=== PATIENT | male | born 1960 ===

== ENCOUNTER 2024-05-29 10:51 | Outpatient (OUT) | payer MEDICARE, MEDICAID, SELFPAY ==
--- NOTE | 2024-05-29 | XR_ITS ---
The [address] [address] Patient Name: VARINDER RIVERA MRN: [id number] date: 1960 Sex: M Assigned Patient Location: Current Patient Location: Accession/Order Number: [id number] Exam Date: 05/29/2024 10:53 Report Date: 06/02/2024 14:30 At the request of: MARQUEZ FUENTES Procedure: XR lumbar spine min 4V EXAMINATION: XR lumbar spine min 4V HISTORY: LUMBAR SPINE PAIN COMPARISON: CT lumbar spine 06/18/2017 FINDINGS: BONES: Moderate degenerative facet arthropathy L4-5, L5-S1 likely encroaching on the neural foramen. Mild height reduction of L5 vertebral body; degenerative endplate changes versus compression fracture. DISC SPACES: Moderate narrowing L5-S1. PARASPINOUS: Prior endovascular stenting of the right and left iliac arteries. OTHER: Negative. XR/XR lumbar spine min 4V IMPRESSION: 1. Degenerative changes of lower lumbar spine and possible mild compression fracture of L5. This could also represent sclerotic degenerative endplate changes. Consider MRI for further evaluation. Electronically authenticated by: MARIO ALBERTO BEASLEY Date: 06/02/2024 14:30
== END 2024-05-29 10:52 | disposition home or self-care (01) ==
LOC: EC 10:51
PROVIDERS: Visit Provider Orthopaedic Surgery Orthopaedic Surgery of the Spine
DX: M54.50 Low back pain, unspecified (principal); M51.369 Other intervertebral disc degeneration, lumbar region without mention of lumbar back pain or lower extremity pain
CPT/HCPCS: 72110

== ENCOUNTER 2024-07-03 10:39 | Outpatient (OUT) | payer MEDICARE, MEDICAID, SELFPAY ==
--- NOTE | 2024-07-03 | XR_ITS ---
[address] [address] Patient Name: VARINDER RIVERA MRN: [id number] date: 1960 Sex: M Assigned Patient Location: Current Patient Location: Accession/Order Number: [id number] Exam Date: 07/03/2024 10:40 Report Date: 07/04/2024 07:48 At the request of: MARQUEZ FUENTES Procedure: XR cervical spine w flex/ext EXAMINATION: XR cervical spine w flex/ext HISTORY: CERVICAL SPINE PAIN COMPARISON: No relevant comparison available. FINDINGS: BONES: Mild right convex curvature of cervical spine. No fracture, spondylolisthesis, or change in alignment during flexion and extension. Multilevel mild degenerative facet arthropathy. DISC SPACES: Moderate narrowing C5-C6, C6-C7. PARASPINOUS: Atherosclerotic disease of left carotid bulb. OTHER: Negative. XR/XR cervical spine w flex/ext IMPRESSION: 1. No acute bone abnormality. 2. Degenerative disc disease of lower cervical spine. 3. Moderate or possibly greater atherosclerotic disease of left carotid bulb. Consider further evaluation with ultrasound of carotid arteries bilaterally. Electronically authenticated by: MARIO ALBERTO BEASLEY Date: 07/04/2024 07:48
--- OUTSIDE RECORDS SUMMARY | 2024-07-03 10:48 | XMS_ITS | CCD ---
Author Organization [facility] ion Partnership [facility] Care Team Providers Care Cloth Mender Name Role Phone LYNNE GEE Unavailable Unavailabl e NESSA STRONG Unavailable Unavailabl e YENIFER VILLATORO (PA) Unavailable Unavailab CHAYO Plummer Unavailable Unavailable YENFIER VILLATORO (PA) Unavailable Unavailab SUKHJINDER Ramirez Unavailable Unavailable CANOS IV, DANIAL YESSICA Admitting Unavaila ble CANOS IV, DANIAL YESSICA Attending Unavaila ble CANOS IV, DANIAL YESSICA Admitting Unavaila ble CANOS IV, DANIAL YESSICA Attending Unavaila ble Zach Terry Unavailable Mary Alanis Unavailable [facility] Primary Care Provider Mast, DO Tad Attending Provider [phone] DO Félix Lyle Referring Provider [phone] DO Prem Encarnacion Attending Provider Luís DO Sikh Referring Provider KEVIN Russo Attending Provider [facility] Primary Care Provider KEVIN Russo Attending Provider Mast, DO Tad Attending Provider [phone] Solitariorie, DO Sikh Referring Provider [facility] Primary Care Provider MARY Moreno Attending Provider MD Katarina Lugo Attending Provider Sharda Reza Unavailable Mianor Paez Unavailable Angel Meléndez Unavailable [facility] Primary Care Provider MARY Moreno Attending Provider Ashia Sotomayor Unavailable MD Angel Meléndez Attending Provider ART Sotomayor-C Ashia Granger Attending Provider [facility] Primary Care Provider [phone] MD Angel Meléndez Attending Provider Champ Jhaveri Unavailable Negar Francois MD Primary Care Provider Geronimo Staley MD Primary Care Provider [phone] MD Marii Delatorre Attending Provider MD Negar Francois Primary Care Provider [phone] MARY Moreno Attending Provider HARIS STEWARD Referring Unavailable ALESSANDRO, MUHAMID Primary Care Unavailable MARCELINA STERLING Referring Unavailable ALESSANDRO, MUHAMID Primary Care Unavailable MARCELINA STERLING Referring Unavailable ALESSANDRO, MUHAMID Primary Care Unavailable MD Negar Francois Primary Care Provider MD Angel Meléndez Attending Provider [phone] MD Negar Francois Primary Care Provider [phone] MARY Moreno Attending Provider DAVID HAILE Attending Unavailable CARIE PETERSON Attending Unavailable CARIE PETERSON Attending Unavailable VU, FREDERIC-ADRI Referring Unavailable ALESSANDRO, MUHAMID M Primary Care Unavailable VU, [facility]EDER[facility]-ADRI Referring Unavailable ALESSANDRO, MUHAMID M Primary Care Unavailable LINDA REGALADO Referring Unavailable ALESSANDRO, MUHAMID M Primary Care Unavailable HAILE, DAVID M Referring Unavailable ALESSANDRO, MUHAMID M Primary Care Unavailable HAILEDAVID M Referring Unavailable ALESSANDRO, MUHAMID M Primary Care Unavailable ANGEL XAVIER Attending Unavailable CHAMP REED Referring Unavailable ALESSANDRO, MUHAMID M Primary Care Unavailable REINCHAMP TOURE Referring Unavailable ALESSANDRO, MUHAMID M Primary Care Unavailable JONATHONBRISA Attending Unavailable JONATHONBRISA Referring Unavailable ALESSANDRO, MUHAMID M Primary Care Unavailable MATT VILLANUEVA Admitting Unavailable MATT VILLANUEVA Attending Unavailable CHAMP REED Referring Unavailable ALESSANDRO, MUHAMID M Primary Care Unavailable BRISA YAN Attending Unavailable JONATHON, BRISA M Referring Unavailable ALESSANDRO, MUHAMID M Primary Care Unavailable ALESSANDRO, MUHAMID M Referring Unavailable ALESSANDRO, MUHAMID M Primary Care Unavailable Alessandro Negar CHACON [facility] Attending Unavailable ALESSANDRO, MUHAMID M Referring Unavailable ALESSANDRO, MUHAMID M Primary Care Unavailable ALESSANDRO, MUHAMID M Referring Unavailable ALESSANDRO, MUHAMID M Primary Care Unavailable SHARDA VALENTINO Attending Unavailable JAZMINE, [facility] Attending Unavailable ALESSANDRO, MUHAMID M Referring Unavailable ALESSANDRO, MUHAMID M Primary Care Unavailable LINDA REGALADO Attending Unavailable ALESSANDRO, MUHAMID M Referring Unavailable ALESSANDRO, MUHAMID M Primary Care Unavailable JAZMINE [facility] Attending Unavailable ALESSANDRO, MUHAMID M Referring Unavailable ALESSANDRO, MUHAMID M Primary Care Unavailable LINDA REGALADO Attending Unavailable ALESSANDRO, MUHAMID M Referring Unavailable ALESSANDRO, MUHAMID M Primary Care Unavailable ALESSANDRO, MUHAMID M Attending Unavailable ALESSANDRO, MUHAMID M Referring Unavailable ALESSANDRO, MUHAMID M Primary Care Unavailable SHAMAR XIAO Attending UnavailTAD Davis Referring Unavailable ALESSANDRO, MUHAMID M Primary Care Unavailable ALESSANDRO, MUHAMID M Referring Unavailable ALESSANDRO, MUHAMID M Primary Care Unavailable ALESSANDRO, MUHAMID M Attending Unavailable ALESSANDRO, MUHAMID M Referring Unavailable ALESSANDRO, MUHAMID M Primary Care Unavailable LINDA REGALADO Attending Unavailable ALESSANDRO, MUHAMID M Referring Unavailable ALESSANDRO, MUHAMID M Primary Care Unavailable TAMMY OLVERA Attending Unavailable ALESSANDRO, MUHAMID M Referring Unavailable ALESSANDRO, MUHAMID M Primary Care Unavailable ALESSANDRO, MUHAMID M Referring Unavailable ALESSANDRO, MUHAMID M Primary Care Unavailable ALESSANDRO, MUHAMID M Referring Unavailable ALESSANDRO, MUHAMID M Primary Care Unavailable ALESSANDRO, MUHAMID M Attending Unavailable ALESSANDRO, MUHAMID M Referring Unavailable ALESSANDRO, MUHAMID M Primary Care Unavailable ALESSANDRO, MUHAMID M Attending Unavailable ALESSANDRO, MUHAMID M Referring Unavailable ALESSANDRO, MUHAMID M Primary Care Unavailable ALESSANDRO, MUHAMID M Attending Unavailable ALESSANDRO, MUHAMID M Referring Unavailable ALESSANDRO, MUHAMID M Primary Care Unavailable REGALADO, LINDA Attending Unavailable ALESSANDRO, MUHAMID M Referring Unavailable ALESSANDRO, MUHAMID M Primary Care Unavailable CHAMP REED Attending Unavailable TAMMY OLVERA Referring Unavailable ALESSANDRO, MUHAMID M Primary Care Unavailable REGALADO, LINDA Attending Unavailable ALESSANDRO, MUHAMID M Referring Unavailable ALESSANDRO, MUHAMID M Primary Care Unavailable ZACH ALCANTAR Attending Unavailable ALESSANDRO, MUHAMID M Referring Unavailable ALESSANDRO, MUHAMID M Primary Care Unavailable BIRSA YAN Attending Unavailable ALESSANDRO, MUHAMID M Referring Unavailable ALESSANDRO, MUHAMID M Primary Care Unavailable REGALADO, LINDA Attending Unavailable ALESSANDRO, MUHAMID M Referring Unavailable REGALADO, LINDA Primary Care Unavailable Regalado [facility] Linda Primary Care Provider ZACH REGALADONDRA Referring Unavailable ALESSANDRO, MUHAMID M Primary Care Unavailable REGALADO, LINDA Referring Unavailable REGALADO, LINDA Primary Care Unavailable ALESSANDRO, MUHAMID M Referring Unavailable ALESSANDRO, MUHAMID M Primary Care Unavailable REGALADO, LINDA Referring Unavailable REGALADO, LINDA Primary Care Unavailable JR. SLATER GEORGE C Attending Unavaila blaine SLATER JR., GEORGE C Referring Unavaila MARII Cano Attending Unavailable FERNANDO MORENO Referring Unavailable JUAREZ THRASHER Attending Unavailable JR. SLATER GEORGE C Referring Unavaila MARII Cano Attending Unavailable JUAREZ THRASHER Attending Unavailable JR. SLATER GEORGE C Referring Unavaila ble BROWNFERNANDO Attending Unavailable STEPANIC, JR., CARA Adams Attending Unavaila ble MARII DELATORRE Attending Unavailable STEPANIC, JR., CARA Adams Referring Unavaila ble STEPANIC, JR., CARA Adams Attending Unavaila ble MARII DELATORRE Attending Unavailable STEPANIC, JR., CARA Adams Attending Unavaila ble BROWNFERNANDO Attending Unavailable FERNANDO MORENO Referring Unavailable SNOW CHUNG Attending Unavailab le BROWNFERNANDO Attending Unavailable GISELA BRUCE Attending Unavailable HARIS STEWARD Referring Unavailable FERNANDO MORENO Attending Unavailable STEPANIC, JR., CARA Adams Attending Unavaila ble STEPANIC, JR., CARA Adams Referring Unavaila ble SNOW CHUNG Attending Unavailab le BROWNFERNANDO Attending Unavailable STEPANIC, JR., CARA Adams Referring Unavaila ble BROWNFERNANDO Attending Unavailable STEPANIC, JR., CARA Adams Attending Unavaila ble SNOW CHUNG Attending Unavailab le FERNANDO MORENO Attending Unavailable BROWNFERNANDO Attending Unavailable BROWNSOSAS Darling Attending Unavailable SNOW CHUNG Attending Unavailab le BROWNFERNANDO Attending Unavailable STEPANIC, JR., CARA Adams Attending Unavaila ble BROWNFERNANDO Attending Unavailable BROWN FERNANDO Darling Attending Unavailable BROWN FERNANDO Darling Attending Unavailable BROWN FERNANDO Darling Attending Unavailable BROWNPANFERNANDO Darling Attending Unavailable HILLS, HARRY D Referring Unavailable HILLS, HARRY D Attending Unavailable HILLS, HARRY D Referring Unavailable BROWNFERNANDO Attending Unavailable Linda Regalado Primary Care Unavailable Angel Meléndez Admitting Unavailabl e Angel Meléndez Attending Unavailabl e Fernando Moreno Admitting Unavailable BrownSosas Darling Attending Unavailable Alessandro, Muhamid Primary Care Unavailable Pan Morenoolas Darling Admitting Unavailable BrownSosas Darling Attending Unavailable Alessandro, Muhamid Primary Care Unavailable Angel Meléndez Admitting Unavailabl e Angel Meléndez Attending Unavailabl e Alessandro, Muhamid Primary Care Unavailable Alessandro, Muhamid Primary Care Unavailable Marii Delatorre Admitting Unavailable Marii Delatorre Attending Unavailable Angel Meléndez Admitting UnavailAngel Zimmerman Attending Unavailabl e Alessandro, [facility] Unavailable Alessandro MD, [facility] Unavailable Erica Navarro Attending Unavailable Ramon Erica Admitting Unavailable Dolce, Johnny R Attending Unavailable Dolce, Johnny R Admitting Unavailable Alessandro , [facility] Unavailable Alessandro MD, [facility] Unavailable Zach Alcantar Attending Unavailable Zach Alcantar Admitting Unavailable Alessandro MD, [facility] Unavailable Marii Delatorre Admitting Unavailable Marii Delatorre Attending Unavailable Dolce, Johnny R Attending Unavailable Dolce, Johnny R Admitting Unavailable Alessandro MD, [facility] Unavailable Roxana Cabrales Attending Unavailable Roxana Cabrales Admitting Unavailable Alessandro MD, [facility] Unavailable Alessandro MD, [facility] Admitting Unavailable Alessandro MD, [facility] Unavailable Favoi, DIANA Chew Attending Unava ilable Favio, DIANA Adamson M Admitting Unava ilable Alessandro CHACON, [facility] Unavailable Tom Matias Attending Unavailable Tom Matias Admitting Unavailable Alessandro CHACON, [facility] Unavailable Erica Navarro Attending Unavailable Erica Navarro Admitting Unavailable Alessandro MD, [facility] Unavailable ROBERTO CARLOS RATLIFF MD Attending Unavailable ROBERTO CARLOS RATLIFF MD Admitting Unavailable Roxana Cabrales Attending Unavailable Roxana Cabrales Admitting Unavailable Alessandro MD, [facility] Unavailable Dolce, Johnny R Attending Unavailable Dolce, Johnny R Admitting Unavailable Alessandro MD, [facility] Unavailable Roxana Cabrales Attending Unavailable Roxana Cabrales Admitting Unavailable Alessandro CHACON, [facility] Unavailable Erica Navarro Admitting Unavailable Erica aNvarro Attending Unavailable Alessandro CHACON, [facility] Unavailable Alessandro MD, [facility] Unavailable Shamar Xiao Attending Unavailabl Shmaar Ramos Admitting Unavailabl e Alessandro CHACON, [facility] Unavailable Marii Delatorre Attending Unavailable Marii Delatorre Admitting Unavailable Alessandro CHACON, [facility] Primary Care Unavailable Tom Matias Admitting Unavailable Tom Matias Attending Unavailable Alessandro CHACON, [facility] Unavailable Fernando Moreno Attending Unavailable Fernando Moreno Admitting Unavailable Roxana Cabrales Admitting Unavailable Alesasndro CHACON, [facility] Care Unavailable Roxana Cabrales Attending Unavailable Alessandro CHACON, [facility] Care Unavailable CARA SLATER Attending Unavailable CARA SLATER Admitting Unavailable Carol Marin Attending Unavailable Alessandro CHACON, [facility] Primary Care Unavailable Carol Marin Admitting Unavailable [facility], [facility], [facility] Attending Unavailable [facility], [facility] Admitting Unavailable Alessandro MD, [facility] Unavailable Dolce, Johnny R Admitting Unavailable Dolce, Johnny R Attending Unavailable Alessandro MD, [facility] Care Unavailable [facility] MD, [facility] Attending Unavailable Alessandro MD, [facility] Admitting Unavailable Allergies Allergy Classification Reported Allergen(s) Allergy Type Date of Onset Reaction(s) Facility (1 source) No Known Medication Allergies; Translations: [No Known Medication Allergies] Propensity to adverse reactions to drug (disorder) [facility] Medications Current Medications Medication Drug Class(es) Dates Sig (Normalized) Sig (Original) acetaminophen 325 mg / HYDROcodone bitartrate 5 mg oral tablet (1 source) Opioid Agonist Start: 06-10-2024 End: 06-15-2024 HYDROcodone-aceta minophen (NORCO) 5-325 mg per tablet Indications: Fall, subsequent encounter , Closed displaced fracture of shaft of left clavicle, sequela Take 1 tablet by mouth every 8 (eight) hours as needed for pain for up to 5 days. Max Daily Amount: 3 tablets 15 tablet 06/10/2024 06/15/2024 Active acetaminophen 325 mg / oxyCODONE hydrochloride 10 mg oral tablet (11 sources) Opioid Agonist Start: 05-08-2024 End: 05-18-2024 take 1 tablet by mouth every six hours for pain oxyCODONE-acetami nophen (Percocet) 10-325 MG tablet Indications: Peroneal tendon tear, left, initial encounter Take 1 tablet by mouth every 6 (six) hours if needed for severe pain for up to 5 days 15 tablet 05/13/2024 05/18/2024 Active Start: 04-15-2024 End: 04-22-2024 take 1 tablet by mouth every six hours for pain oxyCODONE-acetaminophen (Percocet) 10-32 5 MG tablet Indications: Peroneal tendon tear, left, initial encounter Take 1 tablet by mouth every 6 (six) hours if needed for severe pain for up to 5 days 15 tablet 04/15/2024 04/22/2024 Discontinued Start: 03-18-2024 End: 03-23-2024 take 1 tablet by mouth every eight hours for pain oxyCODONE-acetaminophen (Percocet) 5-325 MG tablet Indications: Pain Take 1 tablet by mouth every 8 (eight) hours if needed for severe pain for up to 5 days 15 tablet 03/18/2024 03/23/2024 Active [id number] 200 actuat albuterol 0.09 mg/actuat metered dose inhaler (20 sources) beta2-Adrenergic Agonist Start: 12-16-2023 take 2 puff(s) by mouth every four hours as needed for wheezing albuterol (PROVENTIL HFA;VENTOLIN HFA) 90 mcg/actuation inhaler Indications: Chronic obstructive pulmonary disease, unspecified COPD type (CMS-HCC) INHALE 2 PUFFS BY MOUTH EVERY 4 HOURS NEEDED FOR WHEEZING OR SHORTNESS OF BREATH. 18 g 9 12/16/2023 Active Start: 07-04-2023 albuterol (PRO VENTIL,VENTOLIN) nebulizer solution 2.5 mg Start: 08-27-2022 take 1 puff(s) by in halation in the morning, then take 1 puff(s) by inhalation in the evening, then take 1 puff(s) by inhalation at bedtime albuterol HFA 90 mcg/act inhaler Inhale 1 puff in the morning and 1 puff in the evening and 1 puff before bedtime. 08/27/2022 Active Start: 08-27-2022 take 2 puff(s) by mo uth every four hours as needed for wheezing albuterol (PROVENTIL HFA;VENTOLIN HFA) 90 mcg/actuation inhaler Indications: Chronic obstructive pulmonary disease, unspecified COPD type (CMS-HCC) INHALE 2 PUFFS BY MOUTH EVERY 4 HOURS NEEDED FOR WHEEZING OR SHORTNESS OF BREATH. 18 g 10 08/27/2022 Active Start: 12-31-2017 take 2.5 mg by inhal ation three times daily Albuterol Sulfate Active 2.5 MG INHALATION Three times daily December 31, 2017 12:00am Start: 12-31-2017 End: 08-15-2020 take 1 puff(s) by inhalation every six hours Albuterol Sulfate Discontinued 2 PUFF INHALATION Q6H December 31, 2017 12:00am August 15, 2020 10:31am Albuterol Sulfat e (2.5 MG/3ML) 0.083% 3 ml Inhalation Three times a day Active albuterol 0.833 mg/ml / ipratropium bromide 0.167 mg/ml inhalation solution (20 sources) Anticholinergic, beta2-Adrenergic Agonist ipratropium-albutero l (Duo-Neb) 0.5-2.5 mg/3 mL nebulizer solution Take 3 mL by nebulization in the morning and 3 mL in the evening and 3 mL before bedtime. Active Albuterol Sulfate 108 (90 Base) MCG/ACT (20 sources) take 2 puff(s) by inhalation every six hours as needed Albuterol Sulfate 108 (90 Base) MCG/ACT 2 puffs as needed Inhalation every 6 hrs Active amantadine hydrochloride 100 mg oral capsule (20 sources) Influenza A M2 Protein Inhibitor Start : 10-22 take 1 capsule by mouth in the morning amantadine (Symmetrel) 100 MG capsule Take 100 mg by mouth in the morning and at noon 10/23/2023 Active Start: 10-17-2023 take 1 tablet by tania th once daily in the morning amantadine (Symmetrel) 100 MG tablet Indications: Fatigue, unspecified type Take 1 tablet (100 mg) by mouth Daily for 7 days, THEN 1 tablet (100 mg) in the morning and at noon. 187 tablet 10/17/2023 Active amitriptyline hydrochloride 25 mg oral tablet (14 sources) Tricyclic Antidepressant Start: 04-30-2024 take 1 tablet by mouth once daily amitriptyline (ELAVIL) 25 mg tablet Take 1 tablet (25 mg total) by mouth nightly. 30 tablet 2 04/30/2024 Active ampicillin 500 mg oral capsule (5 sources) Penicillin-class Antibacterial Start: 06-15-2024 ampicillin (Principen) 500 MG capsule 06/15/2024 Active ANORO ELLIPTA 62.5 mcg/25 mcg (3 sources) take 1 puff(s) by inhalation once daily ANORO ELLIPTA 62.5 mcg/25 mcg 1 PUFF INHALATION DAILY Active Aspir-81 81 MG (20 sources) take 1 tablet by mouth once daily Aspir-81 81 MG 1 tablet Orally Once a day for 90 days Active aspirin 81 mg delayed release oral tablet (20 sources) Platelet Aggregation Inhibitor, Nonsteroidal Anti-inflammatory Drug Start: 12-31-2017 End: 04-30-2024 take 1 tablet by mouth in the morning aspirin 81 mg Take 1 tablet (81 mg total) by mouth in the morning. 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 360 tablet 3 09/15/2021 07/19/2023 Discontinued Start: 12-31-2017 take 1 tablet by tania th in the morning, then take 1 tablet by mouth at bedtime carvediloL (COREG) 6.25 mg tablet Take 1 tablet (6.25 mg total) by mouth in the morning and 1 tablet (6.25 mg total) before bedtime. 180 tablet 3 07/19/2023 Active Carvedilol Activ e celecoxib 100 mg oral capsule (20 sources) Nonsteroidal Anti-inflammatory Drug Start: 07-02-2023 take 1 capsule by mouth in the morning celecoxib (CeleBREX) 100 MG capsule Take 100 mg by mouth in the morning and 100 mg in the evening. 07/02/2023 Active cephalexin 500 mg oral capsule (10 sources) Cephalosporin Antibacterial Start: 05-13-2024 End: 05-23-2024 take 1 capsule by mouth in the morning, then take 1 capsule by mouth in the evening, then take 1 capsule by mouth at bedtime, then take 1 capsule by mouth three times daily cephalexin (Keflex) 500 MG capsule Indications: Peroneal tendon tear, left, initial encounter Take 1 capsule (500 mg) by mouth in the morning and 1 capsule (500 mg) in the evening and 1 capsule (500 mg) before bedtime. Do all this for 10 days. Take one tablet by mouth three times daily. 30 capsule 05/13/2024 05/23/2024 Active Start: 04-15-2024 End: 04-25-2024 take 1 capsule by mouth in the morning, then take 1 capsule by mouth in the evening, then take 1 capsule by mouth at bedtime, then take 1 capsule by mouth three times daily cephalexin (Keflex) 500 MG capsule Indications: Peroneal tendon tear, left, initial encounter Take 1 capsule (500 mg) by mouth in the morning and 1 capsule (500 mg) in the evening and 1 capsule (500 mg) before bedtime. Do all this for 10 days. Take one tablet by mouth three times daily. 30 capsule 04/15/2024 04/25/2024 Active collagenase 0.25 unt/mg topical ointment (11 sources) Collagen-specific Enzyme Start: 05-13-2024 End: 06-16-2024 collagenase (Santyl) 250 UNIT/GM ointment Indications: Peroneal tendon tear, left, initial encounter Apply topically Daily 30 g 1 05/13/2024 06/16/2024 Active cyclobenzaprine hydrochloride 10 mg oral tablet (15 sources) Muscle Relaxant Start: 06-16-2024 End: 06-30-2024 take 1 tablet by mouth three times daily as needed for muscle spasms cyclobenzaprine (Flexeril) 10 MG tablet Indications: Traumatic closed fracture of distal clavicle with minimal displacement, left, initial encounter Take 1 tablet (10 mg) by mouth 3 (three) times a day as needed for muscle spasms (No Driving while taking medication) for up to 14 days 42 tablet 06/16/2024 06/30/2024 Active Start: 03-01-2024 End: 06-16-2024 take 1 tablet by mouth once daily as needed for muscle spasms cyclobenzaprine (Flexeril) 10 MG tablet TAKE 1 TABLET BY MOUTH EVERY NIGHT NEEDED FOR MUSCLE SPASMS 03/04/2024 06/16/2024 Discontinued (Therapy completed) take 1 tablet by tania th once daily cyclobenzaprine (FLEXERIL) 10 mg tablet Take 1 tablet (10 mg total) by mouth nightly. 0 Active cyproheptadine hydrochloride 4 mg oral tablet (20 sources) Start: 04-29-2023 End: 12-10-2024 take 1 tablet by mouth at bedtime cyproheptadine (Periactin) 4 MG tablet Indications: History of stroke , Bilateral tinnitus , Allergy, sequela Take 1 tablet (4 mg) by mouth at bedtime 90 tablet 3 12/11/2023 12/10/2024 Active dexamethasone 2 mg oral tablet (15 sources) Corticosteroid Start: 06-03-2024 End: 06-13-2024 dexAMETHasone (Decadron) 2 MG tablet Indications: Polyradiculopathy , Degeneration of intervertebral disc of lumbar region with lower extremity pain 2mg 3 pills po X3 days,2 pills po daily X3 days , then 1 pill po daily X3 days then stop 9 days 18 pills 18 tablet 06/03/2024 Active take 1 tablet by tania th three times daily dexAMETHasone (DECADRON) 2 mg tablet Yifan e 1 tablet (2 mg total) by mouth 3 (three) times a day. 0 Active fexofenadine hydrochloride 180 mg oral tablet (15 sources) Histamine-1 Receptor Antagonist Start: 12-04-2023 take 1 tablet by mouth in the morning fexofenadine (Veronica) 180 MG tablet Take 180 mg by mouth in the morning. 12/04/2023 Active fluticasone propionate 0.05 mg/actuat metered dose nasal spray (15 sources) Corticosteroid Start: 11-01-2023 take 1 spray(s) nasal route in the morning fluticasone propionate (FLONASE) 50 mcg/actuation nasal spray Administer 1 spray into each nostril in the morning. 16 mL 11/01/2023 Active Start: 07-10-2023 End: 07-19-2023 take 2 spray(s) nasal route in the morning fluticasone propionate (FLONASE) 50 mcg/actuation nasal spray Indications: Post-nasal drainage Administer 2 sprays into each nostril in the morning. 16 g 11 07/10/2023 07/19/2023 Discontinued 30 actuat fluticasone furoate 0.1 mg/actuat / umeclidinium 0.0625 mg/actuat / vilanterol 0.025 mg/actuat dry powder inhaler (20 sources) Anticholinergic, Corticosteroid, beta2-Adrenergic Agonist Start: 04-15-2023 End: 06-01-2024 take 1 puff(s) by mouth once daily in the morning cmnajosqibo-tbqwqafgf-bieecsiv (TRELEGY ELLIPTA) 100-62.5-25 mcg blister with device Indications: COPD, mild ([facility]) , Dyspnea on exertion INHALE 1 PUFF BY MOUTH ONCE DAILY IN THE MORNING 60 each 11 06/01/2024 Active Start: 04-09-2023 Fluticasone-Um eclidin-Vilanter (Trelegy Ellipta) 100-62.5-25 mcg blister with device Active 1 INH INHALATION Daily April 09, 2023 12:00am Start: 01-28-2023 Trelegy Ellipt a 100-62.5-25 MCG/ACT aerosol powder 01/28/2023 Active furosemide 40 mg oral tablet (5 sources) Loop Diuretic Start: 09-05-2023 End: 09-19-2023 take 1 tablet by mouth once daily furosemide (LASIX) 40 mg tablet Take 1 tablet (40 mg total) by mouth daily for 14 days. 14 tablet 0 09/05/2023 09/19/2023 Active Start: 08-20-2023 End: 08-27-2023 take 1 tablet by mouth in the morning furosemide (Lasix) 20 MG tablet Take 20 mg by mouth in the morning. 0 08/20/2023 08/27/2023 Active gabapentin 600 mg oral tablet (10 sources) Anti-epileptic Agent Start: 02-21-2024 take 1 tablet by mouth three times daily gabapentin (NEURONTIN) 600 mg tablet Indications: Cervical radiculopathy Take 1 tablet (600 mg total) by mouth 3 (three) times a day. 90 tablet 2 02/21/2024 Active gentamicin 0.001 mg/mg topical ointment (5 sources) Start: 06-10-2024 gentamicin (Garamycin) 0.1 % ointment See Instructions, Instructions: 1 rukhsana Topical to the left ankle wound every other day, # 30 gm, 1 Refill(s), Pharmacy: [facility], 1 rukhsana Topical to the left ankle wound every other day, 177.8, cm, 06/07/24 12:21:00 EST, Height, 91.63, kg, 06/07/24 12:24:00 EST, Weight Dosing 06/10/2024 Active hydrOXYzine hydrochloride 10 mg oral tablet (6 sources) Antihistamine Start: 04-24-2023 End: 04-23-2024 take 1 tablet by mouth every eight hours as needed for anxiety and anxiety hydrOXYzine HCl (Atarax) 10 MG tablet Indications: Anxiety Take 1 tablet (10 mg) by mouth every 8 (eight) hours if needed for itching. 270 tablet 3 04/24/2023 04/23/2024 Active lisinopril 20 mg oral tablet (20 sources) Angiotensin Converting Enzyme Inhibitor Start: 07-10-2021 take 1 tablet by mouth in the morning lisinopriL (PRINIVIL,ZESTRIL) 20 mg tablet Take 1 tablet (20 mg total) by mouth in the morning. 0 07/10/2021 Active methocarbamol 750 mg oral tablet (11 sources) Muscle Relaxant Start: 04-30-2024 End: 06-16-2024 take 1 tablet by mouth three times daily as needed for muscle spasms methocarbamoL (ROBAXIN) 750 mg tablet Indications: Cervical spondylosis without myelopathy , Chronic left-sided low back pain with left-sided sciatica Take 1 tablet (750 mg total) by mouth 3 (three) times a day as needed for muscle spasms. 90 tablet 04/30/2024 Active montelukast 10 mg oral tablet (20 sources) Leukotriene Receptor Antagonist Start: 12-11-2023 End: 12-10-2024 take 1 tablet by mouth at bedtime montelukast (Singulair) 10 MG tablet Indications: Allergy, sequela Take 1 tablet (10 mg) by mouth at bedtime 90 tablet 3 12/11/2023 06/16/2024 Discontinued (Therapy completed) nitroglycerin 0.4 mg sublingual tablet (20 sources) Nitrate Vasodilator Start: 12-31-2017 nitroglycerin (Nitrostat) 0.[address] 0.4 mg under the tongue every 5 (five) minutes if needed. 12/20/2022 Active Nitroglycerin 0. 4 MG Sublingual Active omeprazole 40 mg delayed release oral capsule (15 sources) Proton Pump Inhibitor Start: 03-12-2024 take 1 capsule by mouth in the morning omeprazole (PriLOSEC) 40 mg capsule Indications: Chronic cough , Gastroesophageal reflux disease, unspecified whether esophagitis present Take 1 capsule (40 mg total) by mouth in the morning. 30 capsule 6 03/12/2024 Active OXcarbazepine 150 mg oral tablet (20 sources) Anti-epileptic Agent Start: 06-24-2024 End: 06-24-2025 take 1 tablet by mouth once OXcarbazepine (Trileptal) 150 MG tablet Indications: Lumbar radiculopathy Take 1 tablet (150 mg) by mouth every 12 (twelve) hours 180 tablet 3 06/24/2024 06/24/2025 Active Start: 03-02-2024 End: 06-24-2024 take 1 tablet by mouth every twelve hours OXcarbazepine (Trileptal) 150 MG tablet Indications: Lumbar radiculopathy TAKE 1 TABLET BY MOUTH EVERY 12 HOURS 60 tablet 3 03/02/2024 06/24/2024 Discontinued Start: 02-21-2023 take 1 tablet by mouth once OX carbazepine (Trileptal) 150 MG tablet Indications: Pulsatile tinnitus Take 1 tablet (150 mg) by mouth every 12 (twelve) hours. 60 tablet 3 02/21/2023 Active predniSONE 20 mg oral tablet (2 sources) Start: 08-07-2023 End: 08-17-2023 predniSONE (Deltasone) 20 MG tablet Indications: Foot drop, right 3 pills po daily X3 days, then 2 pills po daily X3 days , then 1 pill po daily X3 days then stop 9 days ,18 pills 18 tablet 0 08/07/2023 08/17/2023 Active rivaroxaban 20 mg oral tablet (20 sources) Factor Xa Inhibitor Start: 10-29-2022 take 1 tablet by mouth at mealtime Xarelto 20 MG tablet Take 20 mg by mouth in the evening. Take with meals. 10/29/2022 Active Start: 12-23-2020 take 1 tablet by tania th once daily Rivaroxaban (Xarelto Dvt-Pe Treat 30d Start) 15 mg (42)- 20 mg (9) Tablets,Dose Pack Active 1 TAB PO Daily December 23, 2020 12:00am See instructions. Start: 12-23-2020 Rivaroxaban (X arelto Dvt-Pe Treat 30d Start) 15 mg (42)- 20 mg (9) Tablets,Dose Pack Active 1 TAB PO December 22, 2020 11:00pm See instructions. Start: 12-23-2020 Rivaroxaban (X arelto Dvt-Pe Treat 30d Start) 15 mg (42)- 20 mg (9) Tablets,Dose Pack Active 1 TAB PO December 23, 2020 12:00am See instructions. Xarelto 20 Activ e take 1 tablet by tania th every twenty-four hours Xarelto 20 MG 1 tablet with food Orally Once a day Active rosuvastatin calcium 40 mg oral tablet (20 sources) HMG-CoA Reductase Inhibitor Start: 05-30-2023 take 1 tablet by mouth in the morning rosuvastatin (Crestor) 40 MG tablet Take 40 mg by mouth in the morning. 05/30/2023 Active Rosuvastatin Jag cium Active tiZANidine 4 mg oral tablet (6 sources) Central alpha-2 Adrenergic Agonist Start: 08-07-2023 End: 09-06-2023 take 1 tablet by mouth at bedtime tiZANidine (Zanaflex) 4 MG tablet Indications: Foot drop, right Take 1 tablet (4 mg) by mouth at bedtime 30 tablet 3 08/07/2023 09/06/2023 Active topiramate 25 mg oral tablet (20 sources) Start: 03-25-2024 End: 05-01-2024 take 1 tablet by mouth at bedtime, then take 1 tablet by mouth twice daily topiramate (Topamax) 25 MG tablet Indications: C6 radiculopathy , Tremor , Lumbar radiculopathy Take 1 tablet (25 mg) by mouth at bedtime for 7 days, THEN 1 tablet (25 mg) 2 (two) times a day. 67 tablet 2 03/25/2024 Active 7 actuat umeclidinium 0.0625 mg/actuat / vilanterol 0.025 mg/actuat dry powder inhaler (11 sources) Anticholinergic, beta2-Adrenergic Agonist take 1 puff(s) by inhalation once daily Anoro Ellipta 62.5-25 MCG/ACT 1 puff Inhalation Once a day Active verapamil hydrochloride 180 mg extended release oral tablet (20 sources) Calcium Channel Esther Start: 01-20-2024 End: 05-18-2024 take 1 tablet by mouth at bedtime verapamil SR (Calan SR) 180 MG ER tablet Take 180 mg by mouth at bedtime 01/20/2024 Active Start: 09-09-2023 take 1 tablet by tania once daily verapamil SR (CALAN-SR) 180 mg CR tablet TAKE 1 TABLET BY MOUTH ONCE DAILY FOR 30 DAYS 30 tablet 0 09/09/2023 Active Start: 11-29-2022 verapamil SR ( CALAN-SR) 180 mg CR tablet 1 tablet (180 mg total) in the morning. 0 11/29/2022 Active take 1 capsule by mo [facility] every twenty-four hours at bedtime verapamil ER (Verelan) 180 MG 24 hr capsule Take 180 mg by mouth at bedtime Do not crush or chew. Active Verapamil HCl Ac tive vitamin b12 1 mg/ml injectable solution (20 sources) Vitamin B12 Start: 12-24-2023 inject 1 mL by intramuscular injection every month cyanocobalamin (VITAMIN B-12) 1,000 mcg/mL injection INJECT 1 MILLILITER INTRAMUSCULARLY ONCE A MONTH 1 mL 10 12/24/2023 Active Start: 12-18-2022 cyanocobalamin (Vitamin B-12) 1000 MCG/ML injection Inject 1,000 mcg into the shoulder, thigh, or buttocks every 30 (thirty) days. 12/18/2022 Active Cyanocobalamin 1 000 MCG capsule as directed Orally Active Vitamin B 12 Act lina Completed/Discontinued Medications Medication Drug Class(es) Dates Sig (Normalized) Sig (Original) atorvastatin 40 mg oral tablet (20 sources) HMG-CoA Reductase Inhibitor Start: 12-31-2017 End: 12-23-2020 take 40 mg by mouth once daily in the evening Atorvastatin Discontinued 40 MG PO Every evening 90 180 August 15, 2020 1:00am December 23, 2020 7:50am B-12 - up to 1000 mcg (20 sources) Start: 03-21-2017 B-12 - up to 1000 mcg Mar, Budesonide-Formoter ol (15 sources) Corticosteroid, beta2-Adrenergic Agonist Start: 12-31-2017 End: 04-09-2023 take 1 puff(s) by inhalation twice daily Budesonide-Formoter ol (Symbicort) 80-4.5 mcg/actuation Hfa Aerosol Inhaler Discontinued 2 PUFF INHALATION Twice daily December 31, 2017 12:00am April 09, 2023 1:59pm Start: 12-31-2017 take 1 puff(s) by in halation twice daily Budesonide-Formoterol (Symbicort) 80-4.5 mcg/actuation Hfa Aerosol Inhaler Active 2 PUFF INHALATION Twice daily December 30, 2017 11:00pm Start: 12-31-2017 take 1 puff(s) by in halation twice daily Budesonide-Formoterol (Symbicort) 80-4.5 mcg/actuation Hfa Aerosol Inhaler Active 2 PUFF INHALATION Twice daily December 31, 2017 12:00am clopidogrel 75 mg oral tablet (15 sources) P2Y12 Platelet Inhibitor Start: 12-31-2017 End: 12-23-2020 take 1 tablet by mouth once daily Clopidogrel (Plavix) 75 mg Tablet Discontinued 75 MG PO Daily December 31, 2017 12:00am December 23, 2020 7:51am DULoxetine 60 mg delayed release oral capsule (15 sources) Serotonin and Norepinephrine Reuptake Inhibitor Start: 12-31-2017 End: 08-15-2020 take 1 capsule by mouth twice daily Duloxetine (Cymbalta) 60 mg Capsule,Delayed Release(Dr/Ec) Discontinued 60 MG PO Twice daily December 31, 2017 12:00am August 15, 2020 10:32am finasteride 5 mg oral tablet (20 sources) 5-alpha Reductase Inhibitor Start: 12-31-2017 End: 08-15-2020 take 5 mg by mouth once daily Finasteride Discontinued 5 MG PO Daily December 31, 2017 12:00am August 15, 2020 10:32am folic acid 1 mg oral tablet (15 sources) Start: 12-31-2017 End: 08-15-2020 take 1 mg by mouth once daily Folic Acid Discontinued 1 MG PO Daily December 31, 2017 12:00am August 15, 2020 10:32am hydrocortisone 25 mg/ml topical cream (15 sources) Corticosteroid Start: 12-31-2017 End: 08-15-2020 Hydrocortisone Discontinued 1 APPLIC TOPICAL Twice daily December 31, 2017 12:00am August 15, 2020 10:32am ipratropium bromide 0.2 mg/ml inhalation solution (15 sources) Anticholinergic Start: 12-31-2017 End: 08-15-2020 take 0.5 mg by inhalation every four hours Ipratropium [place] Discontinued 0.5 MG INHALATION Q4H December 31, 2017 12:00am August 15, 2020 10:32am ketoconazole 20 mg/ml topical cream (20 sources) Azole Antifungal Start: 01-13-2018 End: 08-15-2020 Ketoconazole Discontinued 1 APPLIC TOPICAL Daily January 13, 2018 12:00am August 15, 2020 10:33am Start: 02-07-2017 Ketoconazole 2 % 1 application to affected area Externally Once a day for 30 days Jan, Not-Taking lidocaine 0.05 mg/mg topical ointment (20 sources) Antiarrhythmic, Amide Local Anesthetic Start: 12-31-2017 End: 08-15-2020 Lidocaine Discontinued 1 APPLIC TOPICAL Three times daily December 31, 2017 12:00am August 15, 2020 10:33am Lidocaine 5 % AP PLY TO AFFECTED AREA THREE TIMES DAILY Not-Taking naproxen sodium 220 mg oral tablet (15 sources) Nonsteroidal Anti-inflammatory Drug Start: 01-13-2018 End: 08-15-2020 Naproxen Sodium (Aleve) 220 mg Tablet Discontinued 220 MG PO EVERY 8-12 HOURS January 13, 2018 12:00am August 15, 2020 10:33am Plecanatide (Trulance) 3 mg Tablet (15 sources) Start: 12-31-2017 End: 08-15-2020 take 1 tablet by mouth once daily Plecanatide (Trulance) 3 mg Tablet Discontinued 3 MG PO Daily December 30, 2017 11:00pm August 15, 2020 9:33am Start: 12-31-2017 End: 08-15-2020 take 1 tablet by mouth once daily Plecanatide (Trulance) 3 mg Tablet Discontinued 3 MG PO Daily December 31, 2017 12:00am August 15, 2020 10:33am pregabalin 75 mg oral capsule (5 sources) End: 07-19-2023 take 1 capsule by mouth in the morning, then take 1 capsule by mouth at bedtime pregabalin (LYRICA) 75 mg capsule Take 1 capsule (75 mg total) by mouth in the morning and 1 capsule (75 mg total) before bedtime. 0 07/19/2023 Discontinued sertraline 100 mg oral tablet (15 sources) Serotonin Reuptake Inhibitor Start: 12-31-2017 End: 08-15-2020 take 1 tablet by mouth once daily Sertraline (Zoloft) 100 mg Tablet Discontinued 100 MG PO Daily December 31, 2017 12:00am August 15, 2020 10:33am tamsulosin hydrochloride 0.4 mg oral capsule (20 sources) alpha-Adrenergic Esther Start: 12-31-2017 End: 08-15-2020 take 0.8 mg by mouth once daily Tamsulosin Discontinued 0.8 MG PO Daily December 31, 2017 12:00am August 15, 2020 10:33am take 2 capsules by m outh every twenty-four hours Tamsulosin HCl 0.4 MG 2 capsule Orally Once a day for 90 days Not-Taking take 1 capsule by mo uth every twenty-four hours Flomax 0.4 MG 1 capsule Orally Once a da y Active traMADol hydrochloride 50 mg oral tablet (20 sources) Opioid Agonist Start: 12-31-2017 End: 08-15-2020 take 1 tablet by mouth every six hours Tramadol (Ultram) 50 mg Tablet Discontinued 50 MG PO Q6H January 13, 2018 12:00am January 13, 2018 3:29pm traZODone (17 sources) Serotonin Reuptake Inhibitor traZODone HCl Not-Taking Problems Active Problems Problem Classification Problem Date Documented Da te Episodic/Chronic Acute cerebrovascular disease (20 sources) Cerebral infarction, unspecified; Translations: [Cerebral infarction] Onset: 6 Resolved: 3 03-07-2017 Chronic Administrative/social admission (7 sources) Patient encounter status; Translations: [Other specified counseling] Onset: 4 07-16-2023 Episodic Anxiety disorders (20 sources) Anxiety; Translations: [Anxiety disorder, unspecified] Onset: 3 05-02-2023 Chronic Chronic obstructive pulmonary disease and bronchiectasis (20 sources) Chronic obstructive pulmonary disease, unspecified; Translations: [Pulmonary emphysema] Onset: 6 Resolved: 4 07-16-2023 Chronic Chronic ulcer of skin (6 sources) Non-pressure chronic ulcer of other part of left foot with fat layer exposed; Translations: [Ulcer of other part of foot] 05-13-2024 Chronic Congestive heart failure; nonhypertensive (20 sources) Acute on chronic systolic heart failure; Translations: [Acute on chronic systolic (congestive) heart failure] Onset: 4 09-05-2023 Chronic Coronary atherosclerosis and other heart disease (20 sources) Coronary arteriosclerosis in [place] artery; Translations: [Atherosclerotic heart disease of [place] coronary artery without angina pectoris] Onset: 6 Resolved: 2 09-14-2021 Chronic Diabetes mellitus without complication (14 sources) Type 2 diabetes mellitus without complication; Translations: [Type 2 diabetes mellitus without complications] 04-10-2024 Chronic Disorders of lipid metabolism (20 sources) Mixed hyperlipidemia; Translations: [Mixed hyperlipidemia] Onset: 7 09-14-2021 Chronic E Codes: Fall (1 source) Fall; Translations: [Unspecified fall, subsequent encounter] 06-10-2024 Episodic Esophageal disorders (2 sources) Gastro-esophageal reflux disease without esophagitis; Translations: [Gastro-esophageal reflux disease without esophagitis] Onset: 4 Chronic Fracture of upper limb (4 sources) Closed fracture of clavicle; Translations: [Fracture of unspecified part of left clavicle, initial encounter for closed fracture] 06-10-2024 Episodic Gastrointestinal hemorrhage (20 sources) Hematochezia; Translations: [Melena] Episodic Headache; including migraine (20 sources) Intractable chronic tension headache; Translations: [Chronic tension-type headache, intractable] Onset: 3 Resolved: 3 04-24-2023 Chronic Immunizations and screening for infectious disease (5 sources) Encounter for screening for other viral diseases; Translations: [Encounter for immunization] Onset: 4 04-30-2024 Episodic Late effects of cerebrovascular disease (20 sources) Spastic hemiplegia of left nondominant side; Translations: [Hemiplegia and hemiparesis following cerebral infarction affecting left non-dominant side] Onset: 3 01-03-2023 Chronic Malaise and fatigue (3 sources) Chronic fatigue, unspecified; Translations: [Fatigue] Onset: 4 04-30-2024 Chronic Mood disorders (20 sources) Bipolar disorder, most recent episode depression; Translations: [Bipolar disorder, unspecified] Onset: 3 Resolved: 3 02-20-2023 Chronic Nutritional deficiencies (3 sources) Vitamin D deficiency, unspecified; Translations: [Vitamin D deficiency] Onset: 4 04-30-2024 Chronic Occlusion or stenosis of precerebral arteries (20 sources) Occlusion and stenosis of multiple and bilateral cerebral arteries; Translations: [Occlusion and stenosis of bilateral carotid arteries] Chronic Other acquired deformities (4 sources) Contracture of joint of left ankle; Translations: [Contracture, left ankle] 04-26-2024 Chronic Other bone disease and musculoskeletal deformities (1 source) Osteochondritis dissecans, 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; Translations: [Osteochondritis dissecans, 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] Onset: 4 Chronic Other bone disease and musculoskeletal deformities (2 sources) Clavicle pain; Translations: [Other specified disorders of bone, shoulder] 06-16-2024 Episodic Other connective tissue disease (1 source) Polymyalgia rheumatica; Translations: [Polymyalgia rheumatica] 08-09-2023 Chronic Other connective tissue disease (2 sources) Polymyalgia rheumatica; Translations: [Polymyalgia rheumatica] Onset: 4 Chronic Other connective tissue disease (1 source) Bilateral hand weakness; Translations: [Other symptoms and signs involving the musculoskeletal system] 08-09-2023 Episodic Other connective tissue disease (10 sources) Pain of toe of right foot; Translations: [Pain in right toe(s)] 04-10-2024 Episodic Other ear and sense organ disorders (1 source) Sensorineural hearing loss, bilateral; Translations: [Sensorineural hearing loss, bilateral] 10-02-2023 Chronic Other ear and sense organ disorders (1 source) Bilateral hearing loss; Translations: [Sensorineural hearing loss, unilateral, right ear, with restricted hearing on the contralateral side] 10-02-2023 Chronic Other ear and sense organ disorders (1 source) Asymmetrical hearing loss; Translations: [Other specified hearing loss, bilateral] 10-02-2023 Chronic Other ear and sense organ disorders (2 sources) Other specified hearing loss, bilateral; Translations: [Other specified hearing loss, bilateral] Onset: 4 Chronic Other ear and sense organ disorders (2 sources) Sensorineural hearing loss, unilateral, right ear, with restricted hearing on the contralateral side; Translations: [Sensorineural hearing loss, unilateral, right ear, with restricted hearing on the contralateral side] Onset: 4 Chronic Other ear and sense organ disorders (2 sources) Tinnitus of right ear; Translations: [Tinnitus, right ear] 10-02-2023 Episodic Other ear and sense organ disorders (1 source) Ear sensations - finding; Translations: [Other specified disorders of right ear] 10-02-2023 Episodic Other endocrine disorders (20 sources) Secondary hyperaldosteronism; 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] Onset: 4 02-06-2024 Chronic Other eye disorders (1 source) Ptosis of eyelid; Translations: [Unspecified ptosis of bilateral eyelids] 07-16-2023 Episodic Other gastrointestinal disorders (20 sources) Constipation; Translations: [Constipation, unspecified] Episodic Other gastrointestinal disorders (20 sources) Constipation alternates with diarrhea; Translations: [Other specified symptoms and signs involving the digestive system and abdomen] Episodic Other gastrointestinal disorders (20 sources) Flatulence; Translations: [Gas] Episodic Other hereditary and degenerative nervous system conditions (20 sources) Mild cognitive impairment, so stated; Translations: [Mild cognitive impairment, so stated] Onset: 3 01-03-2023 Chronic Other nervous system disorders (20 sources) Neuropathy; Translations: [Polyneuropathy, unspecified] Chronic Other nervous system disorders (20 sources) Chronic pain; Translations: [Other chronic pain] Onset: 3 05-22-2023 Chronic Other nervous system disorders (20 sources) Bilateral carpal tunnel syndrome; Translations: [Carpal tunnel syndrome, bilateral upper limbs] Onset: 3 03-06-2023 Chronic Other nervous system disorders (20 sources) Polyneuropathy; Translations: [Polyneuropathy, unspecified] Onset: 7 03-06-2023 Chronic Other nervous system disorders (20 sources) Disturbance of attention; Translations: [Attention and concentration deficit] Onset: 3 04-24-2023 Chronic Other nervous system disorders (20 sources) Brachial plexus disorder; Translations: [Brachial plexus disorders] Onset: 4 08-08-2023 Chronic Other nervous system disorders (3 sources) Other chronic pain; Translations: [Other chronic pain] Onset: 4 Chronic Other nervous system disorders (2 sources) Polyneuropathy, unspecified; Translations: [Polyneuropathy, unspecified] Onset: 4 Chronic Other non-traumatic joint disorders (1 source) Acute ankle pain; Translations: [Pain in 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] 08-09-2023 Episodic Other non-traumatic joint disorders (2 sources) Pain in left hip; Translations: [Pain in left hip] Onset: 4 Episodic Other nutritional; endocrine; and metabolic disorders (19 sources) Body mass index 30+ - obesity; Translations: [Body mass index (BMI) 30.0-30.9, adult] Chronic Other nutritional; endocrine; and metabolic disorders (3 sources) Body mass index (BMI) 30.0-30.9, adult; Translations: [Body mass index (BMI) 30.0-30.9, adult] Onset: 4 Chronic Other nutritional; endocrine; and metabolic disorders (20 sources) Body mass index 25-29 - overweight; Translations: [Body mass index (BMI) 25.0-25.9, adult] Episodic Other skin disorders (10 sources) Ingrowing nail; Translations: [Ingrowing nail] 04-10-2024 Episodic Other upper respiratory disease (20 sources) Seasonal allergic rhinitis; Translations: [Other allergic rhinitis] Chronic Paralysis (20 sources) Left hemiparesis; Translations: [Spastic hemiplegia affecting left nondominant side] Onset: 3 05-22-2023 Chronic Peripheral and visceral atherosclerosis (20 sources) Peripheral vascular disease, unspecified; Translations: [Peripheral vascular disease] Onset: 6 Resolved: 3 Chronic Residual codes; unclassified (1 source) Hypersomnia, unspecified; Translations: [Hypersomnia, unspecified] Onset: 4 Chronic Residual codes; unclassified (1 source) Sleep apnea, unspecified; Translations: [Sleep apnea, unspecified] Onset: 4 Chronic Residual codes; unclassified (2 sources) Edema of foot; Translations: [Localized edema] 08-20-2023 Episodic Spondylosis; intervertebral disc disorders; other back problems (20 sources) Degeneration of cervical intervertebral disc; Translations: [Other cervical disc degeneration, unspecified cervical region] Onset: 2 Resolved: 3 Chronic Spondylosis; intervertebral disc disorders; other back problems (20 sources) Neck pain; Translations: [Cervicalgia] Onset: 2 Episodic Sprains and strains (10 sources) Tendon injury - lower limb; Translations: [Strain of muscle(s) and tendon(s) of peroneal muscle group at lower leg level, left leg, initial encounter] 04-10-2024 Episodic Substance-related disorders (20 sources) Continuous opioid dependence; Translations: [Opioid use, unspecified, uncomplicated] Episodic Unclassified (1 source) Low back pain, unspecified; Translations: [Low back pain, unspecified] Onset: 4 Unclassified (2 sources) New Patient; Translations: [New Patient] Onset: 4 Unclassified (1 source) Annual Exam Onset: 4 Unclassified (1 source) Consult Onset: 4 Unclassified (1 source) Medication Problem Onset: 4 Unclassified (1 source) Other specified cough; Translations: [Other specified cough] Onset: 4 Unclassified (1 source) Results Onset: 4 Unclassified (1 source) Pre-op Exam Onset: 4 Unclassified (1 source) 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 Onset: 3 Unclassified (1 source) Foot drop, right foot; Translations: [Foot drop, right foot] Onset: 4 Past or Other Problems Problem Classification Problem Date Documented Date Episodic/Chronic Acquired foot deformities (20 sources) Acquired hallux valgus; Translations: [Hallux valgus (acquired), unspecified foot] Onset: 3 Resolved: 3 02-20-2023 Chronic Acquired foot deformities (20 sources) Right foot drop; Translations: [Foot drop, right foot] Onset: 3 07-03-2023 Episodic Alcohol-related disorders (20 sources) Alcoholic polyneuropathy; Translations: [Alcohol abuse] Onset: 8 Resolved: 3 02-20-2023 Chronic Allergic reactions (20 sources) Allergic condition; Translations: [Allergy, unspecified, initial encounter] Onset: 4 11-27-2023 Episodic Aortic and peripheral arterial embolism or thrombosis (20 sources) Femoral artery thrombosis; Translations: [Embolism and thrombosis of arteries of the lower extremities] Onset: 2 Resolved: 3 05-30-2023 Chronic Chronic obstructive pulmonary disease and bronchiectasis (20 sources) Bronchitis; Translations: [Bronchitis, not specified as acute or chronic] Onset: 6 Resolved: 8 07-18-2017 Episodic Complication of device; implant or graft (20 sources) Atherosclerosis of coronary artery bypass graft(s) without angina pectoris; Translations: [Arteriosclerosis of coronary artery bypass graft] Onset: 6 Resolved: 3 07-05-2017 Chronic Conditions associated with dizziness or vertigo (20 sources) Dizziness; Translations: [Dizziness and giddiness] Onset: 3 01-03-2023 Episodic Coronary atherosclerosis and other heart disease (20 sources) History of cardiovascular surgery; Translations: [Presence of coronary angioplasty implant and graft] Onset: 6 09-14-2021 Episodic Deficiency and other anemia (20 sources) Anemia; Translations: [Anemia, unspecified] Onset: 3 Resolved: 3 02-20-2023 Episodic Essential hypertension (20 sources) Essential hypertension; Translations: [Essential (primary) hypertension] Onset: 6 Resolved: 3 09-14-2021 Chronic Genitourinary symptoms and ill-defined conditions (3 sources) Diuresis; Translations: [Diuresis] Onset: 4 09-05-2023 Episodic Hyperplasia of prostate (20 sources) Benign prostatic hyperplasia; Translations: [Benign prostatic hyperplasia with lower urinary tract symptoms] Onset: 3 Resolved: 3 02-20-2023 Chronic Malaise and fatigue (20 sources) Asthenia; Translations: [Weakness] Onset: 3 01-22-2023 Episodic Mood disorders (20 sources) Mood disorders Onset: 3 Resolved: 4 05-30-2023 Mycoses (20 sources) 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; 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, unspecified] Onset: 3 Resolved: 4 08-06-2023 Episodic Nonspecific chest pain (20 sources) Chest pain; Translations: [Chest pain, unspecified] Onset: 8 Resolved: 3 09-14-2021 Episodic Osteoarthritis (20 sources) Arthritis of hip; Translations: [Unilateral primary osteoarthritis, unspecified hip] Onset: 3 Resolved: 3 02-20-2023 Chronic Other circulatory disease (20 sources) History of cerebrovascular accident; Translations: [Personal history of transient ischemic attack (TIA), and cerebral infarction without residual deficits] Onset: 3 01-03-2023 Episodic Other connective tissue disease (20 sources) Spasm of cervical paraspinous muscle; Translations: [Other muscle spasm] Onset: 3 07-03-2023 Episodic Other connective tissue disease (20 sources) Neuropathic pain; Translations: [Neuralgia and neuritis, unspecified] Onset: 7 03-06-2023 Episodic Other connective tissue disease (20 sources) Trochanteric bursitis of right hip; Translations: [Trochanteric bursitis, right hip] Onset: 4 08-08-2023 Episodic Other connective tissue disease (1 source) Pain in lower limb Onset: 4 Episodic Other connective tissue disease (1 source) Leg swelling symptom Onset: 4 Episodic Other connective tissue disease (1 source) Other symptoms and signs involving the musculoskeletal system; Translations: [Other symptoms and signs involving the musculoskeletal system] Onset: 4 Episodic Other ear and sense organ disorders (20 sources) Hearing difficulty; Translations: [Unspecified hearing loss, bilateral] Onset: 3 Resolved: 3 02-20-2023 Chronic Other ear and sense organ disorders (20 sources) Bilateral tinnitus; Translations: [Tinnitus, bilateral] Onset: 3 08-06-2023 Episodic Other ear and sense organ disorders (20 sources) Tinnitus of vascular origin; Translations: [Pulsatile tinnitus, unspecified ear] Onset: 3 01-03-2023 Episodic Other ear and sense organ disorders (2 sources) Tinnitus, right ear; Translations: [Tinnitus, right ear] Onset: 4 Episodic Other ear and sense organ disorders (1 source) Other specified disorders of right ear; Translations: [Other specified disorders of right ear] Onset: 4 Episodic Other ear and sense organ disorders (1 source) Tinnitus Onset: 3 Episodic Other eye disorders (20 sources) Visual symptoms; Translations: [Unspecified disorder of eye and adnexa] Onset: 3 04-24-2023 Episodic Other hereditary and degenerative nervous system conditions (20 sources) Essential tremor; Translations: [Essential tremor] Onset: 3 Resolved: 3 02-20-2023 Chronic Other lower respiratory disease (20 sources) Dyspnea on exertion; Translations: [Other forms of dyspnea] Onset: 8 Resolved: 4 09-14-2021 Episodic Other lower respiratory disease (20 sources) Dyspnea at rest; Translations: [Shortness of breath] Onset: 6 Resolved: 7 07-05-2017 Episodic Other lower respiratory disease (15 sources) Chronic cough; Translations: [Chronic cough] Onset: 4 07-10-2023 Episodic Other lower respiratory disease (3 sources) Other nonspecific abnormal finding of lung field; Translations: [Other nonspecific abnormal finding of lung field] Onset: 4 Episodic Other lower respiratory disease (1 source) Shortness of breath; Translations: [Shortness of breath] Onset: 4 Episodic Other lower respiratory disease (1 source) Other forms of dyspnea; Translations: [Other forms of dyspnea] Onset: 2 Episodic Other lower respiratory disease (1 source) Cough Onset: 3 Episodic Other nervous system disorders (20 sources) Walking disability; Translations: [Difficulty in walking, not elsewhere classified] Onset: 3 Resolved: 3 02-20-2023 Chronic Other nervous system disorders (20 sources) Numbness of upper limb; Translations: [Anesthesia of skin] Onset: 7 03-07-2017 Episodic Other nervous system disorders (20 sources) Abnormal gait; Translations: [Unspecified abnormalities of gait and mobility] Onset: 3 Resolved: 3 02-20-2023 Episodic Other nervous system disorders (20 sources) Anesthesia of skin; Translations: [Anesthesia of skin] Onset: 7 02-06-2024 Episodic Other non-traumatic joint disorders (20 sources) Pain in left knee; Translations: [Pain in joint, lower leg] Onset: 4 08-15-2023 Episodic Other non-traumatic joint disorders (20 sources) Pain in right shoulder; Translations: [Pain in joint, shoulder region] Onset: 4 11-06-2023 Episodic Other non-traumatic joint disorders (20 sources) Pain of right wrist; Translations: [Pain in right wrist] Onset: 4 10-07-2023 Episodic Other non-traumatic joint disorders (1 source) Shoulder pain Onset: 4 Episodic Other non-traumatic joint disorders (1 source) Pain in 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; Translations: [Pain in 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] Onset: 4 Episodic Other screening for suspected conditions (not mental disorders or infectious disease) (20 sources) Electrocardiogram abnormal; Translations: [Abnormal electrocardiogram [ECG] [EKG]] Onset: 7 Resolved: 3 09-28-2017 Episodic Other skin disorders (20 sources) Epidermoid cyst of skin; Translations: [Epidermal cyst] Onset: 3 Resolved: 3 02-20-2023 Episodic Other upper respiratory disease (20 sources) Allergic rhinitis due to pollen; Translations: [Allergic rhinitis due to pollen] Onset: 3 Resolved: 3 02-20-2023 Chronic Other upper respiratory infections (2 sources) Nasal discharge; Translations: [Postnasal drip] Onset: 3 08-06-2023 Episodic Residual codes; unclassified (3 sources) Localized edema; Translations: [Localized edema] Onset: 4 Episodic Residual codes; unclassified (20 sources) Insomnia; Translations: [Insomnia, unspecified] Onset: 3 05-22-2023 Episodic Residual codes; unclassified (2 sources) Family history of diabetes mellitus; Translations: [Family history of diabetes mellitus] Onset: 4 Episodic Residual codes; unclassified (1 source) Pain, unspecified; Translations: [Pain, unspecified] Onset: 4 Episodic Residual codes; unclassified (1 source) Insomnia, unspecified; Translations: [Insomnia, unspecified] Onset: 4 Episodic Residual codes; unclassified (1 source) Memory loss Onset: 4 Episodic Screening and history of mental health and substance abuse codes (20 sources) Ex-smoker; Translations: [Personal history of nicotine dependence] Onset: 8 09-14-2021 Episodic Skin and subcutaneous tissue infections (20 sources) Cellulitis of finger of right hand; Translations: [Cellulitis of right finger] Onset: 4 10-04-2023 Episodic Substance-related disorders (20 sources) Cannabis abuse; Translations: [Cannabis abuse, uncomplicated] Onset: 3 Resolved: 3 02-20-2023 Chronic Results Test Name Value Interpretation Reference Range Facility Coding Summaryon 06-26-2024 Coding Summary HTMLBase 64 JelodieiYSs4qKc+PGhlYWQ+PE1FV HQdY96jlHAtgS7bJ3YKEPdPSybcSL GCVWzZOnNfriCtQH7tbTLbZQMa IC8+OM4zEBCnArumjFArd1Q8bWX4G 85nfr9hSFojlQD8AGPiZsUwpbtll7 nlaOg4NYigPcjvIrBm EPKmiS08PPG3gK27Od82hUVodUKbh 2xziFk5PuCjPLJlJIE9wFjlVHutj0 UwPNQjU04iiUKqx7K9 JRFcvThjoCXhCpUyoMV1pA4vBMomp myov8pkcnixTdy4xp03tNYxu1R6bN O8K9GmxiL0PYDkbQWx UdwdcVYEkX5nyocus4qyyaswQrQwY TBdYGb0NZo7IAGusHboMrOqCG54PM F9RVYcnaSnX5HuQVYf tLpjOfF2w6O1Nx1IW4OWDfhbU2ZRW UFSWTwvdGQ+ZJ32pb98B3CkTwyrEa v0FCUgTRX3oVH3jF3t SWKpSLbkf7W5bCI0S0MeuvFkck0gm 6dwSNWmXAmhW58ffUBsx3E0FKXseA F5QSSehTihVsQnsO41 Oyc+EWPpbKhgp8UgGrsyr6ret9dyw Gx8MydbLOQarbWlwYzpFWH4p5BtJi 1iJAEflQF1vYH8vN8r JwRaUfX3APssF073AqPzhXVbAyxyG 12yG7SjiLY+ZOGhRhw2OSGetYfkCW 9hI6QdSQMggrmbkOEl nPqgSJ0vZVCngcmpBRSniB1xHPTlR 9h2PeCuVoG9VZedH1VbUZUoitrcNx 90aV3eVwZkYfV1VVsm U5MforB8XTWguVDoUThiPZN0K58pm 2S6EMGeMJWkUID0cHO2eO5goTftre ogbGVmdDsgdmVydGlj TBsyXEgjU053NIUgsGaaJcRhYOfnZ yBEYXRlOiAgMTIvMTMvMjAyNDwvdG Q+SGLpAHA4dGxwZCOa oVVhZQluBv8fgCtkzLlySA7nWENus steKIJlhG4sJDGbrUOejIdrGQ6kDG Iwvriob617UkNpQJI9 IIXbiGYuY6QeaZ1xQfRmTXGoKMIiJ 8ByjKWeGExiU685HMhgFdW6SXLpqj EmL3OlBCQrsCqgIaU1 x0D3Bh1Sx6CwictuK5PwfPYgLxHrV pooIBz2M3WzJeqrhRS+GI47LILiRG 80ZEp9AXG7pKipNTrj MXRsP1SpcE5fBeNjWZWwONFvAzc+P HRhYmxlIHdpZHRoPScxMDAlJyBzdH viFZ9iMb4pJJKoLKJt pFaqcHGvLkLke2vcNLWfYLbgSQ5hx HzlP8CxcTN8EWFon2y9Du53H85uM0 JvdXA+WSQgzTQ2mOG8 fQ2jQnNaHcK2FYqmB499DeYntKXsY ekkj2ynd2oshQc9EmU4YKTvxnWlvA wkYZI7n7LwHp03R67g BQkjHKHdOXTyRXKiCSMxsUevpf3ar G9wIi8+BQAvlTB0nQR3pE2pVcHhVs W2UDjkR285SbMxhHJb Gvwds4qsm8bhmWk1LxVjUCTuahMiz UwbENW1c6OgAy27W2AjyDjkf0QbOm q7jt03jHXut2J2eJG6 E9QcPXOkcnmodIRhdUdlNF1fOZYpx diiWWEdmV1oBSObE7y1WlSoRbF9AV zeV1RekuE1DJLbcJSl XZYqeIBFdS5oslqnm5yjntniKsKxF KBbQMv9COm2PRCtvOwcJzPnCXU7Pe I4YES2uUVdnZ2tkLwr qukkzR2zQfx+NTA6aGWfhYNBDK6oQ jwvdGQ+NVBjVSY7sWnzDCdxBOCroI 8cYRYtQ3q7EwRzQeW3 DShyS6EvgaQ4EIQtbEPcUDUrtBDHo B7janlyy8blihqoEtIbIGZgJIl5WH y9TCChdUwhHbVdRLA4 XgF2SKC8qELjrB1qyVlfglalxO8sW yc+HknhkEesKMQ3HSj3I5ZaSgf8HH VyhJdjNV3gwJWuVPvq Rf9suDabeJzzAN6pIRSvheeve956M gBjx8ajIGYfaEAbDJviEGI5Y51xp5 Y1ZZUyCXSbGJH0aMJ6 xD2kfNmwiwljmKYuiVwxapRhaFaiW MhaOJmpE662MATcpWebFtPvNTw7H8 GwDbo7QEBulZjfVA9j tXYuPTuqZw3jdUulxIqqEM6qJMHmq cevf316TdYxw3itBBMapCHsBFmkQK M7P43lp2D8KNFgPZIh HIN4nIL5tJ5foVcwtapkhHPohTlsm uQgiHfmVLnaJWxqA289DIVvzEldJt XzjDy1H1UgNfw2FZSu gBuiCY9oaIGgDRwgMv9jaWgtrTmoI I7lNLOqowgrb727LbHfh0wwGRRzcP CcIPlvINF9A19cp1M4 LRWnLDLeJNV6eLT3sI7mgAvvpqjdu OWnkAkgjwDoxLazASmcTPnlM589ZP RvcDsnPlBhdGllbnQg NTnoNDl0A9EoLwnnuZG+BQ87SJGtP L44dXBxfILfq1gioBk3MfYtTGJvIL L7iCgsTHkla5LsPAIb O20rlUSoo7W8CUJbhNsrhQKiTgHdx SC6qI9cGMfhwsjbz4kvzmwvRroui8 oatf36uP15Q09cBNlk ZOMzCLHpZCHgCHHumErlea4yjW4jA i8+AYJicFF2xVJ4cR4xHKWlIzB0GI ewX617HyLohQSsPmvy w7zdn1oncLa8ByF6OLMwbwZooWklC UG8x4GgWu46E55dXYspWRKsLNMmIY HnHDFrqHtthw8nzA1e Ii8+TATuwSM4bLW6gH7sUeRsTsZ3Z AqhP608KvRtcGFzKymyY11xU3LusE A+ZMPzWpu3JAJeyHyr HZ2ieKPrBLhuDf5uYOH7MgGnUkOpU HfkZ9AiHTCjrbjarrtseIH0ZTBpYJ ZivZ00Xn7ajCoaOXXo pGIRjQ3spwfpe1ulinboDrPlVUDxG Gy2DYu7JFZduMclAyFvLSZ4ZqZ3IW M4vHTfuT6spTvleqts zM8sT7BiDRQqtbocVd31rF9jAeCoY bX2KFxmSwt+K8xAWYTzKOiMQR1IOL gRVOq7Z7EoYzh7FMJe zRbaSJ2ucZAcEOhcNy3yzGldwGwpH V8tHMFkzkowFBAeoV0tDGFzrDZyuW qqOK0bADXwdncxt540 QbDmTAZ8MDKzkQPsM7IfrM7pZpFlK YRnQMSeK2FyyNQlLBaoZ909SKjwSa T9AEWzbtOqL2TuSRDe kZfjIeZ2k7F9Fg6bLK6bNY2yVRXrS I84YF97pKAmh1K5bHP5E5BkRADfxx udrfykgTP7JVLxGLYr xX67eODnBUfqZe7wp9K7w928WHVqD HCjiD73Np9qaHqsLHBugNGGnA8vdb axd1cwgeqmJyAuPYDy TWn2ZRl7NDQiqEluLxJwKNQ2BnM6Y XG1wWKvxH9utGlqhbablL9oUzr+Nj ZmQHEfpzE1R9PoFzh3 WMVdaWjbLT3ktQWfNXaqMf1mvJvgc ZbsPY4hLLDmcjpnWWCrkO0lGCHamS WvgYyoZN5eYSBledvw a010JwJvQGK7CIWdjQMiC2XjcN9gK vDzNRFfUYIwV6YaxRMpCZpyV037WL yuNkD3EPObmzIzA0Qr BRRptOcxKyW4p2V8Fx6TILvFPA23M Y88uQLay5D0eYO7M1JeGADsynjyar bfjQE6JGKhYINjgL60 aZPcGOhhYi5sl1K6w640YZKjAJVgr B82Kp8ykKlxOATjnVMLgT8nbxsow7 xvcjogIzAwMDAwMDt0 WCy4PGTndFyrVzWeMGC4EhX3XDQ6c RRopS4yuRrgznpthY9lIvi+T1A8L3 RkPjwvdHI+UZ22EEVj JK71qAHirJFvh2tfgLk5UdUsHTExG AI8jVcwYYdid9YnEXNaZ14vbSOyd6 K4RBExvSleeYKhCbNy mXT0qC5uGOnhszvdg0zcypckQxhia 4yuph76dM03K03cDTcnSPKzAFNrDK FyPQVehDtmfh1djF2o Ii8+SCPkePP1aTK6fY4zThMpDpV7T VspB124DmRmiTEdKmsdx3kiy3foeJ m7ItWlQYFiwmOjzGse BOR0s8KbAg54M83iWCpeFLKkJBUjS TOuVGXraHjdjo9sbK4jQk1+PC9jb2 etyx97rC71jRC+PHRk PYX3eLheBYftKNXahM9bEKjgNoA3W KCaRwLahO37eUPoDBjwEz3vwBrsyN huXJ8hUPGmhgkcp815 LfRwu0oaOEGxqHJjQBqfMFP3B98rj 6G7FHOjSPUkXRF1fHO1mB8vqGdcpa ogbGVmdDsgdmVydGlj ATxzQXznX365ELLowHhzToSonMHjI 5agbaYSGR1fNyaqoST+KKJmHXW5sK lfKPyfMBHbsN1oMRRm V5h5MfMdOzK2XMcgV5ZnhnZ1ZMCbr ITpZBZwtKLDuX6clygmt9emyfkuKv BkGVWeCLt6VEs7QOEq xMokNrVaYWB6EiR6JAU9wIGyqJ4zj HvxxseeeW0yAjx+RklOOjwvdGQ+PH DjAXN6dJmqDYkuBOSe xW2eBQEbT8w6FoYfFjQ3OXsjH4Gjm yW9AZWjsXDjSYYniACRoN1ucraes8 xvcjogIzAwMDAwMDt0 EPu7QUQepUibPtJoXJV1NnT1JXT4i VIuqY2ivAbgscncsD8jTtv+TVJOOj wvdGQ+MBMzCUY7kRfu OOkmBGFtgA8zNBMaZ2f3GzYiTtL0A ZofM7JjfaU4ZWXjpGUiAVUaoNFMuC 5rmplws9owzzayQeJb SPXsQAo9JKf5WQOuaZvjNyIuGGQ7A oB4VVJ8vNUlqG3weArjxljdaO8uXc c+HWX7UAR5TM95JG03 B8MjPmfzjCUnaGR+PHRhYmxlIHdpZ FPuGRgpROHqXuAnqBssWL8gGy6zYM VyLWNvbGxhcHNlOiBj b2x (more content not included)... [facility] Coding Summaryon 06-18-2024 Coding Summary HTMLBase 64 MgmjpezeSJp6oTm+PGhlYWQ+PE1FV MHkZ95hvOGkoX9pP4DSYDlYEvelQR QOTAeNFpIpvwCsZH1tpAUtESPt IC8+LF4mBZKsWbrvdTKpt4E9cJZ6M 40lgx7hFAcxiTW0QAZfBhBfsqdwj5 tquIl8OUvkAtkuRsZt KKErkV99MZL8pI49Ch89kDZbpULcc 8czoMf9KxIxPOGrSEQ9wNiiTTilf1 KkATNaJ07mvNWnn4T5 YMSuaYqnjGIdWmLfaSS2cQ8tTCqnw gwmj5rdcsonVif3in04kRZas7X4nD E5N4DhdcX7TVEyoFPz BfwelFNKnO1ioqmjz8serdtuRpDxU AUyCVv7GIc4MYQriEbwLmEhMM54RA X7KZNwujTiY9FhITAn gJuvMtP2m5M4Qb5OL4XSRsefV4LTG UFSWTwvdGQ+JH29pc49Z4LsMyjaLb m1NGGcMLT9nQA4fM0x FOAkHVzae3U4uNQ6F8MqnwHeqy1yo 0kcUSRqPIkrN90xeDFbk0E4FEVwqV O3JBDgdTkrGbCcqF00 Oyc+TFBxwMdmp8XpDzruu5tpa3xsy Rs2GvcjCEQawyYmcWxaTNO6i2DvYg 3xTMRvmBW6rQF2yA5l BhKoRmA3BNgwI063XjTrvZMpApaoI 79mA9KerKF+OQZeXgk1IVBesEjjWQ 4tE1JcTVMtmdzsaQUc fFclEJ4nNOQmozxnPUZuiD1fVFKeK 8q3WdEfPoC6HLbbD6XpRFJwdgdtDc 17jB2jHaIrYjH9MKdp A5IiqfT5LNFnfWAiCUirQWT1T40re 5A5YIHqCWMeTLR7nAL3aV3kcIoohn ogbGVmdDsgdmVydGlj MNwsEPyoY686LJZvhAauQdRhCPdqE yBEYXRlOiAgMTIvMDUvMjAyNDwvdG Q+XJNpBXF8hAtlUXQc oNYvURjyRm7scIwbxVfxNQ5nYGPld xetKQLlgW0xPJRqvQUjtEpyKT7zEZ Njzufip524CxWqBSJ8 ECFqcJAlI5XqkU4lWwMxEQFwXIDyP 8MesBIkGEzfN611GUnxDsR5SNQbjb SxZ5EkKZPrvGosQnR3 c1B2Vo0Ww5AraehsG2VutBWxXgEjN pywDMv4Y5MeIvsphOA+ES29TRQfJB 74NGq7NTI6uNwkPZhh PQHdO9VvaV1uIaKpUEUaLMYsXtf+P HRhYmxlIHdpZHRoPScxMDAlJyBzdH dgAO5xUr4nIZZqFTVf fUbppNXkXtKnb9hiRQYeKSneYS9hw LqqO7ZyuLK6MZAjs9f6Yy41E61oM0 JvdXA+NEJylUV3eWX1 kM1pAbIwCpS3GMbgN546RrYxwAYjJ yxvw0bxc7jybRe6WgZ9IAMkomXmsS yrPCJ5i1GfAc68Y33t GNyjTSDhSBQiQFHvNQFxdPyqwk4se G9wIi8+EBVuaAV8tHV5wG5xYaVkEj H4RQiaA104PkZnhTHe Seacu0bej3qtrYu3ZfZjFKAtaeSub SdnTZU5d4CmVo63V8GhyNacf1KoQz c9ay01vXGqw4Y7yOM9 R4ZvNAUlgspypLGmtAamUO5zGQSot thiCJMuaL9rSSTqZ0n3HyRfErC5YY waW7JxkaD0GKHepGFr XCOnhWDDzT5qmnksk1hgmnkjMlPvT VRpKPc0DJw9YTLznZieAfIjHEY7Up X6TDR2rNZtmY4wpJyq qeywcT2yNln+KQH9uARkvBKBVB0fE jwvdGQ+CKEcUNU7lXicJCsuHPZijP 4yFXHbE4a0QeFdRkO6 HMaaY7WeomI4BHCjwVLwGOMycDQSj O8ikmntr8xnsesmWrJcIZRkWVp7XL u1TGYbbOeeMuRhYDG0 MiW1UHH6dQBdqY5ozCehzotrxR4tV yc+EhskkPedCKE4IFi7D8ToIid6YD PhzVjnNX1hfVJmPOod Xj8aeIoqtZtmBE9yHJBksyfbn636C qGtt8wzRPDubCLiEImwKPF1C69ga8 P5BVUdOURkQER4gFF3 pE5bzDtyrlrwjEUijTpktrFihOmuW ImyTGtjV987ZZAzpJmrGxKoGFa3Z3 SkTon1EZIcwXvsVM5d sZGyUCgdWs4baYzuxRksDL9rPCCqi olvv949MtRji7jjHOKzmIPvNCzzKP Y2J37xn9E3PENoLVJc QMK1xCS2eD7lbQznecvvuCVccIaiv jBycOyiNJpfRXquZ077WPEsgCwhBf PpwOn3Z5TuSul7IZSa oDidPI4moSZtBHkoZv5xzCrerBzrT H0jOAXqyxdiv142OhZdt3tuKMNquR JdVJraFBQ8I92rf6F5 MSWoUDXrHBF1kVM2uN6qpDfstiedk BInuIwzzlBjzFiwGWkgEDdnS875ZI RvcDsnPlBhdGllbnQg YLhtOIt4T6CuHsdegUH+YD19QSOiY G36oZGrjGLkv2isuUe9KlOjCFZlLF X6nQnkQAuae9AjHVCs C21ggDEfw5Y7TXUqwAnltMMtBgOfa YY6lL7jQYcfpqyuz0kyyhdpXonfk2 jxka23xO30H90cCBee TZUdOIUePWGkNPFjjGvcop0wiI0eQ i8+SZLptAE2gJI3wS9wJHPjGiA0VM vpI307XuGkmSQyPiod o3uww3zlwEe9EsO6QIXmczVugMuvL BR6a9RnRj15G20kOFfaIMQiCTKaPV XzJMEotIbdez1tnZ5c Ii8+YDTelJL9oHP9sL9wWhLeYiJ8A FniC573PlLkeZHkIhqmD78gL9WswT A+IWCxKqc2OYTssLmh SN5phYChQObdFm2rMKY8WgTvFaNxJ CtkI8KsWZAetjnflooebUF6MWNmBR DlkG53Qv5raWrhYSFs gHVGqE7ukslme7dvdhfpEwCdXIFbG Na5FAm2EVVgbEehPeBySJL8WrD7YV G5nIBwmK4tzQzmfrhp pF5oD9EvSVGmclhuUc47qT1dRqHeZ qR0WZfsKnx+I8hYYJLmTZwQJO7NLD yNKUo2A9BnAkm6NXJy bVnxNR8ckWEeHIypOa0xhHlzkRneD F3zWFSxjzsvQZSzqA4fVWVllIOzjO pkNB9bMIMcwegaz794 WhGrOIG5XLUtqSKpU4UneB6oIwJvA TLuMQMtD8LygXBeCZcpO243ZSydZv V5PFIrvyWhZ2CeYZKf hZwdFtH6v8N6Oa0mQC6mFT4hYGAhQ F51PY19fOGsx1W7wQM6B2NlORWxcc kdnsineEQ2TTOlYDSv sA31tEGeOTdxSp2is3L9r500OEYdW ROexN95Hg6zaWmgVHLvxLZZxQ8bcp rsi3sncuwfRpLaFEXg YLf1LPu7ZWFwvLzqKlGkWFM4GqT4Q MX2gAMyeU2llXbsquhtjE2fHhk+Nj GiPOAzocE2W2OvJzo0 HQNvkKolWI5ftHRmYNrvQi9tgYupk IckED4cQKGkigqxNHZpbU6mKTVpvM CirJrmZJ9eIIMbxwls x060ZkXfTLQ9GIKznRZoA0QdyT4sV pGqVRVeXHIxM4SplXWwRSkhS796LP cnUhU5KXAdilSwV7Cv BHQwqOxqEmB0i1A6Tz4SYGoALD79Y V48dRHuv4C0nRK9N5QyBGTbksfsku rwaCQ1JBOuFNOucH14 sADmRPwrYy0oz4F9l530DLXsMDHny Q04Sg6pkWglCAQkaDVApV8tkuclo5 xvcjogIzAwMDAwMDt0 PLj2WDZxyMntMoAeKRL8OeG0YHJ0l CFwbI0jrOzyjchjgG0hOdw+T1A8L3 RkPjwvdHI+FT60CFJt WT73pNYssZKbq4whxCj9AqMnTVCuB RH1gCnhSDxuf4SxEOGpN88dxTNyp5 M6ZHZnsAossWMmJhFo wOC2mR0pWKnxfsklb6qnnzljRyifd 1rkhd90eG60R44sZOpbLVBrISQkNI FkOYChtTghen7qxK1k Ii8+PBOscUN7fSB4zW8rNrSfYhM0Y QkjD448XzOviCLfLbskk7gif9bqwV m3KeSaSHMgrmWipSux MYC0c9OlMb78J95tYErbTWHfXIVlC BAhYFNnzFbfxv5xnW8hYz8+PC9jb2 vmgr46fW32jFZ+PHRk WYS9dKbgAJliDDStaY3aVDpgGtJ5U GMvTdWrzS96bSAvVCaeOu3sjUucxV uoIG7kXELgxnjkx443 BgCgr0mfBBWzfHKrGChfPIK9R09zb 1X0YOMxAZSrOZV4pEA8rW3nzBksnz ogbGVmdDsgdmVydGlj ANeuGHhvN961NFSptYzdSxAfnKFhR 3ewsqNDQQ3hNssacLT+LNWgCDO5eW eeAUspLAZdiQ5iJIYw I3u9DnUbTmQ7SWurG9KysnU4NKDzt FJdJEQgsGWTvT8zqjyac7nsumobGc FnOPUyYAg4UVi4LBRs uLoqAyNtYKD3WfP7WEM6zUNsiM2fo BkxmtzswH2rFjm+RklOOjwvdGQ+PH DnYJB7kDfgWQoyZNXp bL1jBHVwA5m5WvBbEnO9URsbV7Hwd yD8MQBelZXnOIVupKZFeA2dasegf8 xvcjogIzAwMDAwMDt0 LTf9FOSbsAobUxVuSNC7OfK3PNB4q GJkzA2gdCjkcewcaN6fRps+TVJOOj wvdGQ+SMJeAHT4yXmf POhvPRVavB0gZZDwN7s7WaXrVqH1Y OfpT5EiirT3TZNqcBEjFRJovVZSaA 8yrjcls1erbmztFzCj KISlQBx1KVm7SGZogWqnXgXjNES7C zZ8VXW4xWSroX5soCseuksrnO0wZw c+IYA2AXZ0YW46NR52 A8MjMfaeiAQliHB+PHRhYmxlIHdpZ VMzJFjcEAMwDaMdtReaQU3fZo4lIN VyLWNvbGxhcHNlOiBj b2x (more content not included)... Normal [facility] US ankle/arm indiceson 06-18 US ankle/arm indices [facility] [address] [place] [address] Ultrasound Report Signed Patient: Varinder Wilson MR#: [id number] 8 : 1960 Acct:[id number] Age/Sex: 64 / M ADM Date: 06/17/24 Loc: [facility] Room: Type: [facility] Attending Dr: Angel Meléndez MD Ordering Provider: Angel Meléndez MD Date of Service: 06/17/24 US/US ankle/arm indices: I73.9 - Peripheral vascular disease, unspecified Copies to: Angel Meléndez MD LOWER EXTREMITY SEGMENTAL ARTERIAL DOPSCAN (PVR) INDICATION: Surveillance for left lower extremity after prior stent placement. PROCEDURE: Right arm blood pressure is 161. Pressures of the right leg are 135 at the ankle using the posterior tibial artery and 113 at the ankle using the dorsalis pedis artery with ankle-brachial index of 0.70 0.84 . Pressures of the left leg are 105 at the ankle using the posterior tibial artery and 95 at the ankle using the dorsalis pedis artery with ankle-brachial index of 0.59 0.65 . Wave forms by plethysmography are triphasic in the right lower extremity and biphasic in the left lower extremity. US/US ankle/arm indices IMPRESSION: MODERATE PERIPHERAL ARTERIAL DISEASE OF THE LEFT LOWER EXTREMITY AT REST. THE PATIENT IS MOST LIKELY TO HAVE femoral-popliteal and tibial DISEASE OF THE LEFT LOWER EXTREMITY. Impression dictated by: Angel Meléndez MD06/18/2024 12:48 PM [facility]: Ana Damian Transcribed By: MARITA 06/18/24 1248 Dictated By: Angel Meléndez MD 06/18/24 1247 Signed By: 06/18/24 1248 Normal [facility] XR Clavicle - left Viewson 1 08-17-2023 [facility] Imaging Result: Two-view clavicle demonstrates reasonable position of the distal fracture of clavicle associated good with AC joint position no significant displacement noted. [facility] Radiology Study observation (narrative) [facility] Coding Summaryon 06-15-2024 Coding Summary HTMLBase 64 PwpmpdgcMWh6wIf+PGhlYWQ+PE1FV CKuQ51xrONqgN1fG1QYCPhOGqgzWC NMSByBFcLmggJzWP0bsMNnVUJs IC8+JL4aUMHvWzbddAYms1W4fJK8Z 58gwp5lOGqwpXG8JIPuUvFngfjjo5 nlkZb1CUwcJbfgDqNk VDNdkE15JBJ7eR59Bj58kOExvTUav 2kjfDl8EeAbSSZbZHB1pBcbUFdep7 VlSRKgV07peXWqn3T0 CXTshNmvjIOoPpMreTN7gR6tKReuu kkks2ayiwyyQzr1zq16kONtl9J6oC W4P3DcnlU8CVZlkYPr ZumgdRPUwS3jsqzhq0ucoqzjEfOsM HVpHHm3CIf7LJIroMrjAtVqXJ66ZX S2NIDokiBmC6MyOVNl wGykZaP4t2Z6Rn4IH2VQOscoH5XCJ UFSWTwvdGQ+OC68gl60H2TzBgibTe y9DLTuLDQ0ePB7cI9b PENhBExcv7H2yNM3Q3ZsoxTqwh4bi 4ltEARtWAsxH49kkRJuc6I2EHFdxD Z9ZTMrxHsxLkAysU98 Oyc+COWfgKqjm4VkMlqbz5qrc4dzl Wp8CijoQIMaabLfpSkiBSL7k1CkGk 6vCNXvvVW4rRB4jN6s UwIzCmA0GJhcO156BpRgoCHvZeatG 99pS9QrpHW+TNPmXpv2RCVugLwbAB 9bX1BdXNZbhuazmRHc eHmkZS4mCWZwlbtcBBMboS9kYCRpP 0h9XfLlKdW4XJauE8YqFCLuyxqwEc 68fH8nMbXfHjL2CHrv Q0DodbE1PWEmmIYaTFawJTX2S87pt 9U1BZOcLGAgNVE7rET8iT1brKysgu ogbGVmdDsgdmVydGlj OTclTCkrL792UNTuwYypUkPwCPybU yBEYXRlOiAgMTIvMDIvMjAyNDwvdG Q+UXHoRYK9nRmnJITz mKGhTTgvNm9deLxemRyqEX4xMOFyr yfgSKResO2uKDBwtKVfqIfoIZ9dSB Dnvnkpe668VyPhALJ4 BXAbkAOpI6OwaS8lFyGuBCIjJUSaO 2EjuMYpCCyxM089UKpmDmS3AJPxsa RgX2KqVUSjrIrnXpI8 s5I3Oj9Sh3ZizvzfS2LabCMeQvHuM ljtAGy6I5OhYafnhSA+FW68RYFwEA 58BLy3PYX8pGgaWUlm HEFvM6UeoL7fFgYiTYUxOGYtMgz+P HRhYmxlIHdpZHRoPScxMDAlJyBzdH bbEL0dCb2nIDDjUJGs xEmryYKbDpTki6gdELWdHZliYK4rz RhuT2EwgSD2XHOko9z2Ip17X98jD3 JvdXA+ZNAzhYB6lWS6 aK1mItSqFlK4PMwmD445OqKhaGLfU yimj5pcu8lzcRo6ZyF3JAOdbfZduG mwYNQ6z2FrVi97V56g OJebYWNcMNBwPZZsITItvLsdmf7qg G9wIi8+QVWfyVM3cCT1oC2xFlTuJv A5ROpxU484PkRxyIKc Vcfnr9dii0mzoHm7DcVeBYOhveCyv QjbCHS4a6NaFl69Q8PhhGstz9MuFa n5dj61pVOgf1X2aPG2 P9EqDYDylxtqaSBmeJfaQX5qMTOdq rkrEXVguC2pIITsF8r3FgJtHgZ8XP tmP4ElitC7CJGgnTIe NVIxcOSYtB4mpoyds4sfcupoLyPsV JBbQDn5UDt0MIEbmLpwQyBuETR7Ma T7OTM6lOMqrN6awVps oxkmtI1fNmy+LLN4eMVkcGXYBK6jC jwvdGQ+RTBwUKH0bJyrORkfPVOhwG 5gZYPwQ8w2QpHeWcX6 FIeyL1LyihY3SAWcwLWfZWTbqJVWh D5tzaoyl3ohaibsNeGjGUCiWKn4TT e3PLIcvNxhMqOmCKX0 VfY9FPO7bXLsxX9zvBbvwbvaqZ2kX yc+NwzdzCbyOHK2CKh2I8XhAzy3WZ TnlCcnZC9nbZHtAAum Wo6opRkwtPkiAS7tTBOeetutb786F jHuv2ovHMHwgQNaBXarCIW6R32sn6 D4IMIuQNUrUXN0hLF6 aO6smKkocczmbTOmnVcpbzJikAgwF XjxEOvoH354CJRzyLsjBbBdGGv3J5 AeRwd5KWQfvStrFM8h sCVaWAozPy3kwKwcwZmxRJ5cKZCeg ynpz474VwCyj4blQKHevETuHBlwGR C6C84mp9V8QYFsMWZi RGP4pEI3eH8lgCalqatgxTUgpQavj tZjwVmaSPrnWMsxO529LKMeoBsoEw IjkHp0T8InLtu8RDSi uMfrHC1lvQMkDOouWj9wgLkbpBzgA I5aDYHghkjka243GmFqw5ljGUOuuF ZuLOhgNCK1N26lp3W2 VWLmWQUnWFK8cKT9lT6aiWbsbxihb CUjiJyxslMmuFcwIFlpRGggW610XB RvcDsnPlBhdGllbnQg QSktDTx4L8DyNjajnCH+KS55ASDoX T71bHQlrGGob4tjkJo3QiLpGRUqPM Z7gAkfERggb5WwSZUv M29tfYSbr3Y2WVNyqWeshEUeQeEwb IQ5oI5eWMgkyeaam8colnbePjqss7 jrwb35kY26L11vWNki DMXkMRYaFFIqGXUntPrvlt2yhO4gU i8+GVGouLA2sOI4qG9cBBLpQzF2VJ lyY541JqOpuWJnCevf i7pii0dnbTm6JgL1ZQNhqhBicHzmL FB7k9PzKy17T24mFPnvGRDmXUPxED JcMPSynKofrk4evR6a Ii8+UDZblXF4cIN9kE3vAsCbXlP5Q TyfZ958KpQpwMGbAzmyF43dR1VcjF A+GNEkUji5BSWaiAvu OL9bkEMlSOetRw3kWBZ2VlXrCjEoM WfbN0BxLWHfybrvtkfddWJ6RSSnXB HwlY04Yq3mgKqgHRFx wDXKpC9xfplan4ywikzoBtMvYPKpC Un1WFm7YMRteElrDfMvWHQ3LaN7YH Z6fEArxZ7atOguvmat qE3dF9QwZNHuphuzUz10bM6qEfGhM mP7HScfNuo+U9gZVKQpJUuZTY2SNH aVXGx7I9AqQst1HNFd hNrgCK5qqASxEHvvVu1yxMcpkHkhI R2pCTQquhsuVMPdmJ9xQXCxvVCtiL yhBE0wJSIdmprzv821 HuYdDTQ2BAPrpSLxF6UdyB2hBzWnP OYxADRjC9YmfRVdPEbaV545FBduXx L6BUCgvbXqJ4JyXSKo gCirHoO7r3X5Jl6dEA4xMP1aNTYxQ Y29BX56qPLwt7N9hYT1X5LvLOFisu yzhjmwgKM3OLHgUGMy hB86dZDsHAvoBf2kf7P4c519TJYjA HYluZ07Ic1odQtdRGUuqMNHyU3raf ffj0adlmcnVrNhWLYs JQn2MSr6FMBrrVraYtRyERK0VvL7L NW3iIJtrC3oxQlrqvopzT0bJpw+Nj DvYAZghoG4V6SlObg7 EDGqxXyuMP8goPNoSEowCz6yhIwxa BmvAP0aMUMxwdawHJBceW6yMCBjlF LozUjoSP9aBJXxlcit z800CmYxBSF0IGYubVSkQ9EtiR0iS lOgDBPyODDbH1TgvOUvVPhfR391RN maXlX2JSUldgIlH8Ep UBDxlVwoHnB3p1N2Zz5EFNtKOI47N Z19yZEct9A4xUM1E4ZyCQNsywynvk kytJX6BKFtYJKkaF14 gVNuQOihDr8qs2M3j749QEFdLLRil D19Ah4kyWcpIOExpAWKzC0ipfvnx8 xvcjogIzAwMDAwMDt0 ZDg3ZQCxeWheIrVaJED0OtX4LMI2y CFtyY6vhBfxkahyjE6eZrc+RW1lcm qygmS2WP99KZ94W5Wg PjwvdGFibGU+PHRhYmxlIHdpZHRoP VoiPTOdLfZchEnvST6vQn6xCGOzBJ TdsVtflNNrUvMgx6hm NHXrHYasJL3kpTnsY7PesDD6HCBne 9w2Jy08C08gS8IhxGZ+ZCYfaPS2aN X4eN6yWbUbQhR3DUsp O083UvLgwKFcWoqwb9mta8amiXz8O tEjLKMbxyRxnNudRXK2b2EcJw24D9 9sIHdpZHRoPSIyMCUi TLBpsPlkwx2bhJ9bAt5+NSHnxVN7y XJ3pQ8aVtKoMaN5RKueR376MzFecF InXpsiY61jR8AxgLG+ PGCvIda1PVOurVcySC8xgWOpQNghS b0sXAO6FvRcFeMjRYsmO5ZcCTWhgv fhxrzebBM0QVSkYIQo xV45Mh2faNwrSo2qQRKkCSR6EFBxf MEgD6EoaY8fVwPkPHSwDPJmD6WbeD CgTFimF436SGhmMyP3 BJKbluWmA2WhRJBlyQctKdI8a0X2N e7YtNxzbUMcJA6cIrZzYLa9G6WwTs a1JOUylMnfIV9yfIGf QKdpMu5phAumeSdmPG4wTHHafpylg 053NwXtu9inPPLxqKOwPAlnTKM2C6 8kp1X7HFJiEVLwBAB8 hJZ0bP0wuKktrtaosRXreJjqpnMqk NpiUBwaFFhbL728AQPapZsuFfRBKs g3U5BqWef6JXTwgDvf LN3xlIXgMSgiHa8vlUinsHmtUU9dU MXwwevfb932RzDtg7ugGJLtcAPvVF kwQON9Z24cd0D2YCOt RUIxDGR0oJT2cJ9gdBmabhswbLCom BfcleGpqGkbKHggLIupW378JGYpfU vcFq5DHnu6L9YcTgt6 MPWesFopWM1vdTNrXTndLh5acVjea RmsFP7sTHQghudqj402CgEty5jjLT LkmQUfFZxoRCF0Z06y q5X9XPVqKGYlTFL5xDL6nV4cfGsce jogbGVmdDsgdmVydGljYWwtYWxpZ2 46IHRvcDsnPlBheWVy OjwvdGQ+QH82qt36A0ZoNliwYxq8N PGxKFG0vKT6eF9lFCKwGKaso4P9pR E9R1CopkBjhr5ig7zg YXB (more content not included)... Normal [facility] Wound Cultureon 06-13-2024 Wound Culture left lat ankle, TC, 06-10-24, 10:30 Light growth of Enterococcus faecalis and Light growth of Staphylococcus epidermidis No KIM performed on this organism No organisms seen. ORGANISM [employer] SUSCEPTIBILITY ORGANISM ID: 1 ANTIBIOTIC INTERPRETATION KIM STATUS ORGANISM [employer] Amox/Cla <=4/2 Verified Amp S <=2 Verified Amp/Sul <=8/4 Verified Ceftri >32 Verified Cipro S <=1 Verified Clinda >4 Verified Eryth I 4 Verified Gent 8 Verified Gent-Syn S <=500 Verified Levo S 2 Verified Linez I 4 Verified Nitro <=32 Verified Ox >2 Verified Pen S 2 Verified Rif R >2 Verified Tetra R >8 Verified Tri/Sulf <=0.5/9.5 Verified Vanc S 2 Verified [facility] Comment on above: Performed By: #### 6 [id number] ####[facility] (DEFAULT)[address] [place], [place] [id number] Coding Summaryon 06-09-2024 Coding Summary HTMLBase 64 IsdtdkeuRUn7oJn+PGhlYWQ+PE1FV QToQ61wvMAyfT7qF0QHLIiUDcepZS IZGAhJTtZichNbEK3iyONqZCXt IC8+KG3jDGGbCofpdSKlj3F0rBS4N 44dag1cSMgbdCP7YNSjKsYsxlmhk1 lcuCd0ERqhDoyuMgIo SXClkC21VMX9nX40Yy52eKPqqVTrq 1rfkIb7CuInXKWuHVM3uAveFAbft5 QrSLMkZ89cxCTgk4Q0 OQAehMqvsWKmUoRgyOM0zH5lAXlto fkiz3agvewyGex2va72kUEvi1J5qT H1F3HcpwC4OCCzcZRl NeysxXODbK1zyrqkv9iyfqyuKdCiC DOiQPi2UEq8EVNwoRyfLxSwTY41PD L3UTFvicViS5GzDKMe xJhgMiK9o3T3Tn8JQ1BWPqmqH4KHR UFSWTwvdGQ+VU61on53N4OdBmufUm x9SZOgLBS6nTT4dV4p TDSoLMqbd7L9uBR1U3HacuLkod3iw 1rkLKLbSKbiV72edWQbl1X7FEIurA G5SMGidJpvSdVnaU06 Oyc+OZPxrOidp1KaYxlwy6qjd8axf Rz4WomrJEMmuzKptXutVHA7k9XaHl 2tEXHykMJ5cWA5xN5p LrAlQgY6YNicY787ElVefTIfLezjF 22pL6LvaBL+DFKdRnt2DHRpyBbbWC 4qP8RbHJCpastfiDFs wLdoDA0dYYDedvknPVGeqP6vPTRcE 7b0CkCpTeK9AQbtH4EjZYPzqdgrFy 60bE9jAnSwMgY4AGls C3UeokI1PMEgjWAhAFzdSOO7L09dx 3N8XVZlRQZbAEQ2ePD0pW4bgIplks ogbGVmdDsgdmVydGlj JBlnMMkrE868TGDytZeqQtStXOjuN yBEYXRlOiAgMTEvMjYvMjAyNDwvdG Q+FZZiAVF7uDktJKFd zJRoSEraQe9rqPtjdFjaXV2xOIPiz ejrTYNywP2fBOJqwIDkfXelDZ0dSM Udqakct121UzIcSMU7 HPHkyVTqU4FibQ6dNpPsTCFwWERmX 9IctCRcYQezO077RDfjRuN4DGIfmb TmB7DnDNUvuDmhOmW0 z1G9Gq3Xm6DoobdtN3LeeDWqRwFlX dogEMh8S6IbInyksGU+CI83OHAcBL 83RFa3PFJ3gZzmLXpm HVHqR2QnuJ9eXdGkJVJiXVQjNjp+P HRhYmxlIHdpZHRoPScxMDAlJyBzdH crOR1vCb3bAWOaGWHy iZnbyYGbBiPkl7ymKWRdNZdjMP7qg XeuD2FfdZT2FMRrq7w0Ch87M12fH9 JvdXA+XSFesAE4dUX2 dT2pWkJpYjC8FBjeI965MhKzsXEgY oexu3pfm1ekrAw0ZjA8GQLvisJsvK cvDVR2f4DyMc67W27v NEjmLWFmCMObKRFiARHuhZktot8wb G9wIi8+XKIluYA8aCB3hW0yFoDpCs X1NOnwW215DqTsnEUr Guhtk6bnr2zmjHx2EpCtCMQhsdPwj XsgNGS9q8VqWa70E0MwgCyfb4KgKy p5gt43hOBgz8R1sYU5 K5LdUXQkdemttXLcjKkhEB0pYSNzi ukpJIRzhJ9qLXMcZ1s7ZcObDdQ9FT wqX8IhanH1RKVczEOv ZDDbtQPEzL3ehahou7dcoqrpZrTcV YUnQEr7HUn7DRWfwMvtRaPtUXZ2Is G4PSO2wJOsnE6dyWze elbsbX8eYia+JBJ1qNLciXKBQG0yZ jwvdGQ+PWAmAXN9lKreIBrkQGYdlY 6dSFYeD9x2GmZkUiT8 AInoX4QzviW7CYGilLCxFNTdvLHZj M3svbwme9ylidpqCvUzVPIzZVm2GP a6CYRntDddLrJhURS8 RzC0YTP7kJYnuW6wlMqzfutlaX6yG yc+GbnopIdsGLK1JRt1P3EvYah0LO BdmZxoMT1nmIGgUDsg Il4hmDfxsCaqMO1eYLPucgpbp926F wUkd1ycLFSuwXIcUUnyLDN0C55ih2 Y0WPXlOQSwXSZ6xMY8 oS3iuPaspxjjaHDkeEvazlCemKtxQ OqxIEdjZ051UNNcqIhmOzRpEPt9X4 LbVqy4SETdsLfmGA0m dHSgVFpcVh4ibTggbCglFA3zOBMcx iyke603XrYon5teEDInlRXcDZxbCF N9G35qv5G8FRNcZSFs RUN6vDS2uX7hsZgzuxczoBPhrCcpc pTmqSlgWKcsIIvbX615TSQwiNckMq XqqHm1Q8XvTod6XLGm mTxcON1kvQPoGZzgEd9nxWbqvPueB V5qPUUhopeyw021KzWda0fhQVLvcN JsSOsxCRR2Z18gb0C7 YBUqSLIsTDQ1eBY1lC1tsGmutpzwz FYqeWrvkgDalEyqTFlwGRxbS138YV RvcDsnPlBhdGllbnQg AOrhFYb7S5XzLtseiQI+NN28RNVpS F17nIJtcWDub7bozYd4XzFjDUOaNS V0mWpnGJziw2VuHKWf R63bqLZzx3F2RQKeyZtkeZOiNlBox DC7qJ7dFNpgvxdid0vsfefbAsgvo7 ijmz35jW80Q36iWJmf RYEoXGQyIBMiQIZenUepox4wfS8kB i8+DHKqoTI9uOG8pJ4iSOKhCtZ3BY giN054RjWxqKQyXyws x4tlr8jkuPo9UcE5BJWfohAzyRxvJ KT3c8IuKb43R81rRJidRORqDDGvAW HaBSPmcNpdhu5adO9f Ii8+QLQlaVU9cMV9wF9tCxTlBvC5W OdgS706PhEniHSjWfwuK25mT8VhrN A+MUSjQxl0OUFveDha VB2gvXKpNYzfUl6tQPH6OzRxLfAmO YuqQ6HeICWobgvvwhkypVV9OATvNL FamR17Fj7cmGooVJCy pGARxZ2envanc7npspjyBkGnHLElT Mw3CNf8MZYmnPvhXnYmFQI5OyJ2FG F3lCOogS2uhIzvjfbf gT1sO8NuYTXhotriHf16tI2pOxTsV nH5VYxxMaf+S3wFTOPxEIaHGX4QMY pLFHw7H8GdZwv2MXLd hNtcGB1ogYBjWPrxCx7lsVsruSmbK C9zLUAtbdxeFBVqxY9eCSIzvLQlmK mlWK7lGWKrurrnj684 FuYjKWQ7WMMtbNOfG1NuzX8dUjJjS RZlASTlH4TmrWZqORaaK043NYfqEs X4KGVieiGrO1HdBETz uElqNbN8p9G4Xf7nVK2wQA2cFSBfA L74LH08kPRya6I9sSL9T9UlQQZbqn ajgqgxnEE1DFFeLGOu qR00jUQuLHqeCp2ca6U4z741FSOjT JTncI49Nd7dnQgiBWEqwRXRbF3pph vgp0fgizcjAlQaSFYr DUd9MMb1LIHcoBoiTyDdVTQ8PpV1T AY3zLJzyO8qkOjdfnaosC7bFkl+Nj VbRDEaydS7H6WcRny3 LQUbpMwoST1uyFWvTDtzJz8dzBffh VdfSI2jPWCtqisbLEFvtU0xEJSwsU JuaYskBP5wXYOfpcoo a854IiWgSRT4CVOafSKhQ0UyvH1xD eCnGQSdPMBvM0XkxILkNZswH603BG diImX7TFPxprZkT9Px GUJdwKabBnP2k1Y5Ov4SJKdIEF04O O80mJQaz2Q6rEZ9G2DlBJHmiyabwd migRA5ZPXxUQVqpD62 mRObVBhxKd1tz4G4p293QSBtEOPmq T47Iy4jvUnqIHUamXSEuO9hiwrsy5 xvcjogIzAwMDAwMDt0 SUg3HJAdzOehBqHoLPS7CbN3NFZ7j XOizI6noPqyqoflvP2cRmd+T1A8L3 RkPjwvdHI+CN15OQMz RM80vGQjxGPjf3ceyCj0KxRgKGIgQ VL4wTjoKDpkt2TcRPHxU88iyEMho0 Y2RZNshEciiBScRlPm vXR9rU6zADtbgndzl3zhdhmeZxbyr 9fzuj13jQ47O56bOOklXPDkONCkGX EjKBJxbFkuyc4klI6f Ii8+RBHpcQN1eYH2vO8nQvAxGoC2J WpqV840BjVetGWhFkmuv7drv3sjaO l1JfOcKONbguBqtJgn GGU3l4JuVa09I35oAHecLTFmQLOaN ZUvXQDxiTpkvv9mhE2eRw7+PC9jb2 feva29xE73nVW+PHRk EJV8jVazUQteVWQcqE9mWElwRiW6V GNyEaMtdS32eYLwFMeuJk9ylPbdgW puTQ5mIEUwfhdjo493 XiHpb2vpAOKmrEYmNJbxSHJ1R91dj 3N0AGYoDXKfZKF6yLZ6mE2mvKmoaj ogbGVmdDsgdmVydGlj UOrcVXxkR900XLJzhQilZdWxqONnX 4eqzbOIQP5kShvvmLR+LKUbGVQ4vY rnLYhqMGNqfY1cOGUn E8v6RrFgReC2CEvuO1HimlG1GGFzd HJxDMUicHKPyY4favjcb2feflwhUv GaUJXeEUe2LCr2MVFn fDbyFhOcDIX5ZzC7TDZ1yNNvdK3gr DiurueheV8zLrb+RklOOjwvdGQ+PH OqXYR8zQdfIHkhNYLt bT5qZNVxA0f9IbVnItF9PCxgK8Mdu tJ7XDEbvIMfFSBglZJZmF8nytqau4 xvcjogIzAwMDAwMDt0 EAe7ZABclTsfBnRaIUW7PgA3CPB3w SJouL9hgDqloomkvW8uRcp+TVJOOj wvdGQ+KHDoVEA0uEpi AEdrJCYgoT5eZGPyQ2k2EtHrVaD6H SwcQ2SwekQ9ZGCpsPTaWEKsuLAJlM 3dtlivi0vfiomrAyWz FKRqGYd2DUx7KEJtuHhjUiKiBAA2F pO8YTG0fUDueV6wcYgerabtfZ4gIr c+TPG8PGE9ZU04NL75 P6CqNhiqaMDlfNU+PHRhYmxlIHdpZ QBdCPdaQXOvGyNzfEsaXF2cIm3pHJ VyLWNvbGxhcHNlOiBj b2x (more content not included)... [facility] Coding Summaryon 06-08-2024 Coding Summary HTMLBase 64 SkhlttayZAn3rGv+PGhlYWQ+PE1FV RIqJ53jqXNugB8qO0QFPFrOFedsGD ESCTmILlLtjdHmKB8jbRYnLXIw IC8+TR2gFYLtFanpbYXhr5T1nSW0A 09dzy4lASvcsPD0GFSyVhDfynszi5 nimSi4IJddBoohAtVt TSNsvY64NQV0uP03Aj91iNDbhXAzw 1slyVp7IdOsPNZfYUZ3gMxzOPtjj2 PfCCZoR83ovYJnc4H6 BXCpwLofjVPeXvEysZC6yZ9mZOpsz bkzr5iajsclCdz2fg43bSHwx8A5fQ V7I9MkiqY6MMXtaWFv JdnzyQDTkQ3wobbgk5solyyuIgWpF ZZeGNd4OYt1NZSdtBooYePnIB81AT O8LWAjixGeI8UqHFBh bGkwDsH7k5F7Tk9RY0IHSsjlH1LJS UFSWTwvdGQ+YB90rf11T2VuJbvcAz p1IIFqWHV9wFJ7lP7b OZIxQEeff1Z5kOG7G4AkbxMwby4li 1hsSUTzDDmbJ71vdYTfm4G4GFRwjN D3DLZojHroYbXslV45 Oyc+DXBptBswi5JyCbdcx2ipv6xvf Vl2VcoqSFHdqoIhnPegILR9r5QvDq 9jHZAhyBB3bFP2iU7w XgYoJrW9AYboH886RkWnfGLyKbdlE 80nI6FlgQB+TMXqEbi2NCAcmBidKC 9hA0BxLYPrpwvvsPWt tQhkGS7dFBGhvsmuKQDxkF1kJSQfG 0t3EcEhOdC1KBjhM4KqFCWecpglGd 63jL6sOcSlHjZ5OPgg S3RrpuR8NVNkgCFgRNozGSU2S17zh 1W3CEPsTVJoWOL8iEP7cL4eqOawix ogbGVmdDsgdmVydGlj TYunJRkhE701AZCamItjShFdTWpoJ yBEYXRlOiAgMTEvMjUvMjAyNDwvdG Q+JCDlECP0qTlsMLKu qMHqIBcyJw2yqQhccDaoCI4lDGNef fctRWVioS8qBNVatXDzcUzfHJ4rWY Nxqmcbc401AsQvGEY1 LLTqqWXqB3ItcC1zHqWfKUPyGNGuN 6OmhIGnMZjnU062FDuwUpH5UUAxzm QvO7YkFGNfpMbgPgB8 o3J7Ka9Tc7XkviyyU7CghXSrZtMwI dezBUu3M5ZxLjzonKX+MP64WDWlTC 72LEo4FNR9pKpzSBpt REBwN5OocU4kVpWnHJBlGKLdCmb+P HRhYmxlIHdpZHRoPScxMDAlJyBzdH meHB5bTy5tEFCgWLKl rFvjaXEtHxSdv2pqTQQnVHxwDC7id ScyV4PolRR3GWRcr1j8Zq00U67zJ1 JvdXA+PTNgzYE2fMH4 kU0vBsWpVbN6CEhrZ602NyDqeHWeJ njgn3zmo3atiPb7RcQ5CYUhwbRajA qoXBG8m2ZqHk35N00x LMkpIADuGJWcIKHkZUVnfRduli5wu G9wIi8+OZLhvRR4fDF0fP6zSmCiIp C1AGnnX789GlBodYFw Ynxxd5pww2aruJb4KbRrXWXiaxWqs UzbVDV5b8RsWr85V1NckZqzn0RaLr d6wy50aQLdc0D7mLH8 Z5BuSXIktnmncLZhdRdtWF0wWOStc mlrZIHreM0eBSVtS3j8TnOpOlH8DD ilN9XaiuZ1NGHbiGYg FABviYADqK7qwbjux4ilozepMkAyO PKjGKl8JYg5UZNkuCnfAqHmWTV8Yo M3KMB1zBWmoG9xjMyo oyxrtU9dVsp+DET8qGBdvHPTIC9lK jwvdGQ+WHRkFMF5lYgyNRzlACVlkF 5gFZXlY7u9CzRgUdQ6 EZulL9BzssU0AUTgfVUsYXJoqUQUo C3twezwb3pejleqVoAqVCSgLVp8OF s5YCAmdZqqNbJlCBR6 PfV0TRA8uGNhaC5bjOmrxbblzI1nA yc+QnistOfrGCV5YJt0I4SoLzo7JA AhvMutXR4eoBAgWTlb Ll4qmKskcQuvTR7nJJNwrcark716E xRdk0gqOCAyuGHpTFbbYOM2O74uo8 G9UZFbKCQdWCA1rGN5 kZ9riFssuoexlBPxfCqxttLwiRvkO VqaLApyF416PNXjdIamSiWrVSf9L9 AhGff0EKGvvItaXK6m gYBlPKbvZd6ksFbhqOevUI5nPJDpp zvny032VvEuk2nbSGPgdZNtELeiTQ S1Y63kq0G0UDEdTLUs XWV2dOC6xQ0fsLzeyaqsxRCcyJqrj zMprUggCZakLHnkJ265XVZbiMqjSm KhsWj3D5NkYzj5GQDq vXqxNH5xsGVzYXpdOd6kwErkwDtqB F1aHVHlrgjvx685DkHds3svYDQbzQ OrJBymEZB6V81rk2R0 KITfKWSoDMS8fOV1pV6kxFgzvpghd DLkjAicpsWwjMnlFBbxTMnhY966LN RvcDsnPlBhdGllbnQg VJrwTEt3X8CyHcpzcZP+EJ39TNSaL M91wQGjiUZcm0edrZz5HpEsPGDfBV H2yDljGQrvy1XwGQVo W70abIKwl1R3TJUrwPuvnEWpUgLtn ZQ1hD4uMZbnqfdom1skhwytRkvmg1 efyl82mE48H99gOXhm IVHtWBUvZIGuYVAhwBxszc9rzZ5xD i8+RQCgdWK0cOU7fL5aWAEoPcX5FH zbI994CbWwhGKsNerr u1hcm8wgeIj3FoM7EVIcszZcbMcrF WY5u0HoIl44G73eTTonJLXoMJKlZP PyVCJtmUdbzl4gzA1b Ii8+NIVibLL2eQC2hB3nJjUcOrR7J XwbV354BsRpaFYxGlkgJ56dV0ZumH A+DGWjMtj3INQprEcu OC0imCVlFWbfQm9sDYM2ZmCyUdSpI AjeQ3LiGUKiipvekhhzuPN4EACiCQ JfkF19Gy5gzXsdCEBc vHLQbS0sgqzrq7eznnazBwKuOVJuL Le8ZLo1DENlxGmdYiEwBXD2GhQ2VW J2bRHewS4bgPbtxhmt qD6mG1FqUFPnrhveSi31pK0rYzXgM xK0KDdcNba+Y4xNILVuSJlBWV1HUG mDDPb0D8ZcCcv3TCGm xOeqGZ4txCCmEEvgCn0emKzgyVwdD K0rLSSoxtlzPRKfeJ3rDDAcyGYmyS yjGN0hHFKtyiqxx207 ZqMyXOR6LWDoiCVcT8CphU7tVmRaQ HTxMJTzQ3EnjCPgYAgxA893FGgvKj E8SJErrzHbD4SpRQPi hGsrHpM1b1D8Jb3hNC2rJW2zRQJzB G88CD41vBPki7N8iNK6P8BzERUxjw cvcfmmyLA0UKHtFKWj xJ95tSPaKVxjBa5yi9V8c631ERUoN SGpeI59Qm6elAdyALOlpLOLrN4bal tmd9lqcbxwYjWoPMGh UId9TNy8FJAllQfyDoLpOBP8ZiP6C LA8lAGlrC7moKnjctakhJ3gBbg+Nj GxZIJfxdL3Z2JqYpk1 IBDvtSblLJ5mvXOkJLihRg0cqLtfg BghUI4bVNZbkmscMTBxyB0rUPZuqD WssPdnFW6lMYNbzkeu r501GrGbFAZ1WCIiuIYtY4TujG8uX mEoIBIvKMWqH1YlmVDaIFurO694TZ olQiN0EQHftqLsA4Dt HINnzLwqJjO6f0P0Ty4BTMzBSG00V W54qJJql9M2iQL0W0MqSMVwcqqldn ipvIN1WODfEGXkhH61 vUJvFJquOm0gk6M1t092YDOjAAJpq S83Mf6oaLbtCOEyaNOWnM0lolfvd1 xvcjogIzAwMDAwMDt0 CFn0SLHyaSmxUgWnCRK6XnS2VQK0x ZGrlP1otPrxpunaaJ0sAtq+T1A8L3 RkPjwvdHI+JV01AWMf FY96fBImiHNnj5sjdJl6QyKrCGOmW KK8qDtoQTzjc7TtHDXrO53lqRRvn5 O2TJEbmYtmmAAcZhGf gHU3aI9jLUrutcugl0ezwiikAldyc 2gglg37eW14K40mEDeaGUAmBGCzFK WtWROyiIhpip5flO7r Ii8+VCPrxEC6oEX9mI2qIpGeOuH0L XvkF058RsSksRFkNjfpc1rpo3howY o3YqWlYRMuvdWxtGog TWT8t2MpTt52Q92bNMjfROBzSVMrH RTnPLDxqFiyhh9zrF1uBo8+PC9jb2 npgc81gP37fOE+PHRk URD9lJtjINwaJNHbsO6bSRltDqB5F RCzNeZdrD47sWVoUVvxKv4qlIkfoV pvBU3sFPBtuhcjw146 VpIhx7zrZXUmnIAoEMclJAZ5O84dk 9O9WPOfMPWcQMT8nLX6uQ0kgWkdnp ogbGVmdDsgdmVydGlj SUbqQPruW437TYEjxFqfBgPtnJIeV 2uebqESOH8mBqdxzRJ+FYWvBRX3rF lbYGiiRLHeeJ4tICEa V1q4PwFuAfV2GDrpR8UvxpN8RABvq OIiILJovFROxK3qeofvf4bqhrjgCn XcZISpZOb4MXp6GNCh gXmpVhRkZFZ5XnH0KKL0qYAvlK4do YbibkvwqL8cQfv+RklOOjwvdGQ+PH IvKAD4jJzvBHdcRHEk nG3nGWSwH3a0IyFhZgQ8NIjvQ1Inz hQ8ANZppPEiYKPbkHXAqP7npotlp5 xvcjogIzAwMDAwMDt0 GFs1XKDquQlaApQsNXI3HhI5POY0c WDlhB1ngEijxjqbcX6pFtg+TVJOOj wvdGQ+JUOkRXT1rPrg XAyrDWWymZ0fVBAlP2k8EnAmWhC2U DlrP0PhdmJ9WVApwDLsGPNxgXVZtU 9ogksqy1iniudsJwSg VWXzZPd8PFi0XVLciVaaDuIfJER3Y pZ5SDN3hOZweP2vfGbvagxukQ4mCs c+XXY2PBC0WI55ZJ60 W1WpMrfnaNLccDW+PHRhYmxlIHdpZ FXbJSnvNFEsEeIupXcaLH7nHy6nMU VyLWNvbGxhcHNlOiBj b2x (more content not included)... [facility] ED Clinical Summaryon 2023 ED Clinical Summary [facility] - Emergency Department [address] [place], [place] [id number] ED Clinical Summary PERSON INFORMATION Name: VARINDER WILSON Age: 63 Years Sex: MALE : 1960 MRN: Acct#: Visit Reason: UC - Shoulder Pain or Swelling; FALL 06/06/24, LT SHOULDER PAIN Arrival: 06/07/2024 12:01:43 Discharge: 06/07/2024 13:28:00 LOS: 000 01:27 Check In: 06/07/2024 12:01:43 Checkout:06/07/2024 13:28:00 Address: [address] [place] [id number] PCP: Negar Francois MD PROVIDER INFORMATION Provider Role Assigned Unassigned Carol Marin MD ED Provider 06/07/2024 12:05:51 Cornelius Novoa CONTINUOUS PROCESS [employer]EE RO[employer]ER Nurse 06/07/2024 12:09:58 VITALS INFORMATION Vital Sign Triage Latest Temperature Tympanic Temperature Temporal Artery Pulse Rate 84 bpm 84 bpm O2 Sat 99 % 99 % Respiratory Rate 16 br/min 16 br/min Blood Pressure /79 mmHg /79 mmHg MEDICAL INFORMATION Medications Given: Allergy Information: No Known Medication Allergies PHYSICIAN DOCUMENTATION DISCHARGE INFORMATION: Discharge Disposition: Home Discharge Location: PATIENT EDUCATION INFORMATION Instructions: Clavicle Fracture Follow-Up: With: Address: When: FERNIE SHEPARD DO [address] [place] [id number] Within 3 to 5 days Comments: Call for follow up appointment DIAGNOSIS: 1:Clavicle fracture Patient Understands: Yes - Patient/family/caregiver verbalizes understanding of instructions given Comment: [facility] ED Patient Summaryon 024 ED Patient Summary [facility] - Emergency Department [address] [id number] PATIENT DISCHARGE INSTRUCTIONS Patient Information Name: VARINDER WILSON Age: 63 Years Date of : 1960 Reason For Visit: UC - Shoulder Pain or Swelling; FALL 06/06/24, LT SHOULDER PAIN Arrival Time: 06/07/2024 12:01:43 Primary Care Physician: Negar Francois MD Attending Physician: Carol Marin MD Comment: Visit Diagnosis: Diagnoses This Visit Clavicle fracture (S42.009A) UC - Shoulder Pain or Swelling ([id number]) The Pharmacy at [facility] is open Saturday through Saturday from 9A to 6P and Saturday and Saturday from 9A to 5P Prescription Information: If you have been given a prescription for narcotics, seek immediate medical attention if you have any difficulty breathing or any sudden status changes such as confusion and sleepiness. If you or anyone you know is experiencing suicidal thoughts, mental health, alcohol and/or drug addiction problems; contact the [facility] 04/02 Crisis Hotline -Text 9QNQK ij 000869. If you received any narcotics, sedation, or any other medication that causes drowsiness for the next 24 hours, unless otherwise directed: ? Do not drive a car. ? Do not operate machinery such as power tools, lawn mowers, drills, sewing machines, or stoves ? Avoid alcoholic beverages and drugs for allergies, nerves, or sleep ? Do not make important personal or business decisions or sign any legal documents With: Address: When: FERNIE SHEPARD DO [address] [address] Within 3 to 5 days Comments: Call for follow up appointment Medication Information: The exam and treatment you received today in the [facility] Emergency Department were for an urgent problem and are not intended as complete care. It is important for you to follow up with a doctor, nurse practitioner, or physician?s sales service assistant for ongoing care. If your symptoms become worse or you do not improve as expected and you are unable to reach your usual health care provider, you should return to the Emergency Department, we are available 24 hours a day. For those patients who have received Radiology results, the interpretation of your X-ray as given to you by our Emergency Department physician is only a preliminary report. The Radiologist will review your films and if there is a change in the diagnosis you will be notified by phone. Please make sure you have provided a working phone number so we can reach you if necessary. In the event that you had a lab culture while you were a patient in the Emergency Department, you will be notified by phone if there is a need to change your antibiotic. Please make sure you have provided a working phone number so we can reach you if necessary. [facility] Emergency Department has provided you with a complete list of medications post discharge. Please inform your primary care sales representative/provider of your visit and for further instruction on these medications. Any specific questions regarding your chronic medications and dosages should be discussed with your primary care physician(s) and/or pharmacist. Additional medications on your home medication list not specifically addressed. Please contact the ordering physician if you have questions about these medications. acetaminophen-hydrocodone (acetaminophen-hydrocodone 325 mg-5 mg oral tablet) 1 tab(s) Oral (given by mouth) every 4 hours. as needed as needed for pain. albuterol (albuterol 2.5 mg/3 mL (0.083%) inhalation solution) 3 Milliliter Inhale (breathe in) 3 times per day. aspirin (aspirin 81 mg oral delayed release tablet) 1 tab(s) Oral (given by mouth) every day. carvedilol (carvedilol 6.25 mg oral tablet) 1 tab(s) Oral (given by mouth) 2 times per day. cyanocobalamin (cyanocobalamin 1000 mcg/mL injectable solution) 1 Milliliter Intramuscular once a month. fluticasone-salmeterol (Advair Diskus 100 mcg-50 mcg inhalation powder) 1 puff(s) Inhale (breathe in) 2 times per day. fluticasone/umeclidinium/sonya nterol (Trelegy Ellipta 100 mcg-62.5 mcg-25 mcg/inh inhalation powder) 1 puff Inhale (breathe in) every day. lisinopril (lisinopril 20 mg oral tablet) 1 tab(s) Oral (given by mouth) every day. nitroglycerin (nitroglycerin 0.4 mg sublingual tablet) 1 tab(s) Sublingual (dissolve under the tongue) every 5 minutes as needed for chest pain. If chest pain not relieved in 5 minutes after first dose, seek immediate medical attention. Refills: 0. rivaroxaban (Xarelto 20 mg oral tablet) 1 tab(s) Oral (given by mouth) once a day (in the evening). rosuvastatin (rosuvastatin 40 mg oral tablet) 1 tab(s) Oral (given by mouth) every day. verapamil (verapamil 180 mg oral tablet, extended release) 1 tab(s) Oral (given by mouth) every day. Visit Information Allergies: Substance Reaction Symptoms Type Comment (more content not included)... [facility] Coding Summaryon 06-05-2024 Coding Summary HTMLBase 64 VaqynlntHXh0eDs+PGhlYWQ+PE1FV BOzK85neWKwrP3dW6UKERtRDybpGA CBKIgPDnOjdaXyCP7ufBDdVDAu IC8+BC0sYMUfPftefTYqa7I2aXN1E 61yen7nCPsmgJY9APYsUbCzpgkra9 tyfKn4IMltRfhjDcDp VYKjcV02IYC9xA82Qz57bXHpmARqm 7cncBx5RuYjKLLaEQW0jGtpLCcpl5 DhLXSsM49cdAOln6V5 KPEzpLgyuWZdQzClzSC9sE8nOUbjt nvvp7wluzgcAus9kx54eOOix8L8xT L4T4YveeV3AMSxwJPk WgmmiRXYfZ1gtkweu8cstyjkJoXeM XCgBXh7OPp6IBMxtLovYqXyAC29RK B7SGPqoqClF7OfABAt lQknQmU3t8D5Qt3TL2CPAgjoD5USB UFSWTwvdGQ+YI85pg23A1IlDgouYl b3GJLhIRI3dPL4qB0j WPKrWJcxn0E4tGU1V1EqrjSjlm6gc 3wcGVYeKNhkZ58fpTFcm1F2JWWyjF U6NWTxzNcvCxOnhC55 Oyc+PCPshMvql9DeScfcq3jph9cyn Ht7FalmPZDumwCngMsaUWU6r5BhLr 9tBTWucMV9iQE0eM7r VdUzUcO2GReyY905AgNqdZArQcmdN 04mH8ExxIX+GSInQkh0MMCbvEzqIK 9kA1LoLQTycbbbxRKq sEnqRM7lTQWmbcsjJGJrbG3hDEFtJ 6p1YyHoTuO3NNqaQ4WeCRKvsjpzIf 46uP3oSgLsMuX6XOof M3EmioN7NRMavWGnMRwrZTN3K06zd 5S8OVPtFUYpCVK5xQK3uS9jlDsisp ogbGVmdDsgdmVydGlj ZFvkSQkbX973CPYefZsqBpEiNWwuN yBEYXRlOiAgMTEvMjIvMjAyNDwvdG Q+OJRjYTW2vFwkJMQw uILdINyhVh8loGurfKxpBW9tSCDrq tfwUOTbmM0uUETyyHSkqLnzFV3vXX Lmwmtlt060LaClXLL8 HTXyxPPaG1MwoJ1kTjGkYHVeGWOxW 3AkxQZjNEqpW334CIqyCxV1TMFurg XaH4VzHALywXcvNhJ3 l1I6Oy2Fz2DfaxqqG1KotOOmJmDoF xtzDNs3P0GfLfrbwEG+LB54JQWqMJ 24DMe2ZIB3tPesRKxc NGPuH9WhwT9qVsOyHKZeQFAoObc+P HRhYmxlIHdpZHRoPScxMDAlJyBzdH yeMU4sTq6pYVSwPJJs pGzktIFaUcFew6clGMPjZMpgYN4dh JjnC3VdbIJ4UAPnh3q8Wy56V55yS9 JvdXA+YTBsmWI0rHA7 qT7iGqIlPuD4OQmjL214GjHluWVtA evqx9kki4lzsDf7BtP6YQXbrkGcmG hpWGN1j8ClYo65O33r BQewYTEuUAWkHMIsKYDkdRywym1mk G9wIi8+JIMkzAQ0vLM4sB4fThVrGa T6JLtnI871QcJxfSYi Exluj4lyx2vcuTc7TdLyDNHdjxCey XjpZPN9i3BqXm66M9WtoShoi6NhIq v0ji78rBEly4X7cRA5 C3FjTKOjeumjnTNpbUoaCQ7gVUQdk jweBLZdjJ5eLSErF5r0AoQpTfL7KR xiN2PmsqA2HGEqlJRp WIKfsWOMtT8ofzzfr1zljfxcNwHbD IFdYTe7WRa1UDZokZefNmXwBCF6Xo S3KNZ8pSBdeP4wuWen ajwxjN6sGae+UUB9jUFlxPRWLP9cU jwvdGQ+ZYZiCVX0dDsnQWyaAVEmdO 1sJLNcG2d9NmOlLvP3 CGmwH4YfpyT4WTOwsJFiWLKvrZBCm A0zzzltm8cflxfdPkGwHVJgDAi9NO j5XZSfrWzxWxOnVAG2 UlD9MNR6sJMyrT6vsMzkwdlfgS6bZ yc+ExiwkThtFVH8OZx6W3FhYio4FV QxeCcrAY9xpTCiKWtl Wf0yaDypeVbuOA0xTITamybkj668T iBlf6liQBVjkWWoERfeTFD9A06oy2 J9IIFrHSFgGQZ1xQR9 hP9uxFcpfezylUUmgAwicfVvpAngF LqbUYcfC824CTMkkFieCcYiGUg2S7 SwIfl7GWCjkMrhPR6k bYCjCTrvZz4khRkowVryOA7sPPRjg vyuu245XoJas5qrGQRfhEFbRXuaXG Z0R45yd0C8KQVcWHNt AKZ8cGH6aZ1rpZgszadnzSXqjTmng qUiaKizXXscEBeuX040ULVuiWrxDp JtbWb3I0GaPyg7VBGz cIclFT6xhSJxYFhrBg0dqPwurClaN M3hPAEkcoojl777HxMay5rnGOBxrJ FhNXocMZK2B38hs2Z4 FHTuYDUkXCG4aAJ9mB1anMdebvyxj ESlgSlvovMvqEnzTKotGKnlU037CJ RvcDsnPlBhdGllbnQg NBzvPXz2L6TyJpaolAT+IJ16VOHsO S47mXCesKMyb9txsIs0JpCxOWMtPP F2iJnrOVwab0SvDZNw O03cyQGxj4C5CXFjoKdieLXlZkVxh QL2vH0mOEzmiddck1lspijyArzjm4 game30pG41Z46uERbu RUIdUTMfVSDnIJXdsPmygv2xpM5wE i8+JWHqyCQ0sYT5qP7yZBYnBjB6ON syV589TdPqxAMiQxft i9urd9aeoHp8ZdH3YIIwdhTjyUczM NJ4w3NqQc86A81uLWfzZZPpBEPgSM LvSOFzfPiajd6ybO2t Ii8+FNHwnBH4pLQ4zR0qBnToCoY2G DysM658AlEvmZYfUbdtD63eJ3GghX A+IFIqWdo4TECltUnu ZP1brATtXTklFc6yKAY2XwGiXcEsU IegU0ZcPIOelatgacmjpLE1HTRtSK BccD12Mr6ooPmeEJCn cOHWjU5vmovwv0eiusyhJiSlETUxI Ny2RUv5OQBzmJalPjMrYBA5KyP1UU V4dDSivP2glGxmjcin mU8eX2DrEIUezlwdQr06wA5zCaZqW lQ3VNxcEkc+C3jYXFDlHEdMRM9ELD lXDDq7W7XlPhn3YKDt uUoaOF4qdQDxEVlyIm1ynYgiyFikZ H0cCHAywwamJMOcmK1iCHYfmPGipD xcFN9xMCKwpcimb398 MuQsOQB2GJMeiTHgE7BtgU5cRnDlC SLqYTWfB3ExxCOwHWrkU295JLojBu U4NDDmjyMxC6VxWOIm aMfyIrU4d0V4Kx1wDT5vVX6tJUScR G85KU42fWZjp4G4bAM0B9YnHADjub uxiqullLG0LRNcCBBo bE49iAHtHTzyCn5ra2R8u316ASSiB GUexU95Fy9hpPgqFVMzuIDPsH8bnm tzv6efnjgaMoAlYGYp WBr4TAe5LGEizVprEuFnNKZ4NhC9Z XR0aIGqvR9tmWcuofayxJ9yVks+Nj PvOAExhbF9Z5LwSxv3 YXCcoNtbXU0fgFFaAHsoJu3gtRorg QeeAN0qSARlboziLLMurE4oWUHfuX NyjUekKV4wUOIadbue i738XiOcMWR5QLPtcGZyB8OlvU5cO xKiNJJsRCUjV2EuwBHgQWakU084ID pyNhU3OPGhgwBvY1Oy WFCjpBilWuQ6a1Y0Mk7IUJgFKA58Y R16lIIqx9S7pLU3A5ZtFWYwetefsf frhDH3AXVgMRNqyX71 pBXkVFxgIl4al0C2w585WQMtBMGoa W81Gr6ysZxsUYHbqKGMaO1xkltwe8 xvcjogIzAwMDAwMDt0 TNe9ZKAmmCguGfZcJST7SfK5AWE4a HRprL2jjIjxusmnxG4fPde+T1A8L3 RkPjwvdHI+DU92TFQw IG13eQQmmTPqu3vrpKe2AmXjKKZpN HA2hRjvYOsgq5PpKRBaM25xcLMin6 O4EOJccVivyOTiUfTp rBB1wB0wBWudcuyqb5jveoxsZtlny 4mjnz11uB69L13hJOprPXCzGYCtDF GjAOFnkJadlj0bnV1c Ii8+RIYhrEI9hJY0wV4uNyMpFpZ3D AcdD886GqJrfFQsDyjhk5tbg8qzyF o4KuTmXPBsoqIajJii DMZ0r8RtGe77P15bSHmsDGAtPCLhD OFaQWWuvHsdju5igR8eTp9+PC9jb2 pmfj62zJ26dAB+PHRk USX7rWoeODwySVHnxV4sLGegHkX8U TXsMzMlxG40nMWbAFrhLr5yyMufrW yoUZ3sHBDyhhdnh024 YpPfu2ldFDLvpJOzREjeINW4T08ev 6R1MDOnCSQlPHU5aVM3eA4zlEbtnn ogbGVmdDsgdmVydGlj KJobKTkwW609PYAqmGfrVmBerXYkX 3ddnwPVCQ6xWssubDN+VVEvJUW5qJ zeNStkBDNfkN9kNWBv R5q5LrCjWhX3DAxcF1ViptW7SXXov TJpPRIajRVFwV6hdsweo0erifupVr EkNWDyRJc1DHu6JRLn pWptLlAnPUY4UlC8UXG5iQYcsG3vu JgrjlhieD8sEjb+RklOOjwvdGQ+PH IxYGZ8cUuqLTijPBRe tS0pMMOiL0d1EfOgZyE3XOkfU4Sru kT2MCMdqHDyKWHoeGPQfS2zlchol9 xvcjogIzAwMDAwMDt0 KHm5LEKjgXfoLyZwVNV4OrM4AOQ7h MDddD4hnRwtgmnfnH7lCdy+TVJOOj wvdGQ+RCAzEZN5rUog ZNznZRRhdG7sMDAlP5h1GrCnReG7E PvbW5DmwjP7TZNtrMWhBPKciUKSgH 3ktgkxq8wmigsdEbYk IUVqJFr7MUs3KQRppYkfWzYyETO0T kW5UFI2qWSvaP7edSkvybmobL3sXl c+ZOJ8FUA7BZ35LZ87 T2HlRrmdqWYikRZ+PHRhYmxlIHdpZ IUhOPukSULxJnRofSjlKY7fOs3kCI VyLWNvbGxhcHNlOiBj b2x (more content not included)... [facility] Coding Summaryon 06-01-2024 Coding Summary HTMLBase 64 EsyicxphBUk5nUg+PGhlYWQ+PE1FV LCtR50wiQWulJ8dX3DAQUtSTgqkRQ WBGIdSBlBfgnHyVK7vfBNiBRDe IC8+ZP8rDSGlSzjgsUJiy0B8dFF3C 93jrj2bXQxfkVD4CDSzQyKvxdjon0 yanDh4OOfsFdbfWlQb RZSfdY15LMY1iW84Mz73hSZrbIKoz 1aknXx3BvSaWOXmNWS9aYqxMUbhg4 VdAWZbP65cuZFqg0B8 LGMxwWyoqYAyGeZzrOT6mV5oIQfgl gdus7auidmbWqy6yh22sNCho4Q9zU D5T3ItpcD6RLArzTNs VuwisTISxM2tbjuaz2zcnkuvBsShH HBsZHo9EEr1LUCeiQrrNbMaTC96EI L2ZIJtwrBvY1SsJOEk rZbdSdB6d2D0Kf0PP6YSTqcfU6BKP UFSWTwvdGQ+ZA02ex25Z4SrEahnLs g9MIGnNIP6wYM1tL1n XDNiZUkbg7S8wYD2D4JvamPamh3rn 6ytJMLwXDmsG08zxOBhf3B2LQAafV I9SIOwqIitJjKbzH18 Oyc+KRMcvHnjw7OsXmuci6gtd8bnw Xa5MsllCVMshvGuuSjsCRA8m9XkOc 2dVVCcuGE2qET3aO7a SvKbGrS9DKehF482NxCsiENgEvzaA 59iC3HhgBG+UQCfHhz4APUafPnyJZ 4kV3YjFDOzkvieiRLy yFasRU9lGQToenewGBJgbZ4oMHDnD 2f0KkHtKuN9APbgK5ZeYPClpzvpZb 12mE1gVuAcRlB2XLtn V6QswbU1YMKwlEXjRLogNJS3Z79rk 8I6IMRsNFHmKIW7wWJ1qH5siUwcgn ogbGVmdDsgdmVydGlj XWueJEsvY122HSNbnXgwKaQyTDxjC yBEYXRlOiAgMTEvMTgvMjAyNDwvdG Q+HPMrFFJ0xYaoFQPs uMLvYKwtWb4byRokwZedGN2dGBTmx atxWOBjeX8fLYDzfQOowIfjYC5bYE Sjjuyoa859SdXrVAO8 FMIxeQUyV0IpyN2qVhNxNGDvPLWyV 1FwhBRtCGguX589KWcrDvV1LGWuwe GeZ4YbJIBbbLigKwO8 r0B1Kg9Qb6RkueraM0SmaKElYgLoT ndpWHh4V5CkQoltqGD+YU40EIUfDQ 51KTi2PYP8mOlfQZgz DOXiV5VitZ8jGyDaVRNgQHYiDep+P HRhYmxlIHdpZHRoPScxMDAlJyBzdH ftCD5lFl7fJUIzCIVq sLndeRFwSoChl8qiLZNkCDcnFN6ga UweV0QtfVQ3LXRzu0d4Hp80U32uO3 JvdXA+AWNwzNJ3pYQ3 jE8iKcThMqN0RAufJ249VgXocFZvJ imls2lbf0nftSg7SxY1KNCbxsBceV toZZQ3m4IsQd00Y60d EFjlQHRmYJSuZHRuCAXxwYdszh5ek G9wIi8+CXAkxCM9dKO7uU6eWwEcZs T1TZvjW758TqNzhSSo Yqbyd3auk2vplSs3JhLtJGGlvkIkd TevJTF7d8RrQq88P3FvxYtzs0XfIv r7gt35aHCzu6P3iRS8 X7PtADZpdyehqNVpsDhwJO0fWVIbo xylOUGloM2nJZQqN1j3MrCvXoH8XF hzK5IastP4PAVveZUu XCCfcWTUkS0tttwmo9njgfbgCaYsS MStBNh3JLg6BNMpbEjuYsPxFGD2Zs A6KSX6xMAsyV8mjPqn kyqbeF2bFts+VCO3rFIagDJUVF8gA jwvdGQ+AIDpVVJ8mFqpBTpbTFWkiP 2gIRMoS7a4PiGnFlS3 JIlgM0GxnuY3USNcvOCcABWwcWMZy V9nuqpgs5hfsotrRtCfMYNhMMs4KI s3YSBjwAlbLlOmKLK9 UqE1MQX6pUThtT3slFsfuatubR0rM yc+BfypkVxxUTG1HHi0U7UsZpw4AO GdhOzzHF7niSVsTDiy Fh4ihMhygUpvXY3xDEAzyzmef997E rNim1abOAHblIYrZVqlEVO0F45lh0 Q6SYKhAMHpSWE7sPD8 nH7ezZolevzuoMQtlDffdlDjxWuoS DyyCCwrU922PGVrxNiwDpFuATo7L5 RsWfs2OOLupAbjYV3z eBCmRIsrIo9vuFlloNpvIN3bDDCng noxc005QoWdg3fzFJEurZHvBPwlOX Y7Y64ye3E3EPIrIRJn JGP8lCQ5zC5jmLvmayqdgEDtlPqqy vXakQarXVeqYPosJ239NTYmpRbmJu PjcFr4P1UzVnz5CKWx eWeuLP0twQVcCBucMv4rdNjwkSrsI U2wBHXburyfy680BfUqk9zhEIYezN XfFAyeTEB0N99ej4P1 TBWtNQKvUFR4xBK7yR1pqCryuaihf GHmmHcnjaHakXmcVKkcFKhvW307OD RvcDsnPlBhdGllbnQg LNkuLSv8H6TiDexxgET+BB69WDOoC Z19qPMhlMLzm7tqpNn0TzKaRQNtFD I1eEbmNVhpu5MxOXLk P72nmDYac3L3GZKuuYorrQUtJcKiv JP6mV8hWUwjjqbrd9eigdafPllnj9 gmej27fW82U57wSLua ZMHxPLLrFKBoYKJlhFtoxs1vnD7oA i8+PDZbuNB7yIC6sS3hARDyOwJ7JP tqE907JsLetSPeJnob z9rdd3phfTf8VrD2ADOimpEqgIctQ VC3k6RmIb31Z83hWIhbMJAwOKCoXC BrCHPbeUfjwf7bnL3z Ii8+OKPqtGQ0nNV9xW5bItBoLyW7B TlpI984BaVcmDKdZiybV47gF0XecJ A+HUBkBgc8ITLpjSkr UC9coEPwHSakRp0mYWM7XwTxIlEtL LksP3ViVSFyqpgdfycfyKN9GKKgWQ VcnX38Ge2ngLrwZXVo jNDEgU6fpzyrr4upmcfkEbQpQDEwJ Ox5BQd9MXQoiCoxAmPlNRL8ZfN6RJ C5uXFeaI2ngRxdggqx xV9dB0PoYBNylejvQt65cG8oQgFtG jI9FCqwIws+K1kZDMIqWMlRAV2FCC cSQKp0K1EqKxe5IBJy zGowUV7kpAPjPXvaZd1zeElxuBryF N8wMYAjtbzyHJTgzB4uFCZabWRslV wjHV1tKOTdtxthn928 LzWcODA4UFEqoIUrE9PbpJ1iAqExS JVnNAKgH2CqkQYjFJgyJ723WDryCk O1RQFtsiIoP9XcRKEn wRitTkG1q6T9Dl9lTT3rGM7qUXZkE E13TV63oZRzu5R4gUE5Q1KdLRMafy zlplponQD5KVKaEBOm bI55qCNqQBtqHk2rd6K5y197PKHjK DHbgS84Ok3cbYkgJIGgwVCUtI0fqr khj8exfsviMxXySFCj RUw8RNl0LCTprIknFgGqPJP0WlA9U TX3lBDafZ0jaVasjaaiuH5mFds+Nj XiSTDtaqU3U2CpSvs6 SWXwcZqdEV6phSTsGYfpCr7kjCqlb ZsaAG2pXHIagrnqQOEfbB4hTEOutS WdyXeoIQ7sNGUsewtx g648XbFlQWD6JFVgwBHkB3XsqX0zO yEjUJSuYGOyD4TuiDViKQtvE067WJ qhPzT5AYZlouYtQ7Ri DXLgiIllHiR3j5C6Ms3ISApBPO47C X38pNKdp3H6ePW9H9DeUWFtvpqfsp hymMI7AJWiTMKpyH56 gHEoSPzrUn9ot9H2c718OGGlZBFwf R71Up5zgSybEABpmBFRvG9lnxlbp8 xvcjogIzAwMDAwMDt0 HJd5LGHliRgyVnPuTSD3LrB2RNE3y PKizF3pmLlhfjkfeB1nYhh+T1A8L3 RkPjwvdHI+BG80KRTw UG73gDRspDMem8sxwMv6UqRiDLRpE AN8gKrhBMqlm8CmOFAjT52xpJDmc6 C4REXbmVicvBHhOcEz yWE9eO5wYKwedeapk4txkqmqSjusw 9qrii72jZ93G01qRNobZMQrNATlGG PcEGGffQvamj9xmO7m Ii8+VAXrsTS3eTQ7qR7kZcRnAmF1Z McsL919XyEskXUuOsnav1wqy6gayT t6JmTcUNWidhEomMra GTB5x0TbBf58X94jCKghVZIuETFhZ LVtZYHwnJsibz0emY6vHi7+PC9jb2 tvsf72hX83dOU+PHRk KTN4dTpdOLliNCSklG7zAZifPgC3J LHcVdGaiP74mLUdUGkeIi0jiDmwkV kvZC6jRNOsjijlz769 FnLmc5xbNBLujWOxNWcsODS3Y30ko 5D8QXMvJTIgZJU1wDJ3uZ2jaWuxfm ogbGVmdDsgdmVydGlj TWsoTVrpJ676DXJrlUyhWsRhlOErA 3ytaeRJJY9gXkbgqFL+STNmOUC2hU buSTxbDVWhbG2vLIUa Q0c5WiWrBfA5SBhtD0WbcdR6AAUgg CJeZPMksQWWlW2alwcgr3wjgoskEi WdFUTcOGy6SXe8CXRs oDjfObLgUYA1EbB9PDY9pHUawK9um FzzvognpS7oQra+RklOOjwvdGQ+PH AoGCD0rPpbHQzuOIEj wT0wGCJcI2k8LtLgFbW9XHzgT3Twd uV0XIHulZDjSNSehBWIfM9qkyvza7 xvcjogIzAwMDAwMDt0 EIn0ECXvqScoZqSqXJZ2PgK5BFF6k RMimI1iuWdhjdssaZ9dTfd+TVJOOj wvdGQ+DREhXEK7wEua PNqkBOBwnP0vLPDuL3z0XrTrMzQ5Z VlgA0HcasE5IVKtmDLpASSfyRFSnN 5kqardw3vhyllhFlIl EYBaENx5WRf4OPQuzYgcOeHzMBU3U hK7OIG1mXOofD7fzOqszypqmL4tWz c+PNZ0YYH0WP44WG09 T0TpHmtrsBRudGL+PHRhYmxlIHdpZ ONvQQvyZRLvHcLfyUtvFH0sAp6vPM VyLWNvbGxhcHNlOiBj b2x (more content not included)... [facility] Coding Summaryon 05-29-2024 Coding Summary HTMLBase 64 VcmvfuupRCv6iVj+PGhlYWQ+PE1FV ZPrW86xfELvaX0sR3CWQAoCCxdtOI GDRSwNSaXhnmDcSR1xrNQjFFEz IC8+GJ7hGYIbFbvicYQyc6Q5rCZ1G 97fyy4uIQyljRU7URLhGuHvoorir9 pcxZb1XUhcSjewQdRs ABYocX82DTQ6qH86Vm35xKJvlQKzb 7vdnHn5WhCdHPSqFTZ5vYyxHXsua7 DmMBEwJ67gwGGmk4D1 GGWycBpopDYhYiLhnDF8nF3gOZalm ckoq8zoasmuFzk6el95kUJkw9T1uG N5B2LceiW8ASKfqPHa TpyquICWaW3neuhnr2dwpxeaPhWlC KRfABp1THb2MOQtxBzvFiCnBB52YZ S8VETgccZkB0ZmWFMg tBdgGfM5e7M2Jz8KZ5TELfirL8OFM UFSWTwvdGQ+QB95tm16H4JuWcamCv w8IKAaYSB4tTQ3lE9s ODBqWQyrk4Z2uAK0G8ScfrXjdy8wd 3ujIJRmPNihH85vsFYbs2Q0KXVclE H7LNVkvVqdJoJfsU82 Oyc+YKBckObli5XcEoxdh9jvt1syw Sg5UdzqNORzgaHvgCotGPD7y9NtDf 2vTOLmkXU8zYA9jT9m NyVaMqS4IPudN929UfUpxQBgAaytL 10rY9RnwLD+JWGzShy4RQUrcOypRX 6qS8FfDRUlwqgczDCl kVibWU2sBPEicskuIMIbmU6vOLDaO 1r0GmVcGrY2RNcsP3LjPUVrvvdpEo 77gX9wTcYwGtD7EEta K6UikzV4AIUkhARvKSccXWY6J49sd 4P6RRWuJCQdSRC2xMX6dD6qbNtgmt ogbGVmdDsgdmVydGlj ZGfwJFjpX845BJIlaYcqWqNuKVrgD yBEYXRlOiAgMTEvMTUvMjAyNDwvdG Q+UVAyCSF5qXdyXCXy aMLsXSwrOw9fmFfqrPqdAO8rXFBjt gjfYYWprU6bSPPsnTFzdYmaQX2kNV Pqoiukw246HwPbCPY8 XEFbqXPiI3GcwU0qWtOiWTApPVRdF 0LruSJkKYoaM422PFnfLoA1VOLxke RbZ7UfRJZxrXyuOmB7 k1E4Bs3Po2FdlfmuH6ZmfHLiJeRxW vteZIt5F1PnDflyaDG+TM00BPFgYF 47BJe4SDF1pCppFTqy YOOhJ2XqdG3yEcCoVUGfGOUdYrh+P HRhYmxlIHdpZHRoPScxMDAlJyBzdH vdIZ2gYm5oOWUtMOAt tEindQWvLdIhj1wfXJNbNMpjAF0fi ItzQ7PhhEC1ERBdn4f3Iz62V78pA7 JvdXA+ORTjaRP1eWU1 yI3dLfAjZhH1CIbzR798VcEryHJxJ cbwb5jtl0kzeUm8GwH5ECLiwyWqkG wuYFC6m2CeCl04C34m HNrkEKAtZGFsUNWfSRFmaLgrau1xf G9wIi8+UMIjiOQ4uKG6eW1vVrNqXa Y7LAhjF076BkOzaORg Bvrql7uea9rfiAu6VfOiCHLjuvPnm ZolMXB7p9PcUq83V9RpbWhma9WcNy x8un29aWRsg1H2hWW4 S8JsQSIcoejdaGJmvCtsGL6cZFThv tqcMVJblU2rZVVdC2p8CgTqDcS9LV xiR6OrcsD9GGEaaAHt OSCqkAPUjU3vujrkd6zhtxedAfHoE MYwKZr6RGq9TLVdxMoxPcOvUMW1Bw R7BCO6sLOjpG0ntLmx qhcawB0yRhq+QXL8gNPwmGOACS3vD jwvdGQ+EFEhTJZ9aJbyVYjtQEZonB 6fXLGrG2j9DkOwEoU3 KAfxO5FfimQ0KFYvwPXwMSQucAQHo K0pwissk3ewrrtwPdPxQNBhFEc5DR t6ZVUswMnaZlVmWSM1 QzL2GEI3lBNyrA3ukZtfdrsciY3gF yc+RxgpaOazRLB1EAg6M8ZwUbg6SM SbqQuqFV5xfTQzSKyn We6vnLzvmNgiVQ0iXABmqvjyf383H kPac1orTMTafLNtAQwnBJD8A51fp0 K7TCEoNURzARG5qIQ9 uY6teWmcvkezdNJnrNhlibMifQcoO VymCFloK452OYIwyFecZjPuTPl6U3 HbNdd5XJPpiQrcEG4m xARyINriKs2vzXybiLbeTJ5vIQAux ilha518ZkBsl2gdVLGjcRZkMQokBA R2T84xk0S4TBIpNRNq GVJ0nET9zC3vbYgxjepimNRyvRzes jOwxQhoDZbaHAfpW516EUYbrTwsIp OpzMl4Y8HoKvd1EDBl sVxbJT8tuWXvLNhyRe2kaFbskNgvY Y5bQZOtomtlx028YuPda1akGPAqcB FbSWvyEEW1J58kg0X3 UNYzRRTiFZM8vNQ1oK8kgUasazskf OCvjFdljkNtkSuuWPqbYIslZ715TM RvcDsnPlBhdGllbnQg XLbqEJz1M9WiWvmvkGX+RP19VPFpX E35eOSdqFCzv4barHk4JmTlCRUvTM I4rFriRSceh1YsQTZd R42kaKTup3Y2ASOkxQtzzITzCqRay DP5gN6hKIpmogkoj0stublrGbmqv2 qkxy83gB73J17pXJhh CUBhNQVxDGVeJCDumKqaqy2ubR1sJ i8+XDOnfNS9tDY0pF2kXCWcDdH6CY nyK687EeQqlMJvIlbe e9oav5zyoNw4WyC2ISBpleCnjXesN XP1g1UmUe71D04rOUawPRLrMYGmSP TkZVRfeWuxbs6pdW3u Ii8+WIKoaSD6hSV0hN1rXzZtCnK4T YxmJ470IrClgZEqEmgmU19zZ3GfkW A+JACnWab1IFLjrXni CU3qiMOlKIsfQz7kFOQ0RhXjWyWrH SzaQ4JfJQPqiachmblsbCS0WDHiKC RoyH92No3bmCsdFVSi eNRWxL5rzswqq8pfbmklWjMkIDWeC Ti5BIi5YJTviObbYzVoJJU0SfY0PZ E5eHSaxK8ywKkjtmiz hP8qT4AaUIDbzpneCi18pA3qJeIcF lV5RUbmDut+Q5nKIECjEPcRWZ7EZL pDSFn7Z5MgKxx5TDGb tNcoTG1knFRbOQhuKs8liFzaeFbvC I9oGPScxbnyRFOtuK0mZXRsxDNaaA axJR0vYCWwstgqc367 UwIpCPZ2BLQzsDRrQ9SibH1jQrSmP EIxJLVdD8UlvEVmEMexL960OFayWx P7LXPvmlHwP7XaVOZl xAgoUpY1c9P6Tu7cCZ1cEC8fRGAdI Y21ZP32xKVlw9H4aFY1T8JkPWXsba nrvtawzSG5BNQxKWAp lZ25uKTyQMpcZj2mu0E9w534NJBjF IQmrT83Jg6jlVfqTGFkzAUCwF7tng aec8nleylvBtGtZEAl WQm2PLe2YOHpcVdfHeEmYLX2UdX9S MN8kAVuvN4pvUtxlznyxF4bFjn+Nj LlVPFfxiT0L3ZgWvx3 NBPkhXoeFY1utONxAZisEg6tsAkpt FmxUX5iXHLcixmtMWTqwJ1hWKVsnQ FrtYfsLZ6aCHRlucwm m457XwHvYCL0XJJfdQXhJ2VuvZ8pK rDyVGCaRKJfD4TgdGGsNOrvK286UP zrItD1YSVwjuLoU7Zh BYTndUgnFeV3e1V8Wt3NTAvEBD73G K06nMFgd4F6cLI5M3QhAMNvudghyw fxwQU2MTUqGGJfxM93 qOHuUNyqZk1bb8O4x229QHYvXMOvl H46Lu3xrKvsCJVfcLTTnX7xtnopd1 xvcjogIzAwMDAwMDt0 MSp1XPWqhPqcVqFxPUO6UzX0GJG7v QNvuS0iqPjkdlaljH8tBdu+T1A8L3 RkPjwvdHI+IV17WYMc DR20lWTefGDfo4ucpVc6LcPbZEXyD BE0uQmbKFnoz8DdVKToK30iaWUdi5 B6SMInnTzlqXTlToUl gYO3hS4ePZiwjqsfx7zsiiqcFvymc 3qluc81eW49O79yHYcoMHOiALNzWA QmHSXpeTlemv0qaQ0v Ii8+WDWepWA9aSA2gR7oYgRrKwH7C QgeP595BaCelRNiPoqqp6xjz0rhdC i3BvZeIEEgiwRfkScx SHI0x4AoAs02K26jOTgdMWFvOUSjM GShRNUnaGvdgd6kiC5sXz0+PC9jb2 focv72yL79oTF+PHRk ARZ2yBvjZEvvUNPnlQ7oODjdZkU4N OZuYaAxaJ39cAOvZGloKl8xpEodvO mfCW0xFNOmzexin397 AsPsa8jpIERynROdDJcyXKK9C94wu 7H1SSNoDZWxZLW9iPG8iJ2uwOdhxg ogbGVmdDsgdmVydGlj WTndPEzlI160TMDmkOvqSyBbuZCmU 3dwjdDZSL8jPklfdLD+EFMzRKC3jM bdMIgdGNSjzA0nCSJb Q3l5OeCfNsL6ZZlnB9SiisY0HYIxu NYkABTbiWPBbC5qhccfd5edgmvyHo HcTCFoQJr7XHk7YOUq mFmlYnAkHHH7OyD7ZER9qQLzuP7jp XueqkkxbC6cVfo+RklOOjwvdGQ+PH SpQHX4jZmiXMgcGBBo uQ1bWDQnT7g7SlUdBuE1UBdsG8Oyb bQ3JDVtsOIhFMWrxYYFpX1ovhzgc6 xvcjogIzAwMDAwMDt0 ZAs3ZUXscJcxUqVgSGR7ZmT5AUU4y TAisJ3vxYpfstqnxV3oRcn+TVJOOj wvdGQ+KUUcOHE9yZbv JKhaBZTaqW7lTUTvR8m7UrCxVkC3P ZiiR3TscmS5JYSokKQxUWNxpGMWvO 2svuwti4lbtlneDpYp KWXoDAm1DZu6IJZqlQggItSbPRN1Y uY5KMM4ePWzmA9hvKqjlppihU3aXd c+UVY9MAN2ZG98EB51 N4XfVuiocLSsjCZ+PHRhYmxlIHdpZ DMuKAvwKAKmLzGnwGjvKB0xWf0bWH VyLWNvbGxhcHNlOiBj b2x (more content not included)... [facility] Consent Formson 05-29-2024 Consent Forms [id number] Normal [facility] Reminder Messageson 05-21-20 24 Reminder Messages - From: Erica Navarro APRN, CNP [facility]: [facility]); Sent: 05/21/2024 13:31:13 EST ! Show up: 05/21/2024 13:31:13 EST Subject: Results Follow Up Actions: Call the patient with result(s) Due Date/Time: 05/22/2024 13:30:00 EST Reminder Comments: also growing citrobacter bracatina, ok to continue with the bactrimDS Results: Date Result Type Ind Result Name 05/18/2024 MBO See Report Wound Culture Normal [facility] Wound Cultureon 05-21-2024 Wound Culture left ankle, SG, 05-18, 1300 Heavy growth of Klebsiella aerogenes Moderate growth of Citrobacter braaki and Moderate growth of Staphylococcus epidermidis No KIM performed on this organism Probable skin contamination 2+ Gram Negative Rods Rare Gram Positive Cocci ORGANISM Omero Pope SUSCEPTIBILITY ORGANISM ID: 1 ANTIBIOTIC INTERPRETATION KIM STATUS ORGANISM MaryherberOmero Amp R >16 Verified Amp/Sul I 16/8 Verified Azt S <=4 Verified Cefaz R >16 Verified Cefep S <=2 Verified Cefo 16 Verified Ceftaz S 4 Verified Ceftri R >2 Verified Cefur I 16 Verified Cipro S <=0.25 Verified Ertap S <=0.5 Verified Gent S <=2 Verified Levo S <=0.5 Verified Nitro >64 Verified Pip/Fran S <=8 Verified Tetra S <=4 Verified Tobra S <=2 Verified Tri/Sulf S <=2/38 Verified SUSCEPTIBILITY ORGANISM ID: 2 ANTIBIOTIC INTERPRETATION KIM STATUS ORGANISM KerabraCitbra Amp I 16 Verified Amp/Sul S <=8/4 Verified Azt S <=4 Verified Cefaz R >16 Verified Cefep S <=2 Verified Cefo <=2 Verified Ceftaz S <=1 Verified Ceftri S <=1 Verified Cefur S <=4 Verified Cipro S <=0.25 Verified Ertap S <=0.5 Verified Gent S <=2 Verified Levo S <=0.5 Verified Nitro <=32 Verified Pip/Fran S <=8 Verified Tetra S <=4 Verified Tobra S <=2 Verified Tri/Sulf S <=2/38 Verified Normal [facility] Comment on above: Performed By: #### [id number] #### [facility] (DEFAULT) [address] [place] [address] Coding Summaryon 05-20-2024 Coding Summary HTMLBase 64 ZlwkhwduABr6gMw+PGhlYWQ+PE1FV WBcP25cmKVbxA7qP5SJEHuWBhnyCL RSAEuUMvQelmKaEF5wyMBrHUIf IC8+JH2rUEUcRhgwxHWov3U8rME5B 41ktg6fMAbilXL0SAHwWzAhqfwtx4 exlVf4HYqgRawmBzIh IRFgbE99YCI7bJ52De89mZVxnWDgk 4xwhPr2BcSfHVIdHWL4xVghLQaan2 CrFUBiP09fkDFam5K4 SJYroEetpLThIpTbzDD4nZ5jHJiio pamc7mnlghvXrq2zf96kCGvq6I6zR H2B3FhhvK2AUFcnLYb SjvsoXTVlM8iaygjy3ffoycaIoUfO OKnKCh4LSm4ZNHylYzsIdAaAF80SK K3BNZvrnAvD5OwVPMt yDlfNrF7h9G0At8AT3CPXpxcG6KIR UFSWTwvdGQ+GN72mg73H9EhHmkwUe o0GXWlCIP2wNH8nN0g KUYkEMrhz7O4hQY0I2AkxmTexz7eb 8snLPGpJYzaU62unKJsz9R5RMIlkH J7NCFxjTadLfPtaE92 Oyc+SUPmnLenz6VzFqmwu1hoy0bpc Pe5WpjnDRJeqfPhoLvrAHA4d5NbDr 8aCQBwwHR4jEB5yL2a ZqAnUqO1GZarW811VmMxvQOlObmpW 20yG9NfkNR+VLQdOnk3CCJtmHrvUU 4pD0BxUIOhwqcrtJZy xLokEU7rRKSjditzWHYuuL6lYVOcN 4y3FtWwWlN1IVugY8OzJWFzlqvzCs 23hJ3kWzHqSaK3VEwd M0UsfrT5IGNbcJWySPstKAG2H34nv 5N5PTSaLUOwHQT8fTK0tI4vpMjyzh ogbGVmdDsgdmVydGlj HPvaHEdgD167SSFyaLauOeFhFCyeT yBEYXRlOiAgMTEvMDYvMjAyNDwvdG Q+WODnVBG9aSsqTLUm xJLbLFxqBk5iyOycoPheKF7vNKYuw sndPQLmpO3zUEXcnLTmzCafOJ0mZJ Oceelce619YeDmJTM3 NRNxzJLdK3SlgQ5mThOyZSFbPSXrM 9LrsDTcUDlgE432TNgkAgN8PMJnmo PkH3ZgNLEtfQbpWlI5 i3A7He8Uq9KbmesdH8FweLHmAzJkL uieBOm1G5FxUvnrsFE+DI06PPAqWH 15GNo3USV5eMiwUNhn TLSoV9YsxT7vFwXqMOYqRHVvTsy+P HRhYmxlIHdpZHRoPScxMDAlJyBzdH xyIN5kRu6pFFUxELOb xAsozIDiStKnc1srQUHrTLveJR4ct LneF0UqkSK7TDUff4l5Bo38A01oX5 JvdXA+HWIjbEI0jBZ6 yG4lJdTrRcG1VJriB200VbVsgSOcU whmy9loa6oysLk7FqI4OUBzefZwwT njLYO7h1YaWx03Q84b ZOvbMNXfBGFrWZCeIUAonOhhfu5wd G9wIi8+FJUtpKW9wYJ6nQ5eEdQhOl A7VBvlI018XvErlTQe Yzctc4sga3ogmDs3EgWeVVFympSqp JneQYY0x2NwCq35X1KnmNktx5UyVd y8iz56pNKls6U4eNW4 F0AqVMObouutwPFuhWieZG1dYOXbo hplXSEhbL8sOBPlA4j5FzCoHkP2VE xhA3IlzpN8ELEwkAJi LQPuyHUPdT0yvgoxp1xbbinjJoGxD JMfLNh7BBy7VGJmjGfmAcTgTJS9Wl Z1DLN7nNIodU4cxNer piykjZ0uOtf+XBA6eFWuvRCQSW6rJ jwvdGQ+GZXeSNT8hUxoXPalEROhnF 1uLUGjG5t0BpDmVpF4 ISsoG3WzmoR5ZJSvhATdBAOfpKCMd S7zclxne5zmlqlyAjLeAZOsWUy5OO z2BZWwgZwcSyDdUWZ1 AuV9RIN7rASquS6wuTeuaphjsY4pA yc+ClzrrAzaTTJ8QAr4V9QyEbe9JL FpjVysNC7krNPiIPge Fg9srDffqZnvMD7wMKOjnehgg708X hNma3xxQXDubGGoEAgiMAZ7P26uh3 U4PUCfIDQuEWW9pVT8 iF4sqFprsvqiwTQnbUoalyJsdVdeC BanLMqsD812UEOefBscGiJxBIr1T7 WsCxc6XZHfpMenVN5s sNGpUMwiEi3jeBaokCjnLW8wMFZlg iwzg318TwUdy9erUTAuyHEsQWkbGN F5A01cz8J8TMBlXCLh HHI0kVB4oT6qnQljlmnxpCVhrXvya fDevYerIJxaRWhiE210GSFlfTwlMq NxaUn6Y6MjHoz2DCAn lZzbZY9qpOOhSVjnTf9gaJbtiFhhA R3jAYZxqefms771LiPcv6aaJUEwtY OhQUswQFL5E23bj4S4 LVDpXLWgOMJ3qQS3aQ2ukGbhsjlee UDsaUnaerUjuQetRJkuTMauG307JJ RvcDsnPlBhdGllbnQg DBlrTMu9A8RpXwowiKX+YI72QLPkD O30kNAqpPAny1vihCy3EvEaVRMgSQ S1pOxjKYfkd3AmGCEo G48ytUWls5N3RSGwuAwbaLXpEmSna FS0hE2fZNvtwnnex2zouhcjCsqxr8 hwhq38aH40A00cRGpd IAXwXMLrMLZrNKKzhQslli2tkB8pV i8+ZKXyuOY0gJF4hS8lWRFfYiV1FG yaN634WlYecNUmGcua c6dns9ipaZy4IkH5JKTxmpWumZmkP OM2w1GaLm78J54qJGswDQSmFPDbKL FhWPPfmKhrkr0mjL8w Ii8+JNEnvMD2xEM7iK5dAcIyJaS8P QkyR761KmLnbOWwExnfF13zC1CezG A+QVAuNrz0JRJlfNdr BT8omPMmHFqxPo0pAJY0MpPtHaDlE JkbW3HcAYEjzbxawwuclDZ0PJGcSP RkqN43Em8atNazTSCh uBXAuS3caxsly2jdnhajDgAdNCWhR Nc0NAo7LEQwtWkzXuNuKMC2IwD2XX L3kQQowK8flKsprzvl vQ1rN8YhBOVsldxxYq89nF3pNhDkV oS0HZbpBcr+H0eVYALbHDxIFM2SIK sRSTo1T2ZwGnj1NDKj sHmjNN6nqFYjJAtgDm9vkOovuFhhN S9yASAocavwFOHbpN8dTNFeeIYamY wcOL8xCOFykvlfu816 SoKmSVS4REQmmHDhR1LbsQ9bQeEyY QPeGYZxU3WohANhZKoqC898DLckSx D6AYNkcgUsP4AfDRBm kFneQgN3w4Z7Pg3yLG7rGX0uXHWtR G85BU64bUPdm0P7tAH8Y1XeZRBaim wagnvfrIR9ITPhNYOu wR48yXUcRYntXx5ze5J4w281RTTrZ DSyqG69Li3xfZgkWARntUUYuF6kuf isf0cfqxujVkRgFDBf IDk6LUn5QJJvyNifJrNrGQC9AuX7A CZ2nWVehW3laNqxulcjsR6pNdc+Nj XiKMWbxaS5P7VaBmv3 KFOelXpuKV2geQAzLEvvJp1juSgbe ImbPN3pBCPlzauaDQYdtZ5mYTWmmS QopEviFJ9qASVdtxew s368SyCxBPU9CZOdeNPsP0TmlO7lU fYfOACiRVSkI1DlpYNiNXakY400IQ rhGiI9FRWehgXaT1Wg VPWvcQznPnS0i8T5Ki9CZLtJQK63B K47wEOdr1P6fJL4Z9HfYJRpgrfgmy yndTZ1TBEqWTNxqG67 vRVzWSjvJg9dq6O5w727HNVdKKDmx D49No7mxDajEYTyiJLVzX6gsewfk1 xvcjogIzAwMDAwMDt0 BFj6NQEltOrjGkLaUKV5RzQ3MDN1t WUyaZ0dgIlqyryeoM9kBsx+T1A8L3 RkPjwvdHI+KI31SQKr OR60aGVozKHat2riwRg7DfAsMNRwA LY8lTliDBrjv2IvKIIzC36mbPKek1 D1QHRezPshqBQaTxNb lEB3aP6nDRmvplsww6xrsfweRocjo 3bovl78zB50S86uPAlvBKGhUPDqGK ZwCVAosIpicd9ceA1m Ii8+ZYSvcZF5xJF8xC5fXqWxDxK5C OkoJ748VqNwoDAkVmeby8pcb4lamQ r4BsVxIXHbrtFxdHrf YIW5u1AhSz55V83lNTtrTJRySJYzR IIyTKVpzTbldk5rkJ6kRc6+PC9jb2 nffx28wL00nYP+PHRk OWI5lIdpTAjmGHSbpR1sFBuuLvT1R HLiGyWciX13vCKyCQlmZb7clVzluR lfLQ0nFSEzzcbni776 LcHvw7asAUQwrYTfUWbfDSB5S92ce 8S4TVZrMOVyKIJ8aOS0bC6avBmekv ogbGVmdDsgdmVydGlj VWvaHJjcC674KPGhqHsjCkRltVSrW 9snroABTU6bYlhevIY+ANFeKCL2gR jkQEszNNRjwW7rYGZj O9v5NnEsEoL1EQkuI6FvmzH8UZDvd MThNQWvyPPNmR4znohsf2rokjejEn FdLYFoIEq0IMh8FLXo yGzjQrRsWUT8MdM4UWU4rIAmjM2qx KzhkhyibW2gOyd+RklOOjwvdGQ+PH AuYCK3aKloCOtoDWDd kB3mOVGqD0y0IvRuUmJ8OMgdJ2Cty gM6VCJxnXHnLNDznLITtR7iddqcx4 xvcjogIzAwMDAwMDt0 PIm9ATAmyAmnSsHcTIP2UkE4YVP7h JTpsV0tcHqvxbxebX9wKuc+TVJOOj wvdGQ+OVGwLUQ1tLxi FIzzHEIwuX8vFDDwN2t7NtShLnJ7X NioF5KsmkP2TFZylCNgBFYgxPIOxE 5twetml6eyulenGgHh HVVeYBc3NPf2BERhgForLyYlYNU5J wD6KLF3aSZieT7hnKorgfhtnN1hJm c+JQX8WLQ3EP57PB04 K0HzIrrzzMUifKO+PHRhYmxlIHdpZ SOiWCsdZFMrSzAllJfxEX8tYd4bMZ VyLWNvbGxhcHNlOiBj b2x (more content not included)... Normal [facility] Reminder Messageson 05-20-20 24 Reminder Messages - From: Erica Navarro APRN, CNP To: [facility]); Sent: 05/20/2024 10:52:05 EST ! Show up: 05/20/2024 10:52:05 EST Subject: Results Follow Up Actions: Call the patient with result(s) Due Date/Time: 05/21/2024 10:51:00 EST Reminder Comments: pos for klebsiella aerogens, is he on ATBs? Results: Date Result Type Ind Result Name 05/18/2024 MBO See Report Wound Culture From: Sonja Yousif ([facility] ([facility])) To: Erica Navarro CNP; Sent: 05/20/2024 10:56:47 EST Show up: 05/20/2024 10:56:00 EST Subject: RE: Results Follow Up 05-15-24, Dr. Moreno (ortho) put him on Keflex 500mg TID From: Erica Navarro APRN, CNP To: [facility] ([facility]); Sent: 05/20/2024 13:04:54 EST Show up: 05/20/2024 13:04:00 EST Subject: RE: Results Follow Up his ATB will need changed Bactrim DS 1 PO BID x 10 days #20 to pharmacy of choice From: Sonja Yousif ([facility] ([facility])) To: Erica Navarro CNP; Sent: 05/20/2024 13:08:46 EST Show up: 05/20/2024 13:08:00 EST Subject: RE: Results Follow Up Georgiadarling will call RX into [facility] From: Erica Navarro APRN, CNP To: [facility] ([facility]); Sent: 05/20/2024 13:53:08 EST Show up: 05/20/2024 13:53:00 EST Subject: RE: Results Follow Up ty [facility] Reminder Messageson 05-19-20 24 Reminder Messages - From: Erica Navarro APRN, CNP To: [facility] ([facility]); Sent: 05/19/2024 09:11:43 EST ! Show up: 05/19/2024 09:11:43 EST Subject: Results Follow Up Actions: Call the patient with result(s) Due Date/Time: 05/20/2024 09:11:00 EST Reminder Comments: no growth at this time Results: Date Result Type Ind Result Name 05/18/2024 MBO See Report Wound Culture Normal [facility] Reminder Messageson 05-18-20 24 Reminder Messages - From: Erica Navarro APRN, DIANA To: [facility] ([facility]); Sent: 05/18/2024 12:13:16 EST ! Show up: 05/18/2024 12:13:16 EST Subject: Results Follow Up Actions: Call the patient with result(s) Due Date/Time: 05/19/2024 12:13:00 EST Reminder Comments: no osteomyelitis Results: Date Result Type Result Name 05/17/2024 8:41 Radiology XR Ankle Complete Left Normal [facility] CBC AND AUTO DIFFon 04-30-20 24 ABSOLUTE BASOPHIL 0.1 X10E9/L Normal 0.0-0.2 [facility] Comment on above: Performed By: #### C BCA, CMP, 81244-2, 2857-1, TSHR, 52258-4, 2132-9, 86007-7 #### [facility] ([id number]) [address], [address] [place] [address] ABSOLUTE NEUTROPHIL 4.9 X10E9/L Normal 1.5-6.6 [facility] Comment on above: Performed By: #### C BCA, CMP, 21434-3, 2857-1, TSHR, 95265-0, 2132-9, 30303-7 #### [facility] ([id number]) [address], [address] [place] [address] Basophils/100 WBC (Bld) 1.1 % Normal [facility] Comment on above: Performed By: #### C BCA, CMP, 74093-0, 2857-1, TSHR, 64078-6, 2132-9, 91853-4 #### [facility] ([id number]) [address], [address] [place] [address] Eosinophils (Bld) [#/Vol] 0.0 10*3/uL Normal 0.0-0.4 [facility] Comment on above: Performed By: #### C BCA, CMP, 68378-9, 2857-1, TSHR, 94175-9, 2132-9, 16790-1 #### [facility] ([id number]) [address], [address] [place] [address] Eosinophils/100 WBC (Bld) 0.6 % Normal [facility] Comment on above: Performed By: #### C BCA, CMP, 71570-6, 2857-1, TSHR, 12731-0, 2132-9, 71004-1 #### [facility] ([id number]) [address], [facility] [address] [place] [address] Erythrocyte distribution width (RBC) [Ratio] 14.2 % Normal 11.5-15.0 [facility] Comment on above: Performed By: #### C BCA, CMP, 68284-7, 2857-1, TSHR, 30391-8, 2132-9, 89451-5 #### [facility] ([id number]) [address] [address] Hematocrit (Bld) [Volume fraction] 41.0 % Normal 39-49 [facility] Comment on above: Performed By: #### C BCA, CMP, 58076-6, 2857-1, TSHR, 79753-2, 2131-9, 78594-0 #### [facility] ([id number]) [address] [address] [place] [address] Hemoglobin (Bld) [Mass/Vol] 13.7 g/dL Normal 13.0-17.0 [facility] Comment on above: Performed By: #### C BCA, CMP, 03398-8, 2857-1, TSHR, 42578-1, 2132-9, 31917-9 #### [facility] ([id number]) [address] [address] [place] [address] Lymphocytes (Bld) [#/Vol] 1.8 10*3/uL Normal 1.0-3.5 [facility] Comment on above: Performed By: #### C BCA, CMP, 21089-2, 2857-1, TSHR, 20825-5, 2132-9, 79238-5 #### [facility] ([id number]) [address], [address] [place] [address] Lymphocytes/100 WBC (Bld) 23.8 % Normal [facility] Comment on above: Performed By: #### C BCA, CMP, 95069-2, 2857-1, TSHR, 75877-9, 2131-9, 40058-4 #### [facility] ([id number]) [address], [facility] [address] [place] [address] MCH (RBC) [Entitic mass] 29.4 pg Normal 27-34 [facility] Comment on above: Performed By: #### C BCA, CMP, 14663-8, 2857-1, TSHR, 83311-6, 2131-9, 74954-5 #### [facility] ([id number]) [address] [address] [place] [address] MCHC (RBC) [Mass/Vol] 33.6 g/dL Normal 32-36 [facility] Comment on above: Performed By: #### C BCA, CMP, 97806-8, 2857-1, TSHR, 01586-0, 2131-9, 21763-6 #### [facility] ([id number]) [address], [address] [place] [address] MCV (RBC) [Entitic vol] 88 fL Normal 80-100 [facility] Comment on above: Performed By: #### C BCA, CMP, 70623-0, 2857-1, TSHR, 22172-8, 213-9, 48307-0 #### [facility] ([id number]) [address], [address] [place] [address] Monocytes (Bld) [#/Vol] 0.8 10*3/uL Normal 0-0.9 [facility] Comment on above: Performed By: #### C BCA, CMP, 33522-5, 2857-1, TSHR, 71775-1, 2132-9, 26824-7 #### [facility] ([id number]) [address], [address] [place] [address] Monocytes/100 WBC (Bld) 10.0 % Normal [facility] Comment on above: Performed By: #### C BCA, CMP, 24822-1, 2857-1, TSHR, 67393-9, 2131-9, 94453-6 #### [facility] ([id number]) [address], [facility] [address] [place] [address] Neutrophils/100 WBC (Bld) 64.5 % Normal [facility] Comment on above: Performed By: #### C BCA, CMP, 89987-4, 2857-1, TSHR, 62739-2, 2131-9, 14112-6 #### [facility] ([id number]) [address], [facility] [address] [place] [address] Platelet mean volume (Bld) [Entitic vol] 8.7 fL Normal 7-12 [facility] Comment on above: Performed By: #### C BCA, CMP, 63358-9, 2857-1, TSHR, 43278-7, 2131-9, 45637-3 #### [facility] ([id number]) [address], [address] [address] Platelets (Bld) [#/Vol] 278 10*3/uL Normal 150-450 [facility] Comment on above: Performed By: #### C BCA, CMP, 83660-5, 2857-1, TSHR, 81515-9, 2131-9, 22399-3 #### [facility] ([id number]) [address] [place] [address] RBC COUNT 4.68 X10E12/L Normal 4.10-5.70 [facility] Comment on above: Performed By: #### C BCA, CMP, 33575-0, 2857-1, TSHR, 35043-9, 2132-9, 99180-9 #### [facility] ([id number]) [address], [address] [place] [address] WBC (Bld) [#/Vol] 7.6 10*3/uL Normal 4.0-11.0 [facility] Comment on above: Performed By: #### C BCA, CMP, 16850-8, 2857-1, TSHR, 00601-5, 2132-9, 40487-8 #### [facility] ([id number]) [address], [address] [place] [address] CBC auto differentialon 04-14 Basophils (Bld) [#/Vol] 0.1 10*3/uL [facility] Basophils/100 WBC (Bld) 1.1 % [facility] Eosinophils (Bld) [#/Vol] 0 10*3/uL [facility] Eosinophils/100 WBC (Bld) 0.6 % [facility] Erythrocyte distribution width (RBC) [Ratio] 14.2 % 11.5 - 15.0 % [facility] Hematocrit (Bld) [Volume fraction] 41 % 39 - 49 % [facility] Hemoglobin (Bld) [Mass/Vol] 13.7 g/dL 13.0 - 17.0 g/dL [facility] Lymphocytes (Bld) [#/Vol] 1.8 10*3/uL [facility] Lymphocytes/100 WBC (Bld) 23.8 % [facility] MCH (RBC) [Entitic mass] 29.4 pg 27 - 34 pg [facility] MCHC (RBC) [Mass/Vol] 33.6 g/dL 32 - 36 g/dL [facility] MCV (RBC) [Entitic vol] 88 fL 80 - 100 fL [facility] Monocytes (Bld) [#/Vol] 0.8 10*3/uL [facility] Monocytes/100 WBC (Bld) 10 % [facility] Neutrophils (Bld) [#/Vol] 4.9 10*3/uL [facility] Neutrophils/100 WBC (Bld) 64.5 % [facility] Platelet mean volume (Bld) [Entitic vol] 8.7 fL 7 - 12 fL [facility] Platelets (Bld) [#/Vol] 278 10*3/uL [facility] RBC (Bld) [#/Vol] 4.68 10*6/uL [facility] WBC corrected for nucl RBC Auto (Bld) [#/Vol] 7.6 [facility] COMPREHENSIVE METABOLIC PANE Mk 04-30-2024 Albumin [Mass/Vol] 4.4 g/dL Normal 3.2-5.3 [facility] Comment on above: Performed By: #### C BCA, CMP, 60828-5, 2857-1, TSHR, 22533-9, 2132-9, 55432-7 #### [facility] ([id number]) [address], [address] [place] [address] ALP [Catalytic activity/Vol] 65 U/L Normal 39-130 [facility] Comment on above: Performed By: #### C BCA, CMP, 45410-8, 2857-1, TSHR, 14453-8, 2132-9, 25949-0 #### [facility] ([id number]) [address], [address] [place] [address] ALT [Catalytic activity/Vol] 8 U/L Normal 0-40 [facility] Comment on above: Performed By: #### C BCA, CMP, 25403-0, 2857-1, TSHR, 04596-7, 2132-9, 43993-4 #### [facility] ([id number]) [address], [address] [place] [address] Anion gap [Moles/Vol] 10 mmol/L Normal 5-15 [facility] Comment on above: Performed By: #### C BCA, CMP, 54524-7, 2857-1, TSHR, 13625-3, 2132-9, 47747-8 #### [facility] ([id number]) [address], [address] [place] [address] AST [Catalytic activity/Vol] 12 U/L Normal 0-41 [facility] Comment on above: Performed By: #### C BCA, CMP, 22082-4, 2857-1, TSHR, 33122-7, 2132-9, 97828-4 #### [facility] ([id number]) [address], [address] [place] [address] Bilirubin [Mass/Vol] 0.4 mg/dL Normal 0.3-1.2 [facility] Comment on above: Performed By: #### C BCA, CMP, 93681-7, 2857-1, TSHR, 55184-2, 2131-9, 07891-1 #### [facility] ([id number]) [address], [address] [place] [address] Calcium [Mass/Vol] 9.4 mg/dL Normal 8.5-10.5 [facility] Comment on above: Performed By: #### C BCA, CMP, 08842-5, 2857-1, TSHR, 09715-0, 2132-9, 69036-8 #### [facility] ([id number]) [address], [address] [place] [address] Chloride [Moles/Vol] 105 mmol/L Normal 98-109 [facility] Comment on above: Performed By: #### C BCA, CMP, 43924-7, 2857-1, TSHR, 82479-9, 2132-9, 45501-2 #### [facility] ([id number]) [address], [address] [place] [address] CO2 [Moles/Vol] 24 mmol/L Normal 22-32 [facility] Comment on above: Performed By: #### C BCA, CMP, 88279-6, 2857-1, TSHR, 43395-7, 2132-9, 01020-5 #### [facility] ([id number]) [address], [facility] [address] [place] [address] Creatinine [Mass/Vol] 1.02 mg/dL Normal 0.60-1.30 [facility] Comment on above: Result Comment: METH OD TRACEABLE TO IDMS STANDARD Performed By: #### C BCA, CMP, 60446-8, 2857-1, TSHR, 29288-4, 2132-9, 80142-2 #### [facility] ([id number]) [address], [address] [address] GFR/1.73 sq M.predicted among non-blacks MDRD (S/P/Bld) [Vol rate/Area] 84 mL/min/{1.73_m2} Normal >59 [facility] Comment on above: Result Comment: Reported eGFR is based on the CKD-EPI 2020 equation that does not use a race coefficient. Performed By: #### C BCA, CMP, 96378-7, 2857-1, TSHR, 77384-7, 2132-9, 83302-7 #### [facility] ([id number]) [address], [address] [place] [address] Glucose [Mass/Vol] 78 mg/dL Normal 65-99 [facility] Comment on above: Performed By: #### C BCA, CMP, 44064-7, 2857-1, TSHR, 83044-7, 2132-9, 71418-3 #### [facility] ([id number]) [address], [facility] [address] [place] [address] Potassium [Moles/Vol] 4.1 mmol/L Normal 3.5-5.0 [facility] Comment on above: Performed By: #### C BCA, CMP, 28586-8, 2857-1, TSHR, 30421-6, 2132-9, 02446-8 #### [facility] ([id number]) [address], [address] [place] [address] Protein [Mass/Vol] 7.5 g/dL Normal 6.0-8.0 [facility] Comment on above: Performed By: #### C BCA, CMP, 38740-2, 2857-1, TSHR, 92643-3, 2132-9, 81094-1 #### [facility] ([id number]) [address], [address] [place] [address] Sodium [Moles/Vol] 139 mmol/L Normal 134-146 [facility] Comment on above: Performed By: #### C BCA, CMP, 41351-4, 2857-1, TSHR, 17557-0, 2131-9, 63302-7 #### [facility] ([id number]) [address], [address] [place] [address] Urea nitrogen [Mass/Vol] 17 mg/dL Normal 5-27 [facility] Comment on above: Performed By: #### C BCA, CMP, 35255-9, 2857-1, TSHR, 45039-3, 2131-9, 12532-4 #### [facility] ([id number]) [address], [address] [place] [address] Cobalamin (Vitamin B12) [Mas s/Vol]on 04-30-2024 [facility] Comprehensive metabolic pane mk 04-30-2024 Albumin [Mass/Vol] 4.4 g/dL 3.2 - 5.3 g/dL [facility] ALP [Catalytic activity/Vol] 65 U/L 39 - 130 U/L [facility] ALT No additional P-5'-P [Catalytic activity/Vol] 8 U/L 0 - 40 U/L [facility] Anion gap [Moles/Vol] 10 mmol/L 5 - 15 mmol/L [facility] AST [Catalytic activity/Vol] 12 U/L 0 - 41 U/L [facility] Bilirubin [Mass/Vol] 0.4 mg/dL 0.3 - 1 .2 mg/dL [facility] Calcium [Mass/Vol] 9.4 mg/dL 8.5 - 10. 5 mg/dL [facility] Chloride [Moles/Vol] 105 mmol/L 98 - 10 9 mmol/L [facility] CO2 [Moles/Vol] 24 mmol/L 22 - 32 mmol/L [facility] Creatinine [Mass/Vol] 1.02 mg/dL 0.60 - 1.30 mg/dL [facility] Comment on above: METHOD TRACEABLE TO [facility] STANDARD eGFR (CKD-EPI)non-race dependent 84 - PINF [facility] Comment on above: Reported eGFR is based on the CKD-EPI 2020 equation that does not use a race coefficient. Glucose [Mass/Vol] 78 mg/dL 65 - 99 mg/dL [facility] Potassium [Moles/Vol] 4.1 mmol/L 3.5 - 5.0 mmol/L [facility] Protein [Mass/Vol] 7.5 g/dL 6.0 - 8.0 g/dL [facility] Sodium [Moles/Vol] 139 mmol/L 134 - 146 mmol/L [facility] Urea nitrogen [Mass/Vol] 17 mg/dL 5 - 27 mg/dL [facility] HCV Ab IA Qlon 04-30-2024 [facility] ANTI HCV W/PCR REFLX Non-Reactive Normal NRCT Pr [facility] Comment on above: Result Comment: If recent infection suspected, recommend repeat testing (>2 months). Qidpnv-zb-iiqfpo ratio is <0.80. Performed By: #### C BCA, CMP, 37270-6, 2857-1, TSHR, 08927-7, 2132-9, 13624-5 #### [facility] ([id number]) [address], [address] [place] [address] Hepatitis C(HCV) Ab w/ Refle x to PCRon 04-30-2024 HCV Ab IA Ql Non-Reactive Non-Reacti ve^Non-[place] ctive [facility] Comment on above: If recent infection suspected, recommend repeat testing (>2 months). Nfewfu-sa-cdatuh ratio is <0.80. Lipid 1996 panelon 4 Cholesterol [Mass/Vol] 163 mg/dL 150 - 200 mg/dL [facility] Cholesterol in HDL [Mass/Vol] 30 mg/dL Low 39 - PINF mg/dL [facility] Comment on above: HDL <40 mg/dL - High Risk HDL > or = 40mg/dL- Desirable HDL >60 mg/dL - Negative Risk Cholesterol in LDL [Mass/Vol] 105 mg/dL NINF - 130 mg/dL [facility] Comment on above: LDL <100 mg/dL - Desirable LDL >160 mg/dL - High Risk Cholesterol in VLDL [Mass/Vol] 28 mg/dL 0 - 30 mg/dL [facility] Cholesterol.total/Ch olesterol in HDL [Mass ratio] 5.4 {ratio} High 1.0 - 5.0 [facility] Interpretation and review of laboratory results Abnormal [facility] Triglyceride [Mass/Vol] 138 mg/dL 27 - 150 mg/dL [facility] Cholesterol [Mass/Vol] 163 mg/dL Normal 150-200 [facility] Comment on above: Performed By: #### C BCA, CMP, 99991-5, 4777-1, TSHR, 47983-5, 2132-9, 54216-6 #### [facility] ([id number]) [address], [address] [place] [address] Cholesterol in HDL [Mass/Vol] 30 mg/dL Low >39 [facility] Comment on above: Result Comment: HDL <40 mg/dL - High Risk HDL > or = 40mg/dL- Desirable HDL >60 mg/dL - Negative Risk Performed By: #### C BCA, CMP, 67686-2, 2857-1, TSHR, 14116-8, 2132-9, 90966-2 #### [facility] ([id number]) [address], [address] [place] [address] Cholesterol in LDL [Mass/Vol] 105 mg/dL Normal <130 [facility] Comment on above: Result Comment: LDL <100 mg/dL - Desirable LDL >160 mg/dL - High Risk Performed By: #### C BCA, CMP, 96078-0, 2857-1, TSHR, 41467-5, 2132-9, 66897-6 #### [facility] ([id number]) [address], [address] [place] [address] Cholesterol in VLDL [Mass/Vol] 28 mg/dL Normal 0-30 [facility] Comment on above: Performed By: #### C BCA, CMP, 67126-6, 2857-1, TSHR, 42084-6, 2132-9, 81339-4 #### [facility] ([id number]) [address], [address] [place] [address] CHOLESTEROL:HDL 5.4 High 1.0-5.0 [facility] Comment on above: Performed By: #### C BCA, CMP, 66386-9, 2857-1, TSHR, 48062-6, 2132-9, 81414-7 #### [facility] ([id number]) [address], [address] [place] [address] Triglyceride [Mass/Vol] 138 mg/dL Normal 27-150 [facility] Comment on above: Performed By: #### C BCA, CMP, 75370-2, 2857-1, TSHR, 46108-8, 2132-03, 33125-3 #### [facility] ([id number]) [address], [address] [place] [address] No Panel Informationon 04-30 [facility] Prostate specific Ag [Mass/V ol]on 04-30-2024 [facility] PSA SCREEN 0.59 ng/mL Normal 0.00-4.00 [facility] Comment on above: Result Comment: The method used for this test is Ajith [place] DXI chemiluminescent immunoassay. Values obtained by different assay methods cannot be used interchangeably. Performed By: #### C SHARLA CMP, 32967-3, 2857-1, TSHR, 69580-2, 2132-03, 72459-8 #### [facility] ([id number]) [address], [address] [place] [address] Prostatic specific antigen s creenon 04-30-2024 Prostate specific Ag [Mass/Vol] 0.59 ng/mL 0.00 - 4.00 ng/mL [facility] Comment on above: The method used for this test is Ajith Demi DXI chemiluminescent immunoassay. Values obtained by different assay methods cannot be used interchangeably. TSH WITH REFLEXon 04-30-2024 TSH 1.19 uIU/mL Normal 0.49-4.67 [facility] Comment on above: Performed By: #### C BCA, CMP, 74526-5, 2857-1, TSHR, 28316-8, 2132-03, 92714-2 #### [facility] ([id number]) [address] [place] [address] TSH with Reflexon 04-30-2024 TSH Qn 1.19 m[IU]/L [facility] VITAMIN B12on 04-30-2024 Cobalamin (Vitamin B12) [Mass/Vol] 620 pg/mL Normal 180-914 [facility] Comment on above: Performed By: #### C BCA, CMP, 31681-9, 2857-1, TSHR, 15512-7, 2131-9, 77415-1 #### [facility] ([id number]) [address], [address] [place] [address] Vitamin B12on 04-30-2024 Cobalamin (Vitamin B12) [Mass/Vol] 620 pg/mL 180 - 914 pg/mL [facility] Vitamin D 25 hydroxyon 04-30 Vitamin D+Metabolites [Mass/Vol] 33.2 ng/mL 30 - 100 ng/mL [facility] Comment on above: Vitamin D status 25 [place] Vitamin D Deficiency <20 ng/mL Insufficiency 20-29 ng/mL Sufficiency 30-100 ng/mL Toxicity >100 ng/mL NOTE: A pediatric reference range has not been established by the life science research assistant of this kit. The [place] [employer] recommends a Vitamin D level of = or >20ng/mL in infants and children. Vitamin D+Metabolites [Mass/ Vol]on 04-30-2024 [facility] VITAMIN D 25 HYD TOT 33.2 ng/mL Normal 30-100 [facility] Comment on above: Result Comment: Vitamin D status 25 [place] Vitamin D Deficiency <20 ng/mL Insufficiency 20-29 ng/mL Sufficiency 30-100 ng/mL Toxicity >100 ng/mL NOTE: A pediatric reference range has not been established by the life science research assistant of this kit. The [place] [employer] recommends a Vitamin D level of = or >20ng/mL in infants and children. Performed By: #### C BCA, CMP, 04561-9, 2857-1, TSHR, 83433-9, 2132-9, 24412-0 #### [facility] ([id number]) [address], [address] [place] [address] Coding Summaryon 04-06-2024 Coding Summary HTMLBase 64 IotfeofmYAj7iYi+PGhlYWQ+PE1FV VAfA02ykCIreO3uR3IIYEjTXhneDA CMMEeCQxCjpjKcHT7odDLpXXWi IC8+OA3lZDCnNvuraGMpa6X6eMJ2C 96sww0qQQyviRP5YYUfXnNqdihgh2 jniAy5FHrwLifzXbGg KYIsyN49XMB0dY65Zu58lPTisHBve 5nyfRs1LkHmOETzJXS8uOyaLDuhc8 EdHULxX30ucKEyi9U3 DXYdgBpqfLRvRmIwkCO0qI8bFBmwp fktp1bjhnomWql2qu97qSSvn0O8vU Z1T3GgfkG9GLKgdHFx TtcgpBHVtN9hpgrez1ebalnrBaPdP QWuMJx6ZKq5AJQgwZxbYbBwFV53LJ M4GWHdozDqI0SzZBEl sVxbXjT9d4P5Ql5RP4WFVnqcU5NIE UFSWTwvdGQ+YJ58vs48N4GwGfkoXx r1SWGyWHJ0yPU7eV1j ZBNkCTpix2D6qXZ8M9IzssCyhl6nx 3ywSOZaDQzaW22gbRKgq2R4ZBAqgP U0AWRmiXrxWdBrjG51 Oyc+NLVnfDesn8PxPskwj2ayn7ioe Ja1CyawKTVwtwNcsDlyYGL4j8LwZj 5tARPhuZS0pRD0dI4q GoAoYtC7VUmlG491FrDnxGUkZmqfA 08xR7MqhOI+UIDeMtk3NSVwdGgfQW 7fF5FbMUSxnniyzOPl nWcfHK2uKGRprjqpQNEyfC0vSMFaM 5v1LhEzFbD7XBkiI1KlCQAzbxqtPh 84cN8kOkFjQpC9NJzy Y4YiysH2DCKgkHVcAIbpIUK8P69hm 8C3NBVgQYZePZY1cWW8pP4irRcylw ogbGVmdDsgdmVydGlj WAqaJOsbH201QEKpcFxoPzBeDYmvE yBEYXRlOiAgMDkvMjMvMjAyNDwvdG Q+GNJqLSP8tWkcRPCs oDJmKPanVa4piKoloEpuTJ3kWJBwd folQKZsdU6rKHCmnKOojGedFC2dCX Nqhxeau031AaYpTDE5 EOFkjYXeQ8EsnG8dFpIgJAMvLYJwN 7IppEVaOCicA727MHnmAwV7EVRtja NjQ8MnTCMdvEjrVvZ1 n6Y7In0Kl7TrocdcJ4FioMOcBbYjJ ottWDc0C8KnKjhgrCH+AR26EOSaTL 48IZn7ZQA3aGmtKZss RLEqN2CknA4zGwDfAYEzGHOcAvc+P HRhYmxlIHdpZHRoPScxMDAlJyBzdH ikJF9aNw6jZYIxUCPj uSqcfYHqJfXhl2htZHKrKSnsMY0hg DusH5XlrQE1CJBjk5f2Jr09B29bK7 JvdXA+MOOtaKT3tBB8 wO9gWrIvTaM3DKwoM497ZuWgtJHoA otmw1qip8jiuUb5GpH2EMPuwsHlsW qjOFX5w6NqJj14H35y EUrbRWYgRFOjZEFfVPJphAkpjd2if G9wIi8+TXRwlUH7xQL7wW8dEhCsGj X1EEpuK597ZxLlsOSn Nxwyy1afq3vjxHo6GlGeGNUvjlFat CuzHCX8q8XdBu01L7MakDghi2WyAz z7gw71fDBss4L3tBV7 X1YhCGHundigwYYhpXihDQ8jRWKkc yosQQXztJ8kKUCiF8d8JcQpWxZ8KS bdT5HonyI4JFZcwSAi NWWbzACHuU0ygtehf4bzxyldKgGeQ UBgHPv2FPs2NMLocOtzDvTbRBZ9Ms E6VDW3eXZtrQ2meAmi dsxvhE1nJwq+BKX2lQUktEYVTT7nM jwvdGQ+GEBgCPH1oJdhMDyiVBUfdK 4yUORwV3h8LxItXoI7 KJubB3KfcwQ6TWZkqQNiQEXcdZOCk O2qtlznz6qnycabPdXjMLXaIIb6GW k5FNVrvMeyLsIoGYU4 DwF8AFF5iVYcnE6woOylytenyK2fF yc+HwvfrFmyIZF8XGg0Z2WaVwl2CJ QpoQkqFJ2wmYDmYFqa Wy6foHdndMddHT4tWNNxivqoi478G oAgi3gxMBVqfRQbWUyhQSU3O63xe1 A6NGViWDVxYGX8sEI6 bE0quTlbbfthrRFogXcfpnBauOfsQ AbuWQizS801JYDxqVhwFcXzRAe9W6 NbRgs5YHVlgHekZB8v lIKuEJcpJm1elFndxZwbKH6bZBLwt okfk909VjYdq6uqZRIplLAzYDxzKN C6Y10wg1K8BNJbRKUx YYO6oFR9vE5wgLmwdjvnsWSqgKvum hBmoEmbVPxsIOzhV580OYNepLrqQt BevJg2Z0HtMup1RGWc yYrrCE7qoZHgGNgeWo3qvQgciJzyT J9uUUSlsnbfe183YqBls5gvATNdgG FaILtwNFK2Z30cb8L9 AQScEBRsNPA3tER6wI0nfXqlaoejj KMsxKzljkSfuCmjTOljYVchZ096IA RvcDsnPlBhdGllbnQg RKxlSEg7C0PdIksycOL+JQ07CRHbL S53wDUteXYhf3rvfEb3UnEmGYArBC C4gPeaLSbqy1SmQROg B86dmEAkc2G5APFpsIijlRItYdHol VH4pG7pYCvmmmthj0hnhelnJiumk0 bqet82rZ43I24oGPvx XXOcOQIwYQSnKQHzaXclqr2zfX0yR i8+QXLszZM8fPL7uI7iRBSrNlN1IP zhD073SmRunQLgAenq e9mck7kjxGp4ZeL6PCAwaoMdnUtwL TY3v8GdRk26X28nURanQVSsBCXlLK NqFQVkrCgavg1nfA4w Ii8+FJDzaJT2pCI1nP0zJjWkHuU7P PzrM769NlIiqJBwIbbtS05zP1VreJ A+LEVdUhu5FGPruFlr XZ3qiKDwXLavKa4lQUH2YiFyYcHsZ SvbE8TgFMPkmlrwcsklrCG0YZYuUV EyeE24Kj9lmBnsDRCa fACUoL2svkixd8ifdyjcPcVfZEOwX Wg5JYh9GVArbCpeQkWfCMN2FmD5YI L0eHXkvH9joJucvqjl hS8cT7UdTVZyjeeeQn29wK8jBmNoM jR5NArdFgc+J8jTGPYpQWaIUB1PFD lKTJm6M4McSoa4QKUg kRxjRV4qzWBaCMtqMp6qnRqhjNylX M2wQWAnhptoWENsbL6zNCEcfWZgsF obSY1bOSMajxcrh845 MvBeOGK7YPGajDUfJ9FhsU2rZmYnV XFsFBVnH7IptWLqJDvqT696VFtmBj N5TOKzkdLkG6GeCRRe kLyiVtA7a3I4Xh2rAX0dEQ7bTVXfL A45PI87fSXsx2W2hQI9G1AiUQZfhz gqzcmsfFC5YELgISGx jV49jFSpOWtfIf8ld4Q6i586YKHtQ TVobC55Ai6jdGboTTDqbERDuG9tmd ttn5xahvjiOjMmENJj YBf3XPu8PMDknZfuInJaHZY1UgS4X QJ9tPObiJ7mzHslmyiygE0lYqr+Nj GeATCvlmE0X6OeUag7 LTVhqFzeER4agYGkATbgHf0ldTfog RmrCZ4fQIOtmcwlXIThxA9zBMXnuP PneKbyZV6vBOYmgfdb q928RtNoXIU7FALhwLJaT7IrgM5aU iRnSTThJRYnE8PonXRtFJvnJ180ZW nmKdK0TEYbobRgK7Nv ERVbbOvxTeX9y7P8Ar9ECJaUWV56J F01yNTff1H3iAQ5K8XcZTUxgmdage jveHW7KGDgBXCjvU22 mPLfXBgjPq9ef9F5p050HXJoJIVmy H12Ht1peLtcLLXcbCJFaZ7oospdi3 xvcjogIzAwMDAwMDt0 EXe4LYDscTzrGqCsBKY0QrK7KJB0n POgxK7aoXbraeslrL7aTym+T1A8L3 RkPjwvdHI+CR79EPWd MY84tXVsfFBul2tqvBw8FcLyNHYfK IX2nHyqBDqec9XbJIBqO53paMEkx7 R5KYWyjFsriOUnAvMz zYP9yW2qQNyomzaom8hprsmlQgthl 8cjjz75bV45S37iRMmqCSHtPIRoPP GyKDOqjXupbv0miP6s Ii8+JEPcoUJ7wKU6qW4iUvEbMlT6U AyeF855JjXhjACrEeprx1fdt7ipsE k0RdYvUSZlavVaoKqr JIP9g4GzBs06F13mUNoxWVAiHJLiS JUuUAXsrRbgss0koY0eEp4+PC9jb2 qctt83hU51iWS+PHRk HHR8lEsoIPzvWOZouX5dULavMuX8L NJcTuObzX30sBRkBJjnYm9prDgmaX ctPH1yTKLmclneg415 PrBdc4yvPDAtcKBeJHemTZS4G26ls 5D8LWJcXDGePYU3fBV8oR7isGkzqo ogbGVmdDsgdmVydGlj FRftCTqnP399HDMahJqqChMpeFDdP 0rzcuVIIU2vRibweCK+RFMkUPB0kJ gaYFxjXZRmaA5wJSOa Q7d4HzEmQlR7SOorH9ZdpfS5GGVks MCpHEXmqWQFiL7xsdzdi0phowbhXb UbGGIfFZe9PBe4VCKw jAohSgCtZBH9AoL2TTV1kKBcbP9en DipxbfctM8iRos+RklOOjwvdGQ+PH KsKVA7tCguJEfnAXYh xJ5aTNYvD8n2WfFfExW7JTjhE1Qyz iI2FXYhhYIoORLjsEDPmD2mkajls5 xvcjogIzAwMDAwMDt0 EDn6LRXugVrkQlFxQYS7DjB6GIN4k EKpxS9oxXtgtrycsJ1hSaf+TVJOOj wvdGQ+XWVoSWH5sDoc SXaoLYEsxK6oWPRgL1w7OdOjDvZ2W TczK8DudiE8OSOozREiBQUcfCXPpN 6mqvyik9ozsuzaCwZq WPCqIAz3CSe5EFWlmAasUnPfTHC6G kN2DTO7wNZwkE6ymJbpszptcA4tUe c+QTO3EWG2GM83NX99 N6ZbDigxhMHidAP+PHRhYmxlIHdpZ NDsKRynVXHgEuCghKkrLE4oDf5dNZ VyLWNvbGxhcHNlOiBj b2x (more content not included)... Normal [facility] FL UGI WITH ESOPHAGUSon 03-15 FL UGI WITH ESOPHAGUS FL UGI WITH ESOPHAGUS CLINICAL INFORMATION: Cough. Reflux. COMPARISON: None. TECHNIQUE: Single contrast upper GI was performed. FINDINGS: Reference Air Kerma: 74 mGy ESOPHAGUS Anatomic: No fixed stricture or gross mucosal abnormality. Motility: Normal. Hiatal hernia: None. Gastroesophageal reflux: None (including with provocative maneuvers). STOMACH AND DUODENUM Anatomic: No mass, stricture, or ulceration. Gastric emptying: Normal. Duodenal sweep: Normal position. IMPRESSION: Structurally normal esophagus and proximal gastrointestinal tract. Finalized by Fernie Pagan MD on 03/25/2024 4:18 PM Normal [facility] Coding Summaryon 03-10-2024 Coding Summary HTMLBase 64 FladxkvrCJz7mZs+PGhlYWQ+PE1FV LPbZ46tpZOamN8dE5WIIEnFIpmfPS MXTZrSVaSisgTnVO9vvSAgBJLd IC8+JQ6bMRSjRpdyfBHgz6Q1tLJ4G 57mtm8sZFkjaZE6VUJmXcXfdimpk4 hkwMz7QDykBtwfMyZo DZEjyW11PBY7eG31Qk72nIYirSZqo 7pfdPe7NcWbHHOmACO6eIguFEqnq5 AgLXThK03myBImy1X2 PWUjwXhgtELzNmNmpRX5wO9kEXubf wzdz8itcnolEuf4pa56kXRin9O5bM A5J4AwzxU7KJZluKPc NtfclJQTnJ6wekqdt3tsnemxKoAoF ZGtYDq4FWs1QQBkrPvzRpVlRS98FX V9CQUvbwEnB8JmRDDn vWjqWzL3p6K6Yg2DX4HJSkanK0NAG UFSWTwvdGQ+XZ76hf69W4WgPwqaWb t8SIJdCSD2dUL9oH4m SWAwMVrck9U6jKV3B1ArxuTgbk2it 5kbRKOlBXdbG03zeXBzk2Q6WKJxnX U4QEOksMymLbKwyR56 Oyc+VVUjeBrhh3ViKxtbk9uzr1wac Ng9PgblPCEcgkVsbLlaISH0i0PpCy 7iKHGblGT1fRP7qR6u KeLxBsF3HZfyV214SgEsdGMqXoinM 25iS9YpzSB+HNAeHwx1RIGqpOluWW 7vH8KeBKZlkxccbIPy gKorEJ9uARVrhdatPXEmkK4mGLXhX 4c0NoLxBnX1QMqpK4JiTKWylcyzGh 62fO4vXhMsTjE8CIfn A0FgngT1DKTqpOPjQRypVYG7Y59hx 7Z5STFrQAZnZSU5lXR7xE6hmJqtxf ogbGVmdDsgdmVydGlj FFwlGSeoG267XGNiwYxkDcPbZJcaU yBEYXRlOiAgMDgvMjcvMjAyNDwvdG Q+XDTfDRR1mEqmRPMl mOVzXNnwZs1qpOpsaRazKG1nMPPwd gisNXLkyW0xUCNfpUWtyCqvMP6cWF Wfbablu854EoVlNVC4 QNNklQPfZ9YerJ5mZyDoCSGgRAWjX 7PahKYuNRbqJ930UCbwUiP5TURlju FiW7VjDWRrrJufLjK3 b5N5Ra8Cb4WogabbI0MmnXPnYzDuO ggfSGe0K6YpDyjtxOK+ME50XMKmUM 50ULo2MLJ2lFwxDPol GMCrN5FpbR5eTvBeDRXfZRJfIax+P HRhYmxlIHdpZHRoPScxMDAlJyBzdH amHB6zKy5bPBCfRIVp tDfduIJyVkRbk9tqQNTsCEhtAS7do ZrcK9LzePG5DBHiu4j2Aq33P72uN5 JvdXA+DMIicDP1zFQ3 zA8bDlCdIqT8BInjB891LmKpxBKbQ imvp1vzn9bwtZc0PlG0ETNxgcPdfZ ieMLY2t1XfHd23V00a WCnuRCBmVNIaTVHzBSOhwRglmq7tw G9wIi8+ZOWeaTD1yYV0lY4qQkLwTd S3LVjpV912EtDgzJFh Myttv0eui4vtkLp6LhNsGUWqjbHzp GxnZFN0q5MkEb20C4XcwZvvv7UjJw x3ks67gUCxv9T3uLX4 F0TgNWRczmnbkZBkyQkfRI7cACYjg jxpSTVwgF6vIQDrW4l8UnSmZaG3UL vdR4KmkuX7VGQrgBBw JNGnjZBEoI2gzjxie8myoszvVbBlI RTyGVk4VGg4EDSwrHyeDqIhWAG9Sz V0PKI9bOKhnK7wnPxc zppteN3yDik+HWZ9xFDlbAOZZI1yB jwvdGQ+XFGpRFY2qWdyZDtuNFKflB 8nXRGzC9x5NgPfPkJ4 JTahM5SknsZ4NQRaxNCxRWTwaXNZf Y2skgted7rcpxgvRmGpAVAiSGo9SP x1SGXyyQmyGqIeKBI3 CrX5RJT1kGYqmN6viAhhtpqtdT4fN yc+IhoidRaaGXI2EIb2Y0GhBfc2UW GtpPkdBT0mbFNoQGut Cl6zjSqafIrmMX7iXDRcqhech494M aGqg7gmWJQzySOnDNheRYR3T37iy0 Y0JGGiCAYmZDG0qKT0 yY4zxShduyxyySWytGeqwuHjzHffH MxqUOaxK462NOHeiXlxDqRqSTt9N6 PlXcs5SQTxfPgvMS2w cRRuHNjnZu8zaQeofJyjXG6cMNUub lftj997HkXae5fhIQTiyXNsMRbgVB A9O27xz9Q0VWMeLEMm DLW9vVZ8jH1xgJsnvzyqzXXeiMdwz iNgiAnrCGwfITetA186BAPyvWpjFx XqjIp1E3XuVuv1BLQa mIvsHM8abTJeXStmQp9toYjmcTxsF C8uSKKdynhhn873TrKyx5aoFKRomP MnFYhcEFV0T15dg9I4 AHDaWFQjEZS2vXY3gG4wrJjulkbno SFsaLzjunZolVsqXYxzXVwaT521BC RvcDsnPlBhdGllbnQg VJcpRKh7P6ZpPjimcRZ+TX53PAOnG J82xZTwcFCiw0frpSu5TwUbGJVoQT A7yBbgYPzwc9SrZXLw J49jxGTdu4G2EZAobPcjfCRtPrChr ZJ0qR2jUDrwtcrpi0fstgcsUpqpj3 jpit22yB69Y22aXIey EIAdIIUnOKSsWWCxtFdcbg3tjL4hK i8+STQwcPL2iUB5iB8hAKZjQsC5NO lbT894CqJrpUDqGwyh l3iia7knuBp5WlA0NOZkjoOfjBjzH IQ8z0NlJz73C43nTUksXNZjFVGzVO RoVVMgoTpxbe1wqW7r Ii8+ANEpdYA0gNZ0yN8eRnVxXpI9S WmtU481JoEtzVQpHlvmQ08cB8XvvN A+SFTxQty6IEUgaQke OB2qrKZvMMhpKy5nUND0VuLoBoDnX ZiiN7EdBCYlougulrrmtFX9PFTbQB JtwM33Bm8zuPvnZDAj cXUKbR3myhinn4prabggBqFiRFHbJ Ic5DIg0HAJdjPyaFmClCET7QiQ4YD K4dRHqcM2ksDcyxvql yQ4mE3LtHRYngioeUx50iK6jSzLuV cN3REesNrd+S2xKOGSmCVaMAA1SLY jEFEe6O0XnJdd6JVUg yWlaQT0ntYGqPCqkHy5jzWsnhMyaP D2nYKJevhpcQHLmmA0tUQFqzRWcuB qkCB1iIBHwqxffw224 JdTmEMQ9BBMwvOVkQ3UinJ4kEjCsZ EOpDDOaN2PtiENzCFqeE348XLidVy Z0JRJpslKyG3OsNMIc cZrzFbV3d8C7Fw6qDM9lBB5iZEIoY G54YL39pDBnc2C0cUO6E4WxFVZkcr tiajkzsXI8ZIGgXOIg qQ88lIEbNEwiTf6au6W3e680DSXeG VJyjV77Bj2kaPnvBIOheWCHmS2aaf fqx6jfdrcxTsAaHBBk NFa7EXo9DCHxcFnjSvXiAJF8ZhQ2H XY2kNSpfF8wqHmqmkplbD1iNyl+Nj CsTRTecyU2N2YzEgs3 GZDjeAojNW3juIWcDKseRv7vdLxos PrxBT8tSEFyrqwiBEGjmJ6uTWOlsU OxnVvvFA8vWVUsnnjq f406BvHxTKH9QJCegDGcO3StqB1vD gTwHOTgPWZqN4OjzPXcOQklC963BU shZvK8EIQdpsFoI5Am MTUhwVpqXpO9q1G3Hj9DQMaUCW52I C77qSZtg8T8gPV3T0NqJSEktbgzra odrYS3VQHcUBAjuT89 sFWuHIzjPj1xi5Y2c841PEYwRFTcb A84Zx6ccLaxYNJycOZUtE6pkkmfw7 xvcjogIzAwMDAwMDt0 IWl2VONkzGqnBtQkOOY1DbL2ERG4s EIyyO5zuYmosnfqwD6iLfx+T1A8L3 RkPjwvdHI+TV22NWOn XQ26zYOfuOTze9xmrFd6YpTwCFYzB FD5vFhtSJejg6XiIPQrW92svRTda1 Q8HWTvwCfjlERyToYm dHC7kL6pJJtacxhjm0ckenkpWlent 7znyz68pC05M21nEUyuIYUpBJLuTN EpXPJouGdhqm4zyS6v Ii8+MWNdrFZ3fFW8hF5gXdByZvJ9A EenP994RlCelUKcOului8irs3pqrV f5LmQqGBHpimZerNdh VJQ8z2TcGh07H98sHXwhXNJkQTQlN PZiHMWjuQmyld8aoO2kUo1+PC9jb2 kine09xJ30dYF+PHRk HBV9wFgkGWgyULNsiX6iOVrqHfO9T UGvMtYzvD31wGXzRKooPg4yjKonuN vxDW7vMOQlodqya595 MyFlr8gbFXGsxXGkAAkdQIH5C27yf 1O5CESfTQFmNTI8qYP5hL4ckVfczl ogbGVmdDsgdmVydGlj ZVdeZTlmQ177DCAkyQfePtCvzPWtJ 3lqnlIJLA3kCeiwtIY+QIOdQBD4mQ vhLDqjHOQieF5pLDUr R1q1ByXzKcM1PZwwJ0VpliI5NGBsc IOrMLXqpYTQrT2tabvno4eyklgjBz PuYHUdBXb0ENq6VDAh bKbiJhAfNBJ4JlS6XVA1lGUcgX4vi AlcndbssP8wVae+RklOOjwvdGQ+PH NaCFJ8iMxlKUmuRFBl rN9gMKEwY1m5InNpQgB5MSfeE3Lmg wJ8HHGqzWLrVEVzmKZQgA1fiweih1 xvcjogIzAwMDAwMDt0 FDy1PCYveXoyQtKzFEF5KdN0WIW8v VKgtE7kmWwnnhfwmW8iFsz+TVJOOj wvdGQ+PWAfAJK6uXvm CQztWXEiuJ5kLTEfK3c1ZtVnKsX0O OkxQ0CxaeB1XTKgqMPqTCFmwEIJqC 0epdegd0dhkizuPuAr EDQqRDy8HYx4DBYzsBdmRqVxLOM4X cL4YVP6nGLfdE1biVmhoyutcS3zHe c+TSH0LHZ1LA32CC18 T9PpAxjiuDNwnXL+PHRhYmxlIHdpZ BTkUZruPCPbErYayDzsCX9uOu2nWQ VyLWNvbGxhcHNlOiBj b2x (more content not included)... Normal [facility] .Auto Diff 03-09-2024 Auto [place] % 12 % Normal 07-26 [facility] Comment on above: Performed By: #### 1 [id number], [id number], [id number] ####[facility] (DEFAULT)[address] [place] [address]29 Baso Abs# 0.1 x10 Normal 0.0-0.2 [facility] Comment on above: Performed By: #### 1 [id number], [id number], [id number] ####[facility] (DEFAULT)[address] [place] [address] Basophils/100 WBC (Bld) 0.8 % Normal 0.2-2.0 [facility] Comment on above: Performed By: #### 1 [id number], [id number], [id number] ####[facility] (DEFAULT)[address] [place] [address] 54611 Eos Abs# 0.0 x10 Normal 0.0-0.4 [facility] Comment on above: Performed By: #### 1 [id number], [id number], [id number] ####[facility] (DEFAULT)[address] [place] [address] 25744 Eosinophils/100 WBC (Bld) 0.5 % Low 0.9-4.0 [facility] Comment on above: Performed By: #### 1 [id number], [id number], [id number] ####[facility] (DEFAULT)[address] [place] [address] 23024 Lymph Abs# 1.2 x10 Low 1.3-2.9 [facility] Comment on above: Performed By: #### 1 [id number], [id number], [id number] ####[facility] (DEFAULT)[address] [place] [address] 55626 Lymphocytes/100 WBC (Bld) 16 % Normal 14-48 [facility] Comment on above: Performed By: #### 1 [id number], [id number], [id number] ####[facility] (DEFAULT)[address] [place] [address] 48589 [place] Abs# 0.9 x10 High 0.0-0.8 [facility] Comment on above: Performed By: #### 1 [id number], [id number], [id number] ####[facility] (DEFAULT)[address] [place] [address] 02934 Neut Abs# 5.3 x10 Normal 1.5-9.2 [facility] Comment on above: Performed By: #### 1 [id number], [id number], [id number] ####[facility] (DEFAULT)[address] [place] [address] 71719 Neutrophils/100 WBC (Bld) 71 % Normal 44-88 [facility] Comment on above: Performed By: #### 1 [id number], [id number], [id number] ####[facility] (DEFAULT)[address] [place] [address] 217[address] [facility] Standardon 03-09-2024 eGFR Non AA >60 Invalid Interpretation Code [facility] Comment on above: Performed By: #### 1 [id number], [id number], [id number] ####[facility] (DEFAULT)[address] [place] [address] 98859 eGFR AA >60 Invalid Interpretation Code [facility] Comment on above: Performed By: #### 1 [id number], [id number], [id number] ####[facility] (DEFAULT)[address] [place] [address] 51971 Anion gap [Moles/Vol] 8.8 mmol/L Normal 5.0-19.0 [facility] Comment on above: Performed By: #### 1 [id number], [id number], 5193854 ####[facility] (DEFAULT)[address] [place] [address] 72845 Calcium [Mass/Vol] 9.6 mg/dL Normal 8.9-10.3 [facility] Comment on above: Performed By: #### 1 [id number], [id number], 7463530 ####[facility] (DEFAULT)[address] [place] [address] 86401 Chloride [Moles/Vol] 106 mmol/L Normal 101-111 [facility] Comment on above: Performed By: #### 1 [id number], [id number], 9146982 ####[facility] (DEFAULT)[address] [place] [address] 82945 CO2 [Moles/Vol] 26 mmol/L Normal 21-32 [facility] Comment on above: Performed By: #### 1 [id number], [id number], 8281610 ####[facility] (DEFAULT)[address] [place] [address] 07418 Creatinine [Mass/Vol] 1.02 mg/dL Normal 0.90-1.30 [facility] Comment on above: Performed By: #### 1 3855526, [id number], 6411005 ####[facility] (DEFAULT)[address] [place] [address] 06150 Glucose [Mass/Vol] 94.0 mg/dL Normal 74.0-118.0 [facility] Comment on above: Performed By: #### 1 [id number], [id number], 1447214 ####[facility] (DEFAULT)[address] [place] [address] 10560 Osmolality 275 mOsm/L Invalid Interpretation Code [facility] Comment on above: Performed By: #### 1 [id number], [id number], [id number] ####[facility] (DEFAULT)[address] [place] [address] 86598 Potassium [Moles/Vol] 3.8 mmol/L Normal 3.6-5.1 [facility] Comment on above: Performed By: #### 1 8191119, [id number], 2563307 ####[facility] (DEFAULT)[address] [place] [address] 60911 Sodium [Moles/Vol] 137.0 mmol/L Normal 136.0-144 . 0 [facility] Comment on above: Performed By: #### 1 5692271, [id number], 1838861 ####[facility] (DEFAULT)[address] [place] [address] 09627 Urea nitrogen [Mass/Vol] 18 mg/dL Normal 8-26 [facility] Comment on above: Performed By: #### 1 [id number], [id number], 0514773 ####[facility] (DEFAULT)[address] [place] [address] 20869 Urea nitrogen/Creatinine [Mass ratio] 17.6 mg/mg High 4.6-16.2 [facility] Comment on above: Performed By: #### 1 [id number], [id number], 7362445 ####[facility] (DEFAULT)[address] [place] [address] 48769 CBC w/ Auto Diffon 4 Erythrocyte distribution width (RBC) [Ratio] 14.8 % Normal 11.5-15.0 [facility] Comment on above: Performed By: #### 1 4660191, [id number], 1452109 ####[facility] (DEFAULT)[address] [place] [address] 95877 Hematocrit (Bld) [Volume fraction] 40.9 % Normal 34.8-51.9 [facility] Comment on above: Performed By: #### 1 5717710, [id number], 6103988 ####[facility] (DEFAULT)[address] [place] [address] 36863 Hemoglobin (Bld) [Mass/Vol] 13.6 g/dL Normal 11.8-17.7 [facility] Comment on above: Performed By: #### 1 [id number], [id number], 1022436 ####[facility] (DEFAULT)[address] [place] [address] Man Diff? Auto Invalid Interpretation Code [facility] Comment on above: Performed By: #### 1 [id number], [id number], 0254427 ####[facility] (DEFAULT)[address] [place] [address] 50139 MCH (RBC) [Entitic mass] 29 pg Normal 24-34 [facility] Comment on above: Performed By: #### 1 0661356, [id number], 7543469 ####[facility] (DEFAULT)[address] [place] [address] 49074 MCHC (RBC) [Mass/Vol] 33 g/dL Normal 26-37 [facility] Comment on above: Performed By: #### 1 [id number], [id number], 9022372 ####[facility] (DEFAULT)[address] [place] [address] 89269 MCV (RBC) [Entitic vol] 88 fL Normal 81-100 [facility] Comment on above: Performed By: #### 1 [id number], [id number], 0510867 ####[facility] (DEFAULT)[address] [place] [address] 16575 Platelet 224 x10 Normal 138-427 [facility] Comment on above: Performed By: #### 1 [id number], [id number], 0362930 ####[facility] (DEFAULT)[address] [place] [address] 06202 Platelet mean volume (Bld) [Entitic vol] 8.0 fL Normal 6.3-10.2 [facility] Comment on above: Performed By: #### 1 [id number], [id number], 2721530 ####[facility] (DEFAULT)[address] [place] [address] RBC 4.63 x10 Normal 3.70-5.30 [facility] Comment on above: Performed By: #### 1 1420766, [id number], 2983122 ####[facility] (DEFAULT)[address] [place] [address] WBC 7.4 x10 Normal 3.5-10.5 [facility] Comment on above: Performed By: #### 1 2096577, [id number], 9593671 ####[facility] (DEFAULT)[address] [place] [address] Provider Orderson 03-09-2024 Provider Orders [id number] [facility] XR HIP LT 2-3 VIEWS W OR WO PELVISon 03-05-2024 XR HIP LT 2-3 VIEWS W OR WO PELVIS XR HIP LT 2-3 VIEWS W OR WO PELVIS CLINICAL INFORMATION: Hip pain, left TECHNIQUE: XR HIP LT 2-3 VIEWS W OR WO PELVIS 3 views the left hip were obtained. There is no acute osseous abnormality. Mild osteoarthritic changes noted. No fracture or malalignment. Impression: Mild osteoarthritis. Finalized by Tyson Garg MD on 03/05/2024 9:41 AM Normal [facility] Follow-Upon 03-03-2024 Follow-Up [id number] Varinder Wilson 1960 M Date Provider Department Center 03/03/2024 [facility] INF Ursula Heal No family history on file Level of Service:23445 MD OFFICE/OUTPATIENT ESTABLISHED LOW MDM 20 MIN Normal [facility] Provider Ord[place] 02-26-2024 Provider Orders [id number] [facility] US ankle/arm indiceson 02-25 US ankle/arm indices [facility] [address] [place] [address] Ultrasound Report Signed Patient: Varinder Wilson MR#: [id number] 8 : 1960 Acct:[id number] Age/Sex: 63 / M ADM Date: 02/20/24 Loc: NOV Room: Type: [facility] CLI Attending Dr: Angel Meléndez MD Ordering Provider: Angel Meléndez MD Date of Service: 02/20/24 US/US ankle/arm indices: I73.9 - Peripheral vascular disease, unspecified Copies to: Angel Meléndez MD LOWER EXTREMITY SEGMENTAL ARTERIAL DOPSCAN (PVR) INDICATION: Surveillance study after leg stents. PROCEDURE: Right arm blood pressure is 146 , left is 154 . Pressures of the right leg are 128 at the ankle using the posterior tibial artery and 101 at the ankle using the dorsalis pedis artery with ankle-brachial index of 0.66 0.83 . Pressures of the left leg are 141 at the ankle using the posterior tibial artery and 141 at the ankle using the dorsalis pedis artery with ankle-brachial index of 0.92 0.92 . Wave forms by plethysmography are multiphasic, bilaterally.. US/US ankle/arm indices IMPRESSION: MILD PERIPHERAL ARTERIAL DISEASE OF THE bilateral LOWER EXTREMITY AT REST Impression dictated by: Angel Meléndez MD02/26/2024 1:14 PM Dictation Location: [place] [address] Tech: Chayo Haque Transcribed By: MARITA 02/26/24 1314 Dictated By: Angel Meléndez MD 02/26/24 1314 Signed By: 02/26/24 1314 Normal [facility] XR pre/post mri xrayon 02-03 XR pre/post mri xray [facility] Main [address] [address] MRI Report Signed Patient: Varinder Wilson MR#: [id number] 8 : 1960 Acct:[id number] Age/Sex: 63 / M ADM Date: 02/04/24 Loc: ICMR Room: Type: [facility] CLI Attending Dr: Fernando Moreno DPM Copies to: Fernando Moreno DPM Ordering Provider: Fernando Moreno DPM Date of Service: 02/04/24 MR/MR ankle LT wo con: M93.272 ([id number]) XR/XR pre/post mri xray: M93.272 MR ankle LT wo con, XR pre/post mri xray 02/04/2024 2:48 PM SIGNS AND SYMPTOMS: Lateral left ankle pain. Possible osteochondritis of left ankle. PROTOCOL: Frontal and lateral radiographs of the left ankle. Multiplanar multisequence MR images of the left ankle were obtained without IV contrast COMPARISON: None FINDINGS: Radiographs of the left ankle: The ankle mortise is preserved. There is no fracture or dislocation. Minimal plantar and Achilles surface calcaneal spurring is noted. Mild diffuse soft tissue swelling is noted. MRI left ANKLE: Alignment: Normal. Fluid: Tibiotalar: No joint effusion. Subtalar: No joint effusion. Medial: Medial malleolus: Normal. Tendons: Posterior tibial tendon: Intact. Flexor digitorum longus: Intact. Flexor hallucis longus: Intact. Ligaments: Deltoid ligament complex - superficial: Intact. Deltoid ligament complex - deep: Intact. Spring (plantar calcaneo-navicular) ligament: Intact. Lateral: Lateral malleolus: Normal. Retromalleolar groove: Normal. Tendons: Peroneus longus: Intact. Peroneus brevis: There is a split thickness tear of the peroneus brevis. Please see series 8 axial T2 fat-sat images 29 through 32. Peroneal retinaculum: Intact. Ligaments: Anterior inferior tibiofibular (syndesmosis): Intact. Posterior inferior tibiofibular (syndesmosis): Intact. Anterior talofibular ligament: Intact. Calcaneofibular ligament: Intact. Posterior talofibular ligament: Intact. Posterior: Posterior talus: Normal. Intermalleolar ligament: Intact. Achilles tendon: Intact. Plantar fascia: Intact. Anterior: Tendons: Anterior tibial tendon: Intact. Extensor hallucis longus: Intact. Extensor digitorum longus: Intact. Tibiotalar joint: Preserved. Volumetric Subtalar joint: Preserved. Bones (other than subarticular marrow): Normal. Muscles: Normal Tarsal tunnel: Normal. Sinus tarsi: Normal. MR/MR ankle LT wo con IMPRESSION: There is a split thickness tear of the peroneus brevis. Please see series 8 axial T2 fat-sat images 29 through 32. The ankle mortise is preserved with no MR evidence of osteochondritis dissecans. No acute bony injury. Nonspecific diffuse soft tissue swelling is noted. Mild plantar and Achilles surface calcaneal spurring is noted. Impression dictated by: Roberto Carlos Arnett M.D.02/04/2024 4:15 PM Dictation Location: [place] [address] Transcribed By: [facility] 02/04/24 1615 Dictated By: Roberto Carlos Arnett II, MD 02/04/24 1600 Signed By: 02/04/24 1615 Normal [facility] FUNGAL CULTUREon 12-31-2023 Fungus identified Cx Nom (Unsp spec) FUNGAL SMEAR NO FUNGAL ELEMENTS SEEN ON DIRECT SMEAR CULTURE RESULTS PENICILLIUM SPECIES Abnormal [facility] Comment on above: Performed By: #### 5 80-1 #### [facility] ([id number]) [address] [place] [address], [address] [place] [address] LOWER RESPIRATORY CULTUREon 12-31-2023 Bacteria identified Respiratory culture Nom (Sput) GRAM STAIN >25 SQUAMOUS EPITHELIAL CELLS/LPF WITH MIXED BACTERIAL TYPES SEEN. REGARDED SALIVA NOT SPUTUM. CULTURE RESULTS CULTURE CANCELLED. SPECIMEN DOES NOT MEET CRITERIA FOR CULTURING. PLEASE REORDER AND RESUBMIT. Normal [facility] Comment on above: Performed By: #### 6 24-7 #### [facility] ([id number]) [address] [place] [address], [address] [place] [address] Creatinineon 12-30-2023 Creatinine Clr Calc Pharmacy 90.24 Normal [facility] Comment on above: Result Comment: PERF ORMED BY: [address] [address] PATHOLOGIST MASH TUB COOKER ANTONIO ROMAN M.D. Performed By: #### B UN, CREAT #### [facility] [address] [place] [address] [place] GFR/1.73 sq M.predicted MDRD (S/P/Bld) [Vol rate/Area] mL/min/{1.73_m2} Normal [facility] Comment on above: Performed By: #### B NARENDRA, CREAT #### [facility] [address] [place] [id number] [facility] Creatinine [Mass/volume] in Serum or PlasmaOrdered By: Angel Meléndez on 12-30-2023 Creatinine [Mass/Vol] 0.98 mg/dL Normal 0.70-1.30 [facility] Comment on above: Performed By: #### B UN, CREAT #### [facility] [address] No Panel InformationOrdered By: Angel Meléndez on 12-30-2023 Estimated GFR (CKD-EPI) > 60.0 mL/Min [facility] Creatinine Clearance (Chem 90.24 [facility] Provider [place] 12-30-2023 Provider Orders [id number]#1.00OTGTIFF Normal [facility] Urea nitrogen [Mass/volume] in Serum or PlasmaOrdered By: Angel Meléndez on 12-30-2023 Urea nitrogen [Mass/Vol] 13 mg/dL Normal 7-25 [facility] Comment on above: Performed By: #### B NARENDRA, CREAT #### [facility] [address] [place], [place] [address] [facility] CT CHEST WO CONTon CT CHEST WO CONT CT CHEST WO CONT CT CHEST WO CONT CLINICAL INFORMATION: 63 years old Male with follow-up for recent lung fungal infection. TECHNIQUE/PROCEDURE: CT chest without intravenous contrast. All CT scans at this facility use dose modulation, iterative reconstruction, and/or weight based dosing when appropriate to reduce radiation dose to as low as reasonably achievable. Some structures are not well evaluated due to the lack of IV contrast. COMPARISON: CT chest without contrast dated 06/18/2023. FINDINGS: Diagnostic quality: Satisfactory Lower neck: Unremarkable. Mediastinum: Multiple calcified subcarinal and right hilar lymph nodes that are likely sequela from previous granulomatous disease. Central airways: Patent. Lung: No pneumothorax or pleural effusion. No consolidative opacity. Multiple calcified nodules throughout both lungs, likely sequela from previous granulomatous disease. No new or enlarging pulmonary nodules. Mild paraseptal and centrilobular emphysematous changes in the lung apices. Pulmonary artery: Non-ectatic pulmonary trunk. Intraluminal evaluation is compromised due to lack of IV contrast. Aorta: Normal in caliber. Mild calcification of the aortic arch. Three-vessel aortic arch. Intraluminal evaluation is compromised due to lack of IV contrast. Cardiac: Stenting material in the LAD and right coronary artery. Moderate calcification of the left circumflex. Chest wall: Unremarkable. Osseous: Previous median sternotomy. Mild degenerative change throughout the lower thoracic and lumbar spines. Chronic appearing fractures of lateral right ribs 7-9. Upper abdomen: Gallbladder surgically absent. IMPRESSION: * No acute cardiopulmonary process. Approved by Resident Jonathan Mendez DO on 12/24/2023 11:33 AM Fernie Ribeiro MD have personally reviewed the image(s) and agree with and/or edited the report Finalized by Fernie Whelan MD on 12/24/2023 12:00 PM Normal [facility] MR LUMBAR SPINE WO CONTRASTo n 12-12-2023 MR LUMBAR SPINE WO CONTRAST EXAM: MR LUMBAR SPINE WO CONTRAST History: lumbar radiculopathy Technique: Multiplanar multisequence MRI of the lumbar spine was obtained without intravenous contrast. Comparison: Lumbar spine radiographs November 22, 2023 Findings: The conus medullaris ends normally. The alignment of the lumbar spine is anatomic. The vertebral body heights are well maintained. There is no aggressive bone marrow signal abnormality. Disc desiccation throughout the lumbar spine. Mild intervertebral disc height loss at L5-S1. Schmorl's node of the superior endplate of L1. L1-L2: No significant disc bulge or high-grade spinal canal or neuroforaminal stenosis. L2-L3: Small disc bulge. No neuroforaminal or spinal canal stenosis. L3-L4: Small disc bulge. No neuroforaminal or spinal canal stenosis. L4-L5: Small disc bulge. Mild facet arthropathy. No neural foraminal or spinal canal stenosis. L5-S1: Small disc bulge with tiny superimposed central disc protrusion with annular fissure. This disc protrusion may abut the right S1 nerve within the spinal canal prior to its entry into the neural foramen. Moderate right facet arthropathy. Mild left and moderate right neuroforaminal stenosis. No spinal canal stenosis. Paravertebral soft tissues appear within normal limits. IMPRESSION: Degenerative changes of the lumbar spine as detailed. ELECTRONICALLY SIGNED BY: Harjeet Toussaint DO Normal Not Available [place] GUIDED FOR SPINE INJECTon 12-05-2023 [place] GUIDED FOR SPINE INJECT Final result Normal [facility] Follow-Upon 12-03-2023 Follow-Up [id number] Varinder Wilson 1960 M Date Provider Department Center 12/03/2023 [facility] INF Ursula Heal No family history on file Level of Service:77034 MD OFFICE/OUTPATIENT ESTABLISHED LOW [facility] 20 MIN Reason for Visit and Comments: phlegm with black specks [Other] Positive culture findings in sputum [Other] Normal [facility] 36on 11-25-2023 36 Hey [address]. Peterson, she is on vacation until 12/10/23. I sent a message to Dr. Phillips last week. Pt was unhappy with her recommendations. He would like to be seen sooner due to him still having phlegm with black specks. 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 Pt was also transferred to nurse line and refused to leave voicemail. Pt is rude, yelling and demanding someone call him right back with answers. Normal [facility] 36on 11-20-2023 36 Pt called and reques farzad appt with Dr. Peterson due to still having phlegm with black specks. He had a sputum test done 05/29/23 and it came back abnormal. He reached out to his PCP and was told he need to follow up with ID. Normal [facility] US arterial pvr rest Chucky US arterial pvr rest [facility] [place] [address] Ultrasound Report Signed Patient: Varinder Wilson MR#: [id number] 8 : 1960 Acct:[id number] Age/Sex: 63 / M ADM Date: 11/15/23 Loc: Room: Type: [facility] CLI Attending Dr: Fernando Moreno DPM Ordering Provider: Fernando Moreno DPM Date of Service: 11/15/23 US/US arterial pvr rest LE: I73.9 Copies to: Fernando Moreno DPM LOWER EXTREMITY SEGMENTAL ARTERIAL DOPSCAN (PVR) INDICATION: Known peripheral vascular occlusive disease PROCEDURE: Right arm blood pressure is 152 , left is 144 . Pressures throughout the right leg are 170 at the high thigh, at the 124 low thigh, 133 at the calf, 125 at the ankle using the posterior tibial artery, and 111 at the ankle using the dorsalis pedis artery with ankle- brachial index of 0.82 0.73 . Pressures throughout the left leg are 159 at the high thigh, at the 110 low thigh, 113 at the calf and 114 at the ankle using the posterior tibial artery, and 115 at the ankle using the dorsalis pedis artery with ankle-brachial index of 0.75 0.76 . Wave forms by plethysmography are moderately blunted US/US arterial pvr rest LE IMPRESSION: Mild bilateral peripheral vascular occlusive disease at rest. Ankle-brachial indices are diminished from the previous examination dated April 2023. Impression dictated by: Federico Adams M.D.11/18/2023 11:42 AM Dictation Location: [place] [address] Tech: Snehal Rupinder Transcribed By: MARITA 11/18/23 1142 Dictated By: Federico Adams MD 11/18/23 1139 Signed By: 11/18/23 1142 Normal [facility] HGB A1C (GLYCO-HGB)on 2023 Glucose [Mass/Vol] 108 mg/dL Normal [facility] Comment on above: Performed By: #### 5 6888-1, HA1C #### [facility] ([id number]) [address], [address] [place] [address] HbA1c (Bld) [Mass fraction] 5.4 % Normal 4.4-5.6 [facility] Comment on above: Result Comment: NOTE ADA Guidelines Result HgbA1c Normal : less than 5.7 % Prediabetes : 5.7 % to 6.4 % Diabetes : > 6.4 % Use with caution in patients with abnormal hemoglobin variants as the half-life of red blood cells and in vivo glycation rates are affected. Performed By: #### 5 6888-1, MARCEL #### [facility] ([id number]) [address], [address] [place] [address] HIV 1+2 Ab+HIV1 p24 Ag IA Ql on 11-14-2023 HIV 1 and 2 Ab/Ag Screen Non-Reactive Normal NRCT [facility] Comment on above: Result Comment: This information has been disclosed to you from confidential records protected from disclosure by state law. You shall make no further disclosure of this information without the specific, written and informed release of the individual to whom it pertains, or as otherwise permitted by state law. A general authorization for the release of medical or other information is not sufficient for the purpose of the release of HIV test results or diagnoses. Performed By: #### 5 6888-1, MARCEL #### [facility] ([id number]) [facility], [address] [address] BASIC METABOLIC PANLon 10-31 Anion gap [Moles/Vol] 12 mmol/L Normal 5-15 [facility] Comment on above: Performed By: #### B MP #### [facility] ([id number]) [address], [address] [place] [address] Calcium [Mass/Vol] 9.4 mg/dL Normal 8.5-10.5 [facility] Comment on above: Performed By: #### B MP #### [facility] ([id number]) [address], [address] [place] [address] Chloride [Moles/Vol] 101 mmol/L Normal 98-109 [facility] Comment on above: Performed By: #### B MP #### [facility] ([id number]) [address], [address] [place] [address] CO2 [Moles/Vol] 28 mmol/L Normal 22-32 [facility] Comment on above: Performed By: #### B MP #### [facility] ([id number]) [address], [address] [place] [address] Creatinine [Mass/Vol] 0.89 mg/dL Normal 0.60-1.30 [facility] Comment on above: Result Comment: METH OD TRACEABLE TO IDMS STANDARD Performed By: #### B MP #### [facility] ([id number]) [address], [address] [place] [address] eGFR (CKD-EPI) NON-RACE DEPENDENT >90 Normal >59 [facility] Comment on above: Result Comment: Reported eGFR is based on the CKD-EPI 2020 equation that does not use a race coefficient. Performed By: #### B MP #### [facility] ([id number]) [address] [place] [address] Glucose [Mass/Vol] 67 mg/dL Normal 65-99 [facility] Comment on above: Performed By: #### B MP #### [facility] ([id number]) [address] [place] [address] Potassium [Moles/Vol] 4.0 mmol/L Normal 3.5-5.0 [facility] Comment on above: Performed By: #### B MP #### [facility] ([id number]) [address] [place] [address] Sodium [Moles/Vol] 141 mmol/L Normal 134-146 [facility] Comment on above: Performed By: #### B MP #### [facility] ([id number]) [address], [address] [place] [address] Urea nitrogen [Mass/Vol] 11 mg/dL Normal 5-27 [facility] Comment on above: Performed By: #### B #### [facility] ([id number]) [address], [address] [place] [address] XR SHOULDER RIGHT (MIN 2 VIE WS)on 10-29-2023 XR SHOULDER RIGHT (MIN 2 VIEWS) EXAMINATION: THREE XRAY VIEWS OF THE RIGHT SHOULDER 10/29/2023 1:55 pm COMPARISON: None. HISTORY: ORDERING SYSTEM PROVIDED HISTORY: Right shoulder pain, unspecified chronicity TECHNOLOGIST PROVIDED HISTORY: Reason for exam:->shoulder pain What reading provider will be dictating this exam?->CRC FINDINGS: Glenohumeral joint is normally aligned. No evidence of acute fracture or dislocation. No abnormal periarticular calcifications. The AC joint is unremarkable in appearance. Visualized lung is unremarkable. IMPRESSION: No acute abnormality. 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 TECHNIQUE: Multidetector spiral CT scan of the paranasal sinuses is performed. Multiplanar reconstruction images are reformatted. COMPARISON: None available FINDINGS: Minimal mucosal thickening is seen in the left frontal, left maxillary sinuses. Other paranasal sinuses are clear. There is no evidence of air-fluid levels. The maxillary ostiomeatal complexes are clear. No bony destruction is identified. There is a hypertrophy of the turbinates. The nasal septum is in midline. No intraorbital soft tissue abnormality seen. Mastoid air cells are clear. IMPRESSION: 1. Minimal mucosal thickening in the lateral left frontal and left maxillary sinuses. Maxillary ostiomeatal complexes are clear. There is no evidence of air-fluid levels. 2. Hypertrophy of the turbinates. 3. Nasal septum is in midline. All CT scans at this facility use dose modulation, iterative reconstruction, and/or weight based dosing when appropriate to reduce radiation dose to as low as reasonably achievable. Finalized by Eliseo Espinoza MD on 10/20/2023 7:59 AM Normal [facility] MR BRAIN IAC W WO CONTon MR BRAIN IAC W WO CONT MR BRAIN IAC W WO CONT MR BRAIN IAC W WO CONT: 10/16/2023 10:31 AM Clinical: Right-sided hearing loss. EXAM: CONTRAST ENHANCED BRAIN MRI WITH ATTENTION TO INTERNAL AUDITORY CANALS Comparison: none Contrast: ProHance IV Procedure: Multiplanar spin echo MRI brain with attention to internal auditory canals performed without and with IV contrast. Findings: There is asymmetric supratentorial volume loss, greater on the right with slightly prominent right ventricle and right-sided sulci. No hydrocephalus. There are no intracranial masses, mass-effect, or extra-axial fluid collection. There is no acute infarct or acute hemorrhage. No masses or abnormal enhancement is demonstrated in the CP angle cisterns or internal auditory canals. Pituitary and suprasellar regions are grossly unremarkable but detailed imaging of this region was not performed. Cranio-cervical junction is normal There are appropriate flow voids in large cerebral vessels on T2 weighted imaging. No pathologic contrast enhancement is seen. Patent dural venous sinuses. Normal signal in the visualized mastoid air cells. IMPRESSION: * Asymmetric supratentorial atrophy, greater in the right cerebral hemisphere. * No MRI abnormality seen in internal auditory canals Finalized by Jl Montes MD on 10/16/2023 3:37 PM Normal [facility] Coding Summaryon 10-07-2023 Coding Summary HTMLBase 64 FbktivgwWIy7fGv+PGhlYWQ+PE1FV VFpX52qfCNksB6hF7PGWLuKKatrHR YKZRjYEfLqlqZtWC4mhDZrRUPr IC8+WU7wXUMpUrlxyZBvh9H1uDF7B 07ree0eLNjqhFZ8EQGhSmKqcdytf6 aayAo2PJreLpvoOvYw UNGjwY33UMX5pY02Eb57oNVdeBVan 7lvhVa0BqDqVXFjPUU8dMvbIVfqe3 RzTQRqE44ivZZvw8E1 EHTieUlfdJOfGjRcxVX6kP8mPQipc oxcs5fdxwvhAlk5em40tKBmn3K8uJ H3E4TjwqR4ASCsaHIp YgjsqBGDoH8hxqmvr3igrsesDwFdG BLdPMx0PHz8XXPapWqoAsUlAN44JI F7QYFxsuHgI7WkRDPa yWnnFgW3h8M6Wq9YI3BHDutyG8SFO UFSWTwvdGQ+FF50fz80E7ZlTcfyYf h0XGDoNPS4mDE2sR8z MNYrWItwz1D5dVV4I1UmqvLuyr9ot 3riKTOdEIiiV08vdZGiq8Q6DRAssM G5AEAsqTbeMxChrL83 Oyc+HVSwxXxlv0DgFyvhb3fzg0oih El0AeaxTENelyXkxOwcOQO7l0XzIk 0mNBCzcMW1nGO0jN6i MnAhFdQ7CWbxY234LkJqkKXoZpdrI 79jX6OvkQF+HJTsIvi3RBFcvNfiIY 4aK2CdXBBqguefgWMu mVwnDM3wNBIxwlfrSKHuyX9hNIQcU 4g1HkIwSfY6WJeyV4PoRYPsihcpTe 74tV3eJnBgKoK4CHbi A7DefdT7YAFxqHDrNNzwURS9R76ly 6F1UQOpZVGfVWL4nMU8iN6ewHtsnj ogbGVmdDsgdmVydGlj ZWibMItrJ579QGXslUauJkRkVXnpW yBEYXRlOiAgMDMvMjUvMjAyNDwvdG Q+SAQwBTS7mBloUASh lUZuRTldSp6ytPpbxUgdVJ2pTGCxu dqbITZnmU6pCTTwwTFskGpwAJ8qMG Ournjjp868TxWkCSO8 JSSslKUsZ2ZagH8eRjAaWCJwNIHpH 1GosTBbCQxgN593ZWzgMjQ8LRHmnk VgK2IpGNNegMqoIqC1 b7D5Qn2Fz8DgkaqpI7YvrAHaJuTlL ycjLTx2G3HuUxcksJI+QR50BMLfMZ 06RJd6OFQ5bZvfXWqp SHYaQ1AbyI1kGrBwBEPmTGFoJrz+P HRhYmxlIHdpZHRoPScxMDAlJyBzdH khLO7sLk9wBOIgIHPt bJhjfHXmKiWmh5eyMAOwTBamFF4bb QqiI4VfkYO2DSTur7r0Wa45Q75aR5 JvdXA+JLHarYE3tWR9 gU5zAeGqKeF4RGjlS455VmYyjVMvX yeru3ivs6hatZd7YnW9WOWutmOdiM brKFS1w2CsEa07A03k JNeuTTZqNKUwETFwNWYtlVowoc4hs G9wIi8+IIBhpWH2iKN1fG6rKhMuZn T6KLhgT788OmAdgBRi Oordm3ozl2eurUo3ZsUkUJSfdzNcu OcnTNV3c1UaKy43C5QrvAhed2KpYi p0dp51vPXtu8A9jWH9 U9MzYFKhpghmbDWyvSziCJ3wKMEjf xjmTCVspO1eMCVzK2r8BcOqKnD1DE qhX0XatiW8DQCxlPEc CYNrmLUPyU0pehstn0jkkffqHfHuD FAwQVb3VSr1TYGvkCggRqUqABI0Rw S0UTZ3gYTypU4ytFty xiwohN0zIxc+BQW1jSSkgQAZGE7rL jwvdGQ+STPmGMQ4vBptLOtrEDIznJ 3wSEVjV6e8XlLsJtV6 SJobD1SdkkN1HGSftPDqTNCwdJUWx T3puqynl2keeacbCrBwGTLpIFu3EP t2NNNjmQieKiJbBNK3 CvP8NQK4uNAjcQ9zkHhbpkgklS4lZ yc+BjhisTkyNOL9WYh0P2QnFkw7BX WbuLxkRC6uaFGdTOlj Qj4vqQazvGorFD2xFHFgifzag801B fSpz6rsDUSgpQXvYQkwJIY4F01se5 T3CRCpJJRfQNV4yNV2 nO4plNystvzjdZDtaMcfblEkhXfcR OcqUVvfC300JWPswHlnEsQuTNz0B3 NkGwt4RLSkePkvWP3l hFWrCWdwXq6bdXqyoVnjXP1eFWEud bnuv916QlGnv4puZYDojCUzUUmrAQ I0H43ah0C2CUKoQZXj NLR1eRB2tR4ydZuffgyfiQHawZnoq rJziWkhEYioURtaO257MSMznLpdUb LykXj5W6PyPmx8UUWu jHccZZ5agNFuYYypOk6sbZkagXmgI T4iHRAssfeel368LrMxv1zyISXcgI IwLLmsKSO0U78cy4U6 DVIbOGFpJBW5cDO8aS2uhYbdpfmai WTbiQzzegNpjBrdGBfpCXzwM988OE RvcDsnPlBhdGllbnQg ZYykZFb2A4GnIevyvAF+ZF45GKSgW R27fDCprKTun5zmcAe4ErCtXTWtHU B4aApqNPhtv6WoOAGd S42jqLXra6B7XYEvvAecwWJiZeJab IS1fC8rYXovlfynz0qmabneKtbpg5 rlzd43fV89B52sNVfw TCUqVZVxARPqPMNpwTyhdr3mqV4uF i8+VTJdjGN0qED9lN0uNQIyXmH8TD mtQ309RiOszHIjHovo z6qlx1iiiLj9GlH8REKcqxIlgFiuQ CA1e7WoJc68R20lCRtxQEVhETGcGO NpGNVpvByeel6ilP2k Ii8+QGBgfMX5gNV9aF9bDfGfJoD0T TndI360DhVhhQIfLoifD53iC5JyoW A+IDQcKgn4BNJxeUpt ZX9dgFZaDEuzWq0jHQS5YdKcDqLpE HlsF3QjJVFxpfgqzqzeuXN6PFVtJJ TbiX72Yg1kqXgpRAIn eMMHsO6lqolbw9jlsmqsWfRmJSZiH Oh8VHn5ELArlCrsKuYaLXY2QcW0LB U4xQLnpY6krRlgekjn fK9tB2PdDSQseztkCc18fF8rEpZgH jO4ELsfIwr+D9xCFNAcNBjPBR7PZD bLWSh4N1HhLjc1WNVl eTptSI6cyLWaTGnsSj2pbGufuNbcC F9tXOJjokuzMHQhbJ2tRSJdwLIrpK zeNT8jNYLkxjifx656 TtUcLKE3KWDnuUCaJ6YirK1yXrFqG GYtYTQzL5OmwUBfNZptL070TOpbBj D1DUEfvzFyG4OsWHSp oLsdTsZ1s4N9Um1sZE6pYB6jCZMjA E06HH04wYKhg8H0hAO4B0DhCFAkfv ndgcckfIS2CLRsTMBh dG69dGPhNSkgIf5hy3S5z180KSAwG DKztB61Av1xuDhgUKVsfLTBeL9fwn xcq6udjqcgKnOlWEPc HDh2LLb0RQOxxLcjSiNfZDQ4XlG8V VH1lJHpaG3wyAsmgdkugF3sVow+Nj PpZFYkxrS6P0AfRwn3 JLJonBccXU2svZSlBRryPs6gyKuth CkcHL9kLIWdvnxxBPHpaP1uMSNhwX QvkTsoVY2pTXWknsol d742DkJuJLD2ZYRfiTUdV4CzaD0iG dFgTAKqXLRlY5DziBWmSBznR933LB ehSbL1ODRbjhUrY0Ek UHKmpTbsPkU3v8T8Ge1LDGjTHH06M N16sUIdy2T6aTC3V2BzSPBlzurpfs kldNU0ZOPaZAUklI52 hHOcKSmdBe4dw4P3w486QCKmQHEra T86Cp9zpWftWKOzhTKWdB7ccwwmw4 xvcjogIzAwMDAwMDt0 CJm2QTVdgTntOrKyMLD9GjQ6SST8j BPnzZ6zmPneizzmmE8qJes+T1A8L3 RkPjwvdHI+KW86XCEt UX36vHWbbWApj6wmoCl8BdVqPTGpM ZJ2kKdbKZgeo6LgUKPpI49dgVNdy8 N6LYAlqNcpnGPnToIz qEJ2dE4mPZmjwdzli7kvzibbFhfey 0srfn14kB59J24dWXcyCTNjALDvQF IxTORcrLbbtb2usS9f Ii8+QARshRB0fGT3rF1dAwMnMeP4K SwxE404ElNobIEnPkvrl1vvd9tgjO n1ZvKmIFUmlsAjqBhb KYD6e9WbJs56V77qTKchAGDiCOYpD KUdOOPhvLcavf9euX3hRp5+PC9jb2 awzv30gM20uJK+PHRk QLI5hRhsVNhqXIVmwH8nVKlfReQ1F XKlLcEwtP65lNKhOGlwGp4xbSpcmU vgFS7rCLCznvkot587 VzLys0zzXURxjWXlMDdoSPW2N54np 4X9MANxHYHyQRF9rNA8vM6vwTcevg ogbGVmdDsgdmVydGlj YQwaPUxlC403QLHqtUvzPoNeqPMdC 7glrcXJQS7lEltbfDM+PCUzKPM3zM lrYGanKJUakK6fROUd W4w0NwSwTlE5RAkgJ2JxenF8ZVHrm IXdPXKhhOXCcA4tsjmlz0dvcqjjLl TiHXGyIUi2GDb5TMSa aGhjIeKuWNP0BmZ8ALL8oKXwcV0kf SpjoeokyS5wZrb+RklOOjwvdGQ+PH VgICO9wCzhKYumPSXs iY1lSGYfA7u6UjUvRnL4VWumI3Jhc sH0PMExeTIfBCFgrAUJoL2jmdvki4 xvcjogIzAwMDAwMDt0 KXo2XNXlbPdyTkJbXAE5KdZ2LLX9b UJolR1sdWnurbxadN0oEft+TVJOOj wvdGQ+TJKgRBF2wOki RPdmVDJwvX8cPVUeC1t9PuJsWaB5G LdfH4YtcrC6MSGgnVCcGMXbrQIRsV 4wiovef3knwdpfNsWa DQRcYSq9QDe6NXBfxSlcKvCtQHE9R vN0ZTG7bHVvrU8zrDtcyvfqvJ4oDt c+OKQ5WEK0WQ17FF11 S5EbQbvncTKioEF+PHRhYmxlIHdpZ XFgGCwmECHkAeEqcIlsRF8yKd7aHC VyLWNvbGxhcHNlOiBj b2x (more content not included)... [facility] Provider Orderson 09-30-2023 Provider Orders [id number] [facility] XR Hand Complete Righton XR Hand Complete Right EXAM: XR Hand Complete Right HISTORY: Cellulitis of finger of right hand, Right Wrist Pain COMPARISON: None TECHNIQUE: 3 views of the right hand were obtained. FINDINGS: No definite acute fracture or dislocation. Mild degenerative changes about the DIP joint of the middle finger and PIP joint of the little finger with minimal changes in the remainder of the interphalangeal joints. Drkh-qk-vnycfbit degenerative change about the first metacarpophalangeal joint. Mild degenerative change about the first metacarpocarpal joint. A few small rounded areas of lucency noted within the metatarsal heads and base of the proximal phalanx of the little finger likely representing degenerative subchondral cystic changes. No obvious osteomyelitis. No significant soft tissue swelling. IMPRESSION: Right hand study demonstrates degenerative changes as described. No definite acute fracture or dislocation. No obvious osteomyelitis. Follow-up as needed. Final Dictated by: Arron Zavala MD Dictated DT/TM: 09/30/23 3:49 Signed (Electronic Signature): Arron Zavala MD 09/30/23 4:12 pm Technologist: LETICIA BENNETT [facility] MR KNEE LEFT WO IV CONTRASTo n 09-26-2023 MR KNEE LEFT WO IV CONTRAST EXAMINATION: MR KNEE LEFT WO IV CONTRAST HISTORY: internal derangement (L) knee left knee pain with decreased range of motion. No recent injury. Denies prior left knee surgery. TECHNIQUE: Routine non-contrast MRI of the knee, LEFT COMPARISON: Radiographs 08/05/2023. RESULT: MENISCI: Medial Meniscus: Intact Lateral Meniscus: Intact LIGAMENTS: ACL, PCL, MCL, and LCL complex intact. CARTILAGE: Small area of full-thickness chondral loss/fissuring involving the far posterior aspect of the medial femoral condyle with small amount of subchondral cystic change. TENDONS: Distal quadriceps intact. Patellar tendon intact. Popliteus intact. BONES AND MARROW: No evidence of fracture or bone marrow replacing process. MUSCLES: Muscle bulk and signal intensity are normal. JOINT FLUID AND SYNOVIUM: Trace joint effusion. No synovitis. Trace Washington's cyst. OTHER: Patella susan. Small amount of edema signal in the infrapatellar fat pad. TT-TG distance measures around 10 mm, within normal limits. IMPRESSION: Intact menisci and ligaments. 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 ELECTRONICALLY SIGNED BY: Félix Goddard MD Normal Not Available Comment on above: Order Comment: Miguel Jones ; Please call patient to schedule, thank you Patient has cardiac stents ; call has been made to [facility] to verify if MRI compatible MR cervical spine wo conon 0 09-19-2023 MR cervical spine wo con [facility] [place] [address] [place] [address] MRI Report Signed Patient: Varinder Wilson MR#: [id number] 8 : 1960 Acct:[id number] Age/Sex: 63 / M ADM Date: 09/19/23 Loc: MR Room: Type: [facility] Attending Dr: Marii Delatorre MD Copies to: Marii Delatorre MD Ordering Provider: Marii Delatorre MD Date of Service: 09/19/23 MR/MR cervical spine wo con: M62.838 M21.371 R53.1 Z86.73 EXAMINATION: MRI OF THE CERVICAL SPINE WITHOUT CONTRAST CLINICAL DATA: Chronic neck pain. Numbness and tingling down right arm. COMPARISON: MRI cervical spine 05/10/2023. TECHNIQUE: Multiecho imaging was performed in the sagittal and axial plane without contrast administration. FINDINGS: Vertebral body heights appear maintained. No bone marrow edema. Cervicomedullary junction appears normal. No abnormal cord signal. No paraspinal mass. No prevertebral soft tissue swelling.. C2-3: No posterior disc pathology. No canal or neural foraminal stenosis. C3-4: Mild disc osteophyte complex present causing minimal canal and neural foraminal stenosis similar to the prior study. C4-5: Disc osteophyte complex present causing mild canal bilateral neural foraminal stenosis similar to the prior study. C5-6: Disc osteophyte complex eccentric towards the left causing mild canal and bilateral neural foraminal stenosis unchanged from prior study. C6-7: Disc osteophyte complex present causing mild canal and moderate left-sided neural foraminal stenosis. Findings are similar to the prior study. C7-T1: Posterior disc bulging is present without significant canal or neural foraminal stenosis is grossly similar to the prior study. MR/MR cervical spine wo con IMPRESSION: DEGENERATIVE CHANGES INVOLVING THE CERVICAL SPINE GROSSLY UNCHANGED FROM THE PRIOR STUDY FROM 05/10/2023. THIS IS WORST AT C5-6 AND C6-7. Impression dictated by: Buddy Solis Jr., D.O.09/19/2023 4:01 PM Dictation Location: RADIO-PC-12 Transcribed By: MARITA 09/19/23 1601 Dictated By: Buddy Solis Jr, DO 09/19/23 1555 Signed By: 09/19/23 1601 [facility] XR pre/post mri xrayon 09-18 XR pre/post mri xray [facility] [place] [address] XRay Report Signed Patient: Varinder Wilson MR#: [id number] 8 : 1960 Acct:[id number] Age/Sex: 63 / M ADM Date: 09/19/23 Loc: Room: Type: [facility] Attending Dr: Marii Delatorre MD Copies to: Marii Delatorre MD Ordering Provider: Marii Delatorre MD Date of Service: 09/19/23 XR/XR pre/post mri xray: M21.371, M54.16, R53.1 Z8673, M62.838 Cervical spine 3 views. Reason for exam: Chronic neck pain. COMPARISON: None. FINDINGS: Vertebral body heights appear maintained. Moderate spondylosis C5-C7. Oblique views demonstrate no severe bony neural foraminal narrowing. No prevertebral soft tissue swelling. XR/XR pre/post mri xray IMPRESSION: Moderate spondylosis C5-C7 which will BE further evaluated by MRI. Impression dictated by: Buddy Solis Jr., D.O.09/19/2023 4:02 PM Dictation Location: RADIO-PC-12 Transcribed By: MARITA 09/19/23 1602 Dictated By: Buddy Solis Jr, DO 09/19/23 1601 Signed By: 09/19/23 1602 [facility] Provider Orderson 09-03-2023 Provider Orders [id number] [facility] Coding Summaryon 09-02-2023 Coding Summary HTMLBase 64 VzllehwmYTx9zYb+PGhlYWQ+PE1FV JRzW08etVHgjL0xZ4PJGHgSHeqfRV QLFYmJGfBqivJtDT6fbTVqMWYb IC8+LW0kCRVrAguyiRJky9E9dXT2C 84ean3eCGyjiJJ9LTUqJrRoxjklc0 bgpJo1AXdwTfdzXcTi YPWktA26QCR2wE45Bo69gKPllGZsf 5unvPd8EtHtCAGnZYC5cJhdIJwex8 NfZTXjM36jlCKax3K8 HMJieMobxUSbOoAfbLG5kM6bDRwfd dqol4ngotxzFxm3ym54qUQar6B8sC C5R8NtubU5HKViqKKc KhmswSLErT9gyvqnh7qumruaCmAcU WRoECc5XLh7HWJyaDrnOeLdFB30NP C9CUNwwtFsD2WvDTVq jMugMdD2r3L5Kv9TX0SQAbbzF0GUY UFSWTwvdGQ+PJ93bo66X1AdWzphDa a1TEPfNLP7mLU7cP6e VLZbKDhpl0Y8aUF5N2AezvRblh9oz 0viABIaRKvhQ88ikKMrh8T2LXPuxD T9PSEspQviXdYgjL99 Oyc+EONhzIltz6NdUcrtw5epn4ros Cf3QoloDDDulwAxwTucITF2y3JyEo 2yNWLqzZE9jKB6vD2r VyEuFlW7SArcY547TpPpiLPsDzgwN 98cP8TymHU+IMZhTfw3CUIyvPjcTL 8mJ3LpNIGavrnzeJFp gVlwDS0tOMIhqfxuDQPatK2dXAUbS 0j7SbXdSnI6OAuyT8MbAHSszdhdJq 19oW5eDiYwEbQ1EOik N2QorvI9LHMrdJLjGRgtCVM3J06wg 3D7MNWaIVBzJRC2aIP3oI1ueXuxpd ogbGVmdDsgdmVydGlj HErlQKaeU814XOCtxNptFiYmFEqeH yBEYXRlOiAgMDIvMTkvMjAyNDwvdG Q+HALcKJP5kQfwECWi nGKgMYryNm5evDzpbSbwEJ8wIUUwv ymhRBShkY5hBDKgiZCpiQfjCQ9fRK Qptsgpn540HeAuZIJ2 PFQeqZUfS2UerA3dPyHkWQSpJPFkK 3HizPUdUDkbS765RTaxKzT8AWSuef QdR0XdOAQeeLzsWnQ5 v9R8Ml2Rk0PthgdpI6OcvNXmBrQuK ubiIFd4A7JuRrfufEA+OA98UGOiZQ 20CZd3SGW9qYajYAez XOJjV7CfrR1rAaBiUGWbOPBsVuj+P HRhYmxlIHdpZHRoPScxMDAlJyBzdH tuCH7rOs0xVGFyMRAo sJsfaKIwWeMzj4fcBCThESakCC4vn PccH8QmcYC0UDLdl4s6Sy82T06pK7 JvdXA+QMSdqLV0lVL8 aW8bThMuAtU5MXrfC629PkHccCYhP lorc4dgn2sheAd1IhE6TKJilxMwgT fpVRM0x1ByPx32D85j HGjzXJUjJMCeHIPdBBPhvYjsoj8vc G9wIi8+MNEkjPZ7bHX9sT1gKsEnHa K9ZHujA695VhNtwVMy Nfviz0usg6atbEn8TrTfJCLmfwVqr XwaHBZ9r6NkUj69F1ZavYurf7RdPx t4kf38dSVze5A9iYQ0 K0HyNDYojpfitAImtHwdCP6gTMRfa ltqMXYqxZ8sWSJdJ7d2UxXdIiS5ON ejZ9DjtxC2XCWidGEy PIXpsKLLxS9ebqlkm3jtrldiHeVlE HNqIJl1TGo1EHDplFxuNxIrKHE9Mr Y9UGU0zHMtuW0rhUml iqtijI6jKex+XGY9aAUyoEFPPB9tJ jwvdGQ+NXNvMGK8fFqnCZenBQZyyE 7wADKmV4o3TlYrBnO3 NNqeJ0VlucR4OBKvlFZfGAKifUYFq J4rzscym3zjoyjyTdTsAWUvBBo5LN p1SGWjeBpbJkVtMGF3 CzQ8SZY5vFMnfK4olWyxatnriK4sE yc+JiodxMhiOUI1WSq5R3DcIlz2GB PvgWstGY7vyATgWBtj Vj0tcEukzVrbMF4pFFUtznljw025V kLja1jdAWSvvUJtYQobURF7K66ju3 F6SLYbHLHoCGO2yAD6 fK2dwTewlnpokXAntYjluzHdfPvyX BujIXduF611VRLsyJwiHgKmAQb7G1 BsYjt9RWIvbFnaBL8n kHCfOYvzCm2yuZotlXhjHL9oJQHrl vckm319IkZjd2nxRPYjrJNpGTxcYV M2O43zs6E9ONQaQYLl DQG5fJE7yL0zoFtxdgopzTOocHgry eCbnEriWNppRYevK773LXFjbEcuNz MxcIg6Y8SrOlg1RNWb eMyeOB2asKLhQHcvVt9fnArpeYyrG V0eQXJbvzsyx322VzYel7ibXGQtaK PjQBuxLWI2T46jg3D8 RYMeBOVsXYF9yUO7kX2piQqfpnpnq MVovWxafeJntZozGFalOXjrQ494XJ RvcDsnPlBhdGllbnQg BWhtUSq0L6XyKvtfeKM+GB10HYCkP W31lGPtaJEtn3sabKj3PeLnICPiRR K6fSzbQRlka3JdUENi N66gpERyu6Q9TCCedCmraTWcRcUun BG1sI4kBDtejimsh8mnzksaKfzxh6 wtwt11fF33B86wQQhr YFIsAXVcGRVbLVQvkYilxz7onV0fI i8+MEWwpTK1uSB5vX3pDQFlGbE5LZ htD358HeZisTOhIwwt u8wwf2ugfIm0GnU3FFLeenNbqMjeE DU2v0WcUn62A68sHKqnXTXeKUYwGC ZfERGjkEhnwf5prD6j Ii8+LUXrhPO2wGZ2hC8tEcClCuI0O QfkH310FjTgxVVsRkmzX89aI3UhuU A+GWJtXuc4OLBjyGuv RB6bpFJcQRghNg9wVNG9IgXwFiPrL XhxU8NvGOTxikfjworyzAT6JXSpCP PosD38Mr8ziRhhOERr uQFOjI4yticee2bodcyeOfDjEVOwL Xp2WGa1VSNcyTjrCzKhSMS6BxY2RT J5iBTeeB6pqMvrgcyj aV9jQ5EnXSGuiihlWj52jK5lYnPjK zA6FVszQcq+E4aMOYMyWBnZKF5LPD pYXEv1H1XbDbw8AQIs oZvnQC4zvSTvBVlaBg4fgQzzpVhaH S1jINRgryeqBPIhwY4iTLPbaCXxjR pdEG5bLBFmsoumj235 JpOxPXJ1XWCouZPaG7LrvT4eQjBfD QUdNORpO0QwvOBsBUwuL188CTsiEw B8VOHlfhXsR2FfMHXd jEjaYuW8c3G9Ut5aKR8eVQ6aVLViY B17KX21sSGzd8C2dNL8G5LnLLHgcy gsscufjXW9EAZiHKUi vR34dRKlTAceQi8uq1M3e429EZAsK DRigX83Hb2dpAebUYNeiHTPgT7gxd krf1zewadfAbXeVGHs UOl4GWm7AVMoqMlhMrCoHPH4CjW9O JX5wAWsoS0ckKapznrynT0mGni+Nj UtFQLaroA2B2CnRis2 RGQgbDdkEQ8tnGVkJSjpPa3ghZjrt CnqXS9vUTXyovxvXPKjuC5jBIEygT TvhAxpWO3xVKWcqclj j196AzMhVXJ3KLEfrLDmL0XglC3rY aYeEXKjFOOrZ1KjjCOxKRjqP359AQ jmNoL5ZHKwljYyX1Il GQXieLucIyC9f8L3Zj2MRFpSHL36C L68oHRsy4L2xCM4Z6VwZNEffxrjyy njgWE5HPArVYPcoK35 zDJhZEykUo1jq1G8d103XHClXZDyv Y50Om7djMltTUAbtYOSoV8lzlsqh4 xvcjogIzAwMDAwMDt0 LCo0FGOxrVsfDfFfMTE1FbL0BYV1r TXhrA0miHkrkjrgzT2zVwq+T1A8L3 RkPjwvdHI+LD64YKQv WK73bFKxsKCpe6jhhAj0JnWoRAHjC LZ4nKiiPOfgs6QjWPOkH90btWCqr7 O4OEBqzBeywBRfDuDf eKS7qE4mVDhwukkzc2jotzyqDlbuj 9jhqj27eS94Z32eDHtnPCQmJBXaCI EfYXCrdExdou7stQ4o Ii8+LDLjsUD9lVY2zT5wAwLxXhK0H WwlO973PvUwdAOfHfwqv3dkv4nyiA t8BdQbPVCjoaRhfUfz UTW0b5XnIe59K12pZNylJEJgRZWuT MGaNCGmhHoujp3drN8jOz1+PC9jb2 jntb90rG52nPD+PHRk PEI2dMbmIQltAYRmbC8fEYtcWlW6X KBzJqPyqG46qIRhVSpiRb3cxYzbtX ktQZ6nHVSlfkwvh068 JgMzt9aqBDLttXUjEEwlVEH3E76xi 3O7LCOuHRUjAPL4uXF4uE3cbOrcye ogbGVmdDsgdmVydGlj MVnxLGxsV745SLDikJglPfPkvJJbD 7geozTLEA5xRfjduAF+YGYpYTM3iG eySLkrRIWtqQ2iUZSv Y3u7UpWsTmQ6WUnlO2BlohQ1QTDgr JWeIJJcuXIIaU1dapcub3aluxswSc TuIIKyNLd3DRo4RMEx uXsaMoUfKZI7VmC9YOV2kJLplC6gz OseftrwvY8uDmb+RklOOjwvdGQ+PH MfQRM3oDzpUGqnEOKt dH0pKJDrX0w1BzBhPdW4BYrdZ2Knh wC7FRVuiSTpDBNmpRNQzY8glromh4 xvcjogIzAwMDAwMDt0 FZk8PPGvhFuqTkUjKTO4KzY5GQX6i KHhsX9fsSbpvnmnwG8iWda+TVJOOj wvdGQ+TDOdFHN2cWpj NMoxWKFifH5yIDZyH8d3BaRcZxF9A ZoaR8UzycS9NXSxoSTaORGepSVUfY 3zisuuy6fgycftTiId MTPwLSb0JPq9BLXudQgiJhTlHFS6O iJ1ZVM4hMCmtC4cuMtrfdhsdM1gFz c+UHS2ZOO5KJ61YU03 I3CdQbxmiLIjiJF+PHRhYmxlIHdpZ EPzSRcsEIHgDmYzoZsgXQ1iMo6hIX VyLWNvbGxhcHNlOiBj b2x (more content not included)... Normal [facility] ESR Photometric method (Bld) [Velocity]on 08-30-2023 ESR, ERYTHROCYTE SEDIMENTATION RATE 11 mm/h Normal 0-20 [facility] Comment on above: Performed By: #### 8 2477-1, [id number] #### [facility] ([id number]) [address], [address] [place] [address] Nuclear Ab IA Ql (S)on 08-30 [place]LL Screen w/reflex Negative Normal NEG [facility] Comment on above: Result Comment: Testing performed using multiplex flow immunoassay. Eleven different antigens associated with systemic autoimmune diseases (dsDNA,Sm,Sm/CUSTOMS COMPLIANCE MANAGER,CUSTOMS COMPLIANCE MANAGER,Chromatin, SSA,SSB,Lynsey-1,Scl70,Ribo P,Centromere B) are included in this screening test. Performed By: #### 8 2477-1, 67383-2 #### [facility] ([id number]) [address] [place] [address], [address] [place] [address] .Auto Diff 1on 08-27-2023 Auto [place] % 10 % Normal 1-12 [facility] Comment on above: Performed By: #### 7 [id number], [id number] ####[facility] (DEFAULT)[address] [place] [address] Baso Abs# 0.1 x10 Normal 0.0-0.2 [facility] Comment on above: Performed By: #### 7 [id number], [id number] ####[facility] (DEFAULT)[address] [place] [address] Basophils/100 WBC (Bld) 0.8 % Normal 0.2-2.0 [facility] Comment on above: Performed By: #### 7 [id number], [id number] ####[facility] (DEFAULT)[address] [place] [address]62 Eos Abs# 0.1 x10 Normal 0.0-0.4 [facility] Comment on above: Performed By: #### 7 [id number], [id number] ####[facility] (DEFAULT)[address] [place] [address] Eosinophils/100 WBC (Bld) 1.1 % Normal 0.9-4.0 [facility] Comment on above: Performed By: #### 7 [id number], [id number] ####[facility] (DEFAULT)[address] [place] [address] Lymph Abs# 1.0 x10 Low 1.3-2.9 [facility] Comment on above: Performed By: #### 7 [id number], [id number] ####[facility] (DEFAULT)[address] [place] [address] Lymphocytes/100 WBC (Bld) 12 % Low 14-48 [facility] Comment on above: Performed By: #### 7 [id number], [id number] ####[facility] (DEFAULT)[address] [place] [address] [place] Abs# 0.8 x10 Normal 0.0-0.8 [facility] Comment on above: Performed By: #### 7 [id number], [id number] ####[facility] (DEFAULT)[address] [place] [address] Neut Abs# 6.1 x10 Normal 1.5-9.2 [facility] Comment on above: Performed By: #### 7 [id number], [id number] ####[facility] (DEFAULT)[address] [place] [address] Neutrophils/100 WBC (Bld) 76 % Normal 44-88 [facility] Comment on above: Performed By: #### 7 [id number], [id number] ####[facility] (DEFAULT)[address] [place] [address] CBC w/ Auto Diffon 4 Erythrocyte distribution width (RBC) [Ratio] 14.8 % Normal 11.5-15.0 [facility] Comment on above: Performed By: #### 7 [id number], [id number] ####[facility] (DEFAULT)[address] [place] [address] Hematocrit (Bld) [Volume fraction] 43.8 % Normal 34.8-51.9 [facility] Comment on above: Performed By: #### 7 [id number], [id number] ####[facility] (DEFAULT)[address] [place] [address] Hemoglobin (Bld) [Mass/Vol] 14.5 g/dL Normal 11.8-17.7 [facility] Comment on above: Performed By: #### 7 [id number], [id number] ####[facility] (DEFAULT)[address] [place] [address] Man Diff? Auto Invalid Interpretation Code [facility] Comment on above: Performed By: #### 7 [id number], [id number] ####[facility] (DEFAULT)[address] [place] [address] MCH (RBC) [Entitic mass] 30 pg Normal 24-34 [facility] Comment on above: Performed By: #### 7 [id number], [id number] ####[facility] (DEFAULT)[address] [place] [address] MCHC (RBC) [Mass/Vol] 33 g/dL Normal 26-37 [facility] Comment on above: Performed By: #### 7 [id number], [id number] ####[facility] (DEFAULT)[address] [place] [address] MCV (RBC) [Entitic vol] 91 fL Normal 81-100 [facility] Comment on above: Performed By: #### 7 [id number], [id number] ####[facility] (DEFAULT)[address] [place] [address] 45135 Platelet 212 x10 Normal 138-427 [facility] Comment on above: Performed By: #### 7 [id number], [id number] ####[facility] (DEFAULT)[address] [place] [address] 34852 Platelet mean volume (Bld) [Entitic vol] 7.7 fL Normal 6.3-10.2 [facility] Comment on above: Performed By: #### 7 [id number], [id number] ####[facility] (DEFAULT)[address] [place] [address] RBC 4.83 x10 Normal 3.70-5.30 [facility] Comment on above: Performed By: #### 7 [id number], [id number] ####[facility] (DEFAULT)[address] [place] [address] WBC 8.0 x10 Normal 3.5-10.5 [facility] Comment on above: Performed By: #### 7 [id number], [id number] ####[facility] (DEFAULT)[address] [place] [address] Provider [place] 08-27-2023 Provider Orders [id number]#1.00[facility] Provider [place] 08-16-2023 Provider Orders [id number]#1.00[facility] Coding Summaryon 08-15-2023 Coding Summary HTMLBase 64 GpjktltwRHl0oEm+PGhlYWQ+PE1FV URnB84auXVybQ1iO5ORYWbCZhexGK BLMSfKIiDzinJfLS8ryNIrSWFt IC8+EM0cGBKcXooaeQRtt6N9xDH4S 39prx6lVZzhgOC8GTLuXoVaibflb2 tfaCw6WOxyYczwReDk PIPxhD58WLF7rO59Fq88lKAgmZLkv 5xyaDm5YnGnHLTdCQR7bFwzLWfpq6 ChGNAmE77xiTRxl8Q5 ORRnlUsbfRLxWdRmtGH3oQ7zVXebr bygn1qdcfbbAbu7ed72cUMvb7M9rI N4I0ImtjC1DVFxhMLg ElrabEUImS9sxqsbn9mgtkmgOjDsO PKsDEb7FOj4GXTnwTxvEaMlUB31HX S4SISdwmMdE1JeAMGo kZufMuB4p2R1Ng3EJ5VZKatlS1SLX UFSWTwvdGQ+JI44rx40I4OvGimiPe d1FONcYGH8mSW2aZ1g WDItHBnns9H0nMW2Q1UbvfBoyn5wv 8vmRRRjIHdyS59lcSMmq6G3LEDbxX W7IVAsaOmxVoUbiG52 Oyc+HOZohCwfs5UiGaqsh7fkr5hhv Se1WlzlUNHblmWzqZkqWIZ5e2HhMm 4xPHOmxUY7xPZ8jP4a YiIvZjS6FMlaJ760LcCgxMOcDytmO 14yQ0EdpCV+KTScEae1KKFeeIiiPP 8iH1FvEZJyvceyrAYl rPltOZ5xCRZcrequBRHrpI2xMEAcN 8a2YaGnHfV4MPyuH5FcHLTrwxjxAe 11sA1pYqUpCvT4XOgf Y4VvpgF0UDYtyCKoHLccZWE1V61tt 3F5OTLxOYWqWZB7hGF0oO8htDdyds ogbGVmdDsgdmVydGlj JIygSSdrV358JQDhlZnlKtUmBStsS yBEYXRlOiAgMDIvMDEvMjAyNDwvdG Q+GHMoSKC4wPluHIXv kROsVZroXy2tjIuinNnbAY4yHHGqn xeqWSFgtJ4fEDIjmIIjvLyoKN8cZM Snvbafp627KhJsHCS5 TXOmhSYtH1MjwP3rIwHyTTPmKHWeS 5VltLAxSZfzI700JZxmKeY5MXTpow TfG5ZnQHXrkMocRiB0 o6L8Tc0Zm8QlukmfT2SjdFZmQkFsR szgXDf1A1XsStftfLL+TV06PJMaOT 07YMh6XBR8fAlkBXgq VLOiV2GhoV3rXaPvECUwIGVsMkv+P HRhYmxlIHdpZHRoPScxMDAlJyBzdH njPF5cXz4qLNCcFOWm xZywvWPmWeNrc5rzNUOwVAqfCY9fu QboC2JicAK4RJPpd9j8Rq98W60kC6 JvdXA+ZDNesWA4kUE7 pC8kWrQmNhT6WLrrQ416DtZgqWJfQ buyk5oss3ewaAm0SaP9KNOregWjuP uvLDD0j7FqUb67G31a SPzzMRGmBOKpCJNrNJXnvPgjka9lw G9wIi8+DMCqpZS1gXB0aW3nClVnZn Y5VBtqT744IiTwjECq Qkhce8nsj6ymgOf5KpJtIYOznsJun RadFRW1h7CiXg56J1KmsYnuv6VeSc n6mw71iEGpx9G2aVP8 X9FfRWXzbytrbCVsbNspSN1gJPQdn expSPEjnR4sMXUuX2l6TbPqJvH2XU bhS1OetuY3TLNdoOUg WAGmxHWXjH9nzceid8tlryiuTsWpW IGhUAp7JXg2RUEubEiyFsJzADI8Xr B1RYA0uWXxkN1ncYse vldxtU4zOal+WIA7sLYfwZAOUA7dB jwvdGQ+VZHiWLG3zQvtQTcuMBSzzC 8cQHUcD4u8BmCiJeX7 UIptA4JispR9OVDuzOFxXYKodLISq W7ucighf9nwlhdtEaCuCYCbUIq9UX z3CZRyuIjiVfCwTZP5 MaO5OFO1kWGsqX9pwGvrnndhkA4nC yc+AhhteBjbMOB4ZId3V2LhLlc7EN ZgwFgwVC5cuWFwLAnw Lf6zhCywzImbGL6nKQFapgxzl548L zJbj7odDOCmhOVlNPlqPBG7W41jg1 O0UJGdWJMyITM6cXD5 sW9awPbadqszqECkuRrufeHxyZdqF TszCVeeU895FWXtfQnrCkFxEFd6J0 UuRey9MLBegDjgGM1x cWUpZLlzOm0anCvawPypWR7wGAKqx qhps628PyNhy3xtOPGkgNAjPZgkMS A0E32is1I7ENAaAANt BQE8bDH4pJ7uoRnkaosuwFQhrPwba lLmxWflUCpvHRxjC446PEHzeBblLl NpdPl4B0GwTav1EULg kLrlRC9cpQYmFXdpHb5foYnfeOdhE D4jGYShfbuwb379XbRqk4erUEStsJ RxJGscKNM1H95wy5M1 OUJnUUVwSNP2zSW2sO0cvGvecagrj KRzhNpzeeFcoGqaJPsjXRnkC676BN RvcDsnPlBhdGllbnQg SDdqNIc4I2IcSomflHP+MJ86YAEuQ M17aLEdqMZok4hkqBx2OmInBCPdQA M2aGcuCJtdn3IqROHk Z32mkXNze5U9UGYfyUgfvPFtPvIya UM2nS8kXHztrrihe8dixzwpPqrow3 holu90vR61N31pPVim BEXzUFBzEWRwZDCwfFmsfw2vlD2jI i8+MKCbaGS0pLB4rN5bUVBcPfL2AI wsD994LrYgqCWuBomh o5pka7jbsBg9TrJ9AJEhwxCylHwhF QV8y6ChUy60I31eAWxtIGCzTWOxLR MuGANslZnedu4dtP6b Ii8+QBRfeXQ4kDT9rA1hClYmCcD9C JcnI864SoNkgZIuCypiF19bQ0KftI A+HUKrVnb7ENOdiSgm VW1qnJLdKHfwSs5bMZV0SmHpNiGxW VopJ1TmNQHgbpdgghqfqZF7JJJmKB KkyS30Ge4zuJklNMDq wQNEcX2rxsunb5xitqdeMhKmMRIbX Yq8YSb4LKVlqAhhLlJbGXT3FsY5ZK J1oZQhrH1zvDudelzi gI3hU5UfCWWchvwyZl04iZ6xCmCuO qE1OEkhOsw+I6tMWRQaVVvUBT9ZVA xQJXn2Q1TuJyp9NYWp oJwtIB9vkOWqXDbpMw6uhCetjNjqM E4pIRXrhojfBFYovJ0gYJRxbNHvqA ftMR1pUEGeikwkf867 DxLpMHZ0LOFkeIQhP9NzcX3qCjWzI JItCPLtW1JyyVEjBRyvA509OWdrKa Q3AKIbkgIcJ9RmZKXs yMasYkG3q2Q9St8aNW0gAW5wNADvC F56OE37fYRkk8R1cKR4V4RxUCThpq kklkapiRU2NFNnMZMz fS19fYYoZRqaSj7uo2B3c511MTVtV XLcgM57Lz0fzBssURXfsTFUmT2qaa hpv2fvqhcgKyDhVMTe SYj0HNf1TZBriAnzRiUkFRR8EuU4D LU6tBLlkG5jcRsybddccQ6hTvk+Nj HkBTQkdmL2G2DdVgd2 LMWssXtfXG3ayYLkWZgbYi0jdMsrh WxoOO4kOUZsjkwpFUEhaU2eKEOpqW InsTxmNF0oZKYebxkc h176DuAeROS4BIIumQCuZ4BlwL7uV kOtEQTiTOFlC5IbgJOyXEwqH601BS bhCqZ9ZUOrpvTaW4Nu YHGjkAtoMiC2v8T0Qx8YYOuONO77Q E29ePNee1P7jBN5S2DiGGRwaosgvo ywfEK3HESfGBQxiZ11 gWUcOLvuMf3lj0T9j958OECtISGfb E83Wl2ecUfyWZMpqFAPaC7aesoqs6 xvcjogIzAwMDAwMDt0 DTf6JFIgxAchVrZyVRF1WhE7TUL0y SOryZ9itMsahzipbV1dJzf+T1A8L3 RkPjwvdHI+QK02IHMz SL98zGXmuKOuq5esqHt4GtPdQHOzT HH9uTfgMXwsu4FaOYKlY88mgFGkn5 X2ILRpcKsthXQzEyTx aSM3tB0qEJmdnrcdj9vuilyqGcwwy 3syhb96qK05S64lNJreNJHcNOLrCT LvGZSghFpuqw9szJ3m Ii8+MKVeeKW9zJT9wN8kUeDrVpW2J GicW049EkIbcNYoUraqv3nbo4zvsK t2AwOlBXYfpmIogIvl GMN9v5DbGw16M42gQZwxWMMhLUIuL UCeZDKujZwmlz6tfI2gFr9+PC9jb2 yuws72xD01pOV+PHRk BQM5lIvhSLlkNBSzaT7iRGzeKfI5H WAyCgWkjQ50dGEfWKuzUr2inQdmoV dhEE4cCRLlfsqbd000 CpPgm8gwXBUvuCBrKKlwJZW1N41mp 5H3ZCSnWYOqWCN3xWZ4dU6dfTeqjy ogbGVmdDsgdmVydGlj KYdhJAjqX165NJFwcJaoGgPjyBRoK 9rhvbIITJ8iJkohvKJ+VYTeWOK0wE fcKWvpBFKqeU3hTDVs C3z2MpArBnT8JThlA3CaaqW1GTAog MIlXEKlrQBEdO6nzyxxs0jedahuMi UzDUPaSWe8LMh6VFRv hGleKpMiHVG3FcW9XCB9xRBdiL4sw KyeobsmaG1kYkg+RklOOjwvdGQ+PH QkKIX9dVcmALozDEOj uE0rWYHcX6l4VbGoGtK0EFaaP0Iwt rP0HTShxLOyGVCanUGOoE5mipsmo9 xvcjogIzAwMDAwMDt0 HUl3KJXbqRzrIzQbAHI8OoI2JVM6h OEwwV1xoXjngpjueE1gJaw+TVJOOj wvdGQ+SGMuCOY4kFom EPtkUHOvqE5eOKKfA5w6SrLvHaE0P VjaV3FalxX3WHCuwQRjNVCpeYJDoM 1whbivv8gpvmlnHrBd HGUwDWk9EVu0IMPxvNcyDyUbLJI7P sY5DVZ6vKSklO9ffYljpwmqfX0qIc c+YWJ0SCZ5DK57PW47 A6RkHwmdpKEomLM+PHRhYmxlIHdpZ BHjHTddKRCiZvNjxMasSR7tHe2fZO VyLWNvbGxhcHNlOiBj b2x (more content not included)... [facility] Provider [place] 08-10-2023 Provider Orders [id number]#[id number] XR Ankle Complete Lefton XR Ankle Complete Left CLINICAL HISTORY: Pain after falling. COMPARISON: 08/30/2019 TECHNIQUE: AP, lateral, oblique radiographs of the left ankle were obtained. FINDINGS: Soft tissue swelling is noted, predominantly medially. There is no fracture, dislocation, ankle mortise widening, or other significant changes from 08/30/2019 identified. IMPRESSION: SOFT TISSUE SWELLING. NO DISPLACED FRACTURE OR OTHER SIGNIFICANT POSTTRAUMATIC COMPLICATION IDENTIFIED. Final Signed (Electronic Signature): Errol Martinez MD 08/10/23 5:36 pm Technologist: EN [facility] Coding Summaryon 08-07-2023 Coding Summary HTMLBase 64 VdkfubcyOXm0yBo+PGhlYWQ+PE1FV FFqA16ucXCzoJ8gZ1OSGWjRCocdGH XSCJaYAkCokeRiWX9diNYfQMKn IC8+KM0xIGNhStclrUBaa9H7lII0B 47trt7aUXhvbVH8OIPmCvVruiqan5 dgsIr2PTjjEvqbTgNj ASIztM78FZX9dT20Te77tLYwmRRba 1lgjDi4SyPuWXIsPLW0tJsrPPwng3 AuCWTiG26yqTEji4K5 JQPapRqjvHMwQvVdoPO6nN6ePRoul facs9rzcouwTdj8hf04zVScq3G8wG V6K8PedlD4AFWbcNLq JfgxaTPCjH8yakgbb5krjwdqMaCrR FKfIXf3ILe0GWOfuDqpTyHmOU61ET W5XOZraiRiW9KzGAOk yXefLnJ9x6J5Vn2RD9MSBzgbU1HFB UFSWTwvdGQ+AO56mr06K4ErNrglRz j4BEFjRSV0cPV8bL9s MOSxXDxkq3T0fKQ3E5OwmqFrcv4ir 1yiJYPnFItfU30klYBnl9V2ZBGdmO K7KPAwaVtmLaNzgV71 Oyc+OZPmwPrpg8KaTxukg9sta9gcr Ip2JhkeQBTanjYhiTyzFGC9i0FxTh 0vPSNqzVI5eUI8hW9e ArRtDqU4ROqeM246FySzpJJaUamiG 31mV0BehUV+CPRcOwu1RSMxlPwkFP 8lP9IbTLDufodqyKUc aNoyIP1dRKZjepeaKIUprM3sIQNyY 3m3IoUrEmP3OShuE7NrSYOgkqhxGw 08nU2eLaNzPsX5HBzt G2LxrbN5MBWleIPwZYyuLPM2Z29kk 7P5WBFxXJDiUTD0gZD3pV8fxUekqz ogbGVmdDsgdmVydGlj IRyxDOizJ600ZVUkmCjuCjHeIZuqA yBEYXRlOiAgMDEvMjQvMjAyNDwvdG Q+GUUqROW1eCttXWMv uBXcQEijVc7xyJoelYkjIR7fEPLns ayqLPAbvP5tFNYbwBUygUhpTG8pEM Idibkoa619GxFhHBO0 ACJcvVDuR1UhnA8uIpHmICHkNIJdP 6VywGQhJZmvF269NShsDwC3PJHdag SzT1XsVRUsjWfjDjV0 g9Y7Go0Gl7ZtfnljX1HlsKGuGgKyH cbmFYe2A2MvRpxhtLW+DX32GYFvNP 44DFy3FKX0mUhpHPht JUJeP4BgnV2mQwMqZPTgHNBuDfg+P HRhYmxlIHdpZHRoPScxMDAlJyBzdH cvKV3vRj6vNVUxJJWo cHjycXLaCiSox9gfJFSjUFpyOW1ra ZepF8DlfIL4AMAfb3l3Ne19F45aP1 JvdXA+UDPufLE3fJS2 yN8cVaKaCgA1SEjwQ875BtAkbPKgA oosi0bkb8swqDb7ToI3OPQtvtNtnN yhWPW7w6EtMr55Z71a OPhqOVIaXHLuSGVoLQWnrIwszt1aw G9wIi8+SBLqyEV7mYF2vI9rXwVaEk M1CAdtI869OsPmwJMh Djfhc9xoo9jczFd2ZtMrGFHusnUrc QtsYKY9v7RlQs28V2HluZnqc8JqKu s0pw37wSEou1V2mPZ6 Y4DsWFReoskrwMQbkZtaXF4rITNln zplCCQwsP5vHDDkS5u6DfOnNiF9YE ipS5OagbE1AEKdaGGw YYCteYFSgX6cvxuqp6icakfoUnLeU BJxOPm0EZp8BNRccVqhMjXgWMV8Et X6ZKP0tZJezZ2ocZjz pzvxqF6hFup+JHE6wIWilVXQWI3hS jwvdGQ+HBPwXER5eIprJSdyYLSqhZ 8nGTXzB4t2YqQxJhF9 URrzY8LhkvK6TNErkMXgGQWxvEUIw W4ivrdbb4rxyllmJkJcKJExIDs5MB q8KGQncSnrPtEpCNH5 TxT3ULD6uRRkqQ5ygQrixupjtC2fQ yc+KemhwEmtPJO6URm3Q9DdCkp8VX HvoRpkLK4oyEXrWEly Sn7jvCzygOppUY0eFNXgkgjca487F eCcl4coZQBmlGVvNSkoPRS4X44ul3 Z4WCMtPGBpWZT5yLU9 tE7gzCwykwadaQZqdDnqviCpnIewO VvdFZgoC401HHHajFgfAyFrWEt5O4 RvQrx5VLTikOxnZN4a xENvXUwpIz2jhUpznUozVY8oMNMus ntuo736CeYku8bbNVOxqZWpARytEH M6L08gq3V6KZZqQYJd BOY7sNG8wS4nvAanlhoclNFtwJdou wTywJyoKGjqKBmtZ865SKVbjWvsXm BgxOz9A2EhUir5LZJt dUqwSE8siKDkICwkDx7pwNqekNxxX Y7bOFSgustui911CpMoz9ziIOIixJ WtRCbfPXX3F65yd5J6 NSQmMIDeXNT0lPU4dI6ooRauendaz DVbeSnhcqTxoKcsCUimWTkiC490BN RvcDsnPlBhdGllbnQg AMxtAFc4O5IaDhthzFQ+WF38WQQsP K46sZTmiISzh2yziGd2HeBvRFLhFA N6rDrkKUpri6CdRCOk N11hyREev6M4MFYuyDmbvDXiDeFaj IU7jB2mLFxcgyytz1xcjjqmEghwj6 lnie33vH71O18iMHqi RYRtWUSiVYXuBHHmwOdcxh8fxW5lD i8+LEPieSN1xPP4iX1cBATkYxN3JT crG612WkIyeQOfXssr e8heg5jqpTr2KxS5UYPypjTlqYwdN ZO2t4LtCk13I55zBXvkKTPlOOGtJB UvPSNmpLmphm4coU4f Ii8+QBOhbED2dAK0cC7gLlMyMhI7U YxpF673GiWwvHQaTknfY00sS0SvbF A+RFHuSpe1SPWpzWhl QK0egFKcNYgwYo3cLEK9ScGsEwShE LgpL6DdUJBkacwmtmhtuWL1YZXxIQ QknE06Jd7xoOyaTHYt eGVDrD7ybnhmb6emaqrwOoYzOUFqR Bt1NMa0OHPnxJucZzTxWYD1CyK6CS L6rFUmbX4ymEepbmwj aK3yH3AhEMVncehxKu49pV2iEdEiC sF3UNclMua+F8aIYYKpMItXFH2UWH hXTMn8H3VxDcn3FUWr mMvoPT8ikDRuUWunWg8nbMbrdHtxO H7fREEnfuuqVSKcuB5tERLejGWtoH kjYX3nTQYpzkcqy363 CzWjRYL1OTOvxMVaK4EgsN2xBwIpR NYbNVAwO4BcwDLqJEosG839FKbrKe Q7XYCsbiEhN1KtNNQh wOvgUrR7b6G0Ya2uUR8xCD1mQMOoP D38PR95xHCvt8T8oPS9M1CmVJAjuj vwgnfqzPA4QCCzFXPd qZ75yUDqLZwdBm5ti9T2t354HXLuB SYrnC18Um8inAhtZRRooMPCwI7icw lkt0fssukpXnDlYYLs NFh4YOh7BIFykUtwPgLnYMO7HeN5D IK3mGYatO6ueAtsgonllF3dSoy+Nj BaMLPtjfR9L6BqJkw3 JZMoxKxmBH8yeUMkNNfxLq2huWhqw QlySY8qLHFbbcxgHQRfzG4jWGNktU KgzDikXW6kRIVdebsb i260SnSqFFP3UKBwtTCfK3VtoO5aL hWnUUGfEEAmX5PyeUHaLJhhH863YD jkMtI1QGSdhzLyP6Jr KRCheCqyLoG6z9I3Bj0AQRwHRJ77S K61nLRzs9D1uSO0U5NvTHZlrtgpos vlaIG1SSUhJZJevD81 eJBoAVktOb7nk2A6q720RYFbTGOny N99Ey0qzVfxITWfkTFGrO9nztend4 xvcjogIzAwMDAwMDt0 QAs1NUPgxNtiPiQrGSO0SvG8VIL3z ZPqrG5voKkbckzjkG2kHzy+T1A8L3 RkPjwvdHI+DD58PWOn TP76lUVpdWCvy4quaPn2BlRdEADyY HE9lJvcYLvub6RiCRWoJ97qoBOac7 H2AAPumTshtAOgZzFj wYP5iY8qGHdejumlf3kigiojQprda 6efpn50cG88M52gVWquHCDrTGTzWV OoTUXcrMgrxk0kaC6n Ii8+BQIwhSH8yFY9lU4eSxYhZwF3T SvjT375HtAvkKAsOngsj3haq1komR m6VaLuEBBmweMzaSam XDJ3c7JkVo57P05eXXnfYRSaJDLmH XHjSTYhjJxigc4lqK2bXh5+PC9jb2 whvi78tJ21jTX+PHRk FKJ1mZuyZJtwJOEkmW5hTEqqBiE7T QPkYhRohF27fGRbSCfrRq4hsSvdmG hiDI0qPRLvctifm263 PrFmr6fkSCCegYJgKSaeRYO2G66gp 8H1FPTgVUFdVGH3iOP4fX2utQjtxk ogbGVmdDsgdmVydGlj PRhkBCnkX363UJQyiTqfBtQwgVOgB 4liueCKRQ7yYbrvtEJ+EOHvBOF6mT ieGTctYJTycO7pQROl A8n9JaTwTkU7JVudG0QhtiA9PGSrh TLoZYPyvYAZwS9cuhgnf7gwtmvnSn LgEFWnQPn4VUc3GAFt oJeiOdInAVW3WwJ3WKQ0rPKvbE2qj MlrnzbygK6iErd+RklOOjwvdGQ+PH VqXHC2vYriGIlcCFXy dY7oTATuR0x1AkWvNiQ4TEbdW6Tav fB9CMYstERbVIKebCMDxC4scysfz5 xvcjogIzAwMDAwMDt0 BXl0WQBhcRonUeCeSWX3DvZ6WTY3p ENpwU3tmOfkbxpyhZ5rWrf+TVJOOj wvdGQ+DCXyQTY0aJyu FAqzEINnmG5rVYOpP6z8IvNtPuX0R WokL8MfkgW5ASEcwPPgETWdtYZDpK 8ovjzel3gzwwmnUrCq OLRjIXt8DYl3RIVqbPvvLmTaEHR4G vN9FKZ3fDLucV1uvRdkjizajP8qVr c+XJY8ICW9AK76MX07 V8DcPemmlLYwcHS+PHRhYmxlIHdpZ OCsAPoxNAQqLkBgnNppUG8eRg4eGK VyLWNvbGxhcHNlOiBj b2x (more content not included)... [facility] Coding Summaryon 08-02-2023 Coding Summary HTMLBase 64 LjirohzuSBl6mGo+PGhlYWQ+PE1FV QOxW74cgKOmpM7jC9JGQVlFJvxiMN VBLKgOSbAlatIqMH7amHQgRDRc IC8+TF9sQLPcJfkuhLGcb6N6hOM5E 42aae3wFRdjtBQ6ROUoLkCwdgzxc5 dqbLr5TAhrIhhvPuJg NDWzwN26ULZ1lU17Op86zHXmsXKqa 8psxIr6KwWhPROpHUM6yWtaLKtvk7 VtUGBbQ86eeHKgn9H4 USAtkZqggJWlVaXebOD2tJ8kMGysi neft9ckhyqrGot2qe83yCEnh3H4xE V5X2MvqpJ2MTGqoYXf EymldPYDmK1tcoipe7ggsocrEoDpS LRkKNw0NMx3LJOfiMvgIfUrXQ36PI V0NATjwqNgH5TaBAPh yKrcTeT9x0I8Ng8LF7CCMwqqD3CHV UFSWTwvdGQ+GM66rf71U8DrRntwWz c8WSJmRDS5dMU2jY5f DNArMMles1V0oNR8A1GxnsMfip5vl 3sfRXOkKRxvB55fmOEiu1G6NWYwwF U5ISPxvAoqDaCyzD43 Oyc+ROSbfDzrv6RsYncfg9ckt2elr Tp5NgdmPLZdfhFkfZtpLLB3m1JgCa 6nFVObmJS5oVW5nS9q UdKaPzA4QQymR752MgKeaIDvFhdxV 95yX5SzrYP+DXGgRmv5IMGxwHajWY 1oT6TqTNPluyuvoJNs tYvvIE8vIVNlerqkZHZemL7sKQNuC 1f8CqHhRiD4PTbbT8DuXAWveitrDt 62rW8zBgQxVrP3DOdf E8NwkwA3XKEjmAFnCKfhIZE9U18ul 1O1LWUxSWVoHPZ1dZU3eY0osTigcl ogbGVmdDsgdmVydGlj GEvlIHamF445LCVjkMtmNnFbCVwhY yBEYXRlOiAgMDEvMTkvMjAyNDwvdG Q+PIJkJNX6hVgzQTQo lVYmROgwOn3iqMnwbSrtWE9uYSPjc emuSOKdeF5lZYSokGUepPvwHM9wEF Akxentf925NdYaZHR5 HEOqmQCwI6BgwX5bDeIsIGNmGMKwM 7VrjHHqECovK228RIclLeB3HNWqps KbP5AhZVNpaBkjEmU0 t3A8Yu2Yb9LoaospV1PwuQLwKaXoK uoxJMu2Q2IhOnrkcUY+NI05SEHbDA 44HPc9FKT4pMmiYPlj ZCAwX5PknV0sJsSzEHKgKXHqSgp+P HRhYmxlIHdpZHRoPScxMDAlJyBzdH juHL2bTv9tFCRnEBBr kEyvkXKgVzFap1ltUHFsPCmfMM6tf GvuG5LknTU6WNKnm4h5Hp80Q41qI7 JvdXA+AYKnqEC5vVG8 xV9yAmXyNiZ3TCueZ218NmHjsBAuP lfuk4kjj4fstAm9KkM3WIFlpqIgaM zuJUN6a7KeCm34G38i GRjjZYSvZMJaADOnTXNpdIxeoy5sg G9wIi8+SGNmcDT2rZI2uB7gRsEvBa S8MTjlB936RcNueAFy Guexz2clb3zqkKo4BwWoVLPzhkFka NnvBER7w5BvZu69J2XlnOmqz4ImUi m0xd68pGVnp7W1gAM2 C9DjTSUrnkgvdHLbwKvnEP1yAZXsx ztwYKSzkB9lCBJzU1o8YiAvRwG6QD jpB4PrkyE3REMonBGy AHRssZQYiI1fsdymq5mrgsihIxUwE ZDbPZw7CBv7IXInrUpbLsWzNFT3Qy A3EPA6cIBbqA7vzZyx dwwobO7iRtp+LHO1rWKciMQYEX4hB jwvdGQ+JSExIOU0aPyrEDbfGQCbdU 0gKRShA0w0JtQpTlP2 TQrrG2DegdX6FZNukGWbMZDjgGRQo E1fkydex3papzesMfEqGPXfAIb5PB a2CFMfuBrbXvHzVHL4 ZfJ4RHJ6wJDonN9ijRcxujsrcZ8pE yc+TkmjsZgiOJM6XSh4V6BxWsk7HB XdrZacZB6osDVdVRwx Uz3ezBwouPrdIY7xXDWnmxsfs586M xUgr8mjFXEpmQWzHVpwBKZ8X58vc5 L5VYFtMIUlHCD1hQS4 nA1ukGxgefooiXXdqXcvwwNgyFxnY CqmBUvtM283YVGmfCufFmKgTXu2N6 MhUpz6GQDjsNsnNB8w yMCtKSfgFw3uaDcziEidPC7jRJXyf rnlo148JeYic5toOSRfvSYoRNctQN U5Y76hn0J4HKLfCIHn KYV2nWJ1dX5jcIpmoakilMJwnKdix dDowNvaRQicPXgtU695GTEhePpeYx PhxIp2I5VpKfa5GDVq jKdjUR8dpTTfWIssTy5rjTucfOyqC V5eXAQqnzixp795VlEtk3ucTWSesY EdBLsgJLY6J33vy5D9 FSDuDMXyNYI3xBI9kE6zpDalcycfr GWsoXeavtDkiCjtUMbhHQcqJ354YQ RvcDsnPlBhdGllbnQg UBlaERq0W5WpTthvvCU+WI50OMFcY J94uXAbtHEch8glvWl6AyTyMTNqVE B1fGtfZTrdr5XeGCMr U12cvTJci3T8ZQCczDdixCMhJwUar ZW5aF4iHHvhwjxuc0zustutSynzu0 ilxo75fO74Q57bWVta HEAlDZEjIFGfIYZcgXfwfv9chO4cM i8+MEHieXH2eIE3oC1iMVAbUjF0KZ rtZ566OoUujJVuKpww b4qoa3obqXo2OgT2PEHcmzDtmBnfY PG3b2AjXr66X98bGNgaQBNuCFBsSY EqTGXuaNymdr7xgN1h Ii8+EMInzLB7hOO1lF1jYiIwSpH7Z NzzS922WpHvrNTgBdxyN32wA3IknS A+PDSaLyd8WWFksRmf GD8luPYmFAkzOj6nFWP3GzTlOnDoE DhlA8FpYRUvqlwmldcliNH0HLExLO BypV78Sq2upBmqTQSn oCLLjV7pbpomi7rrzjguBcNlIFVhT Yg3HLd3ZHSulWxjOaGfSUR3KuT5QE B2dLHbwX1axLbgdpru iF4pD1FsMILgurzmAk19rO7tMyQfE lZ2YKxeWnw+X1xKEPMkOGqEPZ2FUD hPTPe7F4QfEhu8NKCe vLnpYY2qzHVuTGxnMc2bxKbahYvnP F3pNFLnncmpXLGblW6wTUEcmVHvuU jtAG3jZTOjiqrpa766 JiMhKNI5UQTphHXsJ9JjaB1kNzQcG DLjAHVcT5ZepLBqQWeeB978JFduOe H7RFRwaqKwB6JjMGBu fEdzKrA3v7O7Ey8nOJ5yJH0gEUSrH E79EQ39oSRgp0D1wRI9E7RaVFQrwd zhyyvoyGS0SFQuYNRr lC45sDKaIUoeLs8xd6W5n871NWVvL QBlfZ11Vd5hzMcsQZPypFIGkU4sjg kvb3udicybJxKxFUBp LLi8JAn6XDLafFlgYuMkLYK7GyU3R QU9vGQtkR7drUmqjdumoB3zUzd+Nj CdMESworL2L5JgIty0 QDEadAauBS7juOWrEQnuDv0kgFtkt VipEJ4hNIYhqzsaRHDyfB2wHLRreV OsxCglFA5aKZRgdxaa e484HdMyJEA2XIMjjFPtM5TmoT7nO eSaKUHmTWSwQ9JdvDBdCQqpG066PA qrYrY4DEGdtnNfP9Da EHFzoUjbIaB2u3Z8Wy7CMWfHQU74L M19rALdm7D2mQA2I5IjLMXlzqnety zeoWP4MGEcRFIvjJ66 uGZbGMtjRx0bs9Z5k838EQTfYKBoo I32Hv2jsPgjTRLeuFPTjB1axlpqn6 xvcjogIzAwMDAwMDt0 LSy1DKIdxTeiPrWjLWJ8SuV4ORV7h MWxkI5ehMjgercyiS2bRpk+T1A8L3 RkPjwvdHI+HU07QZRm TO44fMPfkGLdm6ypwBo9XgIjHRKuL QB0vBonGFwgh9CaWZTwU65mzLJgc7 B4AANpqOurlECzXcGz yHX7jR1cREkcuwfak9ymhmkmUlcgw 5orrx11lA19I04vUDjkPIXkZCFiXT PeJNDbzWurlm7mbG6j Ii8+AGCewLM5hFZ7vM2oOtGuTmK9P TtsX831KsJusUEpDdgiv4gzy1cglT w9JoBeYFNnexNlcZzj JZR8l2IzPi97I45oMNvbKSIvIYGqD GKsBWQjnAmjtw7qxZ7iUs3+PC9jb2 fkum94iT96sYX+PHRk KRN6pTpnJCeqWNDnoM8cUWmpYuW9I SSgYxEjsI87rDBwZOyvWm9pyOlrtD uaIM3eEANlzgshf649 JsBtn5jyWWCmjOBoQUofQEJ1B14vp 4W2EAQwAJNdBLY0fBR9mF2pkDglom ogbGVmdDsgdmVydGlj JRjmZNezU195PQWuiSdnGfRsyKHeF 1detkUYHZ1rBkcqrDF+LBKdYGN9dY xoQBrcUDDkqA7tYNYu X0n8GnLeSgX8OFsfV9OllyK0VYNbq GUwSMEayNHBxY9vxkisk8lkfixeJg SvMQFpXKd1YIl6FMCq rZivOnDoJHA3TbF1YAO0nPOpcF7li PktqogcqN6iIyh+RklOOjwvdGQ+PH VuNRX8nTjnJEcdQUPb vC0rPGJtP6z0MvSbAzU8XUpgX6Ktk wP8FAZjwWGiDAGjzHAPtX2gwctmg9 xvcjogIzAwMDAwMDt0 ZWt5MQZynTmsIrVoLWC5HnM5JDA3l PMexY5ubRempoagsF9yCdf+TVJOOj wvdGQ+RPLnVSJ6sMmg XZzjEKTxmM7sQBZcS0e1YyBoKzG6Z SmvB2VukiF6BJKglNSlELCdwCDCfO 2qjauvk4xdtdiaKeTy IHHpPQi6JUs7VSWdzMvpGoBeVFI2A uG2DOI7yPHeyR6sqFuxaakfvN2dQr c+VCP3ISW2MX77BP02 T6HbGxqvbKZwyTH+PHRhYmxlIHdpZ RZzJNvxMQDbMzIbvYrwWQ5hJe0eWZ VyLWNvbGxhcHNlOiBj b2x (more content not included)... [facility] Coding Summaryon 08-01-2023 Coding Summary HTMLBase 64 JcrbhkciBKm8lZc+PGhlYWQ+PE1FV BQjZ83eeAYwrU0vH4OQYUvXUbytBQ NGEUcSYsDoxdPeOA4loCHhMSNs IC8+MZ2gLZAoYlegqDBip7W8rNN9V 69esr0kCOhnwDH1YNExPcWflnpwj0 bhmKv9AStwFbzeOhJr BHQelI82OSY0xS55Za55kHSanQMpi 1zztKt9UvHqGPIcYDQ8eSjwRVcml2 RpDVHvX01ntRUtr0K6 OGEbaNdxlARyJtCjsII0rB1qWEeof yklg8nelrlcFgv8im51sRAfc7E2iA X3X8IivyH9UGOjvQSg PqcrkNAJyD9xbtaxu9cifdsuThJmQ BYaAIx1GPc4EEDgzUshEqMvOW51MK W7GJNnwvFoT4OzOGWn yNwkBqL6q8L8Nx6IF0VCRczcN3TTV UFSWTwvdGQ+DK04ps03X2FaAqxuXr e5TYLaRIO9aQN9eJ8x FVTmSXdrs4S5xMZ3U5BvbpLvpz2pr 5zaTCDqNMteR78miBDqn0N8KYMuvY F1GREiyNdbYmMjrE01 Oyc+NXRuyGzcb9EvEuciq8hik0tvv Xx6BxcjOMAfrtMhuYjfZVC1o8BjQf 4bFKBxrJT6mBT1oO6h NsQmAnD0PNqzG034AvQpoLLyIudhL 69sP3UphVI+CPWfVey5BENzbCqvHS 6eK1VnQEArqruwtQLe nXqpGU8nHQJvpargWCIcdQ7kQWIqI 8u1HqYsAgH4ZYoeI3XpMVCcvqluJw 99nP7oXpDqOkH7IVth V9QpxwJ0EHOsbFIyGUnbALD7W35hm 8O4DGLoJMStOTF3vJP3aP7jaCrmnt ogbGVmdDsgdmVydGlj NPaxZNhqO472CFWxkMehPfTpIOigR yBEYXRlOiAgMDEvMTgvMjAyNDwvdG Q+QAYpCXH9kWpdHTMa nCAyJDehWv6nkThowQryRW3cCXTyw tdjYWOchJ6qSNFzeAXfxEhzEA8xWZ Sztnjjx684BkQzJRA0 XXJwjKXaM0WieI8pGgVwXQFqOKNuF 2VfwYSmVEaeQ519BRimRmC6GABpvs KpH7YtJDNjdIsvMzQ4 o4O0Jc4Ex9HyarmpQ5NiuUZjJfDfV cazCZj4E6FsQhvcvOR+ST45PRLrLE 93XZn2VBP0qRxzAEup YMIuI8BcuA7gKdDaLHPxKLGmCkh+P HRhYmxlIHdpZHRoPScxMDAlJyBzdH znXP1iUw5oXHDwLYBd wLxleNFkPdNzj1seGUWgOJmoZH6ym DnhZ8GzxQE9BJOvx2v8Jt32H03gC2 JvdXA+VVMyaWX1qDD5 cL6pBzGlPoT9MIzqY397YgIhlVXpQ fsta3eqd8vusXu1SaO3OHHtteOtpR igPSR7q5UaDy79P71p GQneVBQwATRcREMiJQUlbZdwaz8wc G9wIi8+XRPehEA3dWV4dN3fSzAgRi S1LGsuY588ZaVepWFr Ohwhu6jet6sezCu1QsHeDVOnmrIys OaqYWD1g2VuEo99L8DfxBagb9AuMj b8iu78rNRpx3F9sCW0 I1TwPTInusqblMYktDouVP6dCWJcz jcmPUFuuJ2rYQOpQ1a6TzSxJaQ8XW vfO4GxrcJ8QVRluLYa GHAceXFTqY9emrlic5cgcabxObNzW QSmOIq7SKb4HPApkMwxEfEdFTK1Lh F0NCE1nQTctU5ygNhd hlmrzC1oCvw+MKE7oQDtdITSSB7iN jwvdGQ+UWErENE6eEubSVdnOSXtqR 6qZHAcJ0j6FzNtEdF6 RRtzX1HlzbU6WFZxzHJoUIMkyQYUm P8iidqzw7mkpgmsAcRkJPLeFUv4JA n9RZCqfIzfEfIfQOC7 LhN5FSE6hYZstU2fkOwwnuodaI9jO yc+HczbqMkeMWY2SDo5J3IqOod2DN CbiBfhBR1ueYQhJVlj Tm5usXjjeVhsOV4tNCCnuuior141B yIdn0zcMJYwqAErBMmzPHY6Q48ct8 T2PHOdZFJlUEF0wLJ2 dG8wbFkahjnkxHAmqMcqvjAhzJlxM DtyNEwxW091OIXipSknVnUfZNu4J0 QsWsx0WWTvlOfnTJ9j zTHeFBpbYp2pdMlyoEmcDY8iOPHcm ichi967HmJkh4ntIJIokVLdZXykVX V3R12ll9K1SLYrISUm CRZ0cAV2bB6cuTxjprlntAZvrAswy uDhkMlfBStvYCwaV929NYGuwNppIa BhpTy3G5YpAia7HZRx vScwKP3qmFAqYRkcKd1yaJahwFyhQ Y0mBYJwcpzcs636QeRiv1hiUGEzbK UxEQvhOOE2S10qm7J8 HYZpAEEqFQN9pUS4xS1kfWwacwjkq JSzgIxnzuBgsYafKRqlBVkdM706BO RvcDsnPlBhdGllbnQg JVrtTAw6G9IiNyfilLD+QO69YBWhQ O03pCRumOQei0sqdGg2VySnGAQxDD E2jQxzJAkta6RtUEFw I86slCMpz4T1CXJpcMxywSWoAmQpe TV9dE4rZQpurnujs7iwohkaDuqhi7 gmmu75oJ71G25hUOop KXDoMBCfXUQaDJRcnDcxgz7tvK9fG i8+QONvuDM6xHN8cE3zSIEmLlT8BS cvX492CvGsqSYcPlmr z4obv4llvSk3FcD3PWKsejUkoDrkV CL7k7DaQo42J25jAGmkGMDuWEPdXZ OfMHMftKonbi6xnW9l Ii8+VLImdVQ3kVD3hC6fBbWwWvP5J UcvK976TmNhmWSyKmxnK42yZ7IgfD A+UNUzTns8TDPdgJcg NF8jxXOoOKuuEe2aPXW8LbPtRaUyH LqzY2LuFYWcnrxglayexER6SOKvJE NgqB97Xr8giFgcORRn eRIRcT9gnhxzs8qareqrFpCmEJQmY Sd8BGo4ULIwzEozGyDrKIA9RoS5YD E2aGUxnT0dxLfkcqjk uD5kD4MsTDRecjqlOh61rX6gGtGjF zW0NEijTui+J0jIXSYvCFtKVL1CTV vQGPs6M9JaZkn9YUEm fFmeFN3dpCAqMRgkEs0zsOodjNkvB T4jBACcxdleBJTkcW0nOWRtcIXapF rpGN3pXZUchjtlb772 ZyLcXLM0JVQebNVdC3CotQ2mIfCrX FPmXOHbI3GkmHRlXNyoL628CDsvKt V9AHHfzdAtI9FaABCk zVvbTsK2h6C5Pn0wZA4jSG3vXZSvM I36HS87jBFvf2F4vHF7P8CjOLNluf mlquxcvVF9RHWjHEZe uE96kKTcKQisHy6pp7G4v297LRFjY QTvnO28Rl8bnByqOKJarHXCbS7vem zyr7dinlqtXjVlGLTe DTp2OMd5ZXTugWsuBbBlYAC8PmN3S UC4sGJuvI4zbDetkphnkT5iApn+Nj GnABCsmzH5J0AlRzd4 VYIqmTwuNZ7zwKTrSDyaPb4gsXxbt MmzKY9nNGXsilawCOAcfB4jVPNsqY MxrDwjFE8hCIVpszbu y327GoJqNAM7HLCtuHKqJ9KeqD0hW tByFQFsEZNyX2MhwBCbTCvdO561VF tlOqX7ZIHbmvLyO8Mk NTCoyHwwQbE9o8G6Ni7MBBwRLZ65V I50bDNyx0O6rMU4Q7ZkGENyyhdxxz lwlNN1DIJgCAItbK03 eOPzKHcyIz8vp2Q4e033WNVeKOMen M55Nr7sqJlqFDLttSCTwG5flbbdp9 xvcjogIzAwMDAwMDt0 OFz6XKVftMtgCxUtFZW5EwP7RQR0e IBbaZ3ljHedoiudjH2mWlr+T1A8L3 RkPjwvdHI+LB33TEKk UC21gHNzfTBbo8vzaGe0KzCxYINaJ BD3dPnlZSxjp7SsHBQzF89siXSir1 B7MEOgxTmviSPgDuOu wFU1wF8oUPemginnn8jaebmxMtmtz 8uyru21cH83S70fXMbsPEOgGGEdHE ScSAUkbUspxa1gzI8y Ii8+RCHsdHN2lMX8sR4sWdStLlM7R IwpE372HfDtoXKnBrndo0gvc1tcfU m9XhNqKZFwprClbMdx MLT3z4AmYh17X39hWMxvCCAsEQBzA DIcNJTytLnjbc0uaG4yYb7+PC9jb2 zqsg84qH11gIR+PHRk OGM7jCgeTIyoUQJiuD5bHVzgLmI2V PRrMiQmrQ41zAHgVYfsOs7hkKbmqL ecPH9kYGIleroaj803 KeLto9lbXBLbxYSwKYkjQTI5I85ic 1Y2MMNpNFSoLEF5wXI8nN9lyGynbe ogbGVmdDsgdmVydGlj SEzyVJudM486QXGubFdqIeSwlKZfG 7quopNJYH1jIgrocSC+ZMLuQVO1aE ijLAszHBWjbJ7jDYDc K8o6VnOdWcF5PMhzY6WeehW6UFFrc YDmKTGpoNRZhL3kurcxy6saleqrDu PxRVSmXCe8SLp6RWNl rXsgHmXcJBL5RnC4VET3cKXkiX4mt DkjhoijjZ8xSgq+RklOOjwvdGQ+PH WuXWA6wLjnXEenIUJf uH9wODFdA0e3YoScAvT9ACgxU1Gwg fS3KYJbdKIaRPIutAMQaT1xwqpxx4 xvcjogIzAwMDAwMDt0 RKb6VJNuvMwlEhYaMZD4FcQ9YGM0v FBctW4gfFhaupfjlO3dDaq+TVJOOj wvdGQ+QHMvXMK6xJoh SKbfOATwxV2fLFJcX4s6PxJjAhO1H PlxQ8DlpiV3EMKvfMRlQGIupEALfE 7zjmipv2niokudIkRq HDKcAAp4INl2QAEgpXneGlFfLFM3G zI1XGO2gOEivW8tiBbbxmwbnR2oCs c+TNH8ZZC9MC94XP21 I9GnGpxacZSmqNT+PHRhYmxlIHdpZ BUuYAneOVMzQqKvqMmnTD6eXt2nTE VyLWNvbGxhcHNlOiBj b2x (more content not included)... Normal [facility] Rad - MRI Reporton Rad - MRI Report [id number] Normal [facility] .Auto Diff 1on 07-30-2023 Auto [place] % 11 % Normal 12 [facility] Comment on above: Performed By: #### 7 [id number], [id number] #### [facility] (DEFAULT) [address] [place] [address] 69909 Baso Abs# 0.0 x10 Normal 0.0-0.2 [facility] Comment on above: Performed By: #### 7 [id number], [id number] #### [facility] (DEFAULT) [address] [place] [address] 70644 Basophils/100 WBC (Bld) 0.5 % Normal 0.2-2.0 [facility] Comment on above: Performed By: #### 7 [id number], [id number] #### [facility] (DEFAULT) [address] [place] [address] 40843 Eos Abs# 0.0 x10 Normal 0.0-0.4 [facility] Comment on above: Performed By: #### 7 [id number], [id number] #### [facility] (DEFAULT) [address] [place] [address] 99539 Eosinophils/100 WBC (Bld) 0.5 % Low 0.9-4.0 [facility] Comment on above: Performed By: #### 7 [id number], [id number] #### [facility] (DEFAULT) [address] [place] [address] 56400 Lymph Abs# 1.4 x10 Normal 1.3-2.9 [facility] Comment on above: Performed By: #### 7 [id number], [id number] #### [facility] (DEFAULT) [address] [place] [address] 13267 Lymphocytes/100 WBC (Bld) 17 % Normal 14-48 [facility] Comment on above: Performed By: #### 7 [id number], [id number] #### [facility] (DEFAULT) [address] [place] [address] 36892 [place] Abs# 0.9 x10 High 0.0-0.8 [facility] Comment on above: Performed By: #### 7 [id number], [id number] #### [facility] (DEFAULT) [address] [place] [address] 19558 Neut Abs# 5.7 x10 Normal 1.5-9.2 [facility] Comment on above: Performed By: #### 7 [id number], [id number] #### [facility] (DEFAULT) [address] [place] [address] 73797 Neutrophils/100 WBC (Bld) 71 % Normal 44-88 [facility] Comment on above: Performed By: #### 7 [id number], [id number] #### [facility] (DEFAULT) [address] [place] [address] 98951 CBC w/ Auto Diffon 4 Erythrocyte distribution width (RBC) [Ratio] 14.6 % Normal 11.5-15.0 [facility] Comment on above: Performed By: #### 7 [id number], [id number] #### [facility] (DEFAULT) [address] [place] [address] Hematocrit (Bld) [Volume fraction] 41.9 % Normal 34.8-51.9 [facility] Comment on above: Performed By: #### 7 [id number], [id number] #### [facility] (DEFAULT) [address] [place] [address] Hemoglobin (Bld) [Mass/Vol] 13.9 g/dL Normal 11.8-17.7 [facility] Comment on above: Performed By: #### 7 [id number], [id number] #### [facility] (DEFAULT) [address] [place] [address] Man Diff? Auto Invalid Interpretation Code [facility] Comment on above: Performed By: #### 7 [id number], [id number] #### [facility] (DEFAULT) [address] [place] [address] MCH (RBC) [Entitic mass] 30 pg Normal 24-34 [facility] Comment on above: Performed By: #### 7 [id number], [id number] #### [facility] (DEFAULT) [address] [place] [address] MCHC (RBC) [Mass/Vol] 33 g/dL Normal 26-37 [facility] Comment on above: Performed By: #### 7 [id number], [id number] #### [facility] (DEFAULT) [address] [place] [address] MCV (RBC) [Entitic vol] 90 fL Normal 81-100 [facility] Comment on above: Performed By: #### 7 [id number], [id number] #### [facility] (DEFAULT) [address] [place] [address] Platelet 236 x10 Normal 138-427 [facility] Comment on above: Performed By: #### 7 [id number], [id number] #### [facility] (DEFAULT) [address] [place] [address] Platelet mean volume (Bld) [Entitic vol] 7.8 fL Normal 6.3-10.2 [facility] Comment on above: Performed By: #### 7 [id number], [id number] #### [facility] (DEFAULT) [address] [place] [address] RBC 4.65 x10 Normal 3.70-5.30 [facility] Comment on above: Performed By: #### 7 [id number], [id number] #### [facility] (DEFAULT) [address] [place] [address] 26446 WBC 8.0 x10 Normal 3.5-10.5 [facility] Comment on above: Performed By: #### 7 [id number], [id number] #### [facility] (DEFAULT) [address] [place] [address]648 MRI Spine Lumbar w/o Contras ton 07-30-2023 MRI Spine Lumbar w/o Contrast HISTORY: Right-sided low back pain. TECHNIQUE: Routine lumbosacral spine MR protocol without gadolinium. Contrast: None. COMPARISON: CT 05/31/2016. RESULT: Counting reference: Lumbosacral junction. For the purposes of this report, L5-S1 is considered the last well-formed disc space. Alignment: Alignment is anatomic. Bone marrow signal/fracture: No evidence for acute fracture. No evidence for pathologic marrow infiltration. Schmorl's node involving the superior endplate of L1. Conus: The conus is within normal limits of signal intensity and morphology. Paraspinal soft tissues: Paraspinal soft tissues are unremarkable. Lower thoracic spine: Visualized lower thoracic canal and foramina are without significant narrowing. T12-L1: No significant canal or foraminal narrowing. L1-L2: No significant canal or foraminal narrowing. L2-L3: Tiny disc bulge. Facet degenerative changes. No significant canal or foraminal narrowing. L3-L4: Tiny disc bulge. Facet degenerative changes. No significant canal or foraminal narrowing. L4-L5: Broad-based disc bulge. Facet degenerative changes. Facet joint effusions. No significant canal or foraminal narrowing. L5-S1: Broad-based disc bulge. Annular fissure. Possible small central zone protrusion. Facet degenerative changes. Mild bilateral foraminal narrowing without significant canal narrowing. Sacrum and iliac wings: The visualized sacrum and iliac wings are within normal limits. The presacral soft tissues are normal in appearance. IMPRESSION: Degenerative changes lumbar spine, without high-grade canal or foraminal narrowing. Annular fissure with possible small central protrusion at L5-S1. Final Signed (Electronic Signature): Félix Goddard MD 07/31/23 9:15 am Technologist: LEN [facility] Provider Orderson 07-30-2023 Provider Orders [id number] [facility] Provider Orders [id number] [facility] XR Spine Cervical 2 or 3 Vie wson 07-30-2023 XR Spine Cervical 2 or 3 Views HISTORY: Neck pain COMPARISON: Cervical spine radiographs 12/18/2022 TECHNIQUE: AP, lateral, and odontoid views of the cervical spine. FINDINGS: Straightening of the lower cervical lordosis. Cervical vertebral body heights are maintained. Multilevel degenerative disc disease with degenerative endplate changes and spurring again identified. Atlantodental interval is preserved. The lateral masses of C1 articulate symmetrically with C2. Calcifications project over the expected location of the left carotid bulb prevertebral soft tissues appear within normal limits. IMPRESSION: No acute osseous abnormality or significant interval change. Final Signed (Electronic Signature): Harjeet Toussaint DO 07/30/23 12:26 p Technologist: EN [facility] Coding Summaryon 07-23-2023 Coding Summary HTMLBase 64 CpphwroqBXe1vZf+PGhlYWQ+PE1FV XQoL34xvLWlpI8iV3NEHRuRAqckOZ MSUJfJQcRvyqKkHM0bbZLnMWRr IC8+AJ2rZRDlKjatlCEua0H8dJM2M 00was5gHYmwlPP4YHIzMdNgfwqbz3 gspLy7LKogFlnpMrJy CCTmlZ45IOG6yL27Ff18gMIrqZKqe 4xjuXi8QwWcQPJdKXK2aAnwANtgn3 SbWOCxK46mlKYvr3W9 OHXqaGsquYRkZzTqfJA5qN8pEPeng oxlv7faknwsVsk0kb62eHQdn3L9gS V7Z4GbzlH6AARncMUx LtfbbAJYzJ0ouogat4ruwjevWdBkN TKpPNh6ARg8PEJqpXsvFfOeOA44DC U9CPIrngAtE8WvMWSj gVsuKwU3y1Q9Tf9JC0ZPTzbzG5JYP UFSWTwvdGQ+PB29ip78H7EvHvfoRk x6RQUxRXO1cWW1rJ2s EUAcXWhgh7V5bLA8H9HygcHerk3lj 2iuGIZuHNdiK06ejAOje2Y4XFGlfC H8KVYobPtgMrUhlX52 Oyc+KBEbpAiqv8QpVvckj7rjb3xzk Wj8BnmuIEEmdxFlwQviIPC5v5XiBd 5fGVVzvGI8qVQ2cI8h SyOfWbU6FCzfJ878AtVnaRLvJeqrL 42wS9GljPM+MDAjSlc2JOIvfNhjRC 0sW1VvQHYwckrhzKUm dLiaNS9tQEDuowbaMVKjoQ2yRKKgP 4u5KdZmFeR4NYdlB9CoRGVjhsntFr 05uY1xIcMyUuT0DTql C5GqgcC9SOQvdXLpUHkyMCI7M84xr 2Y0UXGbOOSuSMB9yML7mT7oeRglar ogbGVmdDsgdmVydGlj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 (hyperlipidemia)- HTN (hypertension)- PAD (peripheral artery disease) ([facility]) R leg- Stroke ([facility]) 12/2016 weakness L arm- TIA (transient ischemic attack) 03/2016PAST SURGICAL HISTORYProcedure Laterality Date- ANGIOPLASTY 03/2016 R leg- CABG (3) VEIN GRAFTS AND ARTERIAL GRAFT(S) 12/2016 cobalt chromium- CHOLECYSTECTOMY 02/2016- STENT - CORONARY 10/2016 mid RCA X 2, proximal LADMEDICATIONS:Current Outpatient Prescriptions:traMADol (ULTRAM) 50 mg tablet Take 1 tablet by mouth three times daily asneeded. Disp: Rfl:traZODone (DESYREL) 100 mg tablet Take 1 tablet by mouth daily at bedtime.Disp: Rfl: 0SYMBICORT 160-4.5 mcg/actuation inhaler Inhale 2 Puffs as instructed twicedaily. Disp: Rfl: 0fluticasone (FLONASE) 50 mcg/actuation nasal spray Use 1 [place] in eachnostril once daily. Disp: Rfl: 0TRULANCE 3 mg tab Take 3 mg by mouth once daily. Disp: Rfl: 0folic acid 1 mg tablet Take 1 tablet by mouth once daily. Disp:Rfl: 0meloxicam (MOBIC) 15 mg tablet Take 1 tablet by mouth once daily. Disp:Rfl: 0VENTOLIN HFA 90 mcg/actuation inhaler Inhale 1 Puff as instructed every 4hours as needed. Disp: Rfl: 0carvedilol (COREG) 25 mg tablet Take 1 tablet by mouth twice daily.Disp: Rfl: 0tiZANidine (ZANAFLEX) 4 mg tablet Take 1 tablet by mouth twice daily asneeded. Disp: Rfl:tamsulosin ER (FLOMAX) 0.4 mg cp24 Take 2 capsules by mouth daily atbedtime. Disp: Rfl: 0lamoTRIgine (LAMICTAL) 100 mg tablet Take 1 tablet by mouth twice daily.Disp: Rfl:clopidogrel (PLAVIX) 75 mg tablet Take 75 mg by mouth once daily. Disp:Rfl:aspirin, enteric coated (ASPIRIN, ENTERIC COATED) 81 mg EC tablet Take 81mg by mouth once daily. Disp: Rfl:atorvastatin (LIPITOR) 40 mg tablet Take 40 mg by mouth once daily.Disp: Rfl:pantoprazole DR (PROTONIX) 40 mg tablet Take 40 mg by mouth once daily.Disp: Rfl:No current facility-administered medications for this visit.ALLERGY:ALLERGIESNo Known AllergiesFAMILY HISTORYProblem Relation Age of Onset- Heart Mother- Kidney Disease Mother failure- Cancer Father- black lung [OTHER] FatherSocial History Marital status: Single Spouse name: Years of education: Number of children:Social History Main Topics Smoking status: Former Smoker Packs/day: 0.00 Years: 0.00 Comment: Pt quit 15 years ago 08/13/2001 Alcohol use: Yes 9.0 oz/week 6 Cans of Beer (12oz) per week Drug use: NoDATA:Radiology:Laboratory:O ther:REVIEW OF SYSTEMS:General:(+) wt. Gain - 8 lbs in 2.5 months, (+)change in appetite -eats more,(-)fever, malaiseHEENT: no headache, problems with vision, hearingCardiac: no chest pain, palpitationRespiratory: no shortness of breath, cough, coldGI: no change in bowel habits, abdominal painGU: no incontinence, frequency, urgencyMusculoskeletal: no joint/muscle pain, no swellingSkin: no rashEndocrine: no cold/hot intolerance, thyroid, diabetesImmunologic: no known immunologic disordersNeurologic/Psychiatr ic: no other known neurologic or psychiatric problemsPHYSICAL EXAM:BP 122/69 Pulse 66HEENT: atraumatic, normocephalicNeck: supple, no bruitHeart: (+)S1S2, regular rate and rhythmExtremities: good pulsesNEUROLOGICAL EXAM:MSE: Awake, alert, oriented x 3, language intact, attention and concentrationnormalCN: pupils are equal and reactive to light, funduscopy: clear disc margins,EOMI, no nystagmus, V1-V3 intact, mild left facial asymmetry, normal hearingto communication, good elevation of soft palate, tongue midline with goodstrength, no dysarthriaMotor: Gait: wide based, antalgic gait(when without a walker). able to putweight on toes and heels with difficulty No pronator drift, rapid finger movements are symmetrical Normal tone and bulk No adventitious movements Power: Right Left Neck flexion 5/5 Neck extension 5/5 Trapezius 5/5 5/5 Deltoids 5/5 4+/5 Biceps 5/5 5-/5 Triceps 5/5 5-/5 Wrist Ext 5/5 5/5 Wrist Flex 5/5 5/5 Finger Ext 5/5 4+/5 FDI 5/5 4/5 ADM 5/5 4+/5 APB 5/5 4/5 FDP 2,3 5/5 4/5 FDP 4,5 5/5 4/5 FPL 5/5 4+/5 Hip Flexors 5-/5 5/5 Knee Extensors 5/5 4+/5 Knee Flexors 5/5 4+/5 Ankle DF 5-/5 4+/5 Ankle PF 5/5 5/5 Inversion 5/5 5/5 Eversion 5/5 5/5 Toe Flexion 5/5 5/5 Toe Extension 4+/5 4+/5 Coordination: intact finger to nose and heel to shinReflexes: B T Br K A Plantars R 2+ 2+ 2+ 2+ 0 down L 2+ 2+ 2+ 2+ 0 downSensory: reduced light touch and pinprick from knees, no position sense atthe toes and no vibration at toes, reduced at knees Romberg's negativeASSESSMENT AND PLAN:Mr. Wilson is a 56 year old male with history of arthritis(cervical andlumbar), CAD s/p CABG and PTCA, carotid stenosis, COPD, reflux, hypertension,hyperlipidemia, PAD, stroke/TIA(left arm weakness); consulted for neuropathy.Examination reveals an awake, alert patient with left sided weakness andbilateral distal leg weakness with absent ankle reflexes and reducedsensation to multiple modalities distally. As discussed with patient, thesefindings are compatible with a peripheral neuropathy. Discussed aboutetiology, prognosis and treatment options. Suspect neuropathy me besecondary to PAD and EtOH use.1. Get records to review EMG and blood work2. Pain management consult but prefers to stay locally. He needs betterpain control.3. Symptomatic treatment - on lamotrigine, has tried gabapentin andpregabalin4. Alcohol cessation5. Physical therapy - defers at this time as it exacerbated the neck pain6. Follow-as neededOf the 60 minute long appointment visit, spent at least 50% of qrocrsr-mc-mact time in counseling, explanation of diagnosis, and planning offurther managementChayo Vivas MDNeurologyPlease send a copy of clinic note to:1. Santy Wilson [phone] Francisco Chunemilio [facility] [id number]. JEFERSON Mccarthy-[id number] [facility] [address]Clwlbjdoh Number: [id number] Status:Closed by CHAYO VIVAS MD on 04/11/17 Normal [facility] PROGRESSon 04-10-2017 PROGRESS HNO ID: [id number] thor: Chayo VivasService: (none)Author Type: PhysicianType: Progress NotesFiled: 04/11/2017 11:53 AMNote Text:Neurology Clinic - April 10, 2017Reason for visit:Mr. Wilson is referred by Yenifer Villatoro PA-C for my opinion regardingneuropathy. My final recommendation will be communicated back to therequesting physician by way of shared medical record or letter.HISTORY OF PRESENT ILLNESS:Patient is a 56 year old, right-handed, White, male with history ofarthritis(cervical and lumbar), CAD s/p CABG and PTCA, carotid stenosis,COPD(h/o smoking), reflux, hypertension, hyperlipidemia, PAD,stroke/TIA(mild residual left arm weakness, intraoperative stroke duringCABG, Dec 2015), depression.History gathered from patient and electronic medical records. Hereportedly had an intraoperative stroke during CABG in Dec 2015, has mildresidual left sided weakness.He was diagnosed with PAD in Feb 2016, presented with right leg pain,found to have a clot and had a bypass procedure for it.He started having leg symptoms in Aug 2015, described as calves painduring ambulation and inability to walk long distances. He was also havingsharp and burning sensation from the calves down. He sawneurology(Yamila), had EMG done, diagnosed with neuropathy(unsure ofetiology per patient). Tried on gabapentin, went up to 600 mg tid withoutbenefit hence discontinued. He also saw a sales audit clerk, triedpregabalin(up to 150 mg) also without benefit. Recommended to get [id number] monthly which he just started the past month.Current symptoms are sharp, stinging and burning sensations from thethighs down. He reports not to be on anything for it but review ofmedications shows that he is on the following: trazodone(to help sleep,sees a counselor), tramadol bid(for the back pain), meloxicam(for pain),tizanidine(for the back), lamotrigine(for depression, sees counselor butgiven by PCP). He has been using a cane or walker to ambulate since .He used to smoke, started at 17 y/o, smokes up to 1 ppd, quit in 2014. Headmits to drink, started at 19 y/o, was a heavy drinker in the past(up to1 case of beer a day x 4 years), currently down to a 6-pack of beer perday for the past 3 years. He denies use of illicit drugs.He sees pain management locally, given tramadol.PAST MEDICAL HISTORYDiagnosis Date- Arthritis neck/low back- CAD (coronary artery disease) 12/2016 triple bypass; 3 stents 10/2016- Carotid stenosis- COPD (chronic obstructive pulmonary disease) ([facility])- GERD (gastroesophageal reflux disease)- HLD (hyperlipidemia)- HTN (hypertension)- PAD (peripheral artery disease) ([facility]) R leg- Stroke ([facility]) 12/2016 weakness L arm- TIA (transient ischemic attack) 03/2016PAST SURGICAL HISTORYProcedure Laterality Date- ANGIOPLASTY 03/2016 R leg- CABG (3) VEIN GRAFTS AND ARTERIAL GRAFT(S) 12/2016 cobalt chromium- CHOLECYSTECTOMY 02/2016- STENT - CORONARY 10/2016 mid RCA X 2, proximal LADMEDICATIONS:Current Outpatient Prescriptions:traMADol (ULTRAM) 50 mg tablet Take 1 tablet by mouth three times daily asneeded. Disp: Rfl:traZODone (DESYREL) 100 mg tablet Take 1 tablet by mouth daily at bedtime.Disp: Rfl: 0SYMBICORT 160-4.5 mcg/actuation inhaler Inhale 2 Puffs as instructed twicedaily. Disp: Rfl: 0fluticasone (FLONASE) 50 mcg/actuation nasal spray Use 1 [place] in eachnostril once daily. Disp: Rfl: 0TRULANCE 3 mg tab Take 3 mg by mouth once daily. Disp: Rfl: 0folic acid 1 mg tablet Take 1 tablet by mouth once daily. Disp: Rfl: 0meloxicam (MOBIC) 15 mg tablet Take 1 tablet by mouth once daily. Disp:Rfl: 0VENTOLIN HFA 90 mcg/actuation inhaler Inhale 1 Puff as instructed every 4hours as needed. Disp: Rfl: 0carvedilol (COREG) 25 mg tablet Take 1 tablet by mouth twice daily. Disp:Rfl: 0tiZANidine (ZANAFLEX) 4 mg tablet Take 1 tablet by mouth twice daily asneeded. Disp: Rfl:tamsulosin ER (FLOMAX) 0.4 mg cp24 Take 2 capsules by mouth daily atbedtime. Disp: Rfl: 0lamoTRIgine (LAMICTAL) 100 mg tablet Take 1 tablet by mouth twice daily.Disp: Rfl:clopidogrel (PLAVIX) 75 mg tablet Take 75 mg by mouth once daily. Disp:Rfl:aspirin, enteric coated (ASPIRIN, ENTERIC COATED) 81 mg EC tablet Take 81mg by mouth once daily. Disp: Rfl:atorvastatin (LIPITOR) 40 mg tablet Take 40 mg by mouth once daily. Disp:Rfl:pantoprazole DR (PROTONIX) 40 mg tablet Take 40 mg by mouth once daily.Disp: Rfl:No current facility-administered medications for this visit.ALLERGY:ALLERGIESNo Known AllergiesFAMILY HISTORYProblem Relation Age of Onset- Heart Mother- Kidney Disease Mother failure- Cancer Father- black lung [OTHER] FatherSocial History Marital status: Single Spouse name: Years of education: Number of children:Social History Main Topics Smoking status: Former Smoker Packs/day: 0.00 Years: 0.00 Comment: Pt quit 15 years ago 08/13/2001 Alcohol use: Yes 9.0 oz/week 6 Cans of Beer (12oz) per week Drug use: NoDATA:Radiology:Laboratory:O ther:REVIEW OF SYSTEMS:General:(+) wt. Gain - 8 lbs in 2.5 months, (+)change in appetite -eatsmore, (-)fever, malaiseHEENT: no headache, problems with vision, hearingCardiac: no chest pain, palpitationRespiratory: no shortness of breath, cough, coldGI: no change in bowel habits, abdominal painGU: no incontinence, frequency, urgencyMusculoskeletal: no joint/muscle pain, no swellingSkin: no rashEndocrine: no cold/hot intolerance, thyroid, diabetesImmunologic: no known immunologic disordersNeurologic/Psychiatr ic: no other known neurologic or psychiatric problemsPHYSICAL EXAM:BP 122/69 Pulse 66HEENT: atraumatic, normocephalicNeck: supple, no bruitHeart: (+)S1S2, regular rate and rhythmExtremities: good pulsesNEUROLOGICAL EXAM:MSE: Awake, alert, oriented x 3, language intact, attention andconcentration normalCN: pupils are equal and reactive to light, funduscopy: clear discmargins, EOMI, no nystagmus, V1-V3 intact, mild left facial asymmetry,normal hearing to communication, good elevation of soft palate, tonguemidline with good strength, no dysarthriaMotor: Gait: wide based, antalgic gait(when without a walker). able to putweight on toes and heels with difficulty No pronator drift, rapid finger movements are symmetrical Normal tone and bulk No adventitious movements Power: Right Left Neck flexion 5/5 Neck extension 5/5 Trapezius 5/5 5/5 Deltoids 5/5 4+/5 Biceps 5/5 5-/5 Triceps 5/5 5-/5 Wrist Ext 5/5 5/5 Wrist Flex 5/5 5/5 Finger Ext 5/5 4+/5 FDI 5/5 4/5 ADM 5/5 4+/5 APB /5 4/5 FDP 2,3 5/5 4/5 FDP 4,5 5/5 4/5 FPL /5 4+/5 Hip Flexors 5-/5 5/5 Knee Extensors /5 4+/5 Knee Flexors /5 4+/5 Ankle DF 5-/5 4+/5 Ankle PF /5 5/5 Inversion 5/ 5/5 Eversion 5/5 5/5 Toe Flexion 5/5 5/5 Toe Extension 4+/5 4+/5 Coordination: intact finger to nose and heel to shinReflexes: B T Br K A Plantars R 2+ 2+ 2+ 2+ 0 down L 2+ 2+ 2+ 2+ 0 downSensory: reduced light touch and pinprick from knees, no position sense atthe toes and no vibration at toes, reduced at knees Romberg's negativeASSESSMENT AND PLAN:Mr. Wilson is a 56 year old male with history of arthritis(cervical andlumbar), CAD s/p CABG and PTCA, carotid stenosis, COPD, reflux,hypertension, hyperlipidemia, PAD, stroke/TIA(left arm weakness);consulted for neuropathy. Examination reveals an awake, alert patient withleft sided weakness and bilateral distal leg weakness with absent anklereflexes and reduced sensation to multiple modalities distally. Asdiscussed with patient, these findings are compatible with a peripheralneuropathy. Discussed about etiology, prognosis and treatment options.Suspect neuropathy me be secondary to PAD and EtOH use.1. Get records to review EMG and blood work2. Pain management consult but prefers to stay locally. He needs betterpain control.3. Symptomatic treatment - on lamotrigine, has tried gabapentin andpregabalin4. Alcohol cessation5. Physical therapy - defers at this time as it exacerbated the neck pain6. Follow-as neededOf the 60 minute long appointment visit, spent at least 50% of pvkpzuz-fc-bylt time in counseling, explanation of diagnosis, and planning offurther managementChayo Vivas MDNeurologyPlease send a copy of clinic note to:1. Santy Wilson [id number] Francisco Chunemilio [address] [place] [id number]. JEFERSON Mccarthy-[id number] [facility] [address] [facility] CenterImelda 04-09-2017 CNPMaureen Telephone ([facility]) -SANTY WILSON ([id number]) 1960 [facility] Time Provider Department04/09/17 YENIFER VILLATORO (JEFERSON) [facility] During your visit today, we recorded the following information about you:Dora Le Ray Ma 04/09/2017 1:30 PM SignedPatient called stating he needs records released from nine different doctorswith locations in [facility], and [place]. Patient was informed that hewould either need to sign a release of information form In our office or theoffices of the other providers that we are getting records from. Patient [place]he [place] and can not go to all of these locations. He requestedthat I fax the forms to [phone] so he can sign them and fax them back toour office.Dora Le Ray [facility] 2016 1:29 PMDora Ray Ma 04/09/2017 3:15 PM SignedAttempted to fax form to the number provided and it didn't go through, calledpatient and notified him via voicemail. Also put a note on his appointment fortomorrow and requested that they have him sign a release form.Dora Ray [facility] 2016 3:15 PMSunsrima Hastings Iliana, INSTRUMENT MECHANICS SUPERVISOR, INSTRUMENT MECHANICS SUPERVISOR 04/09/2017 3:46 PM SignedDuplicate Kael Contreras 04/15/2017 11:52 AM SignedPatient calling in regards to status of below.Patient states that he requested this form to be mailed to his home (addressverified).Patient states that he is in a lot of pain, and doesn't see the PAIN MANAGEMENTDOCTOR[place]13.patient states that he is in a lot of pain, and keeps falling down because ofthe pain.patient would like to know if something can be prescribed for this pain?Chayo Vivas MD 04/15/2017 3:06 PM SignedPlease advise patient to call his pain management doctor locally and try to getin earlier. He is on other medications for both pain and depression and willneed pain management's help. Per last visit, he wanted to keep following withpain management locally as [facility].Tunde Galaviz, INSTRUMENT MECHANICS SUPERVISOR, INSTRUMENT MECHANICS SUPERVISOR 04/15/2017 4:04 PM SignedSpoke with pt. Relayed Dr. Vivas's message below. Pt verbalized andunderstanding. Pt kept referring to having his release form sent to him andthat he was told it would take 7 days. I explained to pt that I faxed therelease form for the EMG he stated that he had with Dr. Yoon. Faxconfirmation received on 04/10. Have not received any return records from 's office.Allergies As of Date: 04/09/2017(No Known Allergies)Date Reviewed: 04/08/2017Reviewed by: Aracelis Bennett Ma - Fully AssessedReason for Visit: Request Outside Medical Records [[id number]]Prescriptions as of 04/09/2017 Sig: TRAMADOL 50 MG TABLET Take 1 tablet by mouth three * TRAZODONE 100 MG TABLET Take 1 tablet by mouth daily * SYMBICORT 160 MCG-4.5 MCG/ACT* Inhale 2 Puffs as instructed * FLUTICASONE 50 MCG/ACTUATION * Use 1 [place] in each nostril o* TRULANCE 3 MG TABLET Take 3 mg by mouth once daily. FOLIC ACID 1 MG TABLET Take 1 tablet by mouth once d* MELOXICAM 15 MG TABLET Take 1 tablet by mouth once d* VENTOLIN HFA 90 MCG/ACTUATION* Inhale 1 Puff as instructed e* CARVEDILOL 25 MG TABLET Take 1 tablet by mouth twice * TIZANIDINE 4 MG TABLET Take 1 tablet by mouth twice * TAMSULOSIN 0.4 MG CAPSULE Take 2 capsules by mouth katarina* LAMOTRIGINE 100 MG TABLET Take 1 tablet by mouth twice * CLOPIDOGREL 75 MG TABLET Take 75 mg by mouth once katarina* ASPIRIN 81 MG TABLET,DELAYED * Take 81 mg by mouth once katarina* ATORVASTATIN 40 MG TABLET Take 40 mg by mouth once katarina* PANTOPRAZOLE 40 MG TABLET,DEL* Take 40 mg by mouth once katarina*Problem List As Of Date: 04/09/2017(None) Status:Closed by MONTSE CHRISTIANSON on 04/09/17 Normal [facility] PROGRESSon 04-09-2017 PROGRESS HNO ID: [id number] thor: Yenifer Burk (Jeferson) HenflingService: (none)Author Type: Physician AssistantType: Progress NotesFiled: 04/09/2017 8:10 AMNote Text:HPIPatient presents today for second opinion about neuropathy. [place] and multiple specialist in this area. He wouldlike to see [facility] neurology.Patient has history of CAD, with stenting ?3 in October/2016. He then hadCABG in December/2016. Patient is compliant with Plavix, with no gross bloodloss. He denies any chest pain. There is also history of PAD and rightleg requiring angioplasty with vascular - Dr. Graf.Patient admits to neuropathy in bilateral legs. He's been to multiplespecialists including podiatry, Dr. Chester (neuro), and Dr. Yoon (neuro). He reports there is been extensive workup with EMG ?2 and blood testing.Both neurologists have been unable to give him an answer as to what iscausing severe neuropathic pain. He reports from the waist down he feels numb everywhere. He will also get muscle cramping, numbness, tinglingin lower extremities. Patient admits to weakness, and he is having toambulate with cane. He has been on multiple medications includingGabapentin 600 mg 3 times a day and Lyrica 150 mg twice a day with noimprovement at all. Patient reports that pain is severe and Ultram 50 mg3 times a day does not help. Incarcerated over the summer, but sincerelease has been unable to get answers are neuropathic pain. Compliantwith folic acid, but continues to drink 6 cans of beer per day.There is history of lumbar back arthritis, and he is seeing painmanagement regularly for steroid injections and spine.Review of SystemsAll other systems reviewed and are negative.Past Medical History:PAST MEDICAL HISTORYDiagnosis Date- Arthritis neck/low back- CAD (coronary artery disease) 12/2016 triple bypass; 3 stents 10/2016- Carotid stenosis- COPD (chronic obstructive pulmonary disease) ([facility])- GERD (gastroesophageal reflux disease)- HLD (hyperlipidemia)- HTN (hypertension)- PAD (peripheral artery disease) ([facility]) R leg- Stroke ([facility]) 12/2016 weakness L arm- TIA (transient ischemic attack) 03/2016Past Surgical History:PAST SURGICAL HISTORYProcedure Laterality Date- ANGIOPLASTY 03/2016 R leg- CABG (3) VEIN GRAFTS AND ARTERIAL GRAFT(S) 12/2016 cobalt chromium- CHOLECYSTECTOMY 02/2016- STENT - CORONARY 10/2016 mid RCA X 2, proximal LADFamily History:FAMILY HISTORYProblem Relation Age of Onset- Heart Mother- Kidney Disease Mother failure- Cancer Father- black lung [OTHER] FatherSocial History: Social History Marital status: Single Spouse name: Years of education: Number of children:Social History Main Topics Smoking status: Former Smoker Packs/day: 0.00 Years: 0.00 Comment: Pt quit 15 years ago 08/13/2001 Alcohol use: Yes 9.0 oz/week 6 Cans of Beer (12oz) per week Drug use: NoCurrent Medications:Outpatient Encounter Prescriptions as of 04/08/2017:traMADol (ULTRAM) 50 mg tablet Take 1 tablet by mouth three times daily asneeded. Disp: Rfl:traZODone (DESYREL) 100 mg tablet Take 1 tablet by mouth daily at bedtime.Disp: Rfl: 0SYMBICORT 160-4.5 mcg/actuation inhaler Inhale 2 Puffs as instructed twicedaily. Disp: Rfl: 0fluticasone (FLONASE) 50 mcg/actuation nasal spray Use 1 [place] in eachnostril once daily. Disp: Rfl: 0TRULANCE 3 mg tab Take 3 mg by mouth once daily. Disp: Rfl: 0folic acid 1 mg tablet Take 1 tablet by mouth once daily. Disp: Rfl: 0meloxicam (MOBIC) 15 mg tablet Take 1 tablet by mouth once daily. Disp:Rfl: 0VENTOLIN HFA 90 mcg/actuation inhaler Inhale 1 Puff as instructed every 4hours as needed. Disp: Rfl: 0carvedilol (COREG) 25 mg tablet Take 1 tablet by mouth twice daily. Disp:Rfl: 0tiZANidine (ZANAFLEX) 4 mg tablet Take 1 tablet by mouth twice daily asneeded. Disp: Rfl:tamsulosin ER (FLOMAX) 0.4 mg cp24 Take 2 capsules by mouth daily atbedtime. Disp: Rfl: 0clopidogrel (PLAVIX) 75 mg tablet Take 75 mg by mouth once daily. Disp:Rfl:aspirin, enteric coated (ASPIRIN, ENTERIC COATED) 81 mg EC tablet Take 81mg by mouth once daily. Disp: Rfl:atorvastatin (LIPITOR) 40 mg tablet Take 40 mg by mouth once daily. Disp:Rfl:pantoprazole DR (PROTONIX) 40 mg tablet Take 40 mg by mouth once daily.Disp: Rfl:lamoTRIgine (LAMICTAL) 100 mg tablet Take 1 tablet by mouth twice daily.Disp: Rfl:[DISCONTINUED] VENTOLIN HFA 90 mcg/actuation inhaler Disp: Rfl:[DISCONTINUED] meloxicam (MOBIC) 15 mg tablet Disp: Rfl:[DISCONTINUED] folic acid 1 mg tablet Disp: Rfl:[DISCONTINUED] TRULANCE 3 mg tab Disp: Rfl:[DISCONTINUED] fluticasone (FLONASE) 50 mcg/actuation nasal spray Disp:Rfl:[DISCONTINUED] SYMBICORT 160-4.5 mcg/actuation inhaler Disp: Rfl:[DISCONTINUED] carvedilol (COREG) 12.5 mg tablet Disp: Rfl:[DISCONTINUED] traZODone (DESYREL) 100 mg tablet Disp: Rfl:[DISCONTINUED] traMADol (ULTRAM) 50 mg tablet Disp: Rfl:No facility-administered encounter medications on file as of 04/08/2017.Allergies: ALLERGIESNo Known AllergiesVitals: BP 132/82 Temp 97.9 Ht 5' 10 (1.78m) Wt 194 lb (88.0kg) BMI 27.84 kg/(m2).Physical ExamConstitutional: He is well-developed, well-nourished, and in no distress.Cardiovascular: Normal rate, regular rhythm and normal heart sounds.Pulmonary/Chest: Effort normal and breath sounds normal.Musculoskeletal: He exhibits edema (trace, non-pitting).Neurological: He is alert.Ambulates with caneSkin: Skin is warm and dry.Psychiatric: Mood and affect normal.ASSESSMENT/PLAN:1. Neuropathy (HCC) - ICD9: 355.9, ICD10: G62.9Patient with neuropathy, evaluated by 2 neurologists in the past with noanswers . Likely multifactorial, as there is history of lumbar discdisease, PAD, CABG ?3. He is taking folic acid 1 mg daily at thistime?but continues to drink alcohol. I encouraged him to decrease alcoholuse. He has failed gabapentin 600 mg tid and Lyrica 150 mg bid. Irequested that patient obtain all previous testing/records and fax to ouroffice to be scanned into chart prior to neurology appointment. We willneed all lab testing/EMGs ?2. I denied patient's request for any otherpain medication in office today. Continue tramadol as needed.- CONSULT TO Avni Villatoro PA-C Normal [facility] CNOVon 04-08-2017 CNOV Office Visit ([facility]) -SANTY WILSON ([id number]) 1960 MDate Time Provider Department04/08/17 8:20 AM YENIFER VILLATORO) JOSE During your visit today, we recorded the following information about you: Temperature Blood pressure Weight Height 97.9 degrees 132/82 88 kg 1.778 Demian Villatoro PA-C 04/09/2017 8:10 AM SignedHPIPatient presents today for second opinion about neuropathy. He lives in [facility], and his PCP and multiple specialist in this area. [facility].Patient has history of CAD, with stenting ?3 in October/2016. He then had CABGin December/2016. Patient is compliant with Plavix, with no gross blood loss. Hedenies any chest pain. There is also history of PAD and right leg requiringangioplasty with vascular - Dr. Graf.Patient admits to ANDquot;neuropathyANDquot; in bilateral legs. He's been tomultiple specialists including podiatry, Dr. Chester (neuro), and Dr. Yoon(neuro). He reports there is been extensive workup with EMG ?2 and bloodtesting. Both neurologists have been unable to give him an answer as to whatis causing severe neuropathic pain. He reports from the waist down he feelsANDquot;numbANDquot; everywhere. He will also get muscle cramping, numbness,tingling in lower extremities. Patient admits to weakness, and he is having toambulate with cane. He has been on multiple medications including Eshctervwl311 mg 3 times a day and Lyrica 150 mg twice a day with no improvement at all.Patient reports that pain is severe and Ultram 50 mg 3 times a day does nothelp. Incarcerated over the summer, but since release has been unable to getanswers are neuropathic pain. Compliant with folic acid, but continues todrink 6 cans of beer per day.There is history of lumbar back arthritis, and he is seeing pain managementregularly for steroid injections and spine.Review of SystemsAll other systems reviewed and are negative.Past Medical History:PAST MEDICAL HISTORYDiagnosis Date- Arthritis neck/low back- CAD (coronary artery disease) 12/2016 triple bypass; 3 stents 10/2016- Carotid stenosis- COPD (chronic obstructive pulmonary disease) ([facility])- GERD (gastroesophageal reflux disease)- HLD (hyperlipidemia)- HTN (hypertension)- PAD (peripheral artery disease) ([facility]) R leg- Stroke (HCC) 12/2016 weakness L arm- TIA (transient ischemic attack) 03/2016Past Surgical History:PAST SURGICAL HISTORYProcedure Laterality Date- ANGIOPLASTY 03/2016 R leg- CABG (3) VEIN GRAFTS ANDamp; ARTERIAL GRAFT(S) 12/2016 cobalt chromium- CHOLECYSTECTOMY 02/2016- STENT - CORONARY 10/2016 mid RCA X 2, proximal LADFamily History:FAMILY HISTORYProblem Relation Age of Onset- Heart Mother- Kidney Disease Mother failure- Cancer Father- black lung [OTHER] FatherSocial History: Social History Marital status: Single Spouse name: Years of education: Number of children:Social History Main Topics Smoking status: Former Smoker Packs/day: 0.00 Years: 0.00 Comment: Pt quit 15 years ago 08/13/2001 Alcohol use: Yes 9.0 oz/week 6 Cans of Beer (12oz) per week Drug use: NoCurrent Medications:Outpatient Encounter Prescriptions as of 04/08/2017:traMADol (ULTRAM) 50 mg tablet Take 1 tablet by mouth three times daily asneeded. Disp: Rfl:traZODone (DESYREL) 100 mg tablet Take 1 tablet by mouth daily at bedtime.Disp: Rfl: 0SYMBICORT 160-4.5 mcg/actuation inhaler Inhale 2 Puffs as instructed twicedaily. Disp: Rfl: 0fluticasone (FLONASE) 50 mcg/actuation nasal spray Use 1 [place] in each nostrilonce daily. Disp: Rfl: 0TRULANCE 3 mg tab Take 3 mg by mouth once daily. Disp: Rfl: 0folic acid 1 mg tablet Take 1 tablet by mouth once daily. Disp: Rfl: 0meloxicam (MOBIC) 15 mg tablet Take 1 tablet by mouth once daily. Disp: Rfl: 0VENTOLIN HFA 90 mcg/actuation inhaler Inhale 1 Puff as instructed every 4 hoursas needed. Disp: Rfl: 0carvedilol (COREG) 25 mg tablet Take 1 tablet by mouth twice daily. Disp: Rfl:0tiZANidine (ZANAFLEX) 4 mg tablet Take 1 tablet by mouth twice daily as needed.Disp: Rfl:tamsulosin ER (FLOMAX) 0.4 mg cp24 Take 2 capsules by mouth daily at bedtime.Disp: Rfl: 0clopidogrel (PLAVIX) 75 mg tablet Take 75 mg by mouth once daily. Disp: Rfl:aspirin, enteric coated (ASPIRIN, ENTERIC COATED) 81 mg EC tablet Take 81 mg bymouth once daily. Disp: Rfl:atorvastatin (LIPITOR) 40 mg tablet Take 40 mg by mouth once daily. Disp: Rfl:pantoprazole DR (PROTONIX) 40 mg tablet Take 40 mg by mouth once daily. Disp:Rfl:lamoTRIgine (LAMICTAL) 100 mg tablet Take 1 tablet by mouth twice daily. Disp:Rfl:[DISCONTINUED] VENTOLIN HFA 90 mcg/actuation inhaler Disp: Rfl:[DISCONTINUED] meloxicam (MOBIC) 15 mg tablet Disp: Rfl:[DISCONTINUED] folic acid 1 mg tablet Disp: Rfl:[DISCONTINUED] TRULANCE 3 mg tab Disp: Rfl:[DISCONTINUED] fluticasone (FLONASE) 50 mcg/actuation nasal spray Disp: Rfl:[DISCONTINUED] SYMBICORT 160-4.5 mcg/actuation inhaler Disp: Rfl:[DISCONTINUED] carvedilol (COREG) 12.5 mg tablet Disp: Rfl:[DISCONTINUED] traZODone (DESYREL) 100 mg tablet Disp: Rfl:[DISCONTINUED] traMADol (ULTRAM) 50 mg tablet Disp: Rfl:No facility-administered encounter medications on file as of 04/08/2017.Allergies: ALLERGIESNo Known AllergiesVitals: BP 132/82 Temp 97.9 Ht 5' 10ANDquot; (1.78m) Wt 194 lb (88.0kg) BMI 27.84 kg/(m2).Physical ExamConstitutional: He is well-developed, well-nourished, and in no distress.Cardiovascular: Normal rate, regular rhythm and normal heart sounds.Pulmonary/Chest: Effort normal and breath sounds normal.Musculoskeletal: He exhibits edema (trace, non-pitting).Neurological: He is alert.Ambulates with caneSkin: Skin is warm and dry.Psychiatric: Mood and affect normal.ASSESSMENT/PLAN:1. Neuropathy (HCC) - ICD9: 355.9, ICD10: G62.9Patient with neuropathy, evaluated by 2 neurologists in the past with ANDquot;noanswers ANDquot;. Likely multifactorial, as there is history of lumbar discdisease, PAD, CABG ?3. He is taking folic acid 1 mg daily at this time?butcontinues to drink alcohol. I encouraged him to decrease alcohol use. He hasfailed gabapentin 600 mg tid and Lyrica 150 mg bid. I requested that patientobtain all previous testing/records and fax to our office to be scanned intochart prior to neurology appointment. We will need all lab testing/EMGs ?2. Idenied patient's request for any other pain medication in office today.Continue tramadol as needed.- CONSULT TO NEUROLOGYJEFERSON Mccarthy-CReferring Provider: SELF [[id number]]Allergies As of Date: 04/08/2017(No Known Allergies)Date Reviewed: 04/08/2017Reviewed by: Aracelis Bennett Ma - Fully AssessedReason for Visit: Musculoskeletal Problem [69] Cmt: pt c/o B/L leg neuropathy. He can hardley walk.Reason For Visit History RecordedPrimary Visit Diagnosis:Neuropathy (HCC) [G62.9]Order(s):CONSULT TO NEUROLOGY [[id number]] Order #: [id number]: 1 traMADol (ULTRAM) 50 mg tabletTake 1 tablet by mouth three times daily as needed.Disp: Rfl: traZODone (DESYREL) 100 mg tabletTake 1 tablet by mouth daily at bedtime.Disp: Rfl: 0 SYMBICORT 160-4.5 mcg/actuation inhalerInhale 2 Puffs as instructed twice daily.Disp: Rfl: 0 fluticasone (FLONASE) 50 mcg/actuation nasal sprayUse 1 [place] in each nostril once daily.Disp: Rfl: 0 TRULANCE 3 mg tabTake 3 mg by mouth once daily.Disp: Rfl: 0 folic acid 1 mg tabletTake 1 tablet by mouth once daily.Disp: Rfl: 0 meloxicam (MOBIC) 15 mg tabletTake 1 tablet by mouth once daily.Disp: Rfl: 0 VENTOLIN HFA 90 mcg/actuation inhalerInhale 1 Puff as instructed every 4 hours as needed.Disp: Rfl: 0 carvedilol (COREG) 25 mg tabletTake 1 tablet by mouth twice daily.Disp: Rfl: 0 tiZANidine (ZANAFLEX) 4 mg tabletTake 1 tablet by mouth twice daily as needed.Disp: Rfl: tamsulosin ER (FLOMAX) 0.4 mg [id number] 2 capsules by mouth daily at bedtime.Disp: Rfl: 0 lamoTRIgine (LAMICTAL) 100 mg tabletTake 1 tablet by mouth twice daily.Disp: Rfl:Prescriptions as of 04/08/2017 Sig: TRAMADOL 50 MG TABLET Take 1 tablet by mouth three * TRAZODONE 100 MG TABLET Take 1 tablet by mouth daily * SYMBICORT 160 MCG-4.5 MCG/ACT* Inhale 2 Puffs as instructed * FLUTICASONE 50 MCG/ACTUATION * Use 1 [place] in each nostril o* TRULANCE 3 MG TABLET Take 3 mg by mouth once daily. FOLIC ACID 1 MG TABLET Take 1 tablet by mouth once d* MELOXICAM 15 MG TABLET Take 1 tablet by mouth once d* VENTOLIN HFA 90 MCG/ACTUATION* Inhale 1 Puff as instructed e* CARVEDILOL 25 MG TABLET Take 1 tablet by mouth twice * TIZANIDINE 4 MG TABLET Take 1 tablet by mouth twice * TAMSULOSIN 0.4 MG CAPSULE Take 2 capsules by mouth katarina* CLOPIDOGREL 75 MG TABLET Take 75 mg by mouth once katarina* ASPIRIN 81 MG TABLET,DELAYED * Take 81 mg by mouth once katarina* ATORVASTATIN 40 MG TABLET Take 40 mg by mouth once katarina* PANTOPRAZOLE 40 MG TABLET,DEL* Take 40 mg by mouth once katarina* LAMOTRIGINE 100 MG TABLET Take 1 tablet by mouth twice *Problem List As Of Date: 04/08/2017(None)Prescriptions ordered this encounter Disp Refills Start End TRAMADOL 50 MG TABLET 04/09/2017 Class: Med Update Route: ORAL Sig: Take 1 tablet by mouth three times daily as needed. TRAZODONE 100 MG TABLET 0 04/09/2017 Class: Med Update Route: ORAL Sig: Take 1 tablet by mouth daily at bedtime. SYMBICORT 160 MCG-4.5 MCG/ACTUATION * 0 04/09/2017 Class: Med Update Route: INHALATION Sig: Inhale 2 Puffs as instructed twice daily. FLUTICASONE 50 MCG/ACTUATION NASAL S* 0 04/09/2017 Class: Med Update Route: EACH NOSTRIL Sig: Use 1 [place] in each nostril once daily. TRULANCE 3 MG TABLET 0 04/09/2017 Class: Med Update Route: ORAL Sig: Take 3 mg by mouth once daily. FOLIC ACID 1 MG TABLET 0 04/09/2017 Class: Med Update Route: ORAL Sig: Take 1 tablet by mouth once daily. MELOXICAM 15 MG TABLET 0 04/09/2017 Class: Med Update Route: ORAL Sig: Take 1 tablet by mouth once daily. VENTOLIN HFA 90 MCG/ACTUATION AEROSO* 0 04/09/2017 Class: Med Update Route: INHALATION Sig: Inhale 1 Puff as instructed every 4 hours as needed. CARVEDILOL 25 MG TABLET 0 04/09/2017 Class: Med Update Route: ORAL Sig: Take 1 tablet by mouth twice daily. TIZANIDINE 4 MG TABLET 04/09/2017 Class: Med Update Route: ORAL Sig: Take 1 tablet by mouth twice daily as needed. TAMSULOSIN 0.4 MG CAPSULE 0 04/09/2017 Class: Med Update Route: ORAL Sig: Take 2 capsules by mouth daily at bedtime. LAMOTRIGINE 100 MG TABLET 04/09/2017 Class: Med Update Route: ORAL Sig: Take 1 tablet by mouth twice daily.Medications Discontinued During This Encounter traMADol (ULTRAM) 50 mg tablet 03/25/2017 04/09/2017 Class: Historical Med Sig: Disc: Reason for discontinue is not on file. traZODone (DESYREL) 100 mg tablet 01/06/2017 04/09/2017 Class: Historical Med Sig: Disc: Reason for discontinue is not on file. SYMBICORT 160-4.5 mcg/actuation inha* 03/28/2017 04/09/2017 Class: Historical Med Sig: Disc: Reason for discontinue is not on file. fluticasone (FLONASE) 50 mcg/actuati* 02/06/2017 04/09/2017 Class: Historical Med Sig: Disc: Reason for discontinue is not on file. TRULANCE 3 mg tab 02/12/2017 04/09/2017 Class: Historical Med Sig: Disc: Reason for discontinue is not on file. folic acid 1 mg tablet 04/05/2017 04/09/2017 Class: Historical Med Sig: Disc: Reason for discontinue is not on file. meloxicam (MOBIC) 15 mg tablet 04/04/2017 04/09/2017 Class: Historical Med Sig: Disc: Reason for discontinue is not on file. VENTOLIN HFA 90 mcg/actuation inhaler 03/29/2017 04/09/2017 Class: Historical Med Sig: Disc: Reason for discontinue is not on file. VENTOLIN HFA 90 mcg/actuation inhaler 03/29/2017 04/09/2017 Class: Historical Med Sig: Disc: Reason for discontinue is not on file. meloxicam (MOBIC) 15 mg tablet 04/04/2017 04/09/2017 Class: Historical Med Sig: Disc: Reason for discontinue is not on file. folic acid 1 mg tablet 04/05/2017 04/09/2017 Class: Historical Med Sig: Disc: Reason for discontinue is not on file. TRULANCE 3 mg tab 02/12/2017 04/09/2017 Class: Historical Med Sig: Disc: Reason for discontinue is not on file. fluticasone (FLONASE) 50 mcg/actuati* 02/06/2017 04/09/2017 Class: Historical Med Sig: Disc: Reason for discontinue is not on file. SYMBICORT 160-4.5 mcg/actuation inha* 03/28/2017 04/09/2017 Class: Historical Med Sig: Disc: Reason for discontinue is not on file. carvedilol (COREG) 12.5 mg tablet 03/17/2017 04/09/2017 Class: Historical Med Sig: Disc: Reason for discontinue is not on file. traZODone (DESYREL) 100 mg tablet 01/06/2017 04/09/2017 Class: Historical Med Sig: Disc: Reason for discontinue is not on file. traMADol (ULTRAM) 50 mg tablet 03/25/2017 04/09/2017 Class: Historical Med Sig: Disc: Reason for discontinue is not on file. Status:Closed by YENIFER VILLATORO on 04/09/17 Normal [facility] Vital Signs Date Time Vital Sign Value Performing Clinician Facility 06-16-2024 15:40-0500 Body height 175.3 cm Fernando Moreno DPM Work Phone: [facility] 06-16-2024 15:40-0500 Body mass index (BMI) [Ratio] 31.9 kg/m2 Fernando Moreno DPM Work Phone: [facility] 06-16-2024 15:40-0500 Body weight 97.98 kg Fernando Moreno DPM Work Phone: [facility] 06-16-2024 15:40-0500 Respiratory rate 18 /min Fernando Moreno DPM Work Phone: [facility] 06-16-2024 10:12-0500 Body height 175.3 cm [facility] Work Phone: [facility] 06-16-2024 10:12-0500 Body mass index (BMI) [Ratio] 31.9 kg/m2 [facility] Work Phone: [facility] 06-16-2024 10:12-0500 Body weight 97.98 kg [facility] Work Phone: [facility] 05-25-2024 09:54-0500 Body height 175.3 cm Fernando Brown DPM Work Phone: [facility] 05-25-2024 09:54-0500 Body mass index (BMI) [Ratio] 31.9 kg/m2 Fernando Brown DPM Work Phone: [facility] 05-25-2024 09:54-0500 Body weight 97.98 kg Fernando Brown DPM Work Phone: [facility] 05-25-2024 09:54-0500 Diastolic blood pressure 79 mm[Hg] Fernando Brown DPM Work Phone: [facility] 05-25-2024 09:54-0500 Heart rate 83 /min Fernando Brown DPM Work Phone: [facility] 05-25-2024 09:54-0500 Systolic blood pressure 131 mm[Hg] Fernando Brown DPM Work Phone: [facility] 05-13-2024 15:40-0400 Body height 175.3 cm Fernando Brown DPM Work Phone: [facility] 05-13-2024 15:40-0400 Body mass index (BMI) [Ratio] 31.9 kg/m2 Fernando Brown DPM Work Phone: [facility] 05-13-2024 15:40-0400 Body weight 97.98 kg Fernando Brown DPM Work Phone: [facility] 05-13-2024 15:40-0400 Diastolic blood pressure 82 mm[Hg] Fernando Bucky DPM Work Phone: [facility] 05-13-2024 15:40-0400 Heart rate 85 /min Fernando Bucky DPM Work Phone: [facility] 05-13-2024 15:40-0400 Systolic blood pressure 129 mm[Hg] Fernando Bucky DPM Work Phone: [facility] 05-08-2024 11:23-0400 Body height 175.3 cm Fernando Brown DPM Work Phone: [facility] 05-08-2024 11:23-0400 Body mass index (BMI) [Ratio] 31.9 kg/m2 Fernandophoebe Moreno DPM Work Phone: [facility] 05-08-2024 11:23-0400 Body weight 97.98 kg Fernando Moreno DPM Work Phone: [facility] 05-08-2024 11:23-0400 Diastolic blood pressure 78 mm[Hg] Fernando Moreno DPM Work Phone: [facility] 05-08-2024 11:23-0400 Heart rate 74 /min Fernando Bucky DPM Work Phone: [facility] 05-08-2024 11:23-0400 Respiratory rate 18 /min Fernando Bucky DPM Work Phone: [facility] 05-08-2024 11:23-0400 Systolic blood pressure 125 mm[Hg] Fernando Brown DPM Work Phone: [facility] 04-30-2024 15:09-0400 Body mass index (BMI) [Ratio] 29.01 kg/m2 Linda Regalado [employer] Work Phone: [facility] 04-30-2024 15:09-0400 Body temperature 97.9 [degF] Linda Regalado [employer] Work Phone: [facility] 04-30-2024 15:09-0400 Body weight 91.72 kg Linda Regalado [employer] Work Phone: [facility] 04-30-2024 15:09-0400 Diastolic blood pressure 80 mm[Hg] Linda Regalado [employer] Work Phone: [facility] 04-30-2024 15:09-0400 Heart rate 61 /min Linda Regalado [employer] Work Phone: [facility] 04-30-2024 15:09-0400 SaO2% (BldA) [Mass fraction] 99 % Linda Regalado [employer] Work Phone: [facility] 04-30-2024 15:09-0400 Systolic blood pressure 128 mm[Hg] Linda Regalado [employer] Work Phone: [facility] 04-29-2024 16:54-0400 Body height 175.3 cm Fernando Moreno DPM Work Phone: [facility] 04-29-2024 16:54-0400 Body mass index (BMI) [Ratio] 31.75 kg/m2 Fernando Moreno DPM Work Phone: [facility] 04-29-2024 16:54-0400 Body weight 97.52 kg Fernando Moreno DPM Work Phone: [facility] 04-29-2024 16:54-0400 Diastolic blood pressure 80 mm[Hg] Fernando Moreno DPM Work Phone: [facility] 04-29-2024 16:54-0400 Heart rate 88 /min Fernando Moreno DPM Work Phone: [facility] 04-29-2024 16:54-0400 Systolic blood pressure 129 mm[Hg] Fernando Moreno DPM Work Phone: [facility] 04-24-2024 13:47-0400 Body height 175.3 cm Fernando Brown DPM Work Phone: [facility] 04-24-2024 13:47-0400 Body mass index (BMI) [Ratio] 31.75 kg/m2 Fernando Brown DPM Work Phone: [facility] 04-24-2024 13:47-0400 Body weight 97.52 kg Fernando Brown DPM Work Phone: [facility] 04-24-2024 13:47-0400 Respiratory rate 18 /min Fernando Brown DPM Work Phone: [facility] 04-15-2024 14:15-0400 Body height 175.3 cm Fernando Brown DPM Work Phone: [facility] 04-15-2024 14:15-0400 Body mass index (BMI) [Ratio] 31.75 kg/m2 Fernando Brown DPM Work Phone: [facility] 04-15-2024 14:15-0400 Body weight 97.52 kg Fernando Brown DPM Work Phone: [facility] 04-15-2024 14:15-0400 Diastolic blood pressure 80 mm[Hg] Fernando Brown DPM Work Phone: [facility] 04-15-2024 14:15-0400 Heart rate 75 /min Fernando Brown DPM Work Phone: [facility] 04-15-2024 14:15-0400 Respiratory rate 18 /min Fernando Brown DPM Work Phone: [facility] 04-15-2024 14:15-0400 Systolic blood pressure 123 mm[Hg] Fernando Brown DPM Work Phone: [facility] 03-18-2024 15:12-0400 Body height 175.3 cm Fernando Brown DPM Work Phone: [facility] 03-18-2024 15:12-0400 Body mass index (BMI) [Ratio] 31.75 kg/m2 Fernando Moreno DPM Work Phone: [facility] 03-18-2024 15:12-0400 Body weight 97.52 kg Fernando Bucky DPM Work Phone: [facility] 03-18-2024 15:12-0400 Diastolic blood pressure 80 mm[Hg] Fernando Brown DPM Work Phone: [facility] 03-18-2024 15:12-0400 Heart rate 74 /min Fernando Bucky DPM Work Phone: [facility] 03-18-2024 15:12-0400 Respiratory rate 18 /min Fernando Brown DPM Work Phone: [facility] 03-18-2024 15:12-0400 Systolic blood pressure 123 mm[Hg] Fernando Bucky DPM Work Phone: [facility] 02-20-2024 09:35-0400 Body height 177.8 cm MD Lee Alessandro Work Phone: [facility] 02-20-2024 09:35-0400 Body mass index (BMI) [Ratio] 29 kg/m2 MD Lee Alessandro Work Phone: [facility] 02-20-2024 09:35-0400 Body temperature 97.6 [degF] MD Negar Francois Work Phone: [facility] 02-20-2024 09:35-0400 Body weight 91.62 kg MD Lee Alessandro Work Phone: [facility] 02-20-2024 09:35-0400 Diastolic blood pressure 62 mm[Hg] MD Negar Francois Work Phone: [facility] 02-20-2024 09:35-0400 Heart rate 53 /min MD Negar Francois Work Phone: [facility] 02-20-2024 09:35-0400 Respiratory rate 16 /min MD Negar Francois Work Phone: [facility] 02-20-2024 09:35-0400 SaO2% (BldA) [Mass fraction] 96 % MD Negar Francois Work Phone: [facility] 02-20-2024 09:35-0400 Systolic blood pressure 114 mm[Hg] MD Negar Francois Work Phone: [facility] 12-30-2023 12:51-0400 Diastolic blood pressure 88 mm[Hg] MD Negar Francois Work Phone: [facility] 12-30-2023 12:51-0400 Heart rate 84 /min MD Negar Francois Work Phone: [facility] 12-30-2023 12:51-0400 Respiratory rate 20 /min MD Negar Francois Work Phone: [facility] 12-30-2023 12:51-0400 SaO2% (BldA) [Mass fraction] 98 % MD Negar Francois Work Phone: [facility] 12-30-2023 12:51-0400 Systolic blood pressure 167 mm[Hg] MD Negar Francois Work Phone: [facility] 12-30-2023 07:19-0400 Body height 177.8 cm MD Negar Francois Work Phone: [facility] 12-30-2023 07:19-0400 Body weight 92 kg MD Negar Francois Work Phone: [facility] 12-25-2023 10:07-0400 Body height 177.8 cm MD Negar Francois Work Phone: [facility] 12-25-2023 10:07-0400 Body mass index (BMI) [Ratio] 29.1 kg/m2 MD Negar Francois Work Phone: [facility] 12-25-2023 10:07-0400 Body temperature 98 [degF] MD Negar Francois Work Phone: [facility] 12-25-2023 10:07-0400 Body weight 92.07 kg MD Negar Francois Work Phone: [facility] 12-25-2023 10:07-0400 Diastolic blood pressure 80 mm[Hg] MD Negar Francois Work Phone: [facility] 12-25-2023 10:07-0400 Heart rate 68 /min MD Negar Francois Work Phone: [facility] 12-25-2023 10:07-0400 Respiratory rate 18 /min MD Negar Francois Work Phone: [facility] 12-25-2023 10:07-0400 SaO2% (BldA) [Mass fraction] 96 % MD Negar Francois Work Phone: [facility] 12-25-2023 10:07-0400 Systolic blood pressure 124 mm[Hg] MD Negar Francois Work Phone: [facility] 10-03-2023 15:55-0400 Body height 177.8 cm Linda Regalado [employer] Work Phone: [facility] 10-03-2023 15:55-0400 Body mass index (BMI) [Ratio] 30.28 kg/m2 Linda Regalado [employer] Work Phone: [facility] 10-03-2023 15:55-0400 Body temperature 97.81 [degF] Linda Regalado [employer] Work Phone: [facility] 10-03-2023 15:55-0400 Body weight 95.71 kg Linda Regalado [employer] Work Phone: [facility] 10-03-2023 15:55-0400 Diastolic blood pressure 80 mm[Hg] Linda Regalado [employer] Work Phone: [facility] 10-03-2023 15:55-0400 Heart rate 87 /min Linda Regalado [employer] Work Phone: [facility] 10-03-2023 15:55-0400 SaO2% (BldA) [Mass fraction] 99 % Linda Regalado [employer] Work Phone: [facility] 10-03-2023 15:55-0400 Systolic blood pressure 128 mm[Hg] Linda Regalado [employer] Work Phone: [facility] 10-02-2023 14:38-0400 Body height 177.8 cm Frederic-Adri Vu DO Work Phone: [facility] 10-02-2023 14:38-0400 Body mass index (BMI) [Ratio] 30.99 kg/m2 Frederic-Adri Vu DO Work Phone: [facility] 10-02-2023 14:38-0400 Body temperature 98.49 [degF] Frederic-Adri Vu DO Work Phone: [facility] 10-02-2023 14:38-0400 Body weight 97.98 kg Frederic-Adri Vu DO Work Phone: [facility] 09-05-2023 13:45-0500 Body height 177.8 cm Linda Regalado [employer] Work Phone: [facility] 09-05-2023 13:45-0500 Body mass index (BMI) [Ratio] 30.99 kg/m2 Linda Regalado [employer] Work Phone: [facility] 09-05-2023 13:45-0500 Body temperature 98.4 [degF] Linda Regalado [employer] Work Phone: [facility] 09-05-2023 13:45-0500 Body weight 97.98 kg Linda Regalado [employer] Work Phone: [facility] 09-05-2023 13:45-0500 Diastolic blood pressure 78 mm[Hg] Linda Regalado [employer] Work Phone: [facility] 09-05-2023 13:45-0500 Heart rate 83 /min Linda Regalado [employer] Work Phone: [facility] 09-05-2023 13:45-0500 SaO2% (BldA) [Mass fraction] 94 % Linda Regalado [employer] Work Phone: [facility] 09-05-2023 13:45-0500 Systolic blood pressure 128 mm[Hg] Linda Regalado [employer] Work Phone: [facility] 08-21-2023 09:46-0500 Body mass index (BMI) [Ratio] 30.85 kg/m2 Marii Delatorre MD Work Phone: [facility] 08-21-2023 09:46-0500 Body weight 97.52 kg Marii Delatorre MD Work Phone: [facility] 08-20-2023 10:37-0500 Body height 177.8 cm Negar Francois MD Work Phone: [facility] 08-20-2023 10:37-0500 Body mass index (BMI) [Ratio] 30.99 kg/m2 Negar Francois MD Work Phone: [facility] 08-20-2023 10:37-0500 Body temperature 98.1 [degF] Negar Francois MD Work Phone: [facility] 08-20-2023 10:37-0500 Body weight 97.98 kg Negar Francois MD Work Phone: [facility] 08-20-2023 10:37-0500 Diastolic blood pressure 74 mm[Hg] Negar Francois MD Work Phone: [facility] 08-20-2023 10:37-0500 Heart rate 92 /min Negar Francois MD Work Phone: [facility] 08-20-2023 10:37-0500 SaO2% (BldA) [Mass fraction] 98 % Negar Francois MD Work Phone: [facility] 08-20-2023 10:37-0500 Systolic blood pressure 124 mm[Hg] Negar Francois MD Work Phone: [facility] 08-09-2023 13:32-0500 Body mass index (BMI) [Ratio] 30.53 kg/m2 Negar Francois MD Work Phone: [facility] 08-09-2023 13:32-0500 Body temperature 97.5 [degF] Negar Francois MD Work Phone: [facility] 08-09-2023 13:32-0500 Body weight 96.53 kg Negar Francois MD Work Phone: [facility] 08-09-2023 13:32-0500 Diastolic blood pressure 60 mm[Hg] Negar Francois MD Work Phone: [facility] 08-09-2023 13:32-0500 Heart rate 52 /min Negar Francois MD Work Phone: [facility] 08-09-2023 13:32-0500 SaO2% (BldA) [Mass fraction] 96 % Negar Francois MD Work Phone: [facility] 08-09-2023 13:32-0500 Systolic blood pressure 104 mm[Hg] Negar Francois MD Work Phone: [facility] 07-19-2023 10:20-0500 Body height 177.8 cm Shamar Xiao MD Work Phone: [facility] 07-19-2023 10:20-0500 Body mass index (BMI) [Ratio] 29.41 kg/m2 Shamar Xiao MD Work Phone: [facility] [employer] [facility] 07-19-2023 10:20-0500 Body weight 92.99 kg Shamar Xiao MD Work Phone: [facility] [employer] [facility] 07-19-2023 10:20-0500 Diastolic blood pressure 86 mm[Hg] Shamar Xiao MD Work Phone: [facility] [employer] [facility] 07-19-2023 10:20-0500 Heart rate 97 /min Shamar Xiao MD Work Phone: [facility] 07-19-2023 10:20-0500 SaO2% (BldA) [Mass fraction] 99 % Shamar Xiao MD Work Phone: [facility] [employer] [facility] 07-19-2023 10:20-0500 Systolic blood pressure 130 mm[Hg] Shamar Xiao MD Work Phone: [facility] 07-16-2023 13:09-0500 Body height 177.8 cm Negar Francois MD Work Phone: [facility] 07-16-2023 13:09-0500 Body mass index (BMI) [Ratio] 29.87 kg/m2 Negar Francois MD Work Phone: [facility] 07-16-2023 13:09-0500 Body temperature 98.1 [degF] Negar Francois MD Work Phone: [facility] 07-16-2023 13:09-0500 Body weight 94.44 kg Negar Francois MD Work Phone: [facility] 07-16-2023 13:09-0500 Diastolic blood pressure 88 mm[Hg] Negar Francois MD Work Phone: [facility] 07-16-2023 13:09-0500 Heart rate 97 /min Negar Francois MD Work Phone: [facility] 07-16-2023 13:09-0500 SaO2% (BldA) [Mass fraction] 99 % Negar Francois MD Work Phone: [employer] 07-16-2023 13:09-0500 Systolic blood pressure 138 mm[Hg] Negar Francois MD Work Phone: [employer] 07-10-2023 08:05-0500 Body height 177.8 cm Frederic-Adri Vu DO Work Phone: [employer] 07-10-2023 08:05-0500 Body mass index (BMI) [Ratio] 30.56 kg/m2 Frederic-Adri Vu DO Work Phone: [employer] 07-10-2023 08:05-0500 Body temperature 98.01 [degF] Frederic-Adri Vu DO Work Phone: [employer] 07-10-2023 08:05-0500 Body weight 96.62 kg Frederic-Adri Vu DO Work Phone: [employer] 06-26-2023 08:45-0500 Body height 177.8 cm Angel Meléndez Other [facility] Other 06-26-2023 08:45-0500 Body mass index (BMI) [Ratio] 27.4 kg/m2 Angel Meléndez Other [facility] Other 06-26-2023 08:45-0500 Body temperature 97.8 [degF] Angel Meléndez Other [facility] Other 06-26-2023 08:45-0500 Body weight 86.64 kg Angel Meléndez Other [facility] Other 06-26-2023 08:45-0500 Diastolic blood pressure 68 mm[Hg] nAgel Meléndez Other [facility] Other 06-26-2023 08:45-0500 SaO2% (BldA) [Mass fraction] 98 % Angel Meléndez Other [facility] Other 06-26-2023 08:45-0500 Systolic blood pressure 124 mm[Hg] Angel Meléndez Other [facility] Other 05-09-2023 10:15-0400 Body height 177.8 cm Angel Meléndez Other [facility] Other 05-09-2023 10:15-0400 Body mass index (BMI) [Ratio] 27.4 kg/m2 Angel Meléndez Other [facility] Other 05-09-2023 10:15-0400 Body temperature 97.3 [degF] Angel Meléndez Other [facility] Other 05-09-2023 10:15-0400 Body weight 86.64 kg Angel Rika Other [facility] Other 05-09-2023 10:15-0400 Diastolic blood pressure 62 mm[Hg] Angel Meléndez Other [facility] Other 05-09-2023 10:15-0400 SaO2% (BldA) [Mass fraction] 97 % Angel Meléndez Other [facility] Other 05-09-2023 10:15-0400 Systolic blood pressure 124 mm[Hg] Angel Meléndez Other [facility] Other 04-16-2023 17:30-0400 Diastolic blood pressure 89 mm[Hg] [facility] Work Phone: [facility] 04-16-2023 17:30-0400 Heart rate 87 /min [facility] Work Phone: [facility] 04-16-2023 17:30-0400 Respiratory rate 16 /min [facility] Work Phone: [facility] 04-16-2023 17:30-0400 SaO2% (BldA) [Mass fraction] 99 % [facility] Work Phone: [facility] 04-16-2023 17:30-0400 Systolic blood pressure 164 mm[Hg] [facility] Work Phone: [facility] 04-16-2023 13:38-0400 Body height 177.8 cm [facility] Work Phone: [facility] 04-16-2023 13:38-0400 Body weight 88.45 kg [facility] Work Phone: [facility] 04-09-2023 13:49-0400 Body height 177.8 cm [facility] Work Phone: [facility] 04-09-2023 13:49-0400 Body weight 86.18 kg [facility] Work Phone: [facility] 04-09-2023 13:49-0400 Diastolic blood pressure 89 mm[Hg] [facility] Work Phone: [facility] 04-09-2023 13:49-0400 Heart rate 82 /min [facility] Work Phone: [facility] 04-09-2023 13:49-0400 Respiratory rate 16 /min [facility] Work Phone: [facility] 04-09-2023 13:49-0400 SaO2% (BldA) [Mass fraction] 98 % [facility] Work Phone: [facility] 04-09-2023 13:49-0400 Systolic blood pressure 154 mm[Hg] [facility] Work Phone: [facility] 04-03-2023 09:45-0400 Body height 177.8 cm Angel Meléndez Other [facility] Other 04-03-2023 09:45-0400 Body mass index (BMI) [Ratio] 27.4 kg/m2 Angel Meléndez Other [facility] Other 04-03-2023 09:45-0400 Body temperature 97.8 [degF] Angel Meléndez Other [facility] Other 04-03-2023 09:45-0400 Body weight 86.64 kg Angel Meléndez Other [facility] Other 04-03-2023 09:45-0400 Diastolic blood pressure 78 mm[Hg] Angel Meléndez Other modu Other 04-03-2023 09:45-0400 SaO2% (BldA) [Mass fraction] 98 % Angel Meléndez Other modu Other 04-03-2023 09:45-0400 Systolic blood pressure 132 mm[Hg] Angel Meléndez Other modu Other 03-07-2023 13:00-0400 Body height 177.8 cm Angel Meléndez Other modu Other 03-07-2023 13:00-0400 Body mass index (BMI) [Ratio] 27.4 kg/m2 Angel Meléndez Other modu Other 03-07-2023 13:00-0400 Body temperature 97.6 [degF] Angel Meléndez Other modu Other 03-07-2023 13:00-0400 Body weight 86.64 kg Angel Ortegarosio Other modu Other 03-07-2023 13:00-0400 Diastolic blood pressure 72 mm[Hg] Angel Rika Other modu Other 03-07-2023 13:00-0400 SaO2% (BldA) [Mass fraction] 98 % Angel Ortegarosio Other modu Other 03-07-2023 13:00-0400 Systolic blood pressure 132 mm[Hg] Angel Ortegarosio Other modu Other 02-21-2023 09:15-0400 Body height 177.8 cm Ashia Pereyrasakina Other modu Other 02-21-2023 09:15-0400 Body mass index (BMI) [Ratio] 27.4 kg/m2 Ashia Pereyrasakina Other modu Other 02-21-2023 09:15-0400 Body temperature 97.8 [degF] Ashia Pereyrasakina Other modu Other 02-21-2023 09:15-0400 Body weight 86.64 kg Ashia Pereyrasakina Other modu Other 02-21-2023 09:15-0400 Diastolic blood pressure 68 mm[Hg] Ashia Светлана Other modu Other 02-21-2023 09:15-0400 SaO2% (BldA) [Mass fraction] 98 % Ashia Sotomayor Other modu Other 02-21-2023 09:15-0400 Systolic blood pressure 118 mm[Hg] Ashia Fisho Other modu Other 01-09-2023 11:15-0400 Body height 177.8 cm Ashia Sotomayor Other modu Other 01-09-2023 11:15-0400 Body mass index (BMI) [Ratio] 27.4 kg/m2 Ashia Sotomayor Other modu Other 01-09-2023 11:15-0400 Body temperature 96.5 [degF] Ashia Sotomayor Other modu Other 01-09-2023 11:15-0400 Body weight 86.64 kg Ashia Sotoamyor Other modu Other 01-09-2023 11:15-0400 Diastolic blood pressure 80 mm[Hg] Ashia Fisho Other modu Other 01-09-2023 11:15-0400 SaO2% (BldA) [Mass fraction] 98 % Ashia Fisho Other modu Other 01-09-2023 11:15-0400 Systolic blood pressure 150 mm[Hg] Ashia Fisho Other modu Other 12-19-2022 09:45-0400 Body height 177.8 cm Angel Meléndez Other modu Other 12-19-2022 09:45-0400 Body mass index (BMI) [Ratio] 27.4 kg/m2 Angel Rika Other modu Other 12-19-2022 09:45-0400 Body temperature 96.7 [degF] Angel Meléndez Other modu Other 12-19-2022 09:45-0400 Body weight 86.64 kg Angel Rika Other modu Other 12-19-2022 09:45-0400 Diastolic blood pressure 66 mm[Hg] Angel Meléndez Other modu Other 12-19-2022 09:45-0400 SaO2% (BldA) [Mass fraction] 99 % Angel Meléndez Other modu Other 12-19-2022 09:45-0400 Systolic blood pressure 124 mm[Hg] Angel Meléndez Other modu Other 08-07-2022 11:20-0500 Body height 177.8 cm Sharda Reza Other modu Other 08-07-2022 11:20-0500 Body mass index (BMI) [Ratio] 30.13 kg/m2 Sharda Reza Other modu Other 08-07-2022 11:20-0500 Body weight 95.26 kg Sharda Reza Other modu Other 01-12-2022 14:34-0400 Body height 185.42 cm [facility] Work Phone: [facility] 01-12-2022 14:34-0400 Body weight 91.62 kg Services [facility] Work Phone: [facility] Encounters Encounter Date Encounter Type Care Provider Facility Start: 06-30-2024 End: 06-30-2024 ambulatory Roxana Cabrales Facility:[facility] Start: 06-23-2024 End: 06-24-2024 Refill Marii Delatorre MD Work Phone: [facility] Comment on above: Lumbar radiculopathy Start: 06-19-2024 End: 06-19-2024 ambulatory Johnny Bettencourt Facility:[facility] Start: 06-17-2024 End: 06-17-2024 Orders Only Linda Regalado [employer] Work Phone: [facility] Comment on above: Encounter for screen ing for malignant neoplasm of colon (Primary Dx) Results Start: 06-16-2024 End: 06-16-2024 Patient encounter procedure Fernando Moreno DPM Work Phone: [facility] Comment on above: Type 2 diabetes damon itus without complication, unspecified whether intermediate insulin use (CMS/[facility]) (Primary Dx); Foot ulcer, left, with fat layer exposed (CMS/HCC) Start: 06-16-2024 End: 06-16-2024 ambulatory FERNANDO MORENO Not Available Start: 06-16-2024 End: 06-16-2024 Patient encounter procedure Harry GOVEA Work Phone: [facility] Comment on above: Traumatic closed fra cture of distal clavicle with minimal displacement, left, initial encounter (Primary Dx); Pain of left clavicle Start: 06-16-2024 End: 06-16-2024 ambulatory HARRY RUSSO Not Available Start: 06-10-2024 End: 06-10-2024 Orders Only Linda Regalado [employer] Work Phone: [facility] Comment on above: Closed nondisplaced fracture of left clavicle, unspecified part of clavicle, initial encounter (Primary Dx); Fall, subsequent encounter; Closed displaced fracture of shaft of left clavicle, sequela Start: 06-09-2024 End: 06-10-2024 Telephone encounter Yuki Schroeder CMA [facility] Start: 06-07-2024 End: 06-07-2024 Emergency department patient visit Carol Marin Facility:[facility] Start: 06-05-2024 End: 06-05-2024 [facility] Start: 06-02-2024 End: 06-02-2024 ambulatory Roxana Jeevan Cabrales Facility:[facility] Start: 06-01-2024 End: 06-01-2024 Telephone encounter Kimmie Amezquita RN [facility] Start: 05-30-2024 End: 06-01-2024 Refill Brisa Yan DO Work Phone: [facility] Comment on above: COPD, mild (CMS-HCC) ; Dyspnea on exertion Start: 05-29-2024 End: 05-29-2024 ambulatory Johnny Elkin Bettencourt Facility:[facility] Start: 05-27-2024 End: 05-27-2024 Telephone encounter Jr. Cara Slater DO Work Phone: [facility] Comment on above: EMG Start: 05-25-2024 End: 05-25-2024 Bamboo flowsheet Fernando Moreno DPM Work Phone: [facility] Start: 05-25-2024 End: 05-25-2024 Bamboo flowsheet Fernando Moreno DPM Work Phone: [facility] Start: 05-25-2024 End: 05-25-2024 Patient encounter procedure Fernando Moreno DPM Work Phone: [facility] Comment on above: Foot ulcer, left, wi th fat layer exposed (CMS/HCC) (Primary Dx); Type 2 diabetes mellitus without complication, 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 renewal inspector insulin use (CMS/HCC) Start: 05-25-2024 End: 05-25-2024 ambulatory FERNANDO MORENO Not Available Start: 05-22-2024 End: 05-22-2024 ambulatory Negar Francois MD Facility:[facility] Start: 05-21-2024 End: 05-21-2024 ambulatory LINDA REGALADO [facility] Start: 05-18-2024 End: 05-18-2024 Orders Only Linda Regalado [employer] Work Phone: [facility] Start: 05-14-2024 End: 05-14-2024 ambulatory Negar Francois MD Facility:[facility] Start: 05-14-2024 End: 05-18-2024 ambulatory Negar Francois MD Facility:[facility] Start: 05-13-2024 End: 05-13-2024 Office outpatient visit 15 minutes Fernando Moreno DPM Work Phone: [facility] Comment on above: Peroneal tendon tear , left, initial encounter (Primary Dx); Onychocryptosis; Toe pain, right; Foot ulcer, left, with fat layer exposed (CMS/HCC); Cellulitis of left foot Start: 05-13-2024 End: 05-13-2024 ambulatory FERNANDO MORENO Not Available Start: 05-13-2024 End: 05-13-2024 Bamboo flowsheet Fernando Moreno DPM Work Phone: [facility] Start: 05-13-2024 End: 05-13-2024 Bamboo flowsheet Fernando Moreno DPM Work Phone: [facility] Start: 05-08-2024 End: 05-08-2024 Bamboo flowsheet Fernando Moreno DPM Work Phone: [facility] Start: 05-08-2024 End: 05-08-2024 Bamboo flowsheet Fernando Moreno DPM Work Phone: [facility] Start: 05-08-2024 End: 05-08-2024 Patient encounter procedure Fernando Moreno DPM Work Phone: [facility] Comment on above: Pain due to onychomy cosis of toenails of both feet (Primary Dx); Type 2 diabetes mellitus without complication, unspecified whether intermediate insulin use ([facility]) Start: 05-08-2024 End: 05-08-2024 ambulatory FERNANDO MORENO Not Available Start: 04-30-2024 End: 04-30-2024 ambulatory [facility] Start: 04-30-2024 Encounter for genera l adult medical examination without abnormal findings [facility] Start: 04-30-2024 End: 04-30-2024 Patient encounter procedure Linda Regalado [employer] Work Phone: [facility] Comment on above: Medicare annual well ness visit, subsequent (Primary Dx); Encounter for lipid screening for cardiovascular disease; Encounter for screening for malignant neoplasm of prostate; Encounter for screening for malignant neoplasm of colon; 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; Presence of coronary angioplasty implant and graft; Essential hypertension; Mixed hyperlipidemia; Bipolar depression (CMS-HCC); Chronic fatigue; Cervical spondylosis without myelopathy; Chronic left-sided low back pain with left-sided sciatica; Vitamin D deficiency; Need for hepatitis C screening test; Other hyperlipidemia; Need for prophylactic vaccination and inoculation against influenza; Routine general medical examination at a health care facility; Disease of cardiovascular system; Lumbar radiculopathy Start: 04-30-2024 End: 04-30-2024 Patient encounter status Linda Regalado [employer] Work Phone: [facility] Start: 04-30-2024 End: 04-30-2024 ambulatory [facility] Start: 04-30-2024 Encounter for genera l adult medical examination without abnormal findings [facility] Start: 04-29-2024 End: 04-29-2024 Office outpatient visit 15 minutes Fernando Moreno DPM Work Phone: [facility] Comment on above: Onychocryptosis (Ines rogerio Dx); Toe pain, right; Peroneal tendon tear, left, initial encounter; Type 2 diabetes mellitus without complication, 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 renewal inspector insulin use ([facility]); Contracture of left ankle Start: 04-29-2024 End: 04-29-2024 ambulatory FERNANDO MORENO Not Available Start: 04-29-2024 End: 04-29-2024 Bamboo flowsheet Fernando Darling Bucky DPM Work Phone: [facility] Start: 04-29-2024 End: 04-29-2024 Bamboo flowsheet Fernando Darling Brown DPM Work Phone: [facility] Start: 04-24-2024 End: 04-24-2024 Bamboo flowsheet Fernando A Brown DPM Work Phone: [facility] Start: 04-24-2024 End: 04-24-2024 Bamboo flowsheet Fernando Darling Brown DPM Work Phone: [facility] Start: 04-24-2024 End: 04-24-2024 ambulatory FERNANDO MORENO Not Available Start: 04-24-2024 End: 04-24-2024 Office outpatient visit 15 minutes Fernando Darling Bucky DPM Work Phone: [facility] Comment on above: Onychocryptosis (Ines rogerio Dx); Toe pain, right; Peroneal tendon tear, left, initial encounter; Type 2 diabetes mellitus without complication, unspecified whether intermediate insulin use ([facility]) Start: 04-23-2024 End: 04-23-2024 Orders Only Negar Francois MD Work Phone: [facility] Start: 04-22-2024 End: 04-22-2024 Bamboo flowsheet Jr. Cara Adams Stepjeff DO Work Phone: [facility] Start: 04-22-2024 End: 04-22-2024 Bamboo flowsheet Jr. Cara Aadms Stepjeff DO Work Phone: [facility] Start: 04-22-2024 End: 04-22-2024 Office outpatient visit 25 minutes Jr. Cara Adams Stepjeff DO Work Phone: [facility] Comment on above: Lumbar radiculopathy (Primary Dx) Start: 04-22-2024 End: 04-22-2024 ambulatory CARA BRYANT Not Available Start: 04-15-2024 End: 04-15-2024 Postop follow up visit related to original px Fernando Moreno DPM Work Phone: [facility] Comment on above: Peroneal tendon tear , left, initial encounter (Primary Dx); Onychocryptosis; Toe pain, right; Type 2 diabetes mellitus without complication, unspecified whether intermediate insulin use ([facility]) Start: 04-15-2024 End: 04-15-2024 ambulatory FERNANDO MORENO Not Available Start: 04-15-2024 End: 04-15-2024 Bamboo flowsheet Fernando Moreno DPM Work Phone: [facility] Start: 04-15-2024 End: 04-15-2024 Bamboo flowsheet Fernando Moreno DPM Work Phone: [facility] Start: 03-27-2024 End: 03-27-2024 ambulatory [facility] Start: 03-25-2024 End: 03-25-2024 ambulatory [facility] Start: 03-18-2024 End: 03-18-2024 Office outpatient visit 25 minutes Fernando Moreno DPM Work Phone: [facility] Comment on above: Peroneal tendon tear , left, initial encounter (Primary Dx); Onychocryptosis; Toe pain, right; Contracture of left ankle; Type 2 diabetes mellitus without complication, unspecified whether intermediate insulin use ([facility]) Start: 03-18-2024 End: 03-18-2024 ambulatory FERNANDO MORENO Not Available Start: 03-18-2024 End: 03-18-2024 Bamboo flowsheet Fernando Moreno DPM Work Phone: [facility] Start: 03-18-2024 End: 03-18-2024 Bamboo flowsheet Fernando Moreno DPM Work Phone: [facility] Start: 03-12-2024 End: 03-12-2024 ambulatory BRISA Chew [facility] Start: 03-09-2024 End: 03-09-2024 ambulatory Negar Francois MD Facility:[facility] Start: 03-04-2024 End: 03-04-2024 ambulatory [facility] Start: 03-03-2024 End: 03-03-2024 ambulatory [facility] Start: 02-28-2024 End: 02-28-2024 ambulatory FERNANDO MORENO Not Available Start: 02-27-2024 End: 02-27-2024 ambulatory ANGEL Golden [facility] Start: 02-26-2024 End: 02-26-2024 ambulatory Z[facility] Start: 02-21-2024 End: 02-21-2024 ambulatory [facility] Start: 02-20-2024 End: 02-20-2024 ambulatory MD Negar Francois Work Phone: [facility] Work Phone: Start: 02-20-2024 End: 02-20-2024 Patient encounter procedure MD Negar Francois Work Phone: [facility] Vascular Surgery Work Phone: Start: 02-13-2024 End: 02-13-2024 ambulatory [facility] Start: 02-10-2024 End: 02-10-2024 ambulatory FERNANDO MORENO Not Available Start: 02-06-2024 End: 02-06-2024 ambulatory SNOW CHUNG Not Available Start: 02-06-2024 Patient encounter status Chauncey Moreno DPM Work Phone: [facility] Start: 02-04-2024 End: 02-04-2024 Patient encounter procedure MD Negar Francois Work Phone: [facility]MRI [address] Work Phone: Start: 02-04-2024 End: 02-04-2024 ambulatory MD Negar Francois Work Phone: [facility] Work Phone: Start: 01-28-2024 End: 01-28-2024 ambulatory Negar Francois MD Facility:[facility] Start: 01-08-2024 ambulatory NEGAR FRANCOIS [facility] Start: 01-08-2024 End: 01-08-2024 ambulatory [facility] Start: 12-31-2023 End: 12-31-2023 ambulatory [facility] Start: 12-30-2023 Non-patient / Non-visit MD Khoi Francois Work Phone: [facility] Vascular Surgery Work Phone: Start: 12-30-2023 End: 12-30-2023 Admission to same day surgery center MD Negar Francois Work Phone: [facility]-Interventional Radiology Work Phone: Start: 12-30-2023 End: 12-30-2023 ambulatory MD Negar Francois Work Phone: [facility] Work Phone: Start: 12-27-2023 End: 12-27-2023 ambulatory CARA BRYANT Not Available Start: 12-25-2023 End: 12-25-2023 Patient encounter procedure MD Negar Francois Work Phone: [facility] Vascular Surgery Work Phone: Start: 12-24-2023 End: 12-24-2023 ambulatory FERNANDO MORENO Not Available Start: 12-20-2023 End: 12-20-2023 ambulatory [facility] Start: 12-12-2023 End: 12-12-2023 ambulatory CARA BRYANT Not Available Start: 12-10-2023 End: 12-10-2023 ambulatory FERNANDO MORENO Not Available Start: 12-05-2023 ambulatory MARCELINA STERLING [facility] Start: 12-04-2023 End: 12-04-2023 ambulatory [facility] Start: 12-03-2023 End: 12-03-2023 ambulatory DAVID [facility] Start: 12-02-2023 End: 12-02-2023 ambulatory Negar Francois MD Facility:[facility] Start: 11-27-2023 End: 11-27-2023 ambulatory SNOW CHUNG Not Available Start: 11-22-2023 End: 11-22-2023 ambulatory CARA BRYANT Not Available Start: 11-19-2023 End: 11-19-2023 ambulatory FERNANDO MORENO Not Available Start: 11-15-2023 End: 11-15-2023 Patient encounter procedure MD Negar Francois Work Phone: [facility]-Ultrasound [facility] [place] Work Phone: Start: 11-15-2023 End: 11-15-2023 ambulatory MD Negar Francois Work Phone: [facility] Work Phone: Start: 11-14-2023 End: 11-14-2023 ambulatory [facility] Start: 11-13-2023 End: 11-13-[address] [facility] [place] Start: 11-06-2023 End: 11-06-2023 ambulatory GISELA L JANIS Not Available Start: 11-01-2023 End: 11-01-2023 ambulatory [facility] Start: 11-01-2023 End: 11-01-[address] [facility] [place] Start: 10-30-2023 End: 10-30-2023 [facility] Start: 10-29-2023 End: 10-30-2023 ambulatory HARIS STEWARD [facility] Start: 10-28-2023 End: 10-28-2023 ambulatory FERNANDO MORENO Not Available Start: 10-17-2023 End: 10-17-2023 ambulatory SNOW Chew DONNSILVINAMarc Not Available Start: 10-16-2023 End: 10-16-2023 ambulatory [facility] Start: 10-11-2023 End: 10-11-2023 ambulatory CARA BRYANT Not Available Start: 10-04-2023 End: 10-04-2023 ambulatory MARII DELATORRE Not Available Start: 10-03-2023 End: 10-03-2023 Office outpatient visit 10 minutes [facility] [employer] [facility] Comment on above: Chest tightness (Ines rogerio Dx); Exertional shortness of breath; 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 Start: 10-03-2023 End: 10-03-2023 ambulatory [facility] Start: 10-02-2023 End: 10-02-2023 Patient encounter procedure [facility] DO Work Phone: [facility] Comment on above: Sensorineural hearin g loss (SNHL) of right ear with restricted hearing of left ear (Primary Dx); Asymmetrical hearing loss; Right-sided tinnitus; 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[facility]); Sensation of fullness in ear, right Start: 10-02-2023 End: 10-02-2023 Clinical Support Sharda FINCH Work Phone: [facility] Comment on above: Right-sided tinnitus (Primary Dx); Sensorineural hearing loss, bilateral Start: 09-30-2023 End: 09-30-2023 ambulatory CARA BRYANT Not Available Start: 09-26-2023 End: 09-26-2023 ambulatory CARA BRYANT Not Available Start: 09-24-2023 End: 09-24-2023 ambulatory MARII DELATORRE Not Available Start: 09-19-2023 End: 09-19-2023 Patient encounter procedure MD Negar Francois Work Phone: [facility]-MRI Main [place] Work Phone: Start: 09-19-2023 End: 09-19-2023 ambulatory Negar Francois Facility:[facility] Start: 09-16-2023 End: 09-16-2023 ambulatory CARA BRYANT Not Available Start: 09-13-2023 End: 09-13-2023 ambulatory FERNANDO MORENO Not Available Start: 09-09-2023 End: 09-09-2023 ambulatory CONY BRYANT Not Available Start: 09-06-2023 End: 09-06-2023 [facility] Start: 09-05-2023 End: 09-05-2023 Office outpatient visit 10 minutes Linda Regalado SHANNON Work Phone: [facility] Comment on above: Diuresis (Primary Dx ); Pedal edema; Acute on chronic systolic congestive heart failure ([facility]) Start: 09-05-2023 End: 09-05-2023 ambulatory [facility] Start: 08-30-2023 End: 08-30-2023 ambulatory [facility] Start: 08-27-2023 End: 08-27-2023 ambulatory Negar Francois MD Facility:[facility] Start: 08-22-2023 End: 08-22-2023 ambulatory Juarez Thrasher PT [facility] Comment on above: Acute pain of left k nee (Primary Dx); Foot drop, left foot Start: 08-21-2023 End: 08-21-2023 Office outpatient visit 25 minutes Marii Delatorre MD Work Phone: [facility] Comment on above: Lumbar radiculopathy (Primary Dx); Right foot drop; Weakness; History of stroke; Cervical paraspinal muscle spasm; Brachial plexopathy; C7 radiculopathy; Carpal tunnel syndrome, bilateral Start: 08-21-2023 End: 08-21-2023 ambulatory MARII DELATORRE Not Available Start: 08-20-2023 Chart abstracting Marii vela MD Work Phone: [id number] Start: 08-20-2023 End: 08-20-2023 Office outpatient visit 25 minutes Negar Francois MD Work Phone: [facility] Comment on above: Cardiac risk senior counsel ing (Primary Dx); History of tobacco use; 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; Pedal edema Start: 08-20-2023 End: 08-20-2023 [facility] Start: 08-16-2023 End: 08-16-2023 ambulatory Negar Francois MD Facility:[facility] Start: 08-15-2023 Bamboo flowsheet Juarezjasbir TalbotPrice PT [facility] Start: 08-15-2023 Bamboo flowsheet Juarez [place] PT [facility] Start: 08-15-2023 End: 08-15-2023 ambulatory Juarez Price PT [facility] Comment on above: Acute pain of left k nee (Primary Dx); Foot drop, left foot Start: 08-10-2023 End: 08-10-2023 ambulatory Negar Francois MD Facility:[facility] Start: 08-09-2023 End: 08-09-2023 Office outpatient visit 25 minutes Negar Francois MD Work Phone: [facility] Comment on above: Cervicalgia (Primary Dx); Weakness of both hands; Polymyalgia rheumatica ([facility]); Acute left ankle pain Start: 08-09-2023 End: 08-09-2023 ambulatory NEGAR FRANCOIS [facility] Start: 08-07-2023 End: 08-07-2023 ambulatory MARII DELATORRE Not Available Start: 08-05-2023 End: 08-05-2023 ambulatory CARA BRYANT Not Available Start: 07-30-2023 End: 07-30-2023 ambulatory Negar Francois MD Facility:[facility] Start: 07-22-2023 End: 07-22-2023 ambulatory [facility] Start: 07-19-2023 End: 07-19-2023 Office outpatient visit 25 minutes Shamar Xiao MD Work Phone: [facility] Comment on above: Presence of coronary angioplasty implant and graft (Primary Dx); Peripheral vascular disease ([facility]); Essential hypertension; Dyspnea on exertion; Preop cardiovascular exam Start: 07-19-2023 End: 07-19-2023 Patient encounter status Shamar Xiao MD Work Phone: [facility] Start: 07-19-2023 End: 07-19-2023 ambulatory [facility] Start: 07-19-2023 Encounter for preprocedural cardiovascular examination [facility] Start: 07-18-2023 [facility] Start: 07-16-2023 Telephone encounter Susan khan RN Work Phone: [facility] Start: 07-16-2023 End: 07-16-2023 ambulatory [facility] Jeevan [facility] Start: 07-16-2023 End: 07-16-2023 Office outpatient visit 25 minutes Negar Francois MD Work Phone: [facility] Comment on above: Cardiac risk senior counsel ing (Primary Dx); Peripheral vascular disease ([facility]); Eyelid drooping disease, bilateral Start: 07-10-2023 End: 07-10-2023 Patient encounter procedure [facility] DO Work Phone: [facility] Comment on above: 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); Tinnitus of both ears; Post-nasal drainage; Chronic cough; Former smoker Start: 07-10-2023 End: 07-10-2023 ambulatory [facility] Start: 07-09-2023 End: 07-09-2023 ambulatory Negar Francois MD Facility:[facility] Start: 07-04-2023 End: 07-04-2023 ambulatory BRISA Chew [facility] Start: 07-03-2023 End: 07-03-2023 ambulatory SNOW CHUNG Not Available Start: 07-02-2023 End: 07-02-2023 ambulatory NEGAR FRANCOIS [facility] Start: 07-01-2023 End: 07-01-2023 ambulatory Champ Jhaveri Other modu Other Start: 07-01-2023 Telephone encounter Champ Jhaveri [facility] Start: 06-26-2023 End: 06-26-2023 ambulatory Angel Meléndez Other modu Other Start: 06-26-2023 Office outpatient vi sit 15 minutes Angel Meléndez [facility] Vascular Surgery Start: 06-24-2023 End: 06-24-2023 ambulatory FERNANDO MORENO Not Available Start: 05-09-2023 Office outpatient vi sit 15 minutes Angel Meléndez [facility] Vascular Surgery Start: 05-09-2023 End: 05-09-2023 ambulatory Services Rolith Work Phone: modu Other Start: 05-09-2023 End: 05-09-2023 Patient encounter procedure [facility] Work Phone: [facility]Ultrasound [facility] V[facility] Start: 04-16-2023 End: 04-16-2023 Admission to same day surgery center Services [facility] Work Phone: [facility]-Interventional Radiology Work Phone: Start: 04-16-2023 End: 04-16-2023 ambulatory Services Rolith Work Phone: [facility] Work Phone: Start: 04-09-2023 End: 04-09-2023 Admission to same day surgery center Services [facility] Work Phone: [facility]-Interventional Radiology Work Phone: Start: 04-09-2023 End: 04-09-2023 ambulatory [facility] Work Phone: [facility] Work Phone: Start: 04-03-2023 End: 04-03-2023 ambulatory Angel Meléndez Other modu Other Start: 04-03-2023 Office outpatient vi sit 15 minutes Angel Meléndez [facility] Start: 03-25-2023 End: 03-25-2023 ambulatory Services [facility] Work Phone: [facility] Work Phone: Start: 03-25-2023 End: 03-25-2023 Patient encounter procedure Services [facility] Work Phone: [facility]Ultrasound [facility] Work Phone: Start: 03-07-2023 End: 03-07-2023 ambulatory Angel Meléndez Other modu Other Start: 03-07-2023 Office outpatient vi sit 25 minutes Angel Meléndez [facility] Start: 03-04-2023 End: 03-04-2023 ambulatory [facility] Work Phone: [facility] Work Phone: Start: 03-04-2023 End: 03-04-2023 Patient encounter procedure Services [facility] Work Phone: [facility] Work Phone: Start: 02-21-2023 End: 02-21-2023 ambulatory Ashia Sotomayor Other modu Other Start: 02-21-2023 Patient encounter procedure Ashia Sotomayor [facility] Start: 01-09-2023 End: 01-09-2023 ambulatory Ashia Sotomayor Other modu Other Start: 01-09-2023 End: 01-09-2023 Patient encounter procedure Ashia Sotomayor [facility] Vascular Surgery Start: 12-28-2022 End: 12-28-2022 ambulatory Services Rolith Work Phone: [facility] Work Phone: Start: 12-28-2022 End: 12-28-2022 Departed Referred Services [employer] [facility] Work Phone: [facility]-LAB Path [facility] Start: 12-19-2022 End: 12-19-2022 ambulatory Angel Meléndez Other modu Other Start: 12-19-2022 Office outpatient vi sit 25 minutes Anegl Meléndez [facility] Vascular Surgery Start: 10-23-2022 End: 10-23-2022 ambulatory Mainor Paez Other modu Other Start: 10-23-2022 Telephone encounter Mainor Paez [facility] Start: 10-15-2022 End: 10-15-2022 ambulatory Mainorsyd Paez Other modu Other Start: 10-15-2022 Telephone encounter Mainor Paez [facility] Start: 10-11-2022 End: 10-11-2022 ambulatory Mainor Paez Other modu Other Start: 10-11-2022 Telephone encounter Mainor Paez [facility] Start: 09-27-2022 End: 09-27-2022 ambulatory Sharda Reza Other modu Other Start: 09-27-2022 Telephone encounter Sharda Reza [facility] [employer] Start: 09-14-2022 End: 09-14-2022 ambulatory Mainor Paez Other [facility] [employer] Other Start: 09-14-2022 Telephone encounter Mainor Paez [facility] Start: 09-04-2022 End: 09-04-2022 ambulatory Sharda Reza Other [employer] Other Start: 09-04-2022 Telephone encounter Sharda Reza [facility] Start: 08-16-2022 End: 08-16-2022 ambulatory Sharda Reza Other [employer] Other Start: 08-16-2022 Telephone encounter Sharda Reza [facility] Start: 08-14-2022 End: 08-14-2022 Departed Referred Services [facility] Work Phone: [facility]Lab [facility] Work Phone: Start: 08-14-2022 End: 08-14-2022 ambulatory Services [facility] Work Phone: [facility] Work Phone: Start: 08-14-2022 Telephone encounter Sharda Reza [facility] Start: 08-08-2022 End: 08-08-2022 ambulatory Sharda Reza Other [facility] [employer] Other Start: 08-08-2022 Telephone encounter Sharda Reza [facility] [employer] Start: 08-07-2022 End: 08-07-2022 ambulatory Sharda Reza Other [facility] [employer] Other Start: 08-07-2022 Office outpatient vi sit 25 minutes Sharda Reza [facility] Start: 06-27-2022 End: 06-27-2022 Patient encounter procedure Services [facility] Work Phone: [facility] Work Phone: Start: 05-24-2022 End: 05-24-2022 ambulatory Services [facility] Work Phone: [facility] Work Phone: Start: 05-24-2022 End: 05-24-2022 Patient encounter procedure Services [facility] Work Phone: [facility]-XRay [facility] Start: 03-29-2022 End: 03-29-2022 Patient encounter procedure Services [facility] Work Phone: [facility]-MRI [facility] Start: 02-28-2022 End: 02-28-2022 ambulatory Mary Fitt Other modu Other Start: 02-28-2022 Telephone encounter Marymaureen Garvey [facility] Start: 02-26-2022 End: 02-26-2022 ambulatory Mary Fitt Other modu Other Start: 02-26-2022 Telephone encounter Mary Júniort Guru [facility] Start: 02-09-2022 End: 02-09-2022 Patient encounter procedure Services [facility] Work Phone: [facility] Start: 01-12-2022 End: 01-12-2022 Patient encounter procedure Services [facility] Work Phone: [facility] Start: 06-05-2021 End: 06-05-2021 ambulatory Zach Terry Other modu Other Start: 06-05-2021 Telephone encounter Zach Terry [facility] [place] Start: 12-26-2018 End: 12-26-2018 Patient encounter procedure DANIAL YESSICA CANOS IV [facility] Start: 10-31-2018 End: 10-31-2018 Patient encounter procedure DANIAL YESSICA CANOS IV [facility] Start: 09-04-2017 End: 09-05-2017 Ambulatory LYNNE ZARATE [facility] Start: 05-20-2017 End: 05-21-2017 Ambulatory SUKHJINDER VILLANUEVA [facility] Start: 04-10-2017 End: 04-10-2017 Ambulatory CHAYO VIVAS [facility] Start: 04-08-2017 End: 04-08-2017 Ambulatory YENIFER VILLATORO (PA) [facility] Start: 03-07-2017 Patient encounter status Nathaniel Francois MD Work Phone: [employer] Start: 07-18-2016 End: 02-20-2023 Patient encounter status Juarez Price PT [facility] Healthcare Procedures Date Procedure Procedure Detail Performing Clinician Start: 06-16-2024 Radex clavicle complete Harry GOVEA Work Phone: Start: 04-30-2024 Adult depression screening assessment Linda Regalado APRNCHIQUITA Work Phone: Start: 02-04-2024 XR pre/post mri xray MD Negar Francois Work Phone: Start: 02-04-2024 MRI of left ankle MD Negar Francois Work Phone: Start: 12-30-2023 Lower limb angiography MD Negar Francois Work Phone: Start: 11-15-2023 Pulse volume recorder pneumoplethysmography MD Negar Francois Work Phone: Start: 09-19-2023 XR pre/post mri xray MD Negar Francois Work Phone: Start: 09-19-2023 MRI of cervical spine without contrast MD Negar Francois Work Phone: Start: 07-19-2023 ECG, HOSPITAL REPORT SCAN Shamar Marr MD Work Phone: Start: 07-19-2023 Follow-up visit Follow-up SHAMAR XIAO Start: 05-30-2023 Adult depression screening assessment Negar Francois MD Work Phone: Start: 04-16-2023 IR Angiogram w/TLA/Stent Left Leg (Left) Services [facility] Work Phone: Start: 03-25-2023 Pulse volume recorder plethysmography Services [employer] Phone: Start: 03-04-2023 Duplex scan of lower limb veins Services [employer] Phone: Start: 01-09-2023 Ankle brachial pressure index Services [employer] Phone: Start: 06-27-2022 Pulse volume recorder pneumoplethysmography Services [employer] Phone: Start: 05-24-2022 Plain X-ray of right shoulder Services [facility] [employer] Work Phone: Start: 05-24-2022 X-ray of cervical spine Services [employer] Phone: Start: 03-29-2022 XR pre/post mri xray Services [employer] Phone: Start: 03-29-2022 MR lumbar spine wo con Services [employer] Phone: Start: 02-09-2022 Doppler ultrasonography of bilateral carotid arteries Services [employer] Phone: Start: 01-12-2022 MRI of head Services [employer] Phone: Start: 01-12-2022 Plain x-ray of pelvis and lower extremity Services [employer] Phone: Start: 12-26-2018 CREATININE W/GFR POINT OF CARE DANIAL C ANOS IV Start: 12-26-2018 Gluc bld gluc mntr dev cleared fda spec home use DANIAL CANOS IV Start: 12-26-2018 Ecg routine ecg w/least 12 lds w/i&r DANIAL CANOS IV Start: 12-26-2018 BUN AND CREATININE DANIAL CANOS IV Start: 12-26-2018 Glucose quantitative blood xcpt reagent strip DANIAL CANOS IV Start: 12-26-2018 PLACE INTERMITTENT PNEUMATIC COMPRESSION DEVICE DANIAL CANOS IV Start: 12-26-2018 SKIN PREP DANIAL CANOS IV Start: 12-26-2018 DISCHARGE PATIENT DANIAL CANOS IV Start: 09-04-2017 DRUG SCREEN, PAIN LYNNE GEE Plan of Treatment Date Care Activity Detail Author Start: 04-30-2025 Adult BMI Screening Adult BMI Screening [facility] Start: 04-30-2025 Depression Screening Depression Screening [facility] Start: 04-30-2025 Tobacco Screening Tobacco Screening [facility] Start: 03-12-2025 Adult BMI Screening Adult BMI Screening [facility] Start: 03-12-2025 Tobacco Screening Tobacco Screening [facility] Start: 11-24-2024 DTaP,Tdap and Td Vaccines (2 - Td or Tdap) DTaP,Tdap and Td Vaccines (2 - Td or Tdap) [facility] Start: 10-02-2024 Adult BMI Screening Adult BMI Screening [facility] Start: 10-02-2024 Tobacco Screening Tobacco Screening [facility] Start: 10-01-2024 Adult BMI Screening Adult BMI Screening [facility] Start: 10-01-2024 Tobacco Screening Tobacco Screening [facility] Start: 09-05-2024 Adult BMI Screening Adult BMI Screening [facility] Start: 09-05-2024 Tobacco Screening Tobacco Screening [facility] Start: 08-20-2024 Adult BMI Screening Adult BMI Screening [facility] Start: 08-20-2024 Tobacco Screening Tobacco Screening [facility] Start: 08-09-2024 Adult BMI Screening Adult BMI Screening [facility] Start: 08-09-2024 Tobacco Screening Tobacco Screening [facility] Start: 08-06-2024 Tobacco Screening Tobacco Screening [facility] Start: 07-19-2024 Adult BMI Screening Adult BMI Screening [facility] Start: 07-19-2024 Tobacco Screening Tobacco Screening [facility] Start: 07-17-2024 End: 07-17-2024 Patient encounter procedure 07/17/2024 11:40 AM EST Office Visit [facility] [address] [place] [phone] Fernando Moreno DPM [address] [address] [facility] Start: 07-16-2024 Adult BMI Screening Adult BMI Screening [facility] Start: 07-16-2024 Tobacco Screening Tobacco Screening [facility] Start: 07-10-2024 Adult BMI Screening Adult BMI Screening [facility] Start: 07-10-2024 Tobacco Screening Tobacco Screening [facility] Start: 07-07-2024 End: 07-07-2024 Patient encounter procedure 07/07/2024 10:30 AM EST Office Visit [facility] [address] [place] [phone] Harry Russo PA [address] [facility] [place] [address] [facility] Start: 07-01-2024 End: 07-01-2024 Patient encounter procedure 07/01/2024 2:40 PM EST Office Visit [facility] [address] [place] [phone] Linda Regalado [employer] [address] [place] [phone] [facility] Start: 06-16-2024 End: 06-16-2024 Patient encounter procedure 06/16/2024 4:50 PM EST Office Visit [facility] [address] [place] [address] Fernando Moreno DPM [address] [address] [facility] Start: 06-16-2024 End: 06-16-2024 Patient encounter procedure 06/16/2024 3:30 PM EST Office Visit [facility] [address] [place] [address] [phone] Fernando Moreno DPM [address] [address] [facility] Start: 06-16-2024 End: 06-16-2024 Patient encounter procedure 06/16/2024 9:30 AM EST Office Visit [facility] [address] [place] [phone] Harry Russo PA [address] [place] [facility] [place] [address] [facility] Start: 05-30-2024 Depression Screening Depression Screening [facility] Start: 05-25-2024 End: 05-25-2024 Patient encounter procedure 05/25/2024 10:00 AM EST Office Visit [facility] [address] [facility] [phone] Fernando Moreno DPM [address] [facility] [place] [address] [facility] Start: 05-21-2024 End: 05-21-2024 Patient encounter procedure 05/21/2024 8:30 AM EST Appointment [facility] Neuro[facility]iology [address] [facility] [address] [place] [address] [facility] Start: 05-13-2024 End: 05-13-2024 Patient encounter procedure 05/13/2024 3:20 PM EDT Office Visit [facility] [address] [facility] [address] Fernando Moreno DPM [address] [address] Peroneal tendon tear, left, initial encounter (Primary Dx); Onychocryptosis; Toe pain, right [facility] Comment on above: Peroneal tendon tear, left, initial enco unter (Primary Dx); Onychocryptosis; Toe pain, right Start: 05-08-2024 End: 05-08-2024 Patient encounter procedure [facility] Comment on above: Pain due to onychomycosis of toenails of both feet (Primary Dx); Type 2 diabetes mellitus without complication, 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 renewal 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 insulin use ([facility]) Start: 04-30-2024 End: 04-30-2024 Patient encounter procedure 04/30/2024 3:00 PM EDT Office Visit [facility] [address] [facility] [address] Linda Regalado APRN-GEL COATER [address] [place] [address], [facility] [place] [phone] [facility] Start: 04-29-2024 End: 04-29-2024 Patient encounter procedure [facility] Comment on above: Onychocryptosis (Primary Dx); Toe pain, right; Peroneal tendon tear, left, initial encounter; Type 2 diabetes mellitus without complication, unspecified whether intermediate insulin use ([facility]); Contracture of left ankle Start: 04-24-2024 End: 04-24-2024 Patient encounter procedure 04/24/2024 1:20 PM EDT Office Visit [facility] [address] [place] [address] Fernando Moreno DPM [address] [address] [facility] Start: 04-22-2024 End: 04-22-2024 Patient encounter procedure 04/22/2024 1:30 PM EDT Office Visit [facility] [address] [facility] [address] [place] [phone] Jr. Cara Slater C, DO [address] 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 renewal inspector insulin use ([facility]) [facility] Comment on above: Peroneal tendon tear, left, initial enco unter (Primary Dx); Onychocryptosis; Toe pain, right; Type 2 diabetes mellitus without complication, unspecified whether intermediate insulin use ([facility]) Start: 04-01-2024 End: 04-01-2024 Patient encounter procedure 04/01/2024 7:30 AM EDT Procedure Visit [facility] Fernando Moreno, DPM [address] [address] [facility] Start: 03-18-2024 End: 03-18-2024 Patient encounter procedure 03/18/2024 3:30 PM EDT Office Visit [facility] [address] [place] [address] Fernando Moreno DPM [address] [address] Peroneal tendon tear, left, initial encounter (Primary Dx); Onychocryptosis [facility] Comment on above: Peroneal tendon tear, left, initial enco unter (Primary Dx); Onychocryptosis Start: 03-15-2024 Influenza vaccination Influenza Vaccine [facility] Start: 02-20-2024 Ankle brachial pressure index [facility] Start: 12-30-2023 [facility] Start: 11-20-2023 End: 11-20-2023 Patient encounter procedure 11/20/2023 12:45 PM EDT Office Visit [facility] [address] [facility] [address] [place] [address] Hannah PalacioAdri, DO [address] [facility] [address] [place] [address] [facility] Start: 11-15-2023 Pulse volume recorder pneumoplethysmography US arterial pvr rest LE [facility] Start: 11-15-2023 [facility] Start: 10-16-2023 End: 10-16-2023 Patient encounter procedure [facility] Start: 10-11-2023 End: 10-11-2023 Clinical Support [facility] Start: 10-03-2023 End: 10-03-2023 Patient encounter procedure 10/03/2023 3:45 PM EDT Office Visit [facility] [address] [place] [address] Linda Regalado APRN-GEL COATER [address] [place] [phone] [facility] Start: 10-02-2023 End: 10-02-2023 Clinical Support [facility] Start: 10-02-2023 End: 10-01-2024 CT Sinuses WO contrast CT sinuses without contrast Imaging Routine 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[facility]) Expected: 10/02/2023, Expires: 10/01/2024 [facility] Comment on above: Expected: 10/02/2023, Expires: Start: 10-02-2023 End: 10-01-2024 MR Brain and Internal auditory canal WO and W contrast IV MR brain IAC with and without contrast Imaging Routine Right-sided tinnitus Asymmetrical hearing loss Sensorineural hearing loss (SNHL) of right ear with restricted hearing of left ear Expected: 10/02/2023, Expires: 10/01/2024 [employer] Work Phone: Comment on above: Expected: 10/02/2023, Expires: Start: 09-19-2023 End: 09-05-2024 Basic metabolic 2000 panel - Serum or Plasma Basic Metabolic Panel Lab Routine Diuresis Expected: 09/19/2023 (Approximate), Expires: 09/05/2024 [employer] Work Phone: Comment on above: Expected: 09/19/2023 (Approximate), Expi res: 09/05/2024 Start: 09-16-2023 End: 09-16-2023 Patient encounter procedure 09/16/2023 11:00 AM EST Office Visit [facility] [address] [place] [address] Jr. Cara Slater, DO [address] [facility] [address] [place] [address] [facility] Start: 09-12-2023 End: 09-12-2023 ambulatory 09/12/2023 1:30 PM EST Treatment [facility] [address] [place] [address] Juarez Thrasher, PT [facility] Start: 09-09-2023 End: 09-09-2023 Patient encounter procedure 09/09/2023 1:00 PM EST Procedure Visit [facility] [address] [place] [address] [facility] Start: 09-09-2023 End: 09-09-2023 ambulatory [facility] PT Start: 09-06-2023 End: 09-06-2023 [facility] Start: 09-05-2023 End: 09-05-2023 ambulatory 09/05/2023 1:30 PM EST Treatment [facility] [address] [place] [phone] Juarez Thrasher, PT [facility] Start: 09-02-2023 End: 09-02-2023 ambulatory [facility] Start: 08-29-2023 End: 08-29-2023 ambulatory [facility] PT Start: 08-26-2023 End: 08-26-2023 ambulatory [facility] Start: 08-22-2023 End: 08-22-2023 ambulatory 08/22/2023 1:30 PM EST Treatment [facility] [address] [place] [phone] Juarez Thrasher, PT [facility] Start: 08-21-2023 End: 08-21-2024 MR Cervical spine WO contrast MR cervical spine wo contrast Imaging Routine Right foot drop Lumbar radiculopathy Weakness History of stroke Cervical paraspinal muscle spasm Expected: 08/21/2023, Expires: 08/21/2024 [facility] Work Phone: Comment on above: Expected: 08/21/2023, Expires: Start: 08-21-2023 End: 08-21-2023 Patient encounter procedure 08/21/2023 9:40 AM EST Office Visit [facility] [address] [place] [address] Marii Delatorre MD [address] [facility] [address] [place] [address] [facility] Start: 08-20-2023 End: 08-20-2024 Echo complete W/O contrast Echo complete W/O contrast Echocardiography Routine History of tobacco use 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 Pedal edema Expected: 08/20/2023, Expires: 08/20/2024 [facility] Work Phone: Comment on above: Expected: 08/20/2023, Expires: Start: 08-19-2023 End: 08-19-2023 ambulatory 08/19/2023 12:30 PM EST Treatment [facility] [address] [place] [address] Hoa Vgea, FAMILY PRACTICE MD [address] [place] [address] [facility] Start: 08-15-2023 End: 08-15-2023 ambulatory 08/15/2023 1:30 PM EST Evaluation [facility] [address] [place] [phone] Juarez Thrasher, PT Acute pain of left knee [facility] Comment on above: Acute pain of left knee Start: 08-14-2023 End: 08-14-2023 Clinical Support [facility] Start: 08-09-2023 End: 08-09-2024 Erythrocyte sedimentation rate Erythrocyte Sedimentation Rate (ESR) Lab Routine Polymyalgia rheumatica ([facility]) Expected: 08/09/2023 (Approximate), Expires: 08/09/2024 [facility] Comment on above: Expected: 08/09/2023 (Approximate), Expi res: 08/09/2024 Start: 08-09-2023 End: 08-09-2024 XR Ankle - left 3 Views X-ray ankle left minimum 3 views Imaging Routine Acute left ankle pain Expected: 08/09/2023, Expires: 08/09/2024 [facility] Comment on above: Expected: 08/09/2023, Expires: Start: 08-09-2023 End: 08-09-2023 Patient encounter procedure 08/09/2023 1:45 PM EST Office Visit [facility] [address] [place] [address] [place] [address] Negar Francois MD [address] [place] [address] [facility] Start: 07-25-2023 End: 07-25-2023 Patient encounter procedure 07/25/2023 10:30 AM EST Office Visit [facility] [address] [place] [id number] Brisa Yan, [address] [place], [place] [id number] [facility] Start: 07-23-2023 End: 07-23-2023 Patient encounter procedure 07/23/2023 8:30 AM EST Office Visit [facility] [address] [place] [address] [place] [address] Negar Francois MD [address] [place] [address] [facility] Start: 07-19-2023 End: 07-19-2023 Patient encounter procedure 07/19/2023 10:30 AM EST Office Visit [facility] [address] [place] [address] Shamar Xiao MD [address] [place] [address] [facility] Start: 05-09-2023 Ankle brachial pressure index [facility] Start: 04-16-2023 [facility] Start: 04-09-2023 Lower limb angiography IR Angiogram Left Leg (Left) [facility] Start: 03-04-2023 Duplex scan of lower limb veins US venous duplex LE LT [facility] Start: 03-04-2023 US Lower extremity vein - left [facility] Start: 08-14-2022 Superficial Wound Culture Superficial Wound Culture [facility] Start: 01-03-2018 Administration of varicella zoster vaccine Zoster (Shingles) Vaccine (2 of 2) [facility] Start: 1980 Adult BMI Follow Up Plan Adult BMI Follow Up Plan [facility] End: 08-09-2024 MITCHELL Screen w/ Reflex MITCHELL Screen w/ Reflex Lab Routine Polymyalgia rheumatica ([facility]) 1 Occurrences starting 08/09/2023 until 08/09/2024 [facility] Work Phone: Comment on above: 1 Occurrences starting 08/09/2023 until 08/09/2024 Bacteria identified in Unspecified specimen by Aerobe culture [facility] Cologuard [facility] Cologuar d [facility] Lab Routine Medicare annual wellness visit, subsequent Encounter for screening for malignant neoplasm of colon Ordered: 04/30/2024 [facility] Work Phone: Comment on above: Ordered: 04/30/2024 Cologuard [facility] Cologuar d [facility] Lab Routine Encounter for screening for malignant neoplasm of colon Ordered: 06/17/2024 [facility] Work Phone: Comment on above: Ordered: 06/17/2024 End: 08-09-2024 Drug Screen, Urine Drug Screen, Urine Lab Routine Cervicalgia Polymyalgia rheumatica ([facility]) 1 Occurrences starting 08/09/2023 until 08/09/2024 [facility] Comment on above: 1 Occurrences starting 08/09/2023 until 08/09/2024 Patient Education [facility] Work Phone: Patient referral [facility] Work Phone: [facility] Immunizations Immunization Date Immunization Notes Care Provider Sandie babb 04-30-2024 Seasonal trivalent influenza vaccine, adjuvanted, preservative free Linda Regalado [employer] Work Phone: [facility] 04-30-2024 Immunization, In Clinic,; Translations: [Drug or medicament (substance)] Linda Regalado [employer] Work Phone: [facility] 05-30-2023 influenza, injectabl e, quadrivalent, preservative free Negar Francois MD Work Phone: [facility] 05-30-2023 influenza virus vaccine, unspecified formulation Negar Francois MD Work Phone: [facility] 05-28-2022 influenza, injectabl e, quadrivalent, contains preservative Juarez [place] PT [facility] 06-26-2021 influenza, injectabl e, quadrivalent, contains preservative Juarez Price PT [facility] 11-08-2017 zoster vaccine recombinant Juarez [place] PT [facility] 11-08-2017 zoster vaccine, unspecified formulation Negar Francois MD Work Phone: [facility] 08-22-2017 influenza virus vaccine, unspecified formulation Negar Francois MD Work Phone: [facility] 08-22-2017 influenza, seasonal, injectable, preservative free Juarez [place] PT [facility] 05-14-2016 influenza, seasonal, injectable Zach Terry Other modu Other 04-25-2016 influenza, injectabl e, quadrivalent, preservative free Juarez Price PT [facility] 11-24-2014 tetanus and diphther ia toxoids, adsorbed, preservative free, for adult use (5 Lf of tetanus toxoid and 2 Lf of diphtheria toxoid) Juarez Thrasher PT [facility] NEGATED: Highlighted row has not occurred!04-23-2016 pneumococcal polysaccharide vaccine, 23 valent Zach Terry Other modu Other Payers Date Payer Category Payer Self-pay [id number] 09-12-2021 Medicare (Managed Care) [facility] [id number] 09-12-2021 Medicare [id number] 03-15-2020 Medicaid [id number]. [id number] 03-15-2020 Medicaid (Managed Care) [facility] [id number] 03-15-2020 Medicaid [place] [employer] [employer] [id number] 07-15-2019 Medicare [id number]. 1.13.424.2. [id number] 07-15-2019 Medicare O [facility]IC[facility] [id number]. [id number] 07-15-2019 Medicare [id number] [id number] 10-13-2018 Private Health Insurance [id number] 08-19-2018 Unknown [id number] 03-15-2018 Medicare [id number] 03-15-2018 Medicaid [id number] 03-15-2018 Medicare [id number] 07-15-2015 Unknown [id number] 1960 Unknown [id number] 2.16.840.1.481816.3.579.2. 175 1962 Unknown [id number] 2.16.840.1.233238.3.579.2. 175 1962 Unknown [id number] 2.16.840.1.872545.3.579.2. 182 1962 Unknown [id number] 2.16.840.1.808242.3.579.2. 182 1962 Unknown [id number] 2.16.840.1.027094.3.579.2. 182 1962 Unknown [id number] 2.16.840.1.104798.3.579.2. 1286 1962 Unknown [id number] 2.16.840.1.691575.3.579.2. 6 1962 Unknown [id number] 2.16.840.1.945212.3.579.2. 1286 1962 Unknown [id number] 2.16.840.1.626760.3.579.2. 6 1962 Unknown [id number] 2.16.840.1.915744.3.579.2. 1286 1962 Unknown [id number] 2.16.840.1.110941.3.579.2. 1286 1962 Unknown [id number] 2.16.840.1.467868.3.579.2. 1286 1962 Unknown [id number] 2.16.840.1.363815.3.579.2. 1286 1962 Unknown [id number] 2.16.840.1.065066.3.579.2. 1286 1962 Unknown [id number] 2.16.840.1.040870.3.579.2. 1286 1962 Unknown [id number] 2.16.840.1.557541.3.579.2. 1285 1962 Unknown [id number] 2.16.840.1.248964.3.579.2. 1285 1962 Unknown [id number] 2.16.840.1.663190.3.579.2. 1285 1962 Unknown [id number] 2.16.840.1.388417.3.579.2. 1285 1962 Unknown [id number] 2.16.840.1.343012.3.579.2. 1285 1962 Unknown [id number] 2.16.840.1.616397.3.579.2. 1285 1962 Unknown [id number] 2.16.840.1.101280.3.579.2. 1285 1962 Unknown [id number] 2.16.840.1.156666.3.579.2. 1285 1962 Unknown [id number] 2.16.840.1.909441.3.579.2. 1285 1962 Unknown [id number] 2.16.840.1.016467.3.579.2. 1285 1962 Unknown [id number] 2.16.840.1.627166.3.579.2. 1285 1962 Unknown [id number] 2.16.840.1.697641.3.579.2. 1285 1962 Unknown [id number] 2.16.840.1.919661.3.579.2. 1285 1962 Unknown [id number] 2.16.840.1.582761.3.579.2. 1285 1962 Unknown [id number] 2.16.840.1.306559.3.579.2. 1285 1962 Unknown [id number] 2.16.840.1.144194.3.579.2. 1285 1962 Unknown [id number] 2.16.840.1.972169.3.579.2. 1286 1962 Unknown [id number] 2.16.840.1.188757.3.579.2. 128 1962 Unknown [id number] 2.16.840.1.590292.3.579.2. 128 1962 Unknown [id number] 2.16.840.1.398756.3.579.2. 128 1962 Unknown [id number] 2.16.840.1.624111.3.579.2. 1285 1962 Unknown [id number] 2.16.840.1.643885.3.579.2. 128 1962 Unknown [id number] 2.16.840.1.923195.3.579.2. 1285 1962 Unknown [id number] 2.16.840.1.873453.3.579.2. 128 1962 Unknown [id number] 2.16.840.1.211011.3.579.2. 1285 1962 Unknown [id number] 2.16.840.1.177401.3.579.2. 1285 1962 Unknown [id number] 2.16.840.1.473336.3.579.2. 128 1962 Unknown [id number] 2.16.840.1.326662.3.579.2. 128 1962 Unknown [id number] 2.16.840.1.011183.3.579.2. 1259 1962 Unknown [id number] 2.16.840.1.838907.3.579.2. 1259 1962 Unknown [id number] 2.16.840.1.246299.3.579.2. 1259 1962 Unknown [id number] 2.16.840.1.359047.3.579.2. 1258 1962 Unknown [id number] 2.16.840.1.492205.3.579.2. 1258 1962 Unknown [id number] 2.16.840.1.894693.3.579.2. 1258 1962 Unknown [id number] 2.16.840.1.648813.3.579.2. 1258 1962 Unknown [id number] 2.16.840.1.480064.3.579.2. 1258 1962 Unknown [id number] 2.16.840.1.917798.3.579.2. 1258 1962 Unknown [id number] 2.16.840.1.481357.3.579.2. 1258 1962 Unknown [id number] 2.16.840.1.084457.3.579.2. 1258 1962 Unknown [id number] 2.16.840.1.191773.3.579.2. 1258 1962 Unknown [id number] 2.16.840.1.263265.3.579.2. 1258 1962 Unknown [id number] 2.16.840.1.101155.3.579.2. 1258 1962 Unknown [id number] 2.16.840.1.896290.3.579.2. 1258 1962 Unknown [id number] 2.16.840.1.830357.3.579.2. 1258 1962 Unknown [id number] 2.16.840.1.388308.3.579.2. 1258 1962 Unknown [id number] 2.16.840.1.767232.3.579.2. 1258 1962 Unknown [id number] 2.16.840.1.466910.3.579.2. 1259 1962 Unknown [id number] 2.16.840.1.493888.3.579.2. 1258 1962 Unknown [id number] 2.16.840.1.716224.3.579.2. 1258 1962 Unknown [id number] 2.16.840.1.130283.3.579.2. 1258 1962 Unknown [id number] 2.16.840.1.764478.3.579.2. 1258 1962 Unknown [id number] 2.16.840.1.845318.3.579.2. 1258 1962 Unknown [id number] 2.16.840.1.170218.3.579.2. 1258 1962 Unknown [id number] 2.16.840.1.007390.3.579.2. 1258 1962 Unknown [id number] 2.16.840.1.191997.3.579.2. 1258 1962 Unknown [id number] 2.16.840.1.374006.3.579.2. 1258 1962 Unknown [id number] 2.16.840.1.499725.3.579.2. 1258 1962 Unknown [id number] 2.16.840.1.174053.3.579.2. 1258 1962 Unknown [id number] 2.16.840.1.417569.3.579.2. 1258 1962 Unknown [id number] 2.16.840.1.379013.3.579.2. 1258 1962 Unknown [id number] 2.16.840.1.276836.3.579.2. 1258 1962 Unknown [id number] 2.16.840.1.279549.3.579.2. 1258 1962 Unknown [id number] 2.16.840.1.039507.3.579.2. 1258 1962 Unknown [id number] 2.16.840.1.946287.3.579.2. 1258 1962 Unknown [id number] 2.16.840.1.535825.3.579.2. 1258 1962 Unknown [id number] 2.16.840.1.274489.3.579.2. 1258 1962 Unknown [id number] 2.16.840.1.533789.3.579.2. 1258 1962 Unknown [id number] 2.16.840.1.237188.3.579.2. 1258 1962 Unknown [id number] 2.16.840.1.829310.3.579.2. 1258 1962 Unknown [id number] 2.16.840.1.941935.3.579.2. 1962 Unknown [id number] 2.16.840.1.598752.3.579.2. 1962 Unknown [id number] 2.16.840.1.711717.3.579.2. 1962 Unknown [id number] 2.16.840.1.378362.3.579.2. 1962 Unknown [id number] 2.16.840.1.481782.3.579.2. 1962 Unknown [id number] 2.16.840.1.968542.3.579.2. 1962 Unknown [id number] 2.16.840.1.045022.3.579.2. 1962 Unknown [id number] 2.16.840.1.081068.3.579.2. 1962 Unknown [id number] 2.16.840.1.413457.3.579.2. 1962 Unknown [id number] 2.16.840.1.779377.3.579.2. 1962 Unknown [id number] 2.16.840.1.539895.3.579.2. 1962 Unknown [id number] 2.16.840.1.556206.3.579.2. 1962 Unknown [id number] 2.16.840.1.492343.3.579.2. 1962 Unknown [id number] 2.16.840.1.045353.3.579.2. 1962 Unknown [id number] 2.16.840.1.685532.3.579.2 1962 Unknown [id number] 2.16.840.1.478228.3.579.2 1962 Unknown [id number] 2.16.840.1.987696.3.579.2 1962 Unknown [id number] 2.16.840.1.235449.3.579.2. 1962 Unknown [id number] 2.16.840.1.958461.3.579.2 1962 Unknown [id number] 2.16.840.1.261801.3.579.2. 1962 Unknown [id number] 2.16.840.1.400950.3.579.2 1962 Unknown [id number] 2.16.840.1.943009.3.579.2. 1962 Unknown [id number] 2.16.840.1.218862.3.579.2. 1962 Unknown [id number] 2.16.840.1.364064.3.579.2 1962 Unknown [id number] 2.16.840.1.897503.3.579.2. 718 Unknown [place] BC/BS [id number] Unknown [id number] 2.16.840.1.399110.3.579.2. 531 Unknown [id number] 2.16.840.1.599772.3.579.2. 531 Unknown [id number] 2.16.840.1.671081.3.579.2. 531 Unknown [id number] 2.16.840.1.669337.3.579.2. 531 Unknown [id number] 2.16.840.1.941005.3.579.2. 531 Unknown [id number] 2.16.840.1.618933.3.579.2. 531 Social History Date Type Detail Facility Unknown if ever smoked modu Other Start: 07-16-2023 End: 03-18-2024 Sex Assigned At [facility] Other Start: 12-23-2020 End: 12-24-2023 Tobacco smoking status NHIS Ex-smoker (finding) [facility] Start: 1960 Sex Assigned At Male F [facility] End: 07-15-2001 History of tobacco use [facility] End: 07-15-2001 History of tobacco use [facility] Start: 05-30-2023 End: 12-24-2023 Tobacco use and exposure Smokeless tobacco [facility] Start: 07-16-2023 End: 04-30-2024 Alcohol intake [facility] (finding[facility] Start: 07-16-2023 End: 03-18-2024 [facility] Adolescent depressio n screening assessment [facility] Start: 06-20-2022 Tobacco Comment Quit 17yrs ago hx of 2ppd x 15yrs [facility] Start: 09-28-2017 Alcohol Comment 3-4 beers daily [facility] Start: 1960 Sex Assigned At Not on file P [facility] History of tobacco use Passive smoker [facility] Start: 12-11-2022 Tobacco Comment > 10 years sin ce last smoked. [facility] Start: 08-05-2023 Alcohol Comment QUIT DRINKING 08/2022 [facility] Start: 02-28-2024 End: 03-18-2024 Alcoholic beverage intake Current drinker of alcohol (finding) [facility] Start: 02-16-2015 Sex Male (finding) [facility] Medical Equipment Procedure Code Equipment Code Equipment Origin al Text Equipment Identifier Dates Angiogram, lower extremity, left Peripheral artery stent, bare-metal ()[id number] FDA Start: 12-30-2023 Multiple periphe ral artery stent, bare-metal ()[id number] FDA Start: 08-15-2020 Iliofemoral vein stent ()[id number] FDA Start: 12-23-2020 Trores Xience Alpin e 2.25x18 Rx Rpl [id number] - [id number] ()[id number]( [id number], [id number] FDA Start: 09-30-2017 Torres Xience Alpin e 2.25x12 Rx Rpl [id number] - [id number] ()[id number]( )[id number], [id number] FDA Start: 09-30-2017 Torres Xience Alpin e 2.25x28 Rx Rpl [id number] - [id number] ()[id number]( )[id number], [id number] FDA Start: 09-30-2017 To be used for B 12 injections once per month [id number] Start: 04-23-2024 Goals Date Patient Goal Desired Activity /State Personal health goal Clinical Notes 08-07-2022 to 06-17-2024 Telephone Encounter - Eliana Love CNA - 06/17/2024 1:11 PM ESTTelephone Encounter - Eliana Love CNA - 06/17/2024 1:11 PM ESTToJEFERSON Edwards - 06/16/2024 9:30 AM ESTPatient Instructions Note Date & Type Note Facility 06-17-2024 Miscellaneous Notes Attempted to call patient, phone disconnected at this time. ----- Message from SHANNON Antony sent at 06/17/2024 8:13 AM EST ----- Please let him know cologuard could not be processed. I sent in new order for cologuard. documented in this encounter [facility] 06-17-2024 Telephone encounter Note Attempted to call patient, phone disconnected at this time. ----- Message from SHANNON Antony sent at 06/17/2024 8:13 AM EST ----- Please let him know cologuard could not be processed. I sent in new order for cologuard. [facility] 06-16-2024 History of Presen t illness Narrative GENERAL HISTORY AND PHYSICAL: NAME: Varinder Wilson : 1960 HISTORY OF PRESENT ILLNESS: Varinder Wilson is an 64 y.o. male is here for orthopedic evaluation left shoulder injury. He was putting his dog outside into the kennel when his 1-year-old lab pulled as he was trying to take the leash off pushing him forward landing directly onto the left shoulder bluntly causing injury. Patient is on Xarelto he has chronic neck and low back difficulties in his waiting to get into see Dr. Garcia for injections. He was given [place] through the ER at [facility] and states he has intolerant to Tylenol as it upsets his stomach. He has done well with Flexeril as a muscle relaxant in the past. He is right-hand dominant. PAST MEDICAL HISTORY: Past Medical History: Diagnosis Date Abnormal EKG 10/25/2015 Abnormal gait 02/20/2023 Abnormal stress ECG 09/28/2017 Added automatically from request for surgery [id number] Acquired hallux valgus 02/20/2023 Alcohol abuse 02/20/2023 Allergic rhinitis due to pollen 02/20/2023 Anemia 02/20/2023 Angina pectoris ([facility]) Anxiety 02/20/2023 Arthritis of hip 02/20/2023 Arthritis of lumbosacral spine 02/20/2023 Benign essential hypertension ([facility]) 10/25/2015 Benign prostatic hyperplasia 02/20/2023 Bipolar depression ([facility]) 02/20/2023 CAD (coronary artery disease) of artery bypass graft ([facility]) 09/09/2016 Cannabis abuse 02/20/2023 Cerebellar infarction ([facility]) 02/20/2023 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 ([facility]) 02/20/2023 Cerebral infarction, unspecified (CMS/[facility]) 02/17/2016 Cerebrovascular accident (CVA) ([facility]) 09/09/2016 Cervical spondylosis without myelopathy 06/20/2022 Chest pain at rest 02/20/2023 Cholecystitis 2016 Chronic cluster headache 02/20/2023 Chronic obstructive pulmonary disease ([facility]) 09/09/2016 Claudication (CMS/[facility]) 02/20/2023 COPD (chronic obstructive pulmonary disease) ([facility]) Depressed bipolar I disorder ([facility]/HCC) 02/20/2023 Depression ([facility]) 02/20/2023 Depressive disorder (CMS/HCC) 02/20/2023 Difficulty hearing, bilateral 02/20/2023 Difficulty walking Disability of walking 02/20/2023 Dyspnea on exertion 09/19/2017 Encounter for preprocedural cardiovascular examination 07/18/2016 Epidermoid cyst of skin 02/20/2023 Essential tremor 02/20/2023 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 H/O exercise stress test 02/10/2015 Normal History of coronary artery stent placement Hypertension (CMS/HCC) Memory loss Numbness Stroke (CMS/HCC) TIA (transient ischemic attack) 2017 Tubular adenoma Weakness of limb PAST SURGICAL HISTORY: Past Surgical History: Procedure Laterality Date BUNIONECTOMY BYPASS GRAFT 2015 Double bypass surgery CORONARY STENT PLACEMENT 10/26/[address] ANGIO HEAD 09/08/2016 CT ANGIO HEAD 09/08/2016 CT ANGIOGRAM HEART CORONARY 09/11/2017 CT ANGIOGRAM TAVR 09/11/2017 CT ANGIOGRAM NECK 09/08/2016 CT ANGIOGRAM NECK 09/08/2016 CT AORTA AND BILATERAL ILIOFEMORAL RUNOFF ANGIOGRAM W AND/OR WO IV CONTRAST 01/11/2016 CT AORTA AND BILATERAL ILIOFEMORAL RUNOFF ANGIOGRAM W AND/OR WO IV CONTRAST 01/11/2016 CT GUIDED TRANSVAGINAL TRANSRECTAL FLUID DRAIN 01/09/2016 CT GUIDED TRANSVAGINAL TRANSRECTAL FLUID DRAIN 01/09/2016 CYST REMOVAL from neck DENTAL SURGERY bottom teeth extraction FOOT SURGERY Right HERNIA REPAIR MD LAP,CHOLECYSTECTOMY 02/2016 VASCULAR SURGERY Right leg 2 vascular surgeries per patient VASCULAR SURGERY Right leg x2 SOCIAL HISTORY: Social History Occupational History Not on file Tobacco Use Smoking status: Former Current packs/day: 0.00 Types: Cigarettes Quit date: 07/15/2001 Years since quittin.9 Passive exposure: Past Smokeless tobacco: Never Tobacco comments: > 10 years since last smoked. Vaping Use Vaping status: Unknown Substance and Sexual Activity Alcohol use: Yes Comment: QUIT DRINKING 08/2022 Drug use: Not Currently Sexual activity: Defer Partners: Decline to Answer ALLERGIES: No Known Allergies MEDICATIONS: Current Outpatient Medications Medication Instructions albuterol HFA 90 mcg/act inhaler 1 puff, 3 times daily amantadine (Symmetrel) 100 MG tablet Take 1 tablet (100 mg) by mouth Daily for 7 days, THEN 1 tablet (100 mg) in the morning and at noon. amantadine (SYMMETREL) 100 mg, 2 times daily (02/23) amitriptyline (ELAVIL) 25 mg, Nightly ampicillin (Principen) 500 MG capsule aspirin 81 mg, Daily carvedilol (COREG) 6.25 mg, 2 times daily with meals celecoxib (CELEBREX) 100 mg, 2 times daily collagenase (Santyl) 250 UNIT/GM ointment Topical, Daily cyanocobalamin (VITAMIN B-12) 1,000 mcg, Every 30 days Cyanocobalamin 1000 MCG capsule as directed Orally cyclobenzaprine (FLEXERIL) 10 mg, Oral, 3 times daily PRN cyproheptadine (PERIACTIN) 4 mg, Oral, Nightly dexAMETHasone (Decadron) 2 MG tablet 2mg 3 pills po X3 days,2 pills po daily X3 days , then 1 pill po daily X3 days then stop 9 days 18 pills fexofenadine (VERONICA) 180 mg, Daily RT gentamicin (Garamycin) 0.1 % ointment See Instructions, Instructions: 1 rukhsana Topical to the left ankle wound every other day, # 30 gm, 1 Refill(s), Pharmacy: [facility], 1 rukhsana Topical to the left ankle wound every other day, 177.8, cm, 06/07/24 12:21:00 EST, Height, 91.63, kg, 06/07/24 12:24:00 EST, Weight Dosing ipratropium-albuterol (Duo-Neb) 0.5-2.5 mg/3 mL nebulizer solution 3 mL, 3 times daily RT nitroglycerin (NITROSTAT) 0.4 mg, Every 5 min PRN omeprazole (PRILOSEC) 40 mg, Every morning OXcarbazepine (TRILEPTAL) 150 mg, Oral, Every 12 hours rosuvastatin (CRESTOR) 40 mg, Daily RT topiramate (Topamax) 25 MG tablet Take 1 tablet (25 mg) by mouth at bedtime for 7 days, THEN 1 tablet (25 mg) 2 (two) times a day. Trelegy Ellipta 100-62.5-25 MCG/ACT aerosol powder verapamil ER (VERELAN) 180 mg, Nightly verapamil SR (CALAN SR) 180 mg, Nightly Xarelto 20 mg, Daily with evening meal REVIEW OF SYSTEMS: Review of Systems General: Denies appetite or significant weight change. Denies fever, chills or night sweats. Denies lightheadedness. ENT: Denies dry mouth, sore throat or swollen glands. Denies difficulty swallowing. Denies ear pain. Respiratory: Denies chest pain, SOB, cough or wheezing. Denies asthma or pneumonia symptoms. Cardiovascular: Denies CP or palpitations. No syncope or dyspnea on exertion. Gastrointestinal: Denies nausea or vomiting. Denies heartburn or abdominal pain. Denies diarrhea. Genitourinary: Denies frequent or painful urination. Musculoskeletal: See HPI for comments. Integumentary: Denies rash, lesion or skin infection. Neurologic: Denies dizziness, headache or seizure history. Vitals: Body mass index is 31.9 kg/m . PHYSICAL EXAM: Physical Exam Patient appears to have intact rotator cuff he is able to abduct to about 60 degrees and hold this position passively we can extend with some discomfort associated with the distal clavicle fracture there is no abrasion noted he does have significant swelling and bruising from being on his blood thinner agents. Does not appear to have any cervical neurological deficits associated with his shoulder today minimal range of motion assessed due to the fracture. XR clavicle left Imaging Result: Two-view clavicle demonstrates reasonable position of the distal fracture of clavicle associated good with AC joint position no significant displacement noted. Orders Placed This Encounter Procedures XR clavicle left Order Specific Question: Reason for exam: Answer: pain ASSESSMENT: Traumatic closed fracture of distal clavicle with minimal displacement, left, initial encounter Pain of left clavicle PLAN: Sling for comfort use cold pack to the area for 20 minutes several times a day keeping her shirt on to prevent skin irritation from the cold pack. May remove sling and work on gentle range of motion avoid any lifting above chest height or overhead. Follow up in 3 weeks to note progress Tylenol for breakthrough discomfort unable to take NSAIDs due to blood thinning agents. Any narcotic pain medication should be prescribed by your primary care physician. JEFERSON Bright documented in this encounter [facility] 06-16-2024 Instructions JEFERSON Bright - 06/16/2024 9:30 AM EST Sling for comfort use cold pack to the area for 20 minutes several times a day keeping her shirt on to prevent skin irritation from the cold pack. May remove sling and work on gentle range of motion avoid any lifting above chest height or overhead. Follow up in 3 weeks to note progress Tylenol for breakthrough discomfort unable to take NSAIDs due to blood thinning agents. Any narcotic pain medication should be prescribed by your primary care physician. documented in this encounter [facility] 06-09-2024 Telephone encounter Note Received notice Dr. Javier Terry will not accept patient for pain management. He also has seen [facility]. Can we please send referral to Dr. Washburn please. [facility] 06-09-2024 Miscellaneous Notes Received notice Dr. Javier Terry will not accept patient for pain management. He also has seen [facility]. Can we please send referral to Dr. Washburn please. documented in this encounter [facility] 06-09-2024 Miscellaneous Notes Patient called to inform PCP he fell and broke his Clavicle. He states he was seen for it at [facility]. He would like o know if PCP can send him in something for the pain. Hospital sent him home with instructions to take Tylenol but it is not helping with the pain and he can not sleep he is hurting so much. [employer] is calling to request records currently. Please advise? If we get those records I can send in short supply of pain medication. Records reviewed. please let him know I sent 5 days worth of pain medication. please be sure to get in with orthopedics, I see [facility] sent referral. Called patient and informed him. He stated understanding and does have appointment set up with Ortho already for June 16. documented in this encounter [facility] 06-09-2024 Telephone encounter Note Patient called to inform PCP he fell and broke his Clavicle. He states he was seen for it at [facility]. He would like o know if PCP can send him in something for the pain. Hospital sent him home with instructions to take Tylenol but it is not helping with the pain and he can not sleep he is hurting so much. [employer] is calling to request records currently. Please advise? [facility] 06-09-2024 Telephone encounter Note If we get those records I can send in short supply of pain medication. [facility] 06-09-2024 Telephone encounter Note Records reviewed. please let him know I sent 5 days worth of pain medication. please be sure to get in with orthopedics, I see [facility] sent referral. [facility] 06-09-2024 Telephone encounter Note Called patient and informed him. He stated understanding and does have appointment set up with Ortho already for June 16. [facility] 06-07-2024 Note [employer] [facility] Clavicle Fracture A clavicle fracture is a break in the long bone that connects the shoulder to the chest wall (clavicle). The clavicle is also called the collarbone. A clavicle fracture is a common injury that can happen at any age. What are the causes? Common causes of a clavicle fracture include: ? A hard, direct hit to the shoulder. ? A motor vehicle accident. ? A fall, especially if you try to break your fall with an outstretched arm. What increases the risk? You are more likely to develop this condition if you: ? Are younger than 25 years old, or you are older than 75 years old. Most clavicle fractures happen to people who are younger than 25 years old. ? Are male. ? Play contact sports. What are the signs or symptoms? Symptoms of this condition include: ? Pain near your injured clavicle and in the shoulder or arm on your injured side. ? Trouble moving the arm on your injured side. ? The injured shoulder dropping downward and forward. ? Pain when trying to lift the shoulder on your injured side. ? Bruising, swelling, and tenderness over your injured clavicle. ? A grinding noise when you try to move the shoulder on your injured side. ? A bump over your injured clavicle. How is this diagnosed? This condition is diagnosed based on: ? Your medical history. ? A physical exam. ? X-rays to check the position of your injured clavicle. How is this treated? Treatment for this condition depends on the position of your clavicle after the fracture: ? If the broken ends of the bone are not out of place, your health care provider may put your arm in a sling. ? If the broken ends of the bone are out of place, you may need surgery. This may involve placing screws, pins, or plates to keep your clavicle stable while it heals. ? You may be given medicines for pain. ? Your provider may prescribe a brace (clavicle strap) that wraps around the shoulders and upper back to prevent the clavicle from moving while it heals. When your fracture has healed, you may need to do physical therapy exercises to improve movement and strength in your shoulder and arm. Follow these instructions at home: Medicines Ask your provider if the medicine prescribed to you: ? Requires you to avoid driving or using machinery. ? Can cause constipation. You may need to take these actions to prevent or treat constipation: ? Drink enough fluid to keep your pee (urine) pale yellow. ? Take [id number] or prescription medicines. ? Eat foods that are high in fiber, such as beans, whole grains, and fresh fruits and vegetables. ? Limit foods that are high in fat and processed sugars, such as fried or sweet foods. If you have a removable sling or brace: ? Wear the sling or brace as told by your provider. Remove it only as told by your provider. ? Check the skin around the sling or brace every day. Tell your provider about any concerns. ? Loosen the sling or brace if your fingers tingle, become numb, or turn cold and blue. ? Keep the sling or brace clean and dry. ? Ask your provider if you may remove the sling or brace when you take a bath or shower. ? If you need to wear the sling or brace while bathing, and the sling or brace is not waterproof: ? Do not let it get wet. ? Cover it with a watertight covering when you take a bath or shower. ? If you may remove your sling or brace when you take a bath or a shower, keep your shoulder in the same position as when the sling or brace is on. Managing pain, stiffness, and swelling ? If told, put ice on the injured area. ? If you have a removable sling or brace, remove it as told by your provider. ? Put ice in a plastic bag. ? Place a towel between your skin and the bag. ? Leave the ice on for 20 minutes, 2?3 times a day. ? If your skin turns bright red, remove the ice right away to prevent skin damage. The risk of damage is higher if you cannot feel pain, heat, or cold. ? Move your fingers often to reduce stiffness and swelling. Activity ? Avoid activities that make your symptoms worse for 4?6 weeks, or as long as told. ? You may have to avoid lifting. Ask your provider how much you can safely lift. ? Do not put weight on your arm on the injured side, such as pushing your arm down, until your provider says that it is safe. ? Do not use the injured limb to support your body weight until your provider says that you can. ? Ask your provider when it is safe for you to drive. ? Do exercises as told by your provider. ? Return to your normal activities as told by your provider. Ask your provider what activities are safe for you. General instructions ? Do not use any products that contain nicotine or tobacco. These products include cigarettes, chewing tobacco, and vaping devices, such as e-cigarettes. These can delay bone healing. If you need help quitting, ask your provider. (more content not included)... [facility] 06-07-2024 Note PROCEDURE: XR Should er Complete Left, XR Humerus Left, 06/07/2024 12:44 PM EST CLINICAL INDICATIONS: Traumatic injury, fall one day earlier, left shoulder and arm pain COMPARISON: None TECHNIQUE: Left shoulder 3 views. Left humerus 2 views. FINDINGS: LEFT SHOULDER: An acute closed traumatic comminuted lateral clavicle fracture identified. Mild distracted fragments are seen. Joint space preserved. Coracoclavicular interval normal. Mild glenohumeral osteoarthrosis favored. Chest wall abnormality is not evident. Soft tissue swelling lateral clavicle level noted. There is been sternotomy, heart is prominent. LEFT HUMERUS: The left humerus is intact. Acute fracture malalignment or bone destruction is not evident. Epicondylar enthesopathy, mild humeral ulnar osteoarthrosis noted. Regional soft tissues unremarkable. IMPRESSION: 1. Acute closed traumatic nonarticular comminuted lateral left clavicle metaphyseal fracture with mild distracted fragments. Coracoclavicular interval is normal. Joint space preserved. 2. No acute traumatic osseous pathology the remainder the left shoulder, left humerus. 3. Left shoulder and elbow osteoarthrosis 4. Left elbow epicondylar enthesopathy Final Dictated by: Harjeet Goyal MD Dictated DT/TM: 06/07/24 1:08 Signed (Electronic Signature): Harjeet Goyal MD 06/07/24 1:11 pm Technologist: LEN AYERS [facility] 06-07-2024 Note PROCEDURE: XR Should er Complete Left, XR Humerus Left, 06/07/2024 12:44 PM EST CLINICAL INDICATIONS: Traumatic injury, fall one day earlier, left shoulder and arm pain COMPARISON: None TECHNIQUE: Left shoulder 3 views. Left humerus 2 views. FINDINGS: LEFT SHOULDER: An acute closed traumatic comminuted lateral clavicle fracture identified. Mild distracted fragments are seen. Joint space preserved. Coracoclavicular interval normal. Mild glenohumeral osteoarthrosis favored. Chest wall abnormality is not evident. Soft tissue swelling lateral clavicle level noted. There is been sternotomy, heart is prominent. LEFT HUMERUS: The left humerus is intact. Acute fracture malalignment or bone destruction is not evident. Epicondylar enthesopathy, mild humeral ulnar osteoarthrosis noted. Regional soft tissues unremarkable. IMPRESSION: 1. Acute closed traumatic nonarticular comminuted lateral left clavicle metaphyseal fracture with mild distracted fragments. Coracoclavicular interval is normal. Joint space preserved. 2. No acute traumatic osseous pathology the remainder the left shoulder, left humerus. 3. Left shoulder and elbow osteoarthrosis 4. Left elbow epicondylar enthesopathy Final Dictated by: Harjeet Goyal MD Dictated DT/TM: 06/07/24 1:08 Signed (Electronic Signature): Harjeet Goyal MD 06/07/24 1:11 pm Technologist: LEN AYERS [facility] 06-03-2024 Telephone encounter Note Patient notified [facility] 06-03-2024 Miscellaneous Notes Patient notified Patient left vm asking if can do an epidural injection for him or does he know a doctor that can do this for him? Please advise [phone]. Discussed with Dr. Slater ; he did not order studies would need to follow up with Dr. Omalley to discuss results. Left vm for patient IF it is of the lower extremities, it may have been ordered by Dr. Greyson Omalley out of [place] ( [place]) I don't see where wee ordered this test.. they should check with neurology office that did study who ordered the test. Patient called asking why we did not call him to schedule him with to go over his EMG results. He stated the EMG was done 05/22/24 in [place]. I asked him if ordered the EMG and he thinks he did. Does Varinder need an appointment to go over these EMG results? Please advise [phone]. documented in this encounter [facility] 06-03-2024 Telephone encounter Note Patient left asking if can do an epidural injection for him or does he know a doctor that can do this for him? Please advise [phone]. [facility] 06-01-2024 Miscellaneous Notes Patient calls and requests to schedule an appointment. Patient was informed by Izzy that we were unable to schedule him in our office but that we can send a referral to [facility] if he would like. Patient began yelling, the information was repeated in regards to scheduling and referral. Patient continued to yell at which point Izzy disconnected the call. Patient is a DNS for [facility] due to previous threats made via several telephone calls. documented in this encounter [facility] 06-01-2024 Telephone encounter Note Patient calls and requests to schedule an appointment. Patient was informed by Izzy that we were unable to schedule him in our office but that we can send a referral to [facility] if he would like. Patient began yelling, the information was repeated in regards to scheduling and referral. Patient continued to yell at which point Izzy disconnected the call. Patient is a DNS for [facility] Pain management due to previous threats made via several telephone calls. [facility] [employer] [facility] 05-27-2024 Telephone encounter Note Discussed with Dr. Slater ; he did not order studies would need to follow up with Dr. Omalley to discuss results. [facility] [employer] 05-27-2024 Telephone encounter Note Left vm for patient [facility] [employer] 05-27-2024 Telephone encounter Note IF it is of the lower extremities, it may have been ordered by Dr. Greyson Omalley out of [place] ( [place]) I don't see where wee ordered this test.. they should check with neurology office that did study who ordered the test. [employer] [facility] [employer] Work Phone: 05-27-2024 Telephone encounter Note Patient called asking why we did not call him to schedule him with to go over his EMG results. He stated the EMG was done 05/22/24 in [place]. I asked him if ordered the EMG and he thinks he did. Does Varinder need an appointment to go over these EMG results? Please advise [phone]. [employer] [facility] [employer] 05-25-2024 History of Presen t illness Narrative Patient: Varinder Wilson : 1960 PCP: Negar Francois MD SUBJECTIVE This is a 63 y.o. male that presents today 48 days s/p left peroneal tendon repair and TPN to right 2nd digit nail Pt denies n/f/v/c and has minimal pain to post op site. Pt states that they have been in shoe gear with now complaints of gapping to the area incision site with positive drainage and dry scab like lesion but states it has painful against shoe gear Pt was instructed to apply betadine and minimal WB with walking boot and presents today without walking boot states he has not been wearing walking boot and is very resistant to putting Betadine on the as it stings Patient was given prescription for Santyl and is not using He also has been taking prophylactic antibiotic He has been weight-bearing against medical advice during the whole postoperative visits states he has negative pain with weight-bearing. Positive hx of CVA in past and takes xeralto. Pt was given percocet in the past for pain. Patient continues states pain to the area He was to follow up with [facility] wound care center after last appointment. Patient did follow up in his currently seen [facility] wound care center and was seen 3 days ago and has follow up on Saturday and continue with follow-up Allergies: No Known Allergies Past Medical History: Past Medical History: Diagnosis Date Abnormal EKG 10/25/2015 Abnormal gait 02/20/2023 Abnormal stress ECG 09/28/2017 Added automatically from request for surgery [id number] Acquired hallux valgus 02/20/2023 Alcohol abuse 02/20/2023 Allergic rhinitis due to pollen 02/20/2023 Anemia 02/20/2023 Angina pectoris ([facility]) Anxiety 02/20/2023 Arthritis of hip 02/20/2023 Arthritis of lumbosacral spine 02/20/2023 Benign essential hypertension ([facility]) 10/25/2015 Benign prostatic hyperplasia 02/20/2023 Bipolar depression ([facility]) 02/20/2023 CAD (coronary artery disease) of artery bypass graft ([facility]) 09/09/2016 Cannabis abuse 02/20/2023 Cerebellar infarction ([facility]) 02/20/2023 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 ([facility]) 02/20/2023 Cerebral infarction, unspecified ([facility]) 02/17/2016 Cerebrovascular accident (CVA) ([facility]) 09/09/2016 Cervical spondylosis without myelopathy 06/20/2022 Chest pain at rest 02/20/2023 Cholecystitis 2016 Chronic cluster headache 02/20/2023 Chronic obstructive pulmonary disease ([facility]) 09/09/2016 Claudication ([facility]) 02/20/2023 COPD (chronic obstructive pulmonary disease) ([facility] Depressed bipolar I disorder ([facility]) 02/20/2023 Depression ([facility]) 02/20/2023 Depressive disorder ([facility]) 02/20/2023 Difficulty hearing, bilateral 02/20/2023 Difficulty walking Disability of walking 02/20/2023 Dyspnea on exertion 09/19/2017 Encounter for preprocedural cardiovascular examination 07/18/2016 Epidermoid cyst of skin 02/20/2023 Essential tremor 02/20/2023 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 H/O exercise stress test 02/10/2015 Normal History of coronary artery stent placement Hypertension ([facility]) Memory loss Numbness Stroke ([facility]) TIA (transient ischemic attack) 2017 Tubular adenoma Weakness of limb Medications: Current Outpatient Medications: OXcarbazepine (Trileptal) 150 MG tablet, TAKE 1 TABLET BY MOUTH EVERY 12 HOURS, Disp: 60 tablet, Rfl: 3 albuterol HFA 90 mcg/act inhaler, Inhale 1 puff in the morning and 1 puff in the evening and 1 puff before bedtime., Disp: , Rfl: amantadine (Symmetrel) 100 MG capsule, Take 100 mg by mouth in the morning and at noon, Disp: , Rfl: amantadine (Symmetrel) 100 MG tablet, Take 1 tablet (100 mg) by mouth Daily for 7 days, THEN 1 tablet (100 mg) in the morning and at noon., Disp: 187 tablet, Rfl: 0 aspirin 81 MG EC tablet, Take 81 mg by mouth in the morning., Disp: , Rfl: carvedilol (Coreg) 6.25 MG tablet, Take 6.25 mg by mouth in the morning and 6.25 mg in the evening. Take with meals., Disp: , Rfl: celecoxib (CeleBREX) 100 MG capsule, Take 100 mg by mouth in the morning and 100 mg in the evening., Disp: , Rfl: cephalexin (Keflex) 500 MG capsule, Take 1 capsule (500 mg) by mouth in the morning and 1 capsule (500 mg) in the evening and 1 capsule (500 mg) before bedtime. Do all this for 10 days. Take one tablet by mouth three times daily., Disp: 30 capsule, Rfl: 0 collagenase (Santyl) 250 UNIT/GM ointment, Apply topically Daily, Disp: 30 g, Rfl: 1 cyanocobalamin (Vitamin B-12) 1000 MCG/ML injection, Inject 1,000 mcg into the shoulder, thigh, or buttocks every 30 (thirty) days., Disp: , Rfl: Cyanocobalamin 1000 MCG capsule, as directed Orally, Disp: , Rfl: cyproheptadine (Periactin) 4 MG tablet, Take 1 tablet (4 mg) by mouth at bedtime, Disp: 90 tablet, Rfl: 3 ipratropium-albuterol (Duo-Neb) 0.5-2.5 mg/3 mL nebulizer solution, Take 3 mL by nebulization in the morning and 3 mL in the evening and 3 mL before bedtime., Disp: , Rfl: montelukast (Singulair) 10 MG tablet, Take 1 tablet (10 mg) by mouth at bedtime, Disp: 90 tablet, Rfl: 3 nitroglycerin (Nitrostat) 0.4 MG SL tablet, Place 0.4 mg under the tongue every 5 (five) minutes if needed., Disp: , Rfl: oxyCODONE-acetaminophen (Percocet) 10-325 MG tablet, Take 1 tablet by mouth every 6 (six) hours if needed for severe pain for up to 5 days, Disp: 15 tablet, Rfl: 0 rosuvastatin (Crestor) 40 MG tablet, Take 40 mg by mouth in the morning., Disp: , Rfl: topiramate (Topamax) 25 MG tablet, Take 1 tablet (25 mg) by mouth at bedtime for 7 days, THEN 1 tablet (25 mg) 2 (two) times a day., Disp: 67 tablet, Rfl: 2 Trelegy Ellipta 100-62.5-25 MCG/ACT aerosol powder , , Disp: , Rfl: verapamil ER (Verelan) 180 MG 24 hr capsule, Take 180 mg by mouth at bedtime Do not crush or chew., Disp: , Rfl: verapamil SR (Calan SR) 180 MG ER tablet, Take 180 mg by mouth at bedtime, Disp: , Rfl: Xarelto 20 MG tablet, Take 20 mg by mouth in the evening. Take with meals., Disp: , Rfl: ROS: General: denies fever, chills, fatigue, malaise GI: denies loose or watery stool on antibiotic OBJECTIVE LE EXAM: Derm: Incision site to left lateral ankle has gapping to the incision site with subcutaneous tissue present with ulceration measuring 4 cm x 0.5 cm x 0.2 cm subcutaneous thickness depth with slight fibrous slough and slight erythema surrounding wound area with slight edema Right 2nd digit has dry scab like lesion with negative erythema and negative drainage. Elongated thick yellow crumbly nails digits 1 through 9 with diminished hair growth. Right 2nd digit has negative drainage and negative erythema to toe. Vascular: Palpable pedal pulses bilaterally Neuro: 5.07 [place] monofilament test intact to digits and forefoot bilaterally 125Hz tuning fork diminished to 1st MPJ bilaterally Musculoskeletal: Negative pain on palpation toleft calf. Positive pain on palpation nails 1 through 9 Positive palpation to lateral left ankle ASSESSMENT 48d days s/p left peroneal tendon repair and TPN to right 2nd digit nail with slight wound dehiscence to the incision site 1. Foot ulcer, left, with fat layer exposed ([facility]) 2. 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 Patient states may have home health ordered [facility] debridement with 15 blade of subcutaneous ulceration to left foot with active bleeding noted and removal and excision of fibrotic and necrotic tissue to wound and DSD applied with neosporin. Pt to continue with wound care center instructions daily Today's procedure is a staged procedure and patient may need further procedures in the future. Patient to finish antibiotics Fernando Moreno DPM documented in this encounter [facility] 05-14-2024 Note PROCEDURE: XR Ankle Complete Left HISTORY: non healing surgical wound COMPARISON: XR foot left 11/24/2014 FINDINGS: BONES:No fracture, acute abnormality, or significant arthropathy. SOFT TISSUES:Lateral soft tissue swelling and subcutaneous air consistent with history of wound. EFFUSION:None visible. OTHER: Negative. IMPRESSION: 1. Wound/soft tissue swelling overlying the lateral malleolus. 2. No acute bone abnormality or convincing osteomyelitis. Final Dictated by: Errol Pacheco MD Dictated DT/TM: 05/17/24 8:35 Signed (Electronic Signature): Errol Pacheco MD 05/17/24 8:39 am Technologist: Darling GOVEA [facility] 05-13-2024 History of Presen t illness Narrative Patient: Varinder Wilson : 1960 PCP: Negar Francois MD SUBJECTIVE This is a 63 y.o. male that presents today 36 days s/p left peroneal tendon repair and TPN to right 2nd digit nail Pt denies n/f/v/c and has minimal pain to post op site. Pt states that they have been in shoe gear with now complaints of gapping to the area incision site with positive drainage and dry scab like lesion but states it has painful against shoe gear Pt was instructed to apply betadine and minimal WB with walking boot and presents today without walking boot states he has not been wearing walking boot and is very resistant to putting Betadine on the as it stings He has been weight-bearing against medical advice during the whole postoperative visits states he has negative pain with weight-bearing. Positive hx of CVA in past and takes xeralto. Pt was given percocet 5 days ago for pain. Patient continues states pain to the area Allergies: No Known Allergies Past Medical History: Past Medical History: Diagnosis Date Abnormal EKG 10/25/2015 Abnormal gait 02/20/2023 Abnormal stress ECG 09/28/2017 Added automatically from request for surgery [id number] Acquired hallux valgus 02/20/2023 Alcohol abuse 02/20/2023 Allergic rhinitis due to pollen 02/20/2023 Anemia 02/20/2023 Angina pectoris ([facility]) Anxiety 02/20/2023 Arthritis of hip 02/20/2023 Arthritis of lumbosacral spine 02/20/2023 Benign essential hypertension ([facility]) 10/25/2015 Benign prostatic hyperplasia 02/20/2023 Bipolar depression ([facility]) 02/20/2023 CAD (coronary artery disease) of artery bypass graft ([facility]) 09/09/2016 Cannabis abuse 02/20/2023 Cerebellar infarction ([facility]) 02/20/2023 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 ([facility]) 02/20/2023 Cerebral infarction, unspecified ([facility]) 02/17/2016 Cerebrovascular accident (CVA) ([facility]) 09/09/2016 Cervical spondylosis without myelopathy 06/20/2022 Chest pain at rest 02/20/2023 Cholecystitis 2016 Chronic cluster headache 02/20/2023 Chronic obstructive pulmonary disease ([facility]) 09/09/2016 Claudication ([facility]) 02/20/2023 COPD (chronic obstructive pulmonary disease) ([facility]) Depressed bipolar I disorder ([facility]) 02/20/2023 Depression ([facility]) 02/20/2023 Depressive disorder ([facility]) 02/20/2023 Difficulty hearing, bilateral 02/20/2023 Difficulty walking Disability of walking 02/20/2023 Dyspnea on exertion 09/19/2017 Encounter for preprocedural cardiovascular examination 07/18/2016 Epidermoid cyst of skin 02/20/2023 Essential tremor 02/20/2023 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 H/O exercise stress test 02/10/2015 Normal History of coronary artery stent placement Hypertension ([facility]) Memory loss Numbness Stroke ([facility]) TIA (transient ischemic attack) 2017 Tubular adenoma Weakness of limb Medications: Current Outpatient Medications: OXcarbazepine (Trileptal) 150 MG tablet, TAKE 1 TABLET BY MOUTH EVERY 12 HOURS, Disp: 60 tablet, Rfl: 3 albuterol HFA 90 mcg/act inhaler, Inhale 1 puff in the morning and 1 puff in the evening and 1 puff before bedtime., Disp: , Rfl: amantadine (Symmetrel) 100 MG capsule, Take 100 mg by mouth in the morning and at noon, Disp: , Rfl: amantadine (Symmetrel) 100 MG tablet, Take 1 tablet (100 mg) by mouth Daily for 7 days, THEN 1 tablet (100 mg) in the morning and at noon., Disp: 187 tablet, Rfl: 0 aspirin 81 MG EC tablet, Take 81 mg by mouth in the morning., Disp: , Rfl: carvedilol (Coreg) 6.25 MG tablet, Take 6.25 mg by mouth in the morning and 6.25 mg in the evening. Take with meals., Disp: , Rfl: celecoxib (CeleBREX) 100 MG capsule, Take 100 mg by mouth in the morning and 100 mg in the evening., Disp: , Rfl: cyanocobalamin (Vitamin B-12) 1000 MCG/ML injection, Inject 1,000 mcg into the shoulder, thigh, or buttocks every 30 (thirty) days., Disp: , Rfl: Cyanocobalamin 1000 MCG capsule, as directed Orally, Disp: , Rfl: cyproheptadine (Periactin) 4 MG tablet, Take 1 tablet (4 mg) by mouth at bedtime, Disp: 90 tablet, Rfl: 3 ipratropium-albuterol (Duo-Neb) 0.5-2.5 mg/3 mL nebulizer solution, Take 3 mL by nebulization in the morning and 3 mL in the evening and 3 mL before bedtime., Disp: , Rfl: montelukast (Singulair) 10 MG tablet, Take 1 tablet (10 mg) by mouth at bedtime, Disp: 90 tablet, Rfl: 3 nitroglycerin (Nitrostat) 0.4 MG SL tablet, Place 0.4 mg under the tongue every 5 (five) minutes if needed., Disp: , Rfl: oxyCODONE-acetaminophen (Percocet) 10-325 MG tablet, Take 1 tablet by mouth every 6 (six) hours if needed for severe pain for up to 5 days, Disp: 15 tablet, Rfl: 0 rosuvastatin (Crestor) 40 MG tablet, Take 40 mg by mouth in the morning., Disp: , Rfl: topiramate (Topamax) 25 MG tablet, Take 1 tablet (25 mg) by mouth at bedtime for 7 days, THEN 1 tablet (25 mg) 2 (two) times a day., Disp: 67 tablet, Rfl: 2 Trelegy Ellipta 100-62.5-25 MCG/ACT aerosol powder , , Disp: , Rfl: verapamil ER (Verelan) 180 MG 24 hr capsule, Take 180 mg by mouth at bedtime Do not crush or chew., Disp: , Rfl: verapamil SR (Calan SR) 180 MG ER tablet, Take 180 mg by mouth at bedtime, Disp: , Rfl: Xarelto 20 MG tablet, Take 20 mg by mouth in the evening. Take with meals., Disp: , Rfl: ROS: General: denies fever, chills, fatigue, malaise GI: denies loose or watery stool on antibiotic OBJECTIVE LE EXAM: Derm: Incision site to left lateral ankle has gapping to the incision site with subcutaneous tissue present with ulceration measuring 4 cm x 0.5 cm x 0.2 cm subcutaneous thickness depth with slight fibrous slough and slight erythema surrounding wound area with slight edema Right 2nd digit has dry scab like lesion with negative erythema and negative drainage. Elongated thick yellow crumbly nails digits 1 through 9 with diminished hair growth. Right 2nd digit has negative drainage and negative erythema to toe. Vascular: Palpable pedal pulses bilaterally Neuro: 5.07 [place] Audelia monofilament test intact to digits and forefoot bilaterally 125Hz tuning fork diminished to 1st MPJ bilaterally Musculoskeletal: Negative pain on palpation toleft calf. Positive pain on palpation nails 1 through 9 Positive palpation to lateral left ankle ASSESSMENT 36 d days s/p left peroneal tendon repair and TPN to right 2nd digit nail with slight wound dehiscence to the incision site 1. Peroneal tendon tear, left, initial encounter 2. Onychocryptosis 3. Toe pain, right 4. Foot ulcer, left, with fat layer exposed (CMS/HCC) 5. Cellulitis of left foot PLAN Patient has pain to the area and will renew pain medication Prescription today for Santyl to be applied every day with dry sterile dressing Prescription today for prophylactic antibiotic Dry sterile dressing applied to the left ankle and patient instructed that he has follow up on Saturday of next week for [facility] wound care center with Dr. Yu Bettencourt. Fernando Moreno DPM documented in this encounter [facility] 05-08-2024 History of Presen t illness Narrative Patient: Varinder Wilson : 1960 PCP: Negar Francois MD SUBJECTIVE This is a 63 y.o. male that presents today 31 days s/p left peroneal tendon repair and TPN to right 2nd digit nail Pt denies n/f/v/c and has minimal pain to post op site. Pt states that they have been in shoe gear with now complaints of gapping to the area incision site with negative drainage and dry scab like lesion but states it has painful against shoe gear He has been weight-bearing against medical advice during the whole postoperative visits states he has negative pain with weight-bearing. Patient presents today with a CC of elongated, thick nails. Pt states nails have been elongated and thick for many years and cause pain with ambulation in shoegear. Pt has tried previous treatment with minimal relief. Pt presents today for nail care and treatment. Patient is DM2 Allergies: No Known Allergies Past Medical History: Past Medical History: Diagnosis Date Abnormal EKG 10/25/2015 Abnormal gait 02/20/2023 Abnormal stress ECG 09/28/2017 Added automatically from request for surgery [id number] Acquired hallux valgus 02/20/2023 Alcohol abuse 02/20/2023 Allergic rhinitis due to pollen 02/20/2023 Anemia 02/20/2023 Angina pectoris ([facility]) Anxiety 02/20/2023 Arthritis of hip 02/20/2023 Arthritis of lumbosacral spine 02/20/2023 Benign essential hypertension ([facility]) 10/25/2015 Benign prostatic hyperplasia 02/20/2023 Bipolar depression ([facility]) 02/20/2023 CAD (coronary artery disease) of artery bypass graft ([facility]) 09/09/2016 Cannabis abuse 02/20/2023 Cerebellar infarction ([facility]) 02/20/2023 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 ([facility]) 02/20/2023 Cerebral infarction, unspecified ([facility]) 02/17/2016 Cerebrovascular accident (CVA) ([facility]) 09/09/2016 Cervical spondylosis without myelopathy 06/20/2022 Chest pain at rest 02/20/2023 Cholecystitis 2016 Chronic cluster headache 02/20/2023 Chronic obstructive pulmonary disease ([facility]) 09/09/2016 Claudication ([facility]) 02/20/2023 COPD (chronic obstructive pulmonary disease) ([facility]) Depressed bipolar I disorder ([facility]) 02/20/2023 Depression ([facility]) 02/20/2023 Depressive disorder ([facility]) 02/20/2023 Difficulty hearing, bilateral 02/20/2023 Difficulty walking Disability of walking 02/20/2023 Dyspnea on exertion 09/19/2017 Encounter for preprocedural cardiovascular examination 07/18/2016 Epidermoid cyst of skin 02/20/2023 Essential tremor 02/20/2023 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 H/O exercise stress test 02/10/2015 Normal History of coronary artery stent placement Hypertension (CMS/HCC) Memory loss Numbness Stroke (CMS/HCC) TIA (transient ischemic attack) 2017 Tubular adenoma Weakness of limb Medications: Current Outpatient Medications: OXcarbazepine (Trileptal) 150 MG tablet, TAKE 1 TABLET BY MOUTH EVERY 12 HOURS, Disp: 60 tablet, Rfl: 3 albuterol HFA 90 mcg/act inhaler, Inhale 1 puff in the morning and 1 puff in the evening and 1 puff before bedtime., Disp: , Rfl: amantadine (Symmetrel) 100 MG capsule, Take 100 mg by mouth in the morning and at noon, Disp: , Rfl: amantadine (Symmetrel) 100 MG tablet, Take 1 tablet (100 mg) by mouth Daily for 7 days, THEN 1 tablet (100 mg) in the morning and at noon., Disp: 187 tablet, Rfl: 0 aspirin 81 MG EC tablet, Take 81 mg by mouth in the morning., Disp: , Rfl: carvedilol (Coreg) 6.25 MG tablet, Take 6.25 mg by mouth in the morning and 6.25 mg in the evening. Take with meals., Disp: , Rfl: celecoxib (CeleBREX) 100 MG capsule, Take 100 mg by mouth in the morning and 100 mg in the evening., Disp: , Rfl: cyanocobalamin (Vitamin B-12) 1000 MCG/ML injection, Inject 1,000 mcg into the shoulder, thigh, or buttocks every 30 (thirty) days., Disp: , Rfl: Cyanocobalamin 1000 MCG capsule, as directed Orally, Disp: , Rfl: cyproheptadine (Periactin) 4 MG tablet, Take 1 tablet (4 mg) by mouth at bedtime, Disp: 90 tablet, Rfl: 3 ipratropium-albuterol (Duo-Neb) 0.5-2.5 mg/3 mL nebulizer solution, Take 3 mL by nebulization in the morning and 3 mL in the evening and 3 mL before bedtime., Disp: , Rfl: montelukast (Singulair) 10 MG tablet, Take 1 tablet (10 mg) by mouth at bedtime, Disp: 90 tablet, Rfl: 3 nitroglycerin (Nitrostat) 0.4 MG SL tablet, Place 0.4 mg under the tongue every 5 (five) minutes if needed., Disp: , Rfl: rosuvastatin (Crestor) 40 MG tablet, Take 40 mg by mouth in the morning., Disp: , Rfl: topiramate (Topamax) 25 MG tablet, Take 1 tablet (25 mg) by mouth at bedtime for 7 days, THEN 1 tablet (25 mg) 2 (two) times a day., Disp: 67 tablet, Rfl: 2 Trelegy Ellipta 100-62.5-25 MCG/ACT aerosol powder , , Disp: , Rfl: verapamil ER (Verelan) 180 MG 24 hr capsule, Take 180 mg by mouth at bedtime Do not crush or chew., Disp: , Rfl: verapamil SR (Calan SR) 180 MG ER tablet, Take 180 mg by mouth at bedtime, Disp: , Rfl: Xarelto 20 MG tablet, Take 20 mg by mouth in the evening. Take with meals., Disp: , Rfl: ROS: General: denies fever, chills, fatigue, malaise GI: denies loose or watery stool on antibiotic OBJECTIVE LE EXAM: Derm: Skin to left foot with slight surrounding incision site negative erythema, negative mid incision drainage, minimal edema with negative clinical signs of infection. Notable slight gapping and notable scab like lesion to the incision site for proximally 50 percent of incision site with scab like lesion present and negative drainage with negative erythema Elongated thick yellow crumbly nails digits 1 through 9 with diminished hair growth. Right 2nd digit has negative drainage and negative erythema to toe. Vascular: Palpable pedal pulses bilaterally Neuro: 5.07 [place] Audelia monofilament test intact to digits and forefoot bilaterally 125Hz tuning fork diminished to 1st MPJ bilaterally Musculoskeletal: Negative pain on palpation toleft calf. Positive pain on palpation nails 1 through 9 ASSESSMENT 31d days s/p left peroneal tendon repair and TPN to right 2nd digit nail with slight wound dehiscence to the incision site 1. Pain due to onychomycosis of toenails of both feet 2. 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 Debride nails in length and thickness digits 1 through 9 Patient educated today on proper diabetic foot care including monitoring feet daily for any signs of infection openings in the skin or irregularities to both feet. Patient had a diabetic neurological exam today to both their feet and discussed proper shoe gear. Patient has pain to the area and will renew pain medication Apply Betadine with dry sterile dressing and patient given Betadine and dry sterile dressings applied daily with follow up in 2 weeks to the dehisced incision site and returned to walking boot as previously instructed but has been weight-bearing and walking with normal shoe gear against medical advice from the beginning of postop time. Fernando Moreno DPM documented in this encounter [facility] 04-30-2024 History of Presen t illness Narrative Subjective SUBJECTIVE: Patient ID: Varinder Wilson is a 63 y.o. male who presents for a Medicare Annual Wellness exam and to establish care. HPI Reports he has so much back pain. Limited range of motion to neck. Back pain going up and down back. Reports it is ruining his life. Reports appt with Dr. Omalley May.15. Reports the back pain started at his lower left side and is now moving across to the right. Reports the pain goes up the back and is a constant 8. Reports he can no longer walk his dog. Denies loss of control of bowel or bladder. Reports some leg weakness. Reports tingling and numbness down the back and reports it has been constant. Reports his back pain has been worsening over the years. Ringing to the ears ongoing for years. Reports steady and constant. Reports he followed with ENT in the past. He would like to further discuss after he gets back situated. Care team: PCP Podiatry, Dr. Fernando Moreno- onychocryptosis, left peroneal tendon repair Ortho, Dr. Slater- lumbar radiculopathy, Referral was placed to neurosurgery by ortho- DR. Omalley for lumbar radiculopathy and cervical radiculopathy. Spine care- Given a pain management referral. Order for an EMG/NCS Left Leg. States he will not follow up with them, he will see Dr. Omalley. Pain management- spine injections. Reports insurance denied. Has not gotten done. Reports ongoing neck pain. Reports he has completed PT. Reports arm/ hand weakness and tingling and numbness constantly. Gabapetin helps minimally. Neurology- neuropathy, tremor, cervical and lumbar radiculopathy. Received botox injections for limb spasticity- completed this, reports he would like to focus on his neck pain. On topamax. Pulmonology, Dr. Yan- chronic cough, COPD -negative CT chest - trial of 4 weeks of PPI. Will assess for improvement in cough, mucus production. Suspect that he is aspirating with LPR. He will call the office with update after trial and will evaluate for possible GI referral for upper GI study Infectious Disease [facility] [place]- sputum culture x 2 with Penicillum and rhizopus species. [place] contaminated. Has not followed up. He will follow up with pulmonology. Cardiology- presence of coronary angioplasty and graft, CAD with history of CABG , atherosclerotic coronary vascular disease. He underwent bypass graft surgery in 2015 receiving KIRBY to the left anterior descending artery, vein graft to the right coronary artery and a vein graft to the obtuse marginal. He was clearly having anginal symptoms in 2017 and the vein graft to the obtuse marginal was found to be obstructed. He underwent drug-eluting stent placement in the circumflex pechanga and 2nd obtuse marginal and has been pretty much free of angina ever since. He had essentially a low risk stress test in 2020 with preserved left ventricular systolic function. He had a minimal area of lateral ischemia. - Dyslipidemia on high intensity statin. He is tolerating this. -Essential hypertension reasonably controlled on current regimen, coreg 6.25 mg BID, verapamil 180 mg nightly, -Peripheral vascular disease. He is anticoagulated long-term Bipolar depression- will see counseling. Immunization History Administered Date(s) Administered Influenza, Injectable, quadrivalent (PF) 05/30/2023 Influenza, Trivalent, Adjuvanted 04/30/2024 Influenza, Unspecified 08/22/2017 Patient Active Problem List Diagnosis Stage 1 mild COPD by GOLD classification ([facility]) Presence of coronary angioplasty implant and graft Peripheral vascular disease ([facility]) Hyperlipidemia Essential hypertension Encounter for preprocedural cardiovascular examination Cerebral infarction ([facility]) 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 Numbness of upper extremity History of tobacco use Abnormal EKG Abnormal stress ECG Cervical radiculopathy Cervical spondylosis without myelopathy Chronic left-sided low back pain with left-sided sciatica Multilevel degenerative joint disease of spine Disorder of sacrum Chronic cough Bipolar depression ([facility]) Current Outpatient Medications on File Prior to Visit Medication Sig Dispense Refill albuterol (PROVENTIL HFA;VENTOLIN HFA) 90 mcg/actuation inhaler INHALE 2 PUFFS BY MOUTH EVERY 4 HOURS NEEDED FOR WHEEZING OR SHORTNESS OF BREATH. 18 g 9 carvediloL (COREG) 6.25 mg tablet Take 1 tablet (6.25 mg total) by mouth in the morning and 1 tablet (6.25 mg total) before bedtime. 180 tablet 3 celecoxib (CeleBREX) 100 mg capsule Take 1 capsule (100 mg total) by mouth in the morning and 1 capsule (100 mg total) before bedtime. 60 capsule 2 cyanocobalamin (VITAMIN B-12) 1,000 mcg/mL injection INJECT 1 MILLILITER INTRAMUSCULARLY ONCE A MONTH 1 mL 10 fexofenadine (VERONICA) 180 mg tablet Take 1 tablet (180 mg total) by mouth in the morning. 30 tablet 2 gabapentin (NEURONTIN) 600 mg tablet Take 1 tablet (600 mg total) by mouth 3 (three) times a day. 90 tablet 2 needle, disp, 25 gauge 25 gauge x 1 needle To be used for B12 injections once per month 12 each 0 nitroglycerin (NITROSTAT) 0.[address] 1 tablet (0.4 mg total) under the tongue every 5 (five) minutes as needed for chest pain. Every 5 minutes x 3 for chest pain as instructed per MD. If no relief after 3 tablets call 911. 25 tablet 3 rosuvastatin (CRESTOR) 40 mg tablet Take 1 tablet (40 mg total) by mouth in the morning. 90 tablet 3 verapamil SR (CALAN-SR) 180 mg CR tablet Take 1 tablet (180 mg total) by mouth nightly. 30 tablet 0 fluticasone propionate (FLONASE) 50 mcg/actuation nasal spray Administer 1 spray into each nostril in the morning. (Patient not taking: Reported on 04/30/2024) 16 mL 0 ktbkkfpysut-bjmzgruix-kugdyhyc (TRELEGY ELLIPTA) 100-62.5-25 mcg blister with device INHALE 1 PUFF BY MOUTH ONCE DAILY IN THE MORNING (Patient not taking: Reported on 04/30/2024) 60 each 11 omeprazole (PriLOSEC) 40 mg capsule Take 1 capsule (40 mg total) by mouth in the morning. (Patient not taking: Reported on 04/30/2024) 30 capsule 6 rivaroxaban (XARELTO) 20 mg tablet tablet Take 1 tablet (20 mg total) by mouth nightly. (Patient not taking: Reported on 04/30/2024) 90 tablet 0 Current Facility-Administered Medications on File Prior to Visit Medication Dose Route Frequency Provider Last Rate Last Admin albuterol (PROVENTIL,VENTOLIN) nebulizer solution 2.5 mg 2.5 mg nebulization PRN Brisa Yan DO Past Surgical History: Procedure Laterality Date CARDIAC CATHETERIZATION Cardiac catheterization N/A 09/30/2017 Performed by Harry Buckner MD at [facility] CARDIAC CATH LABS CHOLECYSTECTOMY Coronary angiogram and left ventricular gram/pressure + graft/pechanga N/A 09/30/2017 Performed by Harry Buckner MD at [facility] CARDIAC CATH LABS CORONARY ARTERY BYPASS GRAFT 12/2015 x3 CORONARY STENT PLACEMENT CYST REMOVAL neck EYE SURGERY 08/28/2023 both eyes HERNIA REPAIR MULTIPLE TOOTH EXTRACTIONS REPAIR LIGAMENT 03/2024 left foot Revascularization chronic total occlusion/drug eluting stent/ath left circumflex N/A 09/30/2017 Performed by Harry Buckner MD at [facility] CARDIAC CATH LABS VASCULAR SURGERY right leg Family History Problem Relation Age of Onset Brain Tumor Mother Heart disease Mother Hypertension Mother Diabetes Mother COPD Mother Kidney disease Mother Diabetes Father COPD Father Lung cancer Father No Known Problems Sister No Known Problems Sister Back Problems Brother The following portions of the patient's history were reviewed and updated as appropriate: allergies, current medications, past family history, past medical history, past social history, past surgical history and problem list. AWV FLOWSHEET : Lifestyle Assessment Do you smoke or use smokeless tobacco?: No If you smoke or use smokeless tobacco, are you ready to quit?: NA Are you exposed to secondhand smoke?: No On average, how many drinks of alcohol do you consume in a week?: None Do you exercise for 30 or more minutes on average at least 3 days a week?: (!) Never Do you have any tooth, denture, or oral problems?: (!) Yes Do you snore or has anyone told you that you snore?: No Do you try to eat a balanced diet?: (!) No Do you experience leakage of urine, also known as urinary incontinence?: Never Do you have difficulty performing any of these activities? (check all that apply): None Do you have difficulty performing any of these activities? (check all that apply): None Fall Risk Fall Risk Assessment Completed?: Yes Have you fallen in the past year?: No Are you worried about falling?: No Do you feel unsteady when standing or walking?: (!) Yes Risk Stratification: Moderate Risk Depression Screening Little interest or pleasure in doing things: (!) Several days Feeling down, depressed, or hopeless: (!) Several days Trouble falling or staying asleep, or sleeping too much: (!) More than half the days Feeling tired or having little energy: (!) Nearly every day Poor appetite or overeating: Not at all Feeling bad about yourself - or that you are a failure or have let yourself or your family down: Not at all Trouble concentrating on things, such as reading the newspaper or watching television: Not at all Moving or speaking so slowly that other people could have noticed. Or the opposite - being so fidgety or restless that you have been moving around a lot more than usual: Not at all Thoughts that you would be better off , or of hurting yourself in some way: Not at all PEG Scale What number best describes your pain on average in the past week?: 9 What number best describes how, during the past week, pain has interfered with your enjoyment of life?: 9 What number best describes how, during the past week, pain has interfered with your general activity?: 9 PEG Pain Total Score: 9 Safety Assessment Do you have throw rugs on the floor?: No Do you feel safe at your home?: Yes Do you feel unsteady when walking?: No Are you having difficulty with driving?: No Do you have trouble seeing?: No What assistive device do you use? (check all that apply): (!) Cane Hearing Assessment Do you strain or struggle to hear/understand conversations?: No Do you have trouble hearing the television or radio when others do not?: No Does your family ever voice concerns about your hearing?: No Do you wear hearing aid/s?: No Personal Health During the past 4 weeks, how would you rate your overall health?: (!) Fair Do you understand how to take all of your medications?: Yes How confident are you that you can control and manage most of your health problems?: Very confident In the past 12 months, how many times have you been hospitalized?: None End of Life Planning Do you have a living will?: (!) No Do you have a durable power of manometer technician?: Yes Cognitive Screening Do you have trouble remembering or recalling facts or events?: (!) Yes Do family members or caregivers report that you have difficulty remembering things?: No Clock Drawing Test: Normal REVIEW OF SYSTEMS: Review of Systems HENT: Positive for postnasal drip, rhinorrhea and tinnitus. Reports constant runny nose, singulair and antihistamine not helpful. Musculoskeletal: Positive for back pain, gait problem, myalgias and neck pain. Psychiatric/Behavioral: Positive for sleep disturbance. Negative for self-injury and suicidal ideas. Objective PHYSICAL EXAMINATION: Vitals: 04/30/24 1509 BP: 128/80 BP Site: Left Arm BP Postition: Sitting Pulse: 61 Temp: 36.6 C (97.9 F) TempSrc: Oral SpO2: 99% Weight: 91.7 kg (202 lb 3.2 oz) Physical Exam Vitals and nursing note reviewed. Constitutional: General: He is not in acute distress. Appearance: Normal appearance. He is not ill-appearing. HENT: Head: Normocephalic and atraumatic. Right Ear: Tympanic membrane, ear canal and external ear normal. Left Ear: Tympanic membrane, ear canal and external ear normal. Nose: Nose normal. Mouth/Throat: Mouth: Mucous membranes are moist. Pharynx: Oropharynx is clear. No oropharyngeal exudate or posterior oropharyngeal erythema. Eyes: Extraocular Movements: Extraocular movements intact. Pupils: Pupils are equal, round, and reactive to light. Neck: Vascular: No carotid bruit. Comments: Limited range of motion d/t pain. Cardiovascular: Rate and Rhythm: Normal rate and regular rhythm. Pulses: Normal pulses. Heart sounds: Normal heart sounds. Pulmonary: Effort: Pulmonary effort is normal. No respiratory distress. Breath sounds: Normal breath sounds. No wheezing or rhonchi. Abdominal: General: Bowel sounds are normal. Palpations: Abdomen is soft. Musculoskeletal: Cervical back: Normal range of motion and neck supple. No rigidity or tenderness. Right lower leg: No edema. Left lower leg: No edema. Comments: Limited range of motion d/t pain Lymphadenopathy: Cervical: No cervical adenopathy. Skin: Capillary Refill: Capillary refill takes 2 to 3 seconds. Findings: Erythema present. No rash. Comments: Discoloration to lower feet Neurological: Mental Status: He is alert and oriented to person, place, and time. Motor: Weakness (generalized weakness) present. Gait: Gait abnormal. Psychiatric: Mood and Affect: Mood normal. Behavior: Behavior normal. Assessment/Plan ASSESSMENT/PLAN Health maintenance reviewed. Due for colon cancer screening.denies personal or family hx of colorectal cancer. Denies blood in stool or abnormal bowel habits. Varinder is agreeable for cologuard. Wellness labs due, ordered. Discussed vaccines. Influenza vaccine completed today. Dentures. No need for dental exam. Up to date with vision. Discussed possible tens unit for ongoing back pain. Order placed. Start amitriptyline for combination of chronic pain and sleep. Start methocarbamol for pain. \ FU 3 months for pain. Varinder was seen today for annual exam. Diagnoses and all orders for this visit: Medicare annual wellness visit, subsequent - Lipid profile; Future - Comprehensive metabolic panel; Future - CBC auto differential; Future - Prostatic specific antigen screen; Future - Vitamin B12; Future - Vitamin D 25 hydroxy; Future - TSH with Reflex; Future - Cologuard Non-[facility] Encounter for lipid screening for cardiovascular disease - Lipid profile; Future Encounter for screening for malignant neoplasm of prostate - Prostatic specific antigen screen; Future Encounter for screening for malignant neoplasm of colon - Cologuard Non-[facility] 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 - Lipid profile; Future Presence of coronary angioplasty implant and graft Essential hypertension - Comprehensive metabolic panel; Future Mixed hyperlipidemia Bipolar depression (CMS-HCC) - CBC auto differential; Future - Vitamin B12; Future - Vitamin D 25 hydroxy; Future - TSH with Reflex; Future Chronic fatigue - CBC auto differential; Future - Vitamin B12; Future - Vitamin D 25 hydroxy; Future - TSH with Reflex; Future Cervical spondylosis without myelopathy - methocarbamoL (ROBAXIN) 750 mg tablet; Take 1 tablet (750 mg total) by mouth 3 (three) times a day as needed for muscle spasms. Chronic left-sided low back pain with left-sided sciatica - methocarbamoL (ROBAXIN) 750 mg tablet; Take 1 tablet (750 mg total) by mouth 3 (three) times a day as needed for muscle spasms. Vitamin D deficiency - Vitamin D 25 hydroxy; Future Need for hepatitis C screening test - Cancel: Hepatitis C(HCV) Ab w/ Reflex to PCR; Future - Hepatitis C(HCV) Ab w/ Reflex to PCR; Future Other hyperlipidemia Need for prophylactic vaccination and inoculation against influenza - Influenza, Trivalent, Adjuvanted Routine general medical examination at a health care facility Disease of cardiovascular system Other orders - aspirin 81 mg; Take 1 tablet (81 mg total) by mouth in the morning. - amitriptyline (ELAVIL) 25 mg tablet; Take 1 tablet (25 mg total) by mouth nightly. Return in about 2 months (around 06/30/2024) for fu on amitrypitaline. SHANNON Antony 05/05/24 0929 Venipuncture performed in the left arm. Patient had no adverse reaction. Flu shot given to patient in the left deltoid. Patient tolerated with no adverse reactions documented in this encounter [facility] 04-29-2024 History of Presen t illness Narrative Patient: Varinder Wilson : 1960 PCP: Negar Francois MD SUBJECTIVE This is a 63 y.o. male that presents today 23 days s/p left peroneal tendon repair and TPN to right 2nd digit nail Pt denies n/f/v/c and has minimal pain to post op site. Pt states that they have been keeping dressing dry and intact and have been partial weightbearing to post op foot against medical advice Pt presents today for follow up. Patient has also been taking oral antibiotics and pain medication with recent history of incision site irritation . Patient states positive improvement Patient has finished oral antibiotics with negative complaints He has been weight-bearing against medical advice during the whole postoperative visits states he has negative pain with weight-bearing Allergies: No Known Allergies Past Medical History: Past Medical History: Diagnosis Date Abnormal EKG 10/25/2015 Abnormal gait 02/20/2023 Abnormal stress ECG 09/28/2017 Added automatically from request for surgery [id number] Acquired hallux valgus 02/20/2023 Alcohol abuse 02/20/2023 Allergic rhinitis due to pollen 02/20/2023 Anemia 02/20/2023 Angina pectoris ([facility]) Anxiety 02/20/2023 Arthritis of hip 02/20/2023 Arthritis of lumbosacral spine 02/20/2023 Benign essential hypertension ([facility]) 10/25/2015 Benign prostatic hyperplasia 02/20/2023 Bipolar depression ([facility]) 02/20/2023 CAD (coronary artery disease) of artery bypass graft ([facility]) 09/09/2016 Cannabis abuse 02/20/2023 Cerebellar infarction ([facility]) 02/20/2023 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 ([facility]) 02/20/2023 Cerebral infarction, unspecified ([facility]) 02/17/2016 Cerebrovascular accident (CVA) ([facility]) 09/09/2016 Cervical spondylosis without myelopathy 06/20/2022 Chest pain at rest 02/20/2023 Cholecystitis 2016 Chronic cluster headache 02/20/2023 Chronic obstructive pulmonary disease ([facility]) 09/09/2016 Claudication ([facility]) 02/20/2023 COPD (chronic obstructive pulmonary disease) ([facility]) Depressed bipolar I disorder ([facility]) 02/20/2023 Depression ([facility]) 02/20/2023 Depressive disorder ([facility]) 02/20/2023 Difficulty hearing, bilateral 02/20/2023 Difficulty walking Disability of walking 02/20/2023 Dyspnea on exertion 09/19/2017 Encounter for preprocedural cardiovascular examination 07/18/2016 Epidermoid cyst of skin 02/20/2023 Essential tremor 02/20/2023 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 H/O exercise stress test 02/10/2015 Normal History of coronary artery stent placement Hypertension (CMS/HCC) Memory loss Numbness Stroke (CMS/HCC) TIA (transient ischemic attack) 2017 Tubular adenoma Weakness of limb Medications: Current Outpatient Medications: OXcarbazepine (Trileptal) 150 MG tablet, TAKE 1 TABLET BY MOUTH EVERY 12 HOURS, Disp: 60 tablet, Rfl: 3 albuterol HFA 90 mcg/act inhaler, Inhale 1 puff in the morning and 1 puff in the evening and 1 puff before bedtime., Disp: , Rfl: amantadine (Symmetrel) 100 MG capsule, Take 100 mg by mouth in the morning and at noon, Disp: , Rfl: amantadine (Symmetrel) 100 MG tablet, Take 1 tablet (100 mg) by mouth Daily for 7 days, THEN 1 tablet (100 mg) in the morning and at noon., Disp: 187 tablet, Rfl: 0 aspirin 81 MG EC tablet, Take 81 mg by mouth in the morning., Disp: , Rfl: carvedilol (Coreg) 6.25 MG tablet, Take 6.25 mg by mouth in the morning and 6.25 mg in the evening. Take with meals., Disp: , Rfl: celecoxib (CeleBREX) 100 MG capsule, Take 100 mg by mouth in the morning and 100 mg in the evening., Disp: , Rfl: cyanocobalamin (Vitamin B-12) 1000 MCG/ML injection, Inject 1,000 mcg into the shoulder, thigh, or buttocks every 30 (thirty) days., Disp: , Rfl: Cyanocobalamin 1000 MCG capsule, as directed Orally, Disp: , Rfl: cyproheptadine (Periactin) 4 MG tablet, Take 1 tablet (4 mg) by mouth at bedtime, Disp: 90 tablet, Rfl: 3 ipratropium-albuterol (Duo-Neb) 0.5-2.5 mg/3 mL nebulizer solution, Take 3 mL by nebulization in the morning and 3 mL in the evening and 3 mL before bedtime., Disp: , Rfl: montelukast (Singulair) 10 MG tablet, Take 1 tablet (10 mg) by mouth at bedtime, Disp: 90 tablet, Rfl: 3 nitroglycerin (Nitrostat) 0.4 MG SL tablet, Place 0.4 mg under the tongue every 5 (five) minutes if needed., Disp: , Rfl: rosuvastatin (Crestor) 40 MG tablet, Take 40 mg by mouth in the morning., Disp: , Rfl: topiramate (Topamax) 25 MG tablet, Take 1 tablet (25 mg) by mouth at bedtime for 7 days, THEN 1 tablet (25 mg) 2 (two) times a day., Disp: 67 tablet, Rfl: 2 Trelegy Ellipta 100-62.5-25 MCG/ACT aerosol powder , , Disp: , Rfl: verapamil ER (Verelan) 180 MG 24 hr capsule, Take 180 mg by mouth at bedtime Do not crush or chew., Disp: , Rfl: verapamil SR (Calan SR) 180 MG ER tablet, Take 180 mg by mouth at bedtime, Disp: , Rfl: Xarelto 20 MG tablet, Take 20 mg by mouth in the evening. Take with meals., Disp: , Rfl: ROS: General: denies fever, chills, fatigue, malaise GI: denies loose or watery stool on antibiotic OBJECTIVE LE EXAM: Derm: Jing intact to left foot with slight surrounding incision site negative erythema, negative mid incision drainage, minimal edema with greatly diminished clinical signs of infection. Right 2nd digit has negative drainage and negative erythema to toe. Vascular: Palpable pedal pulses to left foot Neuro: Gross sensation intact to left foot. Musculoskeletal: Negative pain on palpation toleft calf. Ortho: Ankle range of motion less than 10 degrees of dorsiflexion at left ankle joint. ASSESSMENT 23d days s/p left peroneal tendon repair and TPN to right 2nd digit nail 1. Onychocryptosis 2. Toe pain, right 3. Peroneal tendon tear, left, initial encounter 4. 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 Contracture of left ankle PLAN Remove jing today patient may get foot wet with dry sterile dressing applied today and it may returned to normal shoe gear in the next 24 hours and begin progressive weight-bearing. Did advise him to use the boot to progress into regular shoe gear however he has not been using the boot since the beginning postoperative time.. Right 2nd toenail has since healed with negative erythema and negative drainage and has dry scab noted. Patient follow up in 1 week for nail care and will reassess at that time however appears that patient is doing very well may begin progressing into shoe gear Fernando Moreno DPM documented in this encounter [facility] 04-24-2024 History of Presen t illness Narrative Patient: Varinder Wilson : 1960 PCP: Negar Francois MD SUBJECTIVE This is a 63 y.o. male that presents today 16 days s/p left peroneal tendon repair and TPN to right 2nd digit nail Pt denies n/f/v/c and has minimal pain to post op site. Pt states that they have been keeping dressing dry and intact and have been partial weightbearing to post op foot against medical advice Pt presents today for follow up. Patient has also been taking oral antibiotics and pain medication with recent history of incision site irritation and possible cellulitis Patient states positive improvement Allergies: No Known Allergies Past Medical History: Past Medical History: Diagnosis Date Abnormal EKG 10/25/2015 Abnormal gait 02/20/2023 Abnormal stress ECG 09/28/2017 Added automatically from request for surgery [id number] Acquired hallux valgus 02/20/2023 Alcohol abuse 02/20/2023 Allergic rhinitis due to pollen 02/20/2023 Anemia 02/20/2023 Angina pectoris ([facility]) Anxiety 02/20/2023 Arthritis of hip 02/20/2023 Arthritis of lumbosacral spine 02/20/2023 Benign essential hypertension ([facility]) 10/25/2015 Benign prostatic hyperplasia 02/20/2023 Bipolar depression ([facility]) 02/20/2023 CAD (coronary artery disease) of artery bypass graft ([facility]) 09/09/2016 Cannabis abuse 02/20/2023 Cerebellar infarction ([facility]) 02/20/2023 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 ([facility]) 02/20/2023 Cerebral infarction, unspecified ([facility]) 02/17/2016 Cerebrovascular accident (CVA) ([facility]) 09/09/2016 Cervical spondylosis without myelopathy 06/20/2022 Chest pain at rest 02/20/2023 Cholecystitis 2016 Chronic cluster headache 02/20/2023 Chronic obstructive pulmonary disease ([facility]) 09/09/2016 Claudication ([facility]) 02/20/2023 COPD (chronic obstructive pulmonary disease) ([facility]) Depressed bipolar I disorder ([facility]) 02/20/2023 Depression ([facility]) 02/20/2023 Depressive disorder ([facility]) 02/20/2023 Difficulty hearing, bilateral 02/20/2023 Difficulty walking Disability of walking 02/20/2023 Dyspnea on exertion 09/19/2017 Encounter for preprocedural cardiovascular examination 07/18/2016 Epidermoid cyst of skin 02/20/2023 Essential tremor 02/20/2023 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 H/O exercise stress test 02/10/2015 Normal History of coronary artery stent placement Hypertension ([facility]) Memory loss Numbness Stroke ([facility]) TIA (transient ischemic attack) 2017 Tubular adenoma Weakness of limb Medications: Current Outpatient Medications: OXcarbazepine (Trileptal) 150 MG tablet, TAKE 1 TABLET BY MOUTH EVERY 12 HOURS, Disp: 60 tablet, Rfl: 3 albuterol HFA 90 mcg/act inhaler, Inhale 1 puff in the morning and 1 puff in the evening and 1 puff before bedtime., Disp: , Rfl: amantadine (Symmetrel) 100 MG capsule, Take 100 mg by mouth in the morning and at noon, Disp: , Rfl: amantadine (Symmetrel) 100 MG tablet, Take 1 tablet (100 mg) by mouth Daily for 7 days, THEN 1 tablet (100 mg) in the morning and at noon., Disp: 187 tablet, Rfl: 0 aspirin 81 MG EC tablet, Take 81 mg by mouth in the morning., Disp: , Rfl: carvedilol (Coreg) 6.25 MG tablet, Take 6.25 mg by mouth in the morning and 6.25 mg in the evening. Take with meals., Disp: , Rfl: celecoxib (CeleBREX) 100 MG capsule, Take 100 mg by mouth in the morning and 100 mg in the evening., Disp: , Rfl: cephalexin (Keflex) 500 MG capsule, Take 1 capsule (500 mg) by mouth in the morning and 1 capsule (500 mg) in the evening and 1 capsule (500 mg) before bedtime. Do all this for 10 days. Take one tablet by mouth three times daily., Disp: 30 capsule, Rfl: 0 cyanocobalamin (Vitamin B-12) 1000 MCG/ML injection, Inject 1,000 mcg into the shoulder, thigh, or buttocks every 30 (thirty) days., Disp: , Rfl: Cyanocobalamin 1000 MCG capsule, as directed Orally, Disp: , Rfl: cyproheptadine (Periactin) 4 MG tablet, Take 1 tablet (4 mg) by mouth at bedtime, Disp: 90 tablet, Rfl: 3 ipratropium-albuterol (Duo-Neb) 0.5-2.5 mg/3 mL nebulizer solution, Take 3 mL by nebulization in the morning and 3 mL in the evening and 3 mL before bedtime., Disp: , Rfl: montelukast (Singulair) 10 MG tablet, Take 1 tablet (10 mg) by mouth at bedtime, Disp: 90 tablet, Rfl: 3 nitroglycerin (Nitrostat) 0.4 MG SL tablet, Place 0.4 mg under the tongue every 5 (five) minutes if needed., Disp: , Rfl: rosuvastatin (Crestor) 40 MG tablet, Take 40 mg by mouth in the morning., Disp: , Rfl: topiramate (Topamax) 25 MG tablet, Take 1 tablet (25 mg) by mouth at bedtime for 7 days, THEN 1 tablet (25 mg) 2 (two) times a day., Disp: 67 tablet, Rfl: 2 Trelegy Ellipta 100-62.5-25 MCG/ACT aerosol powder , , Disp: , Rfl: verapamil ER (Verelan) 180 MG 24 hr capsule, Take 180 mg by mouth at bedtime Do not crush or chew., Disp: , Rfl: verapamil SR (Calan SR) 180 MG ER tablet, Take 180 mg by mouth at bedtime, Disp: , Rfl: Xarelto 20 MG tablet, Take 20 mg by mouth in the evening. Take with meals., Disp: , Rfl: ROS: General: denies fever, chills, fatigue, malaise OBJECTIVE LE EXAM: Derm: Jackson intact to left foot with slight surrounding incision site diminished erythema, slight mid incision drainage, minimal edema with greatly diminished clinical signs of infection. Right 2nd digit has negative drainage and negative erythema to toe. Vascular: Palpable pedal pulses to left foot Neuro: Gross sensation intact to left foot. Musculoskeletal: Negative pain on palpation toleft calf. Ortho: Ankle range of motion less than 10 degrees of dorsiflexion at left ankle joint. ASSESSMENT 16 days s/p left peroneal tendon repair and TPN to right 2nd digit nail 1. Onychocryptosis 2. Toe pain, right 3. Peroneal tendon tear, left, initial encounter 4. Type 2 diabetes mellitus without complication, unspecified whether intermediate insulin use ([facility]) PLAN Patient to finish oral antibiotics Patient apply Betadine daily to the staple incision site and will hold off on staple removal until next week Pt to d/c abx. Patient to continue with OTC oral anti - inflammatories as needed for pain. Pt to keep DSD on area of interest while in shoegear, otherwise may expose to air in a clean environment. To the right foot only Fernando Moreno DPM documented in this encounter [facility] 04-22-2024 History of Presen t illness Narrative HISTORY OF PRESENT ILLNESS: EST PT Varinder Wilson is an 63 y.o. @ male. (EST PT) RECHECK LOW BACK PAIN ; S/P (L) LEG VASCULAR SX 12/30/23 - DR HARDING S/P (L) FOOT LIGAMENT REPAIR ~2 WKS AGO ; DR FERNANDO MORENO - CONTINUES KEFLEX ATB XRAYS, 11/22/23 IN EPIC MRI, 12/12/23 IN EPIC VASCULAR SEGMENTALS 05/09/23 @ [facility] NO MDP / PREDNISONE NO CORTISONE INJ NO PHYSICAL THERAPY PAIN MGMT : DR VILLANUEVA CONSULT (INJECTIONS DENIED) PREVIOUS PAIN MGMT TEOFILO / PREVIOUS PAIN MGMT DR GARCIA - DISCHARGED D/T AGGRESSION CONTINUES TO HAVE CONSTANT DISCOMFORT, DIFFUSE ACROSS HIS LOWER BACK WITH RADIATION DOWN TO B/L KNEES, WITH N/T. NOTES FULL / PAINFUL ROM ; SOME WEAKNESS. CURRENTLY TAKING CELEBREX BID ; STATES NOTHING HELPS. TAKES XARELTO - H/O HEART ATTACK / BYPASS ; H/O CLOTS / H/O STROKE ALLERGIES: No Known Allergies HOME MEDICATIONS: Current Outpatient Medications Medication Instructions albuterol HFA 90 mcg/act inhaler 1 puff, Inhalation, 3 times daily amantadine (Symmetrel) 100 MG tablet Take 1 tablet (100 mg) by mouth Daily for 7 days, THEN 1 tablet (100 mg) in the morning and at noon. amantadine (SYMMETREL) 100 mg, Oral, 2 times daily (02/23) aspirin 81 mg, Oral, Daily carvedilol (COREG) 6.25 mg, Oral, 2 times daily with meals celecoxib (CELEBREX) 100 mg, Oral, 2 times daily cephalexin (KEFLEX) 500 mg, Oral, 3 times daily, Take one tablet by mouth three times daily cyanocobalamin (VITAMIN B-12) 1,000 mcg, Intramuscular, Every 30 days Cyanocobalamin 1000 MCG capsule as directed Orally cyproheptadine (PERIACTIN) 4 mg, Oral, Nightly ipratropium-albuterol (Duo-Neb) 0.5-2.5 mg/3 mL nebulizer solution 3 mL, Nebulization, 3 times daily RT montelukast (SINGULAIR) 10 mg, Oral, Nightly nitroglycerin (NITROSTAT) 0.4 mg, Sublingual, Every 5 min PRN OXcarbazepine (TRILEPTAL) 150 mg, Oral, Every 12 hours rosuvastatin (CRESTOR) 40 mg, Oral, Daily RT topiramate (Topamax) 25 MG tablet Take 1 tablet (25 mg) by mouth at bedtime for 7 days, THEN 1 tablet (25 mg) 2 (two) times a day. Trelegy Ellipta 100-62.5-25 MCG/ACT aerosol powder verapamil ER (VERELAN) 180 mg, Oral, Nightly, Do not crush or chew. verapamil SR (CALAN SR) 180 mg, Oral, Nightly Xarelto 20 mg, Oral, Daily with evening meal PHYSICAL EXAM: Spine Musculoskeletal Exam Gait Gait is normal. Assistive device: cane Inspection Thoracolumbar Thoracolumbar inspection is normal. Erythema: none Swelling: none Palpation Thoracolumbar Thoracolumbar palpation is normal. Tenderness: present Right Masses: none Muscle tone: normal Left Masses: none Muscle tone: normal Range of Motion Thoracolumbar Range of motion is normal. Flexion: normal. Extension: normal. Right Lateral bending: normal. Lateral rotation: normal. Left Lateral bending: normal. Lateral rotation: normal. Strength Thoracolumbar Right Extensor hallucis longus: 5/5. Tibialis anterior: 5/5. Tibialis posterior: 5/5. Plantar flexion: 5/5. Peroneals: 5/5. Quadriceps: 5/5. Hamstrin/5. Hip abductors: 5/5. Hip flexion: 5/5. Hip adduction: 5/5. Left Extensor hallucis longus: 5/5. Tibialis anterior: 5/5. Tibialis posterior: 5/5. Plantar flexion: 5/5. Peroneals: 5/5. Quadriceps: 5/5. Hamstrin/5. Hip abductors: 5/5. Hip flexion: 5/5. Hip adduction: 5/5. Sensory Thoracolumbar Thoracolumbar sensation is normal. Spine sensation additional comments: NO FOCAL DEFICIT Reflexes Thoracolumbar reflexes are normal. Right Quadriceps: 2/4 Achilles: 2/4 Clonus: normal Left Quadriceps: 2/4 Achilles: 2/4 Clonus: normal Neurovascular Thoracolumbar Thoracolumbar neurovascular exam is normal. Right Pulses - PT: normal Posterior tibial: 2+ Left Pulses - PT: normal Posterior tibial: 2+ Special Tests Thoracolumbar Right Femoral stretch: back pain and pain radiates to right thigh Left Femoral stretch: back pain and pain radiates to right thigh General Constitutional: appears stated age Psychiatric: normal mood and affect Neurological: alert and oriented x3 Skin: intact Vitals: There is no height or weight on file to calculate BMI. Tobacco Use: Medium Risk (04/22/2024) Patient History Smoking Tobacco Use: Former Smokeless Tobacco Use: Never Passive Exposure: Past Alcohol Use: Not on file IMAGING: Procedures Orders Placed This Encounter Procedures Ambulatory referral to Neurosurgery Dr. Omalley @[facility] ; Please call patient to schedule, thank you. Evaluate and treat L-Spine Standing Status: Future Standing Expiration Date: 10/21/2024 Referral Priority: Routine Referral Type: Consultation Referral Reason: Specialty Services Required Requested Specialty: Neurosurgery Number of Visits Requested: 1 ASSESSMENT: ICD-10-CM 1. Lumbar radiculopathy M54.16 Ambulatory referral to Neurosurgery PLAN: We have answered all the patients questions and explained the patients condition, decision making and plan including the risks and benefits associated with said plan in layman''s terms in a language the patient could understand easily. If patient''s symptoms significantly worsen and they cannot get a hold of us or their family physician, we have recommended that the patient proceed to the nearest emergency department (room). Dr. Slater obtained history and examined the patient, I am acting as scribe for Dr. Slater/[facility], PLAN: We have reviewed prior L-Spine MRI results. After examination we are recommending a referral to Dr. Omalley @[facility], with patient's verbal agreeance. We have discussed his HEP and restrictions and will see him back on a prn basis. Cara Slater D.O. documented in this encounter [facility] 04-15-2024 History of Presen t illness Narrative Patient: Varinder Wilson : 1960 PCP: Negar Francois MD SUBJECTIVE This is a 63 y.o. male that presents today 7 days s/p left peroneal tendon repair and TPN to right 2nd digit nail Pt denies n/f/v/c and has positive pain to post op site. Pt states that they have been keeping dressing dry and intact and have been partial weightbearing to post op foot against medical advice Pt presents today for follow up. Allergies: No Known Allergies Past Medical History: Past Medical History: Diagnosis Date Abnormal EKG 10/25/2015 Abnormal gait 02/20/2023 Abnormal stress ECG 09/28/2017 Added automatically from request for surgery [id number] Acquired hallux valgus 02/20/2023 Alcohol abuse 02/20/2023 Allergic rhinitis due to pollen 02/20/2023 Anemia 02/20/2023 Angina pectoris ([facility]) Anxiety 02/20/2023 Arthritis of hip 02/20/2023 Arthritis of lumbosacral spine 02/20/2023 Benign essential hypertension ([facility]) 10/25/2015 Benign prostatic hyperplasia 02/20/2023 Bipolar depression ([facility]) 02/20/2023 CAD (coronary artery disease) of artery bypass graft ([facility]) 09/09/2016 Cannabis abuse 02/20/2023 Cerebellar infarction ([facility]) 02/20/2023 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 ([facility]) 02/20/2023 Cerebral infarction, unspecified ([facility]) 02/17/2016 Cerebrovascular accident (CVA) ([facility]) 09/09/2016 Cervical spondylosis without myelopathy 06/20/2022 Chest pain at rest 02/20/2023 Cholecystitis 2016 Chronic cluster headache 02/20/2023 Chronic obstructive pulmonary disease ([facility]) 09/09/2016 Claudication ([facility]) 02/20/2023 COPD (chronic obstructive pulmonary disease) ([facility]) Depressed bipolar I disorder ([facility]) 02/20/2023 Depression ([facility]) 02/20/2023 Depressive disorder ([facility]) 02/20/2023 Difficulty hearing, bilateral 02/20/2023 Difficulty walking Disability of walking 02/20/2023 Dyspnea on exertion 09/19/2017 Encounter for preprocedural cardiovascular examination 07/18/2016 Epidermoid cyst of skin 02/20/2023 Essential tremor 02/20/2023 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 H/O exercise stress test 02/10/2015 Normal History of coronary artery stent placement Hypertension ([facility]) Memory loss Numbness Stroke ([facility]) TIA (transient ischemic attack) 2017 Tubular adenoma Weakness of limb Medications: Current Outpatient Medications: OXcarbazepine (Trileptal) 150 MG tablet, TAKE 1 TABLET BY MOUTH EVERY 12 HOURS, Disp: 60 tablet, Rfl: 3 albuterol HFA 90 mcg/act inhaler, Inhale 1 puff in the morning and 1 puff in the evening and 1 puff before bedtime., Disp: , Rfl: amantadine (Symmetrel) 100 MG capsule, Take 100 mg by mouth in the morning and at noon, Disp: , Rfl: amantadine (Symmetrel) 100 MG tablet, Take 1 tablet (100 mg) by mouth Daily for 7 days, THEN 1 tablet (100 mg) in the morning and at noon., Disp: 187 tablet, Rfl: 0 aspirin 81 MG EC tablet, Take 81 mg by mouth in the morning., Disp: , Rfl: carvedilol (Coreg) 6.25 MG tablet, Take 6.25 mg by mouth in the morning and 6.25 mg in the evening. Take with meals., Disp: , Rfl: celecoxib (CeleBREX) 100 MG capsule, Take 100 mg by mouth in the morning and 100 mg in the evening., Disp: , Rfl: cyanocobalamin (Vitamin B-12) 1000 MCG/ML injection, Inject 1,000 mcg into the shoulder, thigh, or buttocks every 30 (thirty) days., Disp: , Rfl: Cyanocobalamin 1000 MCG capsule, as directed Orally, Disp: , Rfl: cyproheptadine (Periactin) 4 MG tablet, Take 1 tablet (4 mg) by mouth at bedtime, Disp: 90 tablet, Rfl: 3 ipratropium-albuterol (Duo-Neb) 0.5-2.5 mg/3 mL nebulizer solution, Take 3 mL by nebulization in the morning and 3 mL in the evening and 3 mL before bedtime., Disp: , Rfl: montelukast (Singulair) 10 MG tablet, Take 1 tablet (10 mg) by mouth at bedtime, Disp: 90 tablet, Rfl: 3 nitroglycerin (Nitrostat) 0.4 MG SL tablet, Place 0.4 mg under the tongue every 5 (five) minutes if needed., Disp: , Rfl: rosuvastatin (Crestor) 40 MG tablet, Take 40 mg by mouth in the morning., Disp: , Rfl: topiramate (Topamax) 25 MG tablet, Take 1 tablet (25 mg) by mouth at bedtime for 7 days, THEN 1 tablet (25 mg) 2 (two) times a day., Disp: 67 tablet, Rfl: 2 Trelegy Ellipta 100-62.5-25 MCG/ACT aerosol powder , , Disp: , Rfl: verapamil ER (Verelan) 180 MG 24 hr capsule, Take 180 mg by mouth at bedtime Do not crush or chew., Disp: , Rfl: verapamil SR (Calan SR) 180 MG ER tablet, Take 180 mg by mouth at bedtime, Disp: , Rfl: Xarelto 20 MG tablet, Take 20 mg by mouth in the evening. Take with meals., Disp: , Rfl: ROS: General: denies fever, chills, fatigue, malaise OBJECTIVE LE EXAM: Derm: Sutures intact to left foot with slight surrounding incision site erythema, negative drainage, minimal edema with negative clinical signs of infection. Right 2nd digit has slight serous drainage and negative erythema to toe. Vascular: Palpable pedal pulses to left foot Neuro: Gross sensation intact to left foot. Musculoskeletal: Negative pain on palpation toleft calf. Ortho: Ankle range of motion less than 10 degrees of dorsiflexion at left ankle joint. ASSESSMENT 7 days s/p left peroneal tendon repair and TPN to right 2nd digit nail 1. Peroneal tendon tear, left, initial encounter 2. Onychocryptosis 3. Toe pain, right 4. 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 Patient may take anti-inflammatories as needed for pain. May continue with ice to foot as needed p.r.n. Application of posterior splint to the left leg, a staged procedure. Prescription for Percocet 10 today for pain management as well as antibiotics for prophylaxis Patient instructed be strict nonweightbearing Fernando Moreno DPM documented in this encounter [facility] 03-18-2024 History of Presen t illness Narrative Patient: Varinder Wilson : 1960 PCP: Negar Francois MD SUBJECTIVE Pt also has recent dx of left PB tendon tear and is scheduled for surgery for repair of left peroneal tendon States continued pain to left PB tendon up to a 5/10 Pt also to have right 2nd digit TPN avulsion during procedure as well. This patient has cardiology clearance as of recent date and also had recent left vascular intervention by vascular surgery at local hospital. Patient be scheduled for left peroneal tendon repair with right 2nd toe total permanent nail avulsion in the near future Allergies: No Known Allergies Past Medical History: Past Medical History: Diagnosis Date Abnormal EKG 10/25/2015 Abnormal gait 02/20/2023 Abnormal stress ECG 09/28/2017 Added automatically from request for surgery [id number] Acquired hallux valgus 02/20/2023 Alcohol abuse 02/20/2023 Allergic rhinitis due to pollen 02/20/2023 Anemia 02/20/2023 Angina pectoris ([facility]) Anxiety 02/20/2023 Arthritis of hip 02/20/2023 Arthritis of lumbosacral spine 02/20/2023 Benign essential hypertension ([facility]) 10/25/2015 Benign prostatic hyperplasia 02/20/2023 Bipolar depression ([facility]) 02/20/2023 CAD (coronary artery disease) of artery bypass graft ([facility]) 09/09/2016 Cannabis abuse 02/20/2023 Cerebellar infarction ([facility]) 02/20/2023 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 ([facility]) 02/20/2023 Cerebral infarction, unspecified ([facility]) 02/17/2016 Cerebrovascular accident (CVA) ([facility]) 09/09/2016 Cervical spondylosis without myelopathy 06/20/2022 Chest pain at rest 02/20/2023 Cholecystitis 2016 Chronic cluster headache 02/20/2023 Chronic obstructive pulmonary disease ([facility]) 09/09/2016 Claudication ([facility]) 02/20/2023 COPD (chronic obstructive pulmonary disease) ([facility]) Depressed bipolar I disorder ([facility]) 02/20/2023 Depression ([facility]) 02/20/2023 Depressive disorder ([facility]) 02/20/2023 Difficulty hearing, bilateral 02/20/2023 Difficulty walking Disability of walking 02/20/2023 Dyspnea on exertion 09/19/2017 Encounter for preprocedural cardiovascular examination 07/18/2016 Epidermoid cyst of skin 02/20/2023 Essential tremor 02/20/2023 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 H/O exercise stress test 02/10/2015 Normal History of coronary artery stent placement Hypertension ([facility]) Memory loss Numbness Stroke ([facility]) TIA (transient ischemic attack) 2017 Tubular adenoma Weakness of limb Medications: Current Outpatient Medications: OXcarbazepine (Trileptal) 150 MG tablet, TAKE 1 TABLET BY MOUTH EVERY 12 HOURS, Disp: 60 tablet, Rfl: 3 albuterol HFA 90 mcg/act inhaler, Inhale 1 puff in the morning and 1 puff in the evening and 1 puff before bedtime., Disp: , Rfl: amantadine (Symmetrel) 100 MG capsule, Take 100 mg by mouth in the morning and at noon, Disp: , Rfl: amantadine (Symmetrel) 100 MG tablet, Take 1 tablet (100 mg) by mouth Daily for 7 days, THEN 1 tablet (100 mg) in the morning and at noon., Disp: 187 tablet, Rfl: 0 aspirin 81 MG EC tablet, Take 81 mg by mouth in the morning., Disp: , Rfl: carvedilol (Coreg) 6.25 MG tablet, Take 6.25 mg by mouth in the morning and 6.25 mg in the evening. Take with meals., Disp: , Rfl: celecoxib (CeleBREX) 100 MG capsule, Take 100 mg by mouth in the morning and 100 mg in the evening., Disp: , Rfl: cyanocobalamin (Vitamin B-12) 1000 MCG/ML injection, Inject 1,000 mcg into the shoulder, thigh, or buttocks every 30 (thirty) days., Disp: , Rfl: Cyanocobalamin 1000 MCG capsule, as directed Orally, Disp: , Rfl: cyproheptadine (Periactin) 4 MG tablet, Take 1 tablet (4 mg) by mouth at bedtime, Disp: 90 tablet, Rfl: 3 ipratropium-albuterol (Duo-Neb) 0.5-2.5 mg/3 mL nebulizer solution, Take 3 mL by nebulization in the morning and 3 mL in the evening and 3 mL before bedtime., Disp: , Rfl: montelukast (Singulair) 10 MG tablet, Take 1 tablet (10 mg) by mouth at bedtime, Disp: 90 tablet, Rfl: 3 nitroglycerin (Nitrostat) 0.4 MG SL tablet, Place 0.4 mg under the tongue every 5 (five) minutes if needed., Disp: , Rfl: rosuvastatin (Crestor) 40 MG tablet, Take 40 mg by mouth in the morning., Disp: , Rfl: Trelegy Ellipta 100-62.5-25 MCG/ACT aerosol powder , , Disp: , Rfl: verapamil ER (Verelan) 180 MG 24 hr capsule, Take 180 mg by mouth at bedtime Do not crush or chew., Disp: , Rfl: verapamil SR (Calan SR) 180 MG ER tablet, Take 180 mg by mouth at bedtime, Disp: , Rfl: Xarelto 20 MG tablet, Take 20 mg by mouth in the evening. Take with meals., Disp: , Rfl: ROS: General: denies fever, chills, fatigue, malaise GI: denies abdominal pain or ulcerations with anti-inflammatory medication Cardio: Positive history of cardiac issues and coronary artery disease and TIA in the past OBJECTIVE LE EXAM: Derm: Scar to the right 1st MPJ region Elongated thick yellow crumbly nails digits 1 through 10. Slight erythema to the right 2nd digit nail Vascular: Barely palpable PT in DP Palpable pedal pulses to left and right foot Neuro: 5.07 [place] monofilament test intact to digits and forefoot bilaterally 125Hz tuning fork diminished to 1st MPJ bilaterally Musculoskeletal: Lateral deviation left 5th metatarsal head with plantar flexed left 5th metatarsal Ortho: +2/5 dorsiflexion of the left foot and ankle region with drop foot noted +4-5 5 dorsiflexion of the right foot with +5/5 inversion eversion and plantar flexion Positive POP to left PB tendon near distal fibular region of left ankle. Positive pain palpation to right 2nd digit toenail ASSESSMENT 1. Peroneal tendon tear, left, initial encounter 2. Onychocryptosis 3. Toe pain, right 4. Contracture of left ankle 5. Type 2 diabetes mellitus without complication, 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 renewal inspector insulin use ([facility]) PLAN Pt dispensed pneumatic CAM walker ([id number]) today to maintain 90 degree foot to ankle position. Pt informed to only remove walker when at rest or bathing. ABN signed and in chart for device if warranted. The boot was assembled and adjusted liner and straps and pneumatically inflated for proper custom fitting by Fernando Moreno DPM and staff. A verbal order was given for dispensing of device. The patient is ambulatory and may benefit functionally from this device. It may be used for the following conditions as noted per medical diagnosis. Patient given prescription for pain medication to be taken postoperatively. Decision for surgery today and patient medically cleared from a podiatric standpoint for surgery and to proceed with surgery. Pt to have pre op H/P per PCP for medical clearance for surgery and will be reviewed along with labs prior to surgery. Pt scheduled for left peroneal tendon repair with right 2nd toe total permanent nail avulsion Discussed with the patient the nature of condition and operative vs nonoperative care. The surgical plans, risks, alternatives, benefits, post op complications and termite renewal inspector expectations were discussed including but not limited to: infection,bone infection,wound dehiscence hardware failure and irritation,wound dehiscence,delay union/mal union/non union of bone. RSDS,neuroma,duty limitations,DVT/PE, NH,nerve damage, scar, loss of sensation, swelling. Pt understands the proposed sx in detail and has agreed with proposed surgery. No guarantees were given or implied. Pt willingly consents to procedure and to have surgical procedure. Pt also understands risks including COVID-19 current risk in a surgical setting. Pt is a low acceptable risk for outpatient surgery from a podiatric standpoint with an ASA of a 3. Fernando Moreno DPM, FACFAS H&P up to date and current (date) March 18, 2024 Fernando Moreno DPM documented in this encounter [facility] 03-03-2024 Note Subjective Patient ID: Varinder Wilson is a 63 y.o. male who presents for positive sputum cultures HPI 03/03/2024 Mr. Wilson is here for follow up on his repeat sputum cultures and CT chest Patient denies shortness of breath, sinus pressure, fever or cough, has productive cough occasionally, with black specks in it. No weight loss, he still has issues with his back Jul 22 2023 Mr. 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, patient has been complaining of exertional dyspnea for the last few years, associated with productive cough with few brown/black spects in it for the last two years, not worsening or improving , this sputum is mainly in the morning, and not every day, he denies fever, chills , denies abdominal pain, reports sinus pressure sometimes, he has been seen by pulmonary for COPD, sputum cx was done on May 29 2023 and positive for rare rhizopus, CT chest three weeks after this result was done and showed small pulmonary nodules around 3 mm, and some emphysamatous changes He has been seeing ENT for his nasal congestion and tinnitus that's been going on in his right ear , Xray sinuses unremarkable, a flex scope done and was unremarkable, flonase and nasal irrigation were recommended for post nasal drainage Patient quit smoking 20 years ago, he smoked for 30 years, he stopped drinking around 11 months ago He still cuts wood, and try to do backyard work but due to neck and back pain along with his shortness of breath this have been limited Past Medical History: COPD CAD HTN Hx of stroke Hx of arterial clot on xarelto Past Surgical History: CABG 2016 Hernia repair Foot surgery Vascular intervention to [facility] Medications: Current Outpatient Medications on File Prior to Visit Medication Sig Dispense Refill albuterol 90 mcg/actuation inhaler INHALE 2 PUFFS BY MOUTH EVERY 4 HOURS NEEDED FOR WHEEZING OR SHORTNESS OF BREATH. amantadine (Symmetrel) 100 mg capsule Take 100 mg by mouth. aspirin 81 mg EC tablet Take 81 mg by mouth in the morning. baclofen (Lioresal) 5 mg tablet Botox 200 unit injection carvedilol (Coreg) 6.25 mg tablet Take 6.25 mg by mouth twice a day. celecoxib (CeleBREX) 100 mg capsule Take 100 mg by mouth twice a day. cephalexin (Keflex) 500 mg capsule cetirizine (ZyrTEC) 10 mg tablet Take 10 mg by mouth in the morning. cyanocobalamin (Vitamin B-12) 1,000 mcg/mL injection Inject 1,000 mcg into the shoulder, thigh, or buttocks every 30 (thirty) days. cyclobenzaprine (Flexeril) 10 mg tablet cyproheptadine (Periactin) 4 mg tablet Take 4 mg by mouth. dexAMETHasone (Decadron) 2 mg tablet docusate sodium (Colace) 100 mg capsule 1 (one) time each day at the same time. doxycycline (Vibramycin) 100 mg capsule DULoxetine (Cymbalta) [address] capsule fluticasone (Flonase) 50 mcg/actuation nasal spray [id number] (Trelegy Ellipta) 100-62.5-25 mcg blister with device INHALE 1 PUFF BY MOUTH ONCE DAILY IN THE MORNING folic acid (Folvite) 1 mg tablet Take 1 mg by mouth in the morning. furosemide (Lasix) 40 mg tablet gabapentin (Neurontin) 300 mg capsule 1 capsule 1 (one) time each day at the same time. HYDROcodone-acetaminophen ([place]) 5-325 mg tablet hydrOXYzine HCL (Atarax) 10 mg tablet Take 10 mg by mouth every 8 (eight) hours if needed. ipratropium-albuteroL (Duo-Neb) 0.5-2.5 mg/3 mL nebulizer solution 3 mL 3 times a day. lisinopril 20 mg tablet Take 20 mg by mouth in the morning. methocarbamol (Robaxin) 750 mg tablet Take 1 tablet as needed by oral route in the evening for 30 days. methylPREDNISolone (Medrol Dospak) 4 mg tablets Follow schedule on package instructions minocycline 100 mg capsule montelukast (Singulair) 10 mg tablet Take 10 mg by mouth in the morning. nitroglycerin (Nitrostat) 0.[address] 0.4 mg under the tongue if needed each day. OXcarbazepine (Trileptal) 150 mg tablet oxyCODONE-acetaminophen (Percocet) 5-325 mg tablet predniSONE (Deltasone) 10 mg tablet pregabalin (Lyrica) 75 mg capsule QUEtiapine (SEROquel) 100 mg tablet rivaroxaban (Xarelto) 20 mg tablet Take 20 mg by mouth in the morning. rosuvastatin (Crestor) 40 mg tablet Take 40 mg by mouth in the morning. sertraline (Zoloft) 25 mg tablet tamsulosin (Flomax) 0.4 mg 24 hr capsule 1 capsule 1 (one) time each day at the same time. tiZANidine (Zanaflex) 4 mg tablet triamcinolone (Nasacort) 55 mcg nasal inhaler every 12 (twelve) hours. verapamil SR (Calan-SR) 180 mg ER tablet 180 mg in the morning. No current facility-administered medications on file prior to visit. Social History: Social History Socioeconomic History Marital status: Single Spouse name: None Number of children: None Years of education: None Highest edu (more content not included)... [facility] 12-30-2023 Procedure note [facility] 12-03-2023 Note Division of Infectio us Diseases Follow up Note Patient name: Varinder Wilson Patient Today's Date and Time: 12/03/2023, 1:38 PM Admission Date: (Not on file) Impression : COPD Previous respiratory culture with Rhizopus species Centrilobular emphysema Pulmonary nodules Has overall been stable since 06/2023, repeat CT chest to follow. No new fever chills, or pleuritic chest pain. He has daily productive cough with yellow to green sputum. No major weight loss or notable lymphadenopathy. Will need repeat CT chest as well as respiratory cultures. Will have orders faxed Recommendations: Repeat CT chest Respiratory cultures and fungal cultures Follow Up: After CT and cultures completed. Subjective History of Present Illness: Follow up for Rhizopus from respiratory culture. Initial culture from 05/2023, CT chest in 06/2023 was stable without signs of acute pulmonary disease. Scattered calcified granuloma. Partially calcified 3mm nodule. In the interim, no fevers or documented hypoxia. No pleuritic chest pain, does have productive cough. Does not endorse significant CHAUDHARI. Review of Systems: Stable except those noted in current and interim history Objective Physical Examination : BP 136/74 (BP Location: Right arm, Patient Position: Sitting, BP Cuff Size: Adult) Pulse 84 Temp 36.8 ???C (98.2 ???F) (Oral) Ht 1.778 m (5' 10 ) Wt 92.1 kg (203 lb) BMI 29.13 kg/m??? Temperature Range: Temp: 36.8 ???C (98.2 ???F) @FLOWSTAT(6:24)@ General Appearance: Awake, alert, and in no apparent distress Eyes: Sclera anicteric; conjunctivae pink ENT: Oropharynx clear, without erythema, exudate, or thrush. Neck: Supple, without lymphadenopathy. Pulmonary/Chest: Clear to auscultation, without wheezes, rales, or rhonchi Cardiovascular: Regular rate and rhythm without murmurs, rubs, or gallops. Abdomen: Soft, non-tender, normal bowel sounds; no bruits, organomegaly or masses. Extremities: No cyanosis, clubbing, edema, or effusions. Neurologic: Alert and oriented x 3, gait normal., reflexes normal and symmetric, strength and sensation grossly normal Skin: No rash or lesions. No pallor Laboratory data: I have independently reviewed the following labs: No lab exists for component: RBCCOUNT;3 No lab exists for component: SODIUM No lab exists for component: PROCALCITON Imaging Studies: No new imaging, previous CT scan from 06/2023 reviewed Cultures: None Medications: Current Outpatient Medications: albuterol 90 mcg/actuation inhaler, INHALE 2 PUFFS BY MOUTH EVERY 4 HOURS NEEDED FOR WHEEZING OR SHORTNESS OF BREATH., Disp: , Rfl: amantadine (Symmetrel) 100 mg capsule, Take 100 mg by mouth., Disp: , Rfl: aspirin 81 mg EC tablet, Take 81 mg by mouth in the morning., Disp: , Rfl: baclofen (Lioresal) 5 mg tablet, , Disp: , Rfl: Botox 200 unit injection, , Disp: , Rfl: carvedilol (Coreg) 6.25 mg tablet, Take 6.25 mg by mouth twice a day., Disp: , Rfl: celecoxib (CeleBREX) 100 mg capsule, Take 100 mg by mouth twice a day., Disp: , Rfl: cephalexin (Keflex) 500 mg capsule, , Disp: , Rfl: cetirizine (ZyrTEC) 10 mg tablet, Take 10 mg by mouth in the morning., Disp: , Rfl: cyanocobalamin (Vitamin B-12) 1,000 mcg/mL injection, Inject 1,000 mcg into the shoulder, thigh, or buttocks every 30 (thirty) days., Disp: , Rfl: cyclobenzaprine (Flexeril) 10 mg tablet, , Disp: , Rfl: cyproheptadine (Periactin) 4 mg tablet, Take 4 mg by mouth., Disp: , Rfl: dexAMETHasone (Decadron) 2 mg tablet, , Disp: , Rfl: docusate sodium (Colace) 100 mg capsule, 1 (one) time each day at the same time., Disp: , Rfl: doxycycline (Vibramycin) 100 mg capsule, , Disp: , Rfl: DULoxetine (Cymbalta) [address] capsule, , Disp: , Rfl: fluticasone (Flonase) 50 mcg/actuation nasal spray, , Disp: , Rfl: ztqjwgxvitx-kuekgwgiy-axoehvvw (Trelegy Ellipta) 100-62.5-25 mcg blister with device, INHALE 1 PUFF BY MOUTH ONCE DAILY IN THE MORNING, Disp: , Rfl: folic acid (Folvite) 1 mg tablet, Take 1 mg by mouth in the morning., Disp: , Rfl: furosemide (Lasix) 40 mg tablet, , Disp: , Rfl: gabapentin (Neurontin) 300 mg capsule, 1 capsule 1 (one) time each day at the same time., Disp: , Rfl: hydrOXYzine HCL (Atarax) 10 mg tablet, Take 10 mg by mouth every 8 (eight) hours if needed., Disp: , Rfl: ipratropium-albuteroL (Duo-Neb) 0.5-2.5 mg/3 mL nebulizer solution, 3 mL 3 times a day., Disp: , Rfl: lisinopril 20 mg tablet, Take 20 mg by mouth in the morning., Disp: , Rfl: methocarbamol (Robaxin) 750 mg tablet, Take 1 tablet as needed by oral route in the evening for 30 days., Disp: , Rfl: methylPREDNISolone (Medrol Dospak) 4 mg tablets, Follow schedule on package instructions, Disp: , Rfl: montelukast (Singulair) 10 mg tablet, Take 10 mg by mouth in the morning., Disp: , Rfl: nitroglycerin (Nitrostat) 0.4 mg SL tablet, Place 0.4 mg under the tongue if needed each day., Disp: , Rfl: OXcar (more content not included)... [facility] 10-03-2023 History of Presen t illness Narrative Subjective Patient ID: Varinder Wilson is a 63 y.o. male. HPI Varinder presents to the office to review ECHO results. He reports he has been having SOB with exertion, along with chest tightness and heaviness. He reports he cannot even walk around in the garden d/t this SOB and chest tightness. He reports that he has to use rescue inhaler, but not helpful. He reports when he gets this increased SOB he has to rest. He reports he has reported the SOB to pulmonology, but he states they did not seem too concerned. He reports he constantly coughs up phlegm and it has black specs in it. He has followed with infectious disease for this cough, but does not recall when he will return. He reports this shortness of breath is not new, and has been ongoing for years. The following portions of the patient's history were reviewed and updated as appropriate: allergies, current medications, past family history, past medical history, past social history, past surgical history, problem list, and medication reconciliation was completed including current medication and post discharge medication. Review of Systems Constitutional: Positive for fatigue. Negative for chills, diaphoresis, fever and unexpected weight change. HENT: Negative. Respiratory: Positive for cough, chest tightness and shortness of breath. Baseline Cardiovascular: Positive for chest pain and leg swelling. Negative for palpitations. Psychiatric/Behavioral: Negative for self-injury and suicidal ideas. Objective Physical Exam Vitals and nursing note reviewed. Constitutional: General: He is not in acute distress. Appearance: Normal appearance. He is not ill-appearing. HENT: Head: Normocephalic and atraumatic. Neck: Vascular: No carotid bruit. Cardiovascular: Rate and Rhythm: Normal rate and regular rhythm. Pulses: Normal pulses. Heart sounds: Normal heart sounds. Pulmonary: Effort: Pulmonary effort is normal. No respiratory distress. Breath sounds: Normal breath sounds. No stridor. No wheezing, rhonchi or rales. Musculoskeletal: Right lower le+ Edema present. Left lower le+ Edema present. Skin: Capillary Refill: Capillary refill takes 2 to 3 seconds. Neurological: Mental Status: He is alert. Psychiatric: Mood and Affect: Mood normal. Behavior: Behavior normal. Assessment/Plan Echo 09/06/2023 reviewed with patient- normal function with EF 60-65%. He will follow up with cardiology and discuss if updated stress test is warranted. Infectious disease 07/22/2023. Recommend a close follow up of the CT chest to confirm that these small nodules are not increasing in size. Discussed possible repeat CT chest in December at 6 months, last was 06/18/2023. He should keep follow up with pulmonology as well. Keep FU with Dr. Francois, PCP. Varinder was seen today for results. Diagnoses and all orders for this visit: Chest tightness Exertional shortness of breath 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 SHANNON Antony 10/06/23 [id number] documented in this encounter [facility] 10-02-2023 History of Presen t illness Narrative Images from the original note were not included. [facility] [address] [place] [id number] SUBJECTIVE: Patient ID ([id number]): Varinder Wilson is a 63 y.o. male presents today for Chief Complaint Patient presents with Results Audiogram Tinnitus Right sided HPI: Varinder is seen in follow up today for right-sided tinnitus. Patient was last seen on 07/10/23. Patient reports his right-sided tinnitus began many years ago. Right sided tinnitus is constant. He reports the tinnitus is worsening over time. He admits to associated right sided hearing loss with the tinnitus. He states he has right ear pressure. 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 He denies any inciting incident that would cause his tinnitus or hearing loss. He denies otalgia, otorrhea, and history of ear surgeries. Patient has not started steroid nasal spray and nasal saline spray. Patient has not had a sinus infection since his last visit. He denies facial pressure/pain today. Previous HPI 07/10/23: HPI: Varinder is seen as a new patient today for cough, tinnitus, and history of rhizopus infection . The patient previously had rhizopus infection detected in sputum and he is here for ENT evaluation. He reports a history of post nasal drainage and cough. Denies associated facial pressure, pain, or fever. He had an x-ray of his sinuses which was unremarkable. Denies use of any nasal sprays or saline irrigations. The patient also reports he previously saw Dr. Grajeda of ENT for tinnitus. He did not have a hearing test today due to transportation issues and is rescheduled for the 07 of August. He is a former smoker and quit 20 years ago. HISTORY: Past Medical History: Diagnosis Date Abnormal findings on diagnostic imaging of heart and coronary circulation Anxiety Atherosclerosis of coronary artery bypass graft Atherosclerotic heart disease pechanga coronary artery w/angina pectoris (CMS-HCC) Cerebellar infarction (CMS-HCC) COPD (chronic obstructive pulmonary disease) ([facility]-HCC) Coronary atherosclerosis of pechanga coronary artery Depression Encounter for preprocedural cardiovascular examination HLD (hyperlipidemia) HTN (hypertension) Insomnia Myocardial infarction ([facility]) Peripheral vascular disease ([facility]) Stroke ([facility]) TIA (transient ischemic attack) Visual impairment wears glasses Past Surgical History: Procedure Laterality Date CARDIAC CATHETERIZATION Cardiac catheterization N/A 09/30/2017 Performed by Harry Buckner MD at [facility] CARDIAC CATH LABS CHOLECYSTECTOMY Coronary angiogram and left ventricular gram/pressure + graft/pechanga N/A 09/30/2017 Performed by Harry Buckner MD at [facility] CARDIAC CATH LABS CORONARY ARTERY BYPASS GRAFT 12/2015 x3 CORONARY STENT PLACEMENT CYST REMOVAL neck EYE SURGERY 08/28/2023 both eyes HERNIA REPAIR MULTIPLE TOOTH EXTRACTIONS Revascularization chronic total occlusion/drug eluting stent/ath left circumflex N/A 09/30/2017 Performed by Harry Buckner MD at [facility] CARDIAC CATH LABS VASCULAR SURGERY right leg Family History Problem Relation Age of Onset Brain Tumor Mother Heart disease Mother Hypertension Mother Diabetes Mother COPD Mother Kidney disease Mother Diabetes Father COPD Father Lung cancer Father Cancer Father No Known Problems Sister No Known Problems Sister Back Problems Brother Social History Socioeconomic History Marital status: Single Spouse name: Not on file Number of children: Not on file Years of education: Not on file Highest education level: Not on file Occupational History Not on file Tobacco Use Smoking status: Former Years: 20 Types: Cigarettes Smokeless tobacco: Never Tobacco comments: Quit 17yrs ago hx of 2ppd x 15yrs Vaping Use Vaping Use: Never used Substance and Sexual Activity Alcohol use: Not Currently Alcohol/week: 28.0 standard drinks of alcohol Types: 28 Cans of beer per week Comment: 3-4 beers daily Drug use: No Sexual activity: Not Currently Other Topics Concern Caffeine Use Yes Comment: 3 cups a day Social History Narrative Not on file Social Determinants of Health Financial Resource Strain: Not on file Food Insecurity: No Food Insecurity (08/09/2023) Hunger Screening Food Insecurity - Worry: Never True Food Insecurity - Inability: Never True Transportation Needs: Not on file Physical Activity: Not on file Stress: Not on file Social Connections: Not on file Interpersonal Safety: Not on file Housing Instability: Not on file No Known Allergies Current Outpatient Medications Medication Sig Dispense Refill albuterol (PROVENTIL HFA;VENTOLIN HFA) 90 mcg/actuation inhaler INHALE 2 PUFFS BY MOUTH EVERY 4 HOURS NEEDED FOR WHEEZING OR SHORTNESS OF BREATH. 18 g 10 aspirin 81 mg Take 1 tablet (81 mg total) by mouth daily. 90 tablet 3 carvediloL (COREG) 6.25 mg tablet Take 1 tablet (6.25 mg total) by mouth in the morning and 1 tablet (6.25 mg total) before bedtime. 180 tablet 3 celecoxib (CeleBREX) 100 mg capsule Take 1 capsule (100 mg total) by mouth in the morning and 1 capsule (100 mg total) before bedtime. 60 capsule 2 cyanocobalamin (VITAMIN B-12) 1,000 mcg/mL injection Inject 1 mL (1,000 mcg total) into the appropriate muscle every 30 (thirty) days. cyclobenzaprine (FLEXERIL) 10 mg tablet Take 1 tablet (10 mg total) by mouth nightly. ebodhnadozn-wjfjdkdlu-fmugpyjj (TRELEGY ELLIPTA) 100-62.5-25 mcg blister with device INHALE 1 PUFF BY MOUTH ONCE DAILY IN THE MORNING 60 each 11 lisinopriL (PRINIVIL,ZESTRIL) 20 mg tablet Take 1 tablet (20 mg total) by mouth in the morning. nitroglycerin (NITROSTAT) 0.[address] 1 tablet (0.4 mg total) under the tongue every 5 (five) minutes as needed for chest pain. Every 5 minutes x 3 for chest pain as instructed per MD. If no relief after 3 tablets call 911. 25 tablet 3 rivaroxaban (XARELTO) 20 mg tablet tablet Take 1 tablet (20 mg total) by mouth nightly. 90 tablet 0 rosuvastatin (CRESTOR) 40 mg tablet Take 1 tablet (40 mg total) by mouth in the morning. 90 tablet 3 verapamil SR (CALAN-SR) 180 mg CR tablet TAKE 1 TABLET BY MOUTH ONCE DAILY FOR 30 DAYS 30 tablet 0 dexAMETHasone (DECADRON) 2 mg tablet Take 1 tablet (2 mg total) by mouth 3 (three) times a day. (Patient not taking: Reported on 09/05/2023) Current Facility-Administered Medications Medication Dose Route Frequency Provider Last Rate Last Admin albuterol (PROVENTIL,VENTOLIN) nebulizer solution 2.5 mg 2.5 mg nebulization PRN Brisa Yan DO REVIEW OF SYSTEMS: Review of Systems Constitutional: Negative for chills and fever. HENT: Positive for ear pain and tinnitus. Negative for ear discharge and hearing loss. Respiratory: Negative for cough and shortness of breath. Cardiovascular: Negative for chest pain and palpitations. Gastrointestinal: Negative for nausea and vomiting. Data Reviewed: Audiogram: RESULTS: Otoscopic Evaluation: Right Ear: Unremarkable Left Ear: Unremarkable Immittance Measures: Right Ear: Type As Left Ear: Type C Acoustic Reflexes (500, 1000, 2000Hz): Stim Right: Ipsilateral - Absent Contralateral - Absent Stim Left: Ipsilateral - Absent Contralateral - Absent Pure Tone Audiometry: Right Ear: WNL through 2000 Hz sloping to moderate at 4000 Hz rising to a mild SNHL Left Ear: WNL through 3000 Hz sloping to a mild loss Asymmetry noted: right ear worse from 2924-0643 Hz Reliability: good Speech Audiometry: SRT/FAMILY PRACTICE MD in good agreement WRS: Right Ear: Excellent (100%) Left Ear: Excellent (100%) RECOMMENDATIONS: Follow up with Dr. Martinez Vu Further testing as deemed medically necessary Batsheva Miller, [facility] PHYSICAL EXAMINATION: Temp 36.9 C (98.5 F) (Temporal) Ht 177.8 cm (5' 10 ) Wt 98 kg (216 lb) BMI 30.99 kg/m Constitutional: Healthy, alert, cooperative, and in no distress, Overweight, and normal ablility to communicate . Voice normal quality. Head/Face: Normocephalic, without obvious abnormality, salivary glands normal, atraumatic, sinuses nontender, and facial nerve intact Eyes: No gross abnormalities., EOMI, no nystagmus, and no lid ptosis Ear: RIGHT: hearing normal, external ear normal, canal normal, and TM normal without fluid or infection LEFT: hearing normal, external ear normal, canal normal, and TM normal without fluid or infection Nose: External nose appears normal, septum midline, normal mucosa, normal turbinates, and no nasal polyps or masses Oral: normal lips, normal gums, normal hard palate, normal anterior tongue, oral mucosa moist, and upper and lower dentures Oropharynx: normal-appearing mucosa, no pharyngitis, no exudate, tonsillar hypertrophy, 1+, and normal soft palate and uvula TMJ: no pain, crepitus, or trismus Neck:normal, supple, no adenopathy, thyroid normal in size, no nodules or tenderness, no neck masses palpable, and carotids normal Respiration: No stridor, Normal respiratory effort. Heart: Regular rate Neurologic: Grossly normal Alert Oriented X 3 Affect normal Cranial nerves 2 -12 grossly intact ASSESSMENT/PLAN: Varinder was seen today for results and tinnitus. 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 Tympanograms are type As in the right ear and type C in the left ear. - Acoustic Reflexes (500, 1000, 2000Hz): Stim Right: Ipsilateral - Absent Contralateral - Absent Stim Left: Ipsilateral - Absent Contralateral - Absent Pure Tone Audiometry: Right Ear: WNL through 2000 Hz sloping to moderate at 4000 Hz rising to a mild SNHL Left Ear: WNL through 3000 Hz sloping to a mild loss Asymmetry noted: right ear worse from 4167-7005 Hz - Patient with right-sided tinnitus and asymmetrical hearing loss, right worse than left. MRI brain IACs ordered to rule out retrocochlear pathology. - CT sinuses ordered for history of rhizopus infection to rule out any sinus disease/involvement. - Follow up with ENT after MRI and CT are complete to review the results. Scribe Statement: Scribed for and in the presence of Juan Palacio DO by Kayden Clements (scribe). Kayden Clements 10/02/2023 2:57 PM Provider Statement: I Juan Palacio DO personally performed the services described in the documentation as described by the above named scribe in my presence. It is both accurate and complete at the time of final signature. Dr. Juan Palacio 10/02/2023 4:12 PM Counseling: The following elements of medical decision making were considered during this visit: Reviewed/ordered radiology, Reviewed and summarized previous records, and History and physical and audiogram. The patient was counseled regarding prognosis, risks and benefits of treatment options, impressions, importance of compliance with treatment and risk factor reductions. The patient verbalized understanding and agreement to the plan. Please note that parts of this chart were generated using voice recognition [employer] dictation software. Although every effort was made to ensure the accuracy of this automated surgical processor, some errors in surgical processor may have occurred. Kayden Clements CMA 10/02/23 1505 documented in this encounter [employer] 10-02-2023 Instructions Kayden Clements CMA - 10/02/2023 3:45 PM EDT - Audiogram reviewed and copy provided to patient. Tympanograms are type As in the right ear and type C in the left ear. - Acoustic Reflexes (500, 1000, 2000Hz): Stim Right: Ipsilateral - Absent Contralateral - Absent Stim Left: Ipsilateral - Absent Contralateral - Absent Pure Tone Audiometry: Right Ear: WNL through 2000 Hz sloping to moderate at 4000 Hz rising to a mild SNHL Left Ear: WNL through 3000 Hz sloping to a mild loss Asymmetry noted: right ear worse from 3218-3944 Hz - Patient with right-sided tinnitus and asymmetrical hearing loss, right worse than left. MRI brain IACs ordered to rule out retrocochlear pathology. - CT sinuses ordered for history of rhizopus infection to rule out any sinus disease/involvement. - Follow up with ENT after MRI and CT are complete to review the results. documented in this encounter [facility] 10-02-2023 History of Presen t illness Narrative AUDIOLOGIC EVALUATION Reason for visit: CC: Patient reports right-sided tinnitus for years. He reports a gradual decline in hearing in both ears. He reports aural pressure in the right ear. He notes dizziness/lightheadedness upon standing quickly. 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 He denies otalgia, otorrhea, or history of ear surgery. HISTORY: Concerns with hearing: Bilateral Tinnitus: Right ear, constant Dizziness: upon standing quickly Noise Exposure: Yes, occupational Aural Fullness: Right ear Otalgia: No Otorrhea: No Other significant history: None RESULTS: Otoscopic Evaluation: Right Ear: Unremarkable Left Ear: Unremarkable Immittance Measures: Right Ear: Type As Left Ear: Type C Acoustic Reflexes (500, 1000, 2000Hz): Stim Right: Ipsilateral - Absent Contralateral - Absent Stim Left: Ipsilateral - Absent Contralateral - Absent Pure Tone Audiometry: Right Ear: WNL through 2000 Hz sloping to moderate at 4000 Hz rising to a mild SNHL Left Ear: WNL through 3000 Hz sloping to a mild loss Asymmetry noted: right ear worse from 4166-1692 Hz Reliability: good Speech Audiometry: SRT/FAMILY PRACTICE MD in good agreement WRS: Right Ear: Excellent (100%) Left Ear: Excellent (100%) RECOMMENDATIONS: Follow up with Dr. Martinez Vu Further testing as deemed medically necessary Batsheva Miller, [facility] documented in this encounter [facility] 09-05-2023 History of Presen t illness Narrative Subjective Patient ID: Varinder Wilson is a 63 y.o. male. BERTHA Pelaez presents to the office with concern of LLE edema. He reports he just saw PCP on 08/20/2023 and was prescribed a short course of lasix 20mg. But states it did not help. However, he admits that his swelling is slightly improved in comparison to last visit. History of DVT and vein grafting of LLE, taking xarelto. The following portions of the patient's history were reviewed and updated as appropriate: allergies, current medications, past family history, past medical history, past social history, past surgical history, problem list, and medication reconciliation was completed including current medication and post discharge medication. Review of Systems Objective Physical Exam Vitals reviewed. Constitutional: General: He is not in acute distress. Appearance: Normal appearance. HENT: Head: Normocephalic and atraumatic. Eyes: Extraocular Movements: Extraocular movements intact. Pupils: Pupils are equal, round, and reactive to light. Neck: Vascular: No carotid bruit. Cardiovascular: Rate and Rhythm: Normal rate and regular rhythm. Pulses: Normal pulses. Heart sounds: Normal heart sounds. Pulmonary: Effort: Pulmonary effort is normal. No respiratory distress. Breath sounds: Rales present. No wheezing or rhonchi. Comments: 05/22/2023- chest xray- Minor pleural thickening and parenchymal scarring suggested at the left lung base. I auscultate crackles to LLL. However, I believe there is some fluid in addition to the scarring. Abdominal: General: Bowel sounds are normal. Palpations: Abdomen is soft. Musculoskeletal: Right lower leg: Edema present. Left lower leg: Edema present. Comments: LLE edema worse on left Skin: Capillary Refill: Capillary refill takes 2 to 3 seconds. Findings: No rash. Comments: LLE slightly increased pigmentation in comparison to right. Multiple scattered scabs. No redness or warmth. Neurological: Mental Status: He is alert and oriented to person, place, and time. Mental status is at baseline. Assessment/Plan I agree with Dr. Francois's previous note that Varinder may have slight exacerbation of CHF. I will give short course of lasix 40 mg once daily for 2 weeks. And request that he complete BMP after completing lasix. Discussed side effects. He has not yet completed ECHO. Keep scheduled appointment with Dr. Francois. Varinder was seen today for leg pain. Diagnoses and all orders for this visit: Diuresis - Basic Metabolic Panel; Future Pedal edema Acute on chronic systolic congestive heart failure (CMS-HCC) Other orders - furosemide (LASIX) 40 mg tablet; Take 1 tablet (40 mg total) by mouth daily for 14 days. SHANNON Antony 09/05/23 1412 documented in this encounter [employer] 08-22-2023 History of Presen t illness Narrative Physical Therapy Physical Therapy Treatment Visit Patient Name: Varinder Wilson Today's Date: 08/22/2023 Encounter Diagnoses Name Primary? Acute pain of left knee Yes Foot drop, left foot Visit number: 2 Supervised time: 43 minutes Total time: 53 minutes Precautions: heart attack in 2016. Triple bypass in 2016. Notes he had a stroke during this time during the surgery and now had drop foot on the L side. Subjective Pain: 4-5/10 L knee pain Overall progress: no changes since I.E. Pt having to wear flip flops because his feet are swollen and he claims it is too difficult to put shoes on. Started session 10 min early Objective: L knee extension post ROM exercises: lacking 10 degrees from neutral Treatment: Therapeutic Exercise: knee ROM and strengthening per grid x43' supervised / x53' unsupervised Assessment/Plan Good tolerance to session. Manual cues to keep knee straight when doing hamstring stretch with strap. Quad lag noted during SLR. Pt lacks a moderate amount of knee extension at rest; some improvement since I.E. Continue to work on improving knee extension ROM. Progress as tolerated with LE strengthening. documented in this encounter [facility] 08-21-2023 History of Presen t illness Narrative Subjective Varinder Wilson is a 63 y.o. right-handed male. HPI Patient is here for a follow up. He has swelling and pain in left leg. He did have xray done at [facility]. States he has pain in his neck, down to his back, all the way down to his legs. States his PCP put him on a water pill. Wt 215 lb BMI 30.85 kg/m No Known Allergies Current Outpatient Medications: baclofen (Lioresal) 5 MG tablet, , Disp: , Rfl: furosemide (Lasix) 20 MG tablet, Take 20 mg by mouth in the morning., Disp: , Rfl: albuterol HFA 90 mcg/act inhaler, Inhale 1 puff in the morning and 1 puff in the evening and 1 puff before bedtime., Disp: , Rfl: aspirin 81 MG EC tablet, Take 81 mg by mouth in the morning., Disp: , Rfl: Botox 200 units injection, , Disp: , Rfl: carvedilol (Coreg) 6.25 MG tablet, Take 6.25 mg by mouth in the morning and 6.25 mg in the evening. Take with meals., Disp: , Rfl: celecoxib (CeleBREX) 100 MG capsule, Take 100 mg by mouth in the morning and 100 mg in the evening., Disp: , Rfl: cyanocobalamin (Vitamin B-12) 1000 MCG/ML injection, Inject 1,000 mcg into the shoulder, thigh, or buttocks every 30 (thirty) days., Disp: , Rfl: cyproheptadine (Periactin) 4 MG tablet, Take 1 tablet (4 mg) by mouth at bedtime., Disp: 90 tablet, Rfl: 3 dexAMETHasone (Decadron) 2 MG tablet, Take 2 mg by mouth in the morning and 2 mg at noon and 2 mg in the evening., Disp: , Rfl: hydrOXYzine HCl (Atarax) 10 MG tablet, Take 1 tablet (10 mg) by mouth every 8 (eight) hours if needed for itching., Disp: 270 tablet, Rfl: 3 ipratropium-albuterol (Duo-Neb) 0.5-2.5 mg/3 mL nebulizer solution, Take 3 mL by nebulization in the morning and 3 mL in the evening and 3 mL before bedtime., Disp: , Rfl: nitroglycerin (Nitrostat) 0.4 MG SL tablet, Place 0.4 mg under the tongue every 5 (five) minutes if needed., Disp: , Rfl: OXcarbazepine (Trileptal) 150 MG tablet, Take 1 tablet (150 mg) by mouth every 12 (twelve) hours., Disp: 60 tablet, Rfl: 3 rosuvastatin (Crestor) 40 MG tablet, Take 40 mg by mouth in the morning., Disp: , Rfl: tiZANidine (Zanaflex) 4 MG tablet, Take 1 tablet (4 mg) by mouth at bedtime, Disp: 30 tablet, Rfl: 3 Trelegy Ellipta 100-62.5-25 MCG/ACT aerosol powder , , Disp: , Rfl: verapamil ER (Verelan) 180 MG 24 hr capsule, Take 180 mg by mouth at bedtime Do not crush or chew., Disp: , Rfl: Xarelto 20 MG tablet, Take 20 mg by mouth in the evening. Take with meals., Disp: , Rfl: Past Medical History: Diagnosis Date Abnormal EKG 10/25/2015 Abnormal gait 02/20/2023 Abnormal stress ECG 09/28/2017 Added automatically from request for surgery [id number] Acquired hallux valgus 02/20/2023 Alcohol abuse 02/20/2023 Allergic rhinitis due to pollen 02/20/2023 Anemia 02/20/2023 Angina pectoris ([facility]) Anxiety 02/20/2023 Arthritis of hip 02/20/2023 Arthritis of lumbosacral spine 02/20/2023 Benign essential hypertension ([facility]) 10/25/2015 Benign prostatic hyperplasia 02/20/2023 Bipolar depression ([facility]) 02/20/2023 CAD (coronary artery disease) of artery bypass graft ([facility]) 09/09/2016 Cannabis abuse 02/20/2023 Cerebellar infarction ([facility]) 02/20/2023 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 ([facility]) 02/20/2023 Cerebral infarction, unspecified ([facility]) 02/17/2016 Cerebrovascular accident (CVA) ([facility]) 09/09/2016 Cervical spondylosis without myelopathy 06/20/2022 Chest pain at rest 02/20/2023 Cholecystitis 2016 Chronic cluster headache 02/20/2023 Chronic obstructive pulmonary disease ([facility]) 09/09/2016 Claudication ([facility]) 02/20/2023 COPD (chronic obstructive pulmonary disease) ([facility]) Depressed bipolar I disorder ([facility]) 02/20/2023 Depression ([facility]) 02/20/2023 Depressive disorder ([facility]) 02/20/2023 Difficulty hearing, bilateral 02/20/2023 Difficulty walking Disability of walking 02/20/2023 Dyspnea on exertion 09/19/2017 Encounter for preprocedural cardiovascular examination 07/18/2016 Epidermoid cyst of skin 02/20/2023 Essential tremor 02/20/2023 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 H/O exercise stress test 02/10/2015 Normal History of coronary artery stent placement Hypertension ([facility]) Memory loss Numbness Stroke ([facility]) TIA (transient ischemic attack) 2017 Tubular adenoma Weakness of limb Past Surgical History: Procedure Laterality Date BUNIONECTOMY BYPASS GRAFT 2016 Double bypass surgery CORONARY STENT PLACEMENT 10/26/[address] ANGIO HEAD 09/08/2016 CT ANGIO HEAD 09/08/2016 CT ANGIOGRAM HEART CORONARY 09/11/2017 CT ANGIOGRAM TAVR 09/11/2017 CT ANGIOGRAM NECK 09/08/2016 CT ANGIOGRAM NECK 09/08/2016 CT AORTA AND BILATERAL ILIOFEMORAL RUNOFF ANGIOGRAM W AND/OR WO IV CONTRAST 01/11/2016 CT AORTA AND BILATERAL ILIOFEMORAL RUNOFF ANGIOGRAM W AND/OR WO IV CONTRAST 01/11/2016 CT GUIDED TRANSVAGINAL TRANSRECTAL FLUID DRAIN 01/09/2016 CT GUIDED TRANSVAGINAL TRANSRECTAL FLUID DRAIN 01/09/2016 CYST REMOVAL from neck DENTAL SURGERY bottom teeth extraction FOOT SURGERY Right HERNIA REPAIR MD LAP,CHOLECYSTECTOMY 02/2016 VASCULAR SURGERY Right leg 2 vascular surgeries per patient VASCULAR SURGERY Right leg x2 Family History Problem Relation Name Age of Onset Heart disease Mother Kidney disease Mother Diabetes Mother Hypertension Mother Cancer Father reports that he quit smoking about 22 years ago. His smoking use included cigarettes. He has been exposed to tobacco smoke. He has never used smokeless tobacco. He reports that he does not currently use alcohol. He reports that he does not currently use drugs. Review of Systems Constitutional: Negative for chills, diaphoresis, fatigue and fever. HENT: Negative for ear pain, tinnitus and trouble swallowing. Eyes: Negative for photophobia and visual disturbance. Respiratory: Negative for cough and shortness of breath. Cardiovascular: Negative for palpitations and leg swelling. Gastrointestinal: Negative for abdominal pain and nausea. Genitourinary: Negative for difficulty urinating and urgency. Musculoskeletal: Negative for arthralgias, back pain, myalgias, neck pain and neck stiffness. Neurological: Negative for tremors, weakness, light-headedness and numbness. Psychiatric/Behavioral: Negative for agitation, confusion and suicidal ideas. Objective Neurological Exam Mental Status Awake, alert and oriented to person, place and time. Oriented to person, place and time. Recent and remote memory are intact. Speech is normal. Language is fluent with no aphasia. Attention and concentration are normal. Cranial Nerves CN II: Visual acuity is normal. Visual lucero full to confrontation. CN III, IV, : Extraocular movements intact bilaterally. Normal lids and orbits bilaterally. Pupils equal round and reactive to light bilaterally. CN V: Facial sensation is normal. CN VII: Full and symmetric facial movement. CN VIII: Hearing is normal. CN XII: Tongue midline without atrophy or fasciculations. Motor Normal muscle bulk throughout. Normal muscle tone. Right Left Wrist flexion 5 5 Wrist extension 5 5 Right Left Deltoid 5 5 Biceps 5 5 Triceps 5 5 Wrist flexor 5 5 Wrist extensor 5 5 Glutei 5 5 Iliopsoas 5 5 Quadriceps 5 5 Gastrocnemius 5 5 Anterior tibialis 5 5 Posterior tibialis 5 5 Sensory Light touch is normal in upper and lower extremities. Pinprick is normal in upper and lower extremities. Vibration is normal in upper and lower extremities. Reflexes Right Left Brachioradialis 2+ 2+ Biceps 2+ 2+ Patellar 2+ 2+ Achilles 2+ 2+ Right Plantar: downgoing Left Plantar: downgoing Right pathological reflexes: Maddy's absent. Ankle clonus absent. Left pathological reflexes: Maddy's absent. Ankle clonus absent. Coordination [id number], rapid alternating movements and [id number] normal bilaterally without dysmetria. Gait Normal casual, toe, heel and tandem gait. Romberg is absent. Assessment/Plan Diagnoses and all orders for this visit: Lumbar radiculopathy - General supply request: Standard Cane - Ambulatory referral to Neurosurgery; Future - MR cervical spine wo contrast; Future Right foot drop - General supply request: Standard Cane - Ambulatory referral to Neurosurgery; Future - MR cervical spine wo contrast; Future Weakness - General supply request: Standard Cane - Ambulatory referral to Neurosurgery; Future - MR cervical spine wo contrast; Future History of stroke - General supply request: Standard Cane - Ambulatory referral to Neurosurgery; Future - MR cervical spine wo contrast; Future Cervical paraspinal muscle spasm - Ambulatory referral to Neurosurgery; Future - MR cervical spine wo contrast; Future Brachial plexopathy C7 radiculopathy Carpal tunnel syndrome, bilateral I will order an electromyograph evaluation of the upper extremities to assess for nerve damage such as cervical radiculopathy, brachial plexopathy, or entrapment mononeuropathy. I will also check an MRI of his cervical spine and also see if he has a surgical stenosis that may need intervention. documented in this encounter [facility] 08-20-2023 History of Presen t illness Narrative Images from the original note were not included. [address] [place] [id number] Patient: Varinder Wilson Date of : 1960 Encounter Date: 08/20/2023 SUBJECTIVE: Chief Complaint: Chief Complaint Patient presents with Leg Swelling Left foot Patient ID: Varinder Wilson is a 63 y.o. male. Past medical history is extensive and complicated for atherosclerosis, advanced COPD, history of CVA, history of peripheral vascular disease, coronary artery disease, hypertension, hyperlipidemia, insomnia, anxiety, depression. Has shortness of breath, increased pedal edema over the past few days. The following portions of the patient's history were reviewed and updated as appropriate: allergies, current medications, past family history, past medical history, past social history, past surgical history and problem list. PHYSICAL EXAMINATION: Vitals: 08/20/23 1037 BP: 124/74 Pulse: 92 Temp: 36.7 C (98.1 F) SpO2: 98% Weight: 98 kg (216 lb) Height: 177.8 cm (5' 10 ) Physical Exam Vitals reviewed. Constitutional: General: He is not in acute distress. Appearance: Normal appearance. Eyes: Extraocular Movements: Extraocular movements intact. Pupils: Pupils are equal, round, and reactive to light. Cardiovascular: Rate and Rhythm: Normal rate and regular rhythm. Pulses: Normal pulses. Heart sounds: Normal heart sounds. Pulmonary: Effort: Pulmonary effort is normal. No respiratory distress. Breath sounds: Normal breath sounds. No wheezing or rhonchi. Abdominal: General: Bowel sounds are normal. There is no distension. Palpations: Abdomen is soft. There is no mass. Tenderness: There is no abdominal tenderness. There is no right CVA tenderness, left CVA tenderness or guarding. Musculoskeletal: Cervical back: Normal range of motion and neck supple. Right lower leg: Edema present. Left lower leg: Edema present. Comments: LLE edema worse than left Neurological: Mental Status: He is alert and oriented to person, place, and time. Mental status is at baseline. ASSESSMENT/PLAN: Varinder was seen today for leg swelling. Diagnoses and all orders for this visit: Cardiac risk counseling History of tobacco use - Echo complete W/O contrast; Future - perflutren lipid microspheres (DEFINITY) dilution injection 1.43 mg/10 mL - sodium chloride 0.9 % flush 10 mL 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 - Echo complete W/O contrast; Future - perflutren lipid microspheres (DEFINITY) dilution injection 1.43 mg/10 mL - sodium chloride 0.9 % flush 10 mL Pedal edema - Echo complete W/O contrast; Future - perflutren lipid microspheres (DEFINITY) dilution injection 1.43 mg/10 mL - sodium chloride 0.9 % flush 10 mL - furosemide (LASIX) 20 mg tablet; Take 1 tablet (20 mg total) by mouth daily for 7 days. Appears to be in a slight CHF episode. Has multiple CV risk factors. History of DVT and vein grafting of LLE, likely resulting in slightly increased edema. -Will assess cardiac ECHO -short course of lasix to help diurese -follow up in 1 month NEGAR FRANCOIS MD Family Medicine Physician [facility] / [facility] 08/20/23 This note was completed with voice recognition software. The document was reviewed for errors however some may still be present. Please do not hesitate to contact/Epic msg the author to verify any questions/concerns. documented in this encounter [facility] 08-15-2023 History of Presen t illness Narrative Physical Therapy Physical Therapy Evaluation Visit Patient Name: Varinder Wilson Today's Date: 08/15/2023 Encounter Diagnoses Name Primary? Acute pain of left knee Yes Foot drop, left foot Visit number: 1 Subjective Varinder Wilson 63 y.o. male presents to physical therapy w/ chief c/o L knee pain. The L knee has been bothering him for the last 10 years; says it has worsened significantly over this time period. He also says his endurance and overall mobility have regressed significantly. Pt said 3 weeks ago he needed 3 blood clots taken out of his calf. Pt also has drop foot on the L. Pt also notes having lower back issues and reports the L leg is numb constantly. Mechanism of Onset: overuse Current deficits: weakness, ROM, pain, walking, transfers, limited overall functional mobility, decreased balance, sleep Pain: 6/10 at rest. Says the pain is never less than a 6/10 Location: global knee pain Aggravating Factors: walking, standing, going up and down steps especially , getting up from sitting position Relieving factors: rest, biofreeze Work/employment: Retired Activities/hobbies: walk better and for longer, fishing, be able to walk up steps or uphill Imaging: Negative for L knee Precautions: heart attack in 2016. Triple bypass in 2016. Notes he had a stroke during this time during the surgery and now had drop foot on the L side. Objective Knee Musculoskeletal Exam Gait Antalgic: left Limp: left Trendelenburg: left Gait additional comments: Decreased heel strike/toe off L Inspection Left Edema: moderate Inspection additional comments: L foot swollen No hair noted on the LLE or L foot Pitting edema noted in L foot Range of Motion Left Left knee active extension: 20 degrees. Active flexion: 110 Strength Left Extension: 4/5. Extension is affected by pain. Flexion: 4/5. Flexion is affected by pain. Strength additional comments: L hip MMT grossly: 4/5 Instability Left Varus stress grade: normal Valgus stress grade: normal Anterior drawer: normal General General additional comments: Decreased sensation throughout entire LLE compared to RLE Treatment Interventions: Education: HEP education with demonstration, Educated on Eval Findings and POC Manual Therapy: Passive ROM, Joint mobilization, Soft Tissue Mobilization, Myofascial Release, Muscle Energy Technique, Neural Mobilization, Myofascial Cupping, Dry Needling, and IASTM Therapeutic Exercise: Strength, Endurance, Flexibility, ROM, HEP, Neural Mobilization, Power, and Core Stability Therapeutic Activity: Exercises to improve dynamic activities, functional tasks, functional mobility to return to prior activity level Gait Training: normalize and improve gait mechanics, walking over hurdles, walking around obstacles, proper use of assistive device with ambulation and/or on stairs Neuromuscular re-education: Balance Training, Muscle Facilitation, Dynamic Stability, and Core Stabilization Modalities: Heat, Ice, Electrical Stimulation, and Ultrasound Prognosis: fair Assessment/Plan Pt presents to physical therapy for L knee pain. Pt has several other factors contributing to his knee pain including L drop foot, low back issues, and cervical issues. Pt has severely limited ROM with the L knee mainly with extension along with decreased strength in the L hip/knee that are impacting pt's ability to walk and transfer both effectively and efficiently. To benefit from further PT services in order to improve the above deficits so the pt can return to OF improve transfers, endurance, and all functional mobility tasks both inside and outside of the home. Assessment/Plan Patient Goals Short Term Goal #1: Pt to be compliant with HEP in order to make gains when not in therapy Snf Goal #1: Pt to improve L knee ROM to WNL in 4-6 weeks so the pt can improve gait mechanics and decrease fall risk Risk Intern Goal #2: Pt to improve LLE strength to 4+/5 or better in 4-6 weeks so the pt can ascend/descend stairs without pain or difficulty Risk Intern Goal #3: Pt to report 2/10 resting pain or less in 4-6 weeks so the pt can sleep better at night Snf Goal #4: Pt to report 75% improvement or better from therapy in 4-6 weeks so the pt can return to PLOF with fishing activities PLAN FOR NEXT SESSION: Review HEP, warm up on NuStep, begin with general knee ROM/stretching and strengthening as tolerated. Ice post session. EVAL: 15' Therapeutic Exercise: 23' educating on eval findings and plan for course of treatment. HEP demo (SLR, LAQ, Hs s, heel prop, bridges, clamshells, heel slides) Varinder Wilson will benefit from physical therapy 2-3 times per week for 4-6 weeks per above plan of care. documented in this encounter [facility] 08-09-2023 History of Presen t illness Narrative Images from the original note were not included. [address] [place] [id number] Patient: Varinder Wilson Date of : 1960 Encounter Date: 08/09/2023 SUBJECTIVE: Chief Complaint: Chief Complaint Patient presents with Shoulder Pain Right Patient ID: Varinder Wilson is a 63 y.o. male. Past medical history is extensive and complicated for atherosclerosis, advanced COPD, history of CVA, history of peripheral vascular disease, coronary artery disease, hypertension, hyperlipidemia, insomnia, anxiety, depression. Patient here today with concerns of chronic pain, particularly in his neck, right shoulder. Endorses significant weakness, motor sensory deficits. Is impacting his sleep and activities. Unable to hold a jar 2/2 shoulder pain and weakness. Also states multiple family members have tested positive for polymyalgia rheumatica, wanted to be tested for this. Will obtain labs as below New concerns of rolling his ankle last week and since then has had significant ecchymosis in pain and swelling of his left ankle, unable to bear significant weight. The following portions of the patient's history were reviewed and updated as appropriate: allergies, current medications, past family history, past medical history, past social history, past surgical history and problem list. PHYSICAL EXAMINATION: Vitals: 08/09/23 1332 BP: 104/60 BP Site: Left Arm BP Postition: Sitting Pulse: 52 Temp: 36.4 C (97.5 F) TempSrc: Temporal SpO2: 96% Weight: 96.5 kg (212 lb 12.8 oz) Physical Exam Vitals reviewed. Constitutional: General: He is not in acute distress. Appearance: Normal appearance. Eyes: Extraocular Movements: Extraocular movements intact. Pupils: Pupils are equal, round, and reactive to light. Cardiovascular: Rate and Rhythm: Normal rate and regular rhythm. Pulses: Normal pulses. Heart sounds: Normal heart sounds. Pulmonary: Effort: Pulmonary effort is normal. No respiratory distress. Breath sounds: Normal breath sounds. No wheezing or rhonchi. Abdominal: General: Bowel sounds are normal. There is no distension. Palpations: Abdomen is soft. There is no mass. Tenderness: There is no abdominal tenderness. There is no right CVA tenderness, left CVA tenderness or guarding. Musculoskeletal: Cervical back: Normal range of motion and neck supple. Comments: Left ankle is swollen, ecchymosis, sore. Range of motion limited due to pain. Overlying skin changes appear concerning for combination of arterial versus venous stasis changes. Skin: Comments: Skin has multiple scabs all over upper and lower extremities of unclear etiology. Patient states he has a puppy dog which is biting a lot. Neurological: Mental Status: He is alert and oriented to person, place, and time. Mental status is at baseline. ASSESSMENT/PLAN: Varinder was seen today for shoulder pain. Diagnoses and all orders for this visit: Cervicalgia - Ambulatory referral to Physical Therapy (Non[facility]); Future - Drug Screen, Urine; Future Weakness of both hands - Ambulatory referral to Physical Therapy (Non[facility]); Future Polymyalgia rheumatica ([facility]) - MITCHELL Screen w/ Reflex; Future - Erythrocyte Sedimentation Rate (ESR); Future - Drug Screen, Urine; Future Acute left ankle pain - X-ray ankle left minimum 3 views; Future 63-year-old gentleman with multiple concerns which were briefly addressed today. Refer to physical therapy for cervical area and shoulder pain. Screening for polymyalgia rheumatica with autoimmune labs as above X-ray of left ankle it does appear visually swollen with significant ecchymosis. Follow-up as needed. NEGAR FRANCOIS MD Family Medicine Physician [facility] / [facility] 08/09/23 This note was completed with voice recognition software. The document was reviewed for errors however some may still be present. Please do not hesitate to contact/Epic ms the author to verify any questions/concerns. documented in this encounter [facility] 07-22-2023 Note Subjective Patient ID: Varinder Wilson is a 63 y.o. 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 HPI Mr. 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, patient has been complaining of exertional dyspnea for the last few years, associated with productive cough with few brown/black spects in it for the last two years, not worsening or improving , this sputum is mainly in the morning, and not every day, he denies fever, chills , denies abdominal pain, reports sinus pressure sometimes, he has been seen by pulmonary for COPD, sputum cx was done on May 29 2023 and positive for rare rhizopus, CT chest three weeks after this result was done and showed small pulmonary nodules around 3 mm, and some emphysamatous changes He has been seeing ENT for his nasal congestion and tinnitus that's been going on in his right ear , Xray sinuses unremarkable, a flex scope done and was unremarkable, flonase and nasal irrigation were recommended for post nasal drainage Patient quit smoking 20 years ago, he smoked for 30 years, he stopped drinking around 11 months ago He still cuts wood, and try to do backyard work but due to neck and back pain along with his shortness of breath this have been limited Past Medical History: COPD CAD HTN Hx of stroke Hx of arterial clot on xarelto Past Surgical History: CABG 2016 Hernia repair Foot surgery Vascular intervention to LL Medications: Current Outpatient Medications on File Prior to Visit Medication Sig Dispense Refill albuterol 90 mcg/actuation inhaler INHALE 2 PUFFS BY MOUTH EVERY 4 HOURS NEEDED FOR WHEEZING OR SHORTNESS OF BREATH. aspirin 81 mg EC tablet Take 81 mg by mouth in the morning. carvedilol (Coreg) 6.25 mg tablet Take 6.25 mg by mouth twice a day. celecoxib (CeleBREX) 100 mg capsule Take 100 mg by mouth twice a day. cyanocobalamin (Vitamin B-12) 1,000 mcg/mL injection Inject 1,000 mcg into the shoulder, thigh, or buttocks every 30 (thirty) days. cyclobenzaprine (Flexeril) 10 mg tablet cyproheptadine (Periactin) 4 mg tablet Take 4 mg by mouth. dexAMETHasone (Decadron) 2 mg tablet DULoxetine (Cymbalta) [address] capsule fluticasone (Flonase) 50 mcg/actuation nasal spray phslhczhxmp-idnhpmuha-qqygxruy (Trelegy Ellipta) 100-62.5-25 mcg blister with device INHALE 1 PUFF BY MOUTH ONCE DAILY IN THE MORNING hydrOXYzine HCL (Atarax) 10 mg tablet Take 10 mg by mouth every 8 (eight) hours if needed. ipratropium-albuteroL (Duo-Neb) 0.5-2.5 mg/3 mL nebulizer solution 3 mL 3 times a day. lisinopril 20 mg tablet Take 20 mg by mouth in the morning. nitroglycerin (Nitrostat) 0.[address] 0.4 mg under the tongue if needed each day. rivaroxaban (Xarelto) 20 mg tablet Take 20 mg by mouth in the morning. rosuvastatin (Crestor) 40 mg tablet Take 40 mg by mouth in the morning. triamcinolone (Nasacort) 55 mcg nasal inhaler every 12 (twelve) hours. verapamil SR (Calan-SR) 180 mg ER tablet 180 mg in the morning. No current facility-administered medications on file prior to visit. Social History: Social History Socioeconomic History Marital status: Single Spouse name: None Number of children: None Years of education: None Highest education level: None Occupational History None Tobacco Use Smoking status: Never Passive exposure: Past Smokeless tobacco: Never Substance and Sexual Activity Alcohol use: Not Currently Drug use: Never Sexual activity: None Other Topics Concern None Social History Narrative None Social Determinants of Health Financial Resource Strain: Not on file Food Insecurity: Not on file Transportation Needs: Not on file Physical Activity: Not on file Stress: Not on file Social Connections: Not on file Intimate Partner Violence: Not on file Housing Stability: Not on file Family History: Mother heart disease , kidney disease , DM, HTN Father Cancer Allergies: No Known Allergies Review of Systems Constitutional: Positive for activity change and fatigue. Negative for appetite change, chills, diaphoresis and fever. HENT: Positive for congestion, postnasal drip, sinus pressure and tinnitus. Eyes: Negative for discharge and itching. Respiratory: Positive for cough and shortness of breath. Negative for apnea and chest tightness. Cardiovascular: Negative for chest pain and leg swelling. Gastrointestinal: Negative for abdominal distention, abdominal pain, constipation and diarrhea. Genitourinary: Negative for dysuria and enuresis. Musculoskeletal: Positive for arthralgias, back pain and neck pain. Skin: Negative for pallor and rash. Ne (more content not included)... [facility] 07-19-2023 History of Presen t illness Narrative Varinder Wilson Date of visit: 07/19/2023 Date of : 1960 Age: 63 y.o. Patient Active Problem List Diagnosis Presence of coronary angioplasty implant and graft Peripheral vascular disease ([facility]) Hyperlipidemia Essential hypertension Encounter for preprocedural cardiovascular examination Cerebral infarction ([facility]) 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 Numbness of upper extremity History of tobacco use Dyspnea on exertion Abnormal EKG Abnormal stress ECG Cervical radiculopathy Cervical spondylosis without myelopathy No Known Allergies Current Outpatient Medications Medication Sig Dispense Refill albuterol (PROVENTIL HFA;VENTOLIN HFA) 90 mcg/actuation inhaler INHALE 2 PUFFS BY MOUTH EVERY 4 HOURS NEEDED FOR WHEEZING OR SHORTNESS OF BREATH. 18 g 10 aspirin 81 mg Take 1 tablet (81 mg total) by mouth daily. 90 tablet 3 celecoxib (CeleBREX) 100 mg capsule Take 1 capsule (100 mg total) by mouth in the morning and 1 capsule (100 mg total) before bedtime. 60 capsule 2 cyanocobalamin (VITAMIN B-12) 1,000 mcg/mL injection Inject 1 mL (1,000 mcg total) into the appropriate muscle every 30 (thirty) days. kscueiultta-kthwobyml-ozscvihn (TRELEGY ELLIPTA) 100-62.5-25 mcg blister with device INHALE 1 PUFF BY MOUTH ONCE DAILY IN THE MORNING 60 each 11 lisinopriL (PRINIVIL,ZESTRIL) 20 mg tablet Take 1 tablet (20 mg total) by mouth in the morning. nitroglycerin (NITROSTAT) 0.[address] 1 tablet (0.4 mg total) under the tongue every 5 (five) minutes as needed for chest pain. Every 5 minutes x 3 for chest pain as instructed per MD. If no relief after 3 tablets call 911. 25 tablet 3 rivaroxaban (XARELTO) 20 mg tablet tablet Take 1 tablet (20 mg total) by mouth nightly. 90 tablet 0 rosuvastatin (CRESTOR) 40 mg tablet Take 1 tablet (40 mg total) by mouth in the morning. 90 tablet 3 verapamil SR (CALAN-SR) 180 mg CR tablet 1 tablet (180 mg total) in the morning. carvediloL (COREG) 6.25 mg tablet Take 2 tablets (12.5 mg total) by mouth 2 (two) times a day. (Patient not taking: Reported on 07/02/2023) 360 tablet 3 Current Facility-Administered Medications Medication Dose Route Frequency Provider Last Rate Last Admin albuterol (PROVENTIL,VENTOLIN) nebulizer solution 2.5 mg 2.5 mg nebulization PRN Brisa Yan, Chief Complaint Patient presents with Follow-up 6 MO NO TESTS L/S BD-LABS 05/2023 Coronary Artery Disease Pre-op Exam 08/01/2022- eye surgery -Dr Mueller History of Present Illness Varinder Wilson was seen in follow-up in the [place] office. Records are reviewed. From a cardiac standpoint he seems to be doing well. He remains a somewhat vague and limited historian frequently answering different questions than are actually asked but actually seems more appropriate than usual today. He is scheduled for surgery on his eyelids in a couple of weeks.. He is not having any cardiac symptoms and is active to greater than 4 Mets easily.. He denies particular chest pain, palpitations, lightheadedness, syncope, near-syncope. He is not having bleeding issues with Xarelto. Blood pressures on multiple checks have been well controlled. He may or may not be taking the carvedilol although we are not sure. He has numbness in his feet but no skin breakdown. 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 He had low risk stress test in 2020 Past Medical History: Diagnosis Date Abnormal findings on diagnostic imaging of heart and coronary circulation Anxiety Atherosclerosis of coronary artery bypass graft Atherosclerotic heart disease pechanga coronary artery w/angina pectoris ([facility]) Cerebellar infarction ([facility]) COPD (chronic obstructive pulmonary disease) ([facility]) Coronary atherosclerosis of pechanga coronary artery Depression Encounter for preprocedural cardiovascular examination HLD (hyperlipidemia) HTN (hypertension) Insomnia Myocardial infarction ([facility]) Peripheral vascular disease ([facility]) Stroke ([facility]) TIA (transient ischemic attack) Visual impairment wears glasses No data recorded No data recorded No data recorded Past Surgical History: Procedure Laterality Date CARDIAC CATHETERIZATION Cardiac catheterization N/A 09/30/2017 Performed by Harry Buckner MD at [facility] CARDIAC CATH LABS CHOLECYSTECTOMY Coronary angiogram and left ventricular gram/pressure + graft/pechanga N/A 09/30/2017 Performed by Harry Buckner MD at [facility] CARDIAC CATH LABS CORONARY ARTERY BYPASS GRAFT 12/2015 x3 CORONARY STENT PLACEMENT CYST REMOVAL neck HERNIA REPAIR MULTIPLE TOOTH EXTRACTIONS Revascularization chronic total occlusion/drug eluting stent/ath left circumflex N/A 09/30/2017 Performed by Harry Buckner MD at [facility] CARDIAC CATH LABS VASCULAR SURGERY right leg Family History Problem Relation Age of Onset Brain Tumor Mother Heart disease Mother Hypertension Mother Diabetes Mother COPD Mother Kidney disease Mother Diabetes Father COPD Father Lung cancer Father Cancer Father No Known Problems Sister No Known Problems Sister Back Problems Brother Social History Socioeconomic History Marital status: Single Spouse name: Not on file Number of children: Not on file Years of education: Not on file Highest education level: Not on file Occupational History Not on file Tobacco Use Smoking status: Former Years: 20 Types: Cigarettes Smokeless tobacco: Never Tobacco comments: Quit 17yrs ago hx of 2ppd x 15yrs Vaping Use Vaping Use: Never used Substance and Sexual Activity Alcohol use: Not Currently Alcohol/week: 28.0 standard drinks of alcohol Types: 28 Cans of beer per week Comment: 3-4 beers daily Drug use: No Sexual activity: Not Currently Other Topics Concern Caffeine Use Yes Comment: 3 cups a day Social History Narrative Not on file Social Determinants of Health Financial Resource Strain: Not on file Food Insecurity: No Food Insecurity (03/27/2023) Hunger Screening Food Insecurity - Worry: Never True Food Insecurity - Inability: Never True Transportation Needs: Not on file Physical Activity: Not on file Stress: Not on file Social Connections: Not on file Interpersonal Safety: Not on file Review of Systems Review of Systems Constitutional: Negative for malaise/fatigue and weight gain. HENT: Negative for hearing loss, hoarse voice and nosebleeds. Eyes: Negative for blurred vision and double vision. Respiratory: Positive for shortness of breath. Negative for sleep disturbances due to breathing and wheezing. Endocrine: Negative for polydipsia. Hematologic/Lymphatic: Negative for bleeding problem. Does not bruise/bleed easily. Skin: Negative for color change, rash and suspicious lesions. Musculoskeletal: Negative for arthritis, falls, joint pain, joint swelling and muscle cramps. Gastrointestinal: Negative for heartburn, hematochezia and melena. Genitourinary: Negative for hematuria. Neurological: Negative for dizziness, headaches, light-headedness, loss of balance, numbness, seizures and tremors. Psychiatric/Behavioral: Negative for altered mental status and depression. Allergic/Immunologic: Negative for persistent infections. CARDIOVASCULAR: Please review HPI. Physical Examination General appearance: Alert, oriented and cooperative. In no acute distress. Skin: Warm and dry to touch. Head: Normocephalic, without obvious abnormality, atraumatic. Ears, Nose, Mouth, Throat: Throat clear without erythema or exudate. Dentition intact. Eyes: Conjunctivae unremarkable, EOM intact. Neck: No JVD, No carotid bruit. Neck supple, trachea midline. Respiratory: Clear to auscultation bilaterally, no use of accessory muscles. Cardiovascular: RRR with normal S1 and S2 with soft holosystolic murmur Gastrointestinal: Soft, non-tender. Bowel sounds normal. Musculoskeletal: No peripheral edema. Neurologic: Oriented to time, person and place, affect appropriate. No focal/major motor defects noted. Psychiatric: Appropriate mood, memory and judgement. VITAL SIGNS: BP 130/86 (BP Site: Left Arm) Pulse 97 Ht 177.8 cm (5' 10 ) Wt 93 kg (205 lb) SpO2 99% BMI 29.41 kg/m No orders of the defined types were placed in this encounter. Medications Discontinued During This Encounter Medication Reason pregabalin (LYRICA) 75 mg capsule fluticasone propionate (FLONASE) 50 mcg/actuation nasal spray IMPRESSIONS/PLAN 1. Presence of coronary angioplasty implant and graft - ECG, Hospital Report Scan 2. Peripheral vascular disease ([facility]) - ECG, Hospital Report Scan 3. Essential hypertension - ECG, Hospital Report Scan 4. Dyspnea on exertion - ECG, Hospital Report Scan 5. Preop cardiovascular exam - ECG, Hospital Report Scan 1. Atherosclerotic coronary vascular disease. He underwent bypass graft surgery in 2016 receiving KIRBY to the left anterior descending artery, vein graft to the right coronary artery and a vein graft to the obtuse marginal. He was clearly having anginal symptoms in 2018 and the vein graft to the obtuse marginal was found to be obstructed. He underwent drug-eluting stent placement in the circumflex pechanga and 2nd obtuse marginal and has been pretty much free of angina ever since. He had essentially a low risk stress test in 2020 with preserved left ventricular systolic function. He had a minimal area of lateral ischemia. At this point I would continue him on aspirin and follow expectantly. I would try and keep him on low-dose of beta-esther and have rewritten a prescription for the Coreg. I would place no limitations on him from a cardiac standpoint and would follow expectantly. 2. Dyslipidemia on high intensity statin. He is tolerating this. 3. Essential hypertension reasonably controlled on current regimen. 4. Diet and exercise are discussed. 5. Peripheral vascular disease. He is anticoagulated long-term for this . 6. I do not see any cardiac contraindication to operating a motor vehicle within the laws of the [facility]. 7. Surgical risk. Overall he represents moderate but not prohibitive risk of cardiac complications from general anesthesia and I see no cardiac contraindication to proceeding with clinically indicated surgery. Routine monitoring is appropriate. I have no objection to holding his Xarelto 4 days prior and his aspirin 5 days prior but would resume both post procedure. TODAYS ORDERS Orders Placed This Encounter Procedures ECG, Hospital Report Scan FOLLOW UP No follow-ups on file. PCP: NEGAR FRANCOIS MD Referring Physician: Tad Andrade DO [address] [place] [address] documented in this encounter [employer] 07-18-2023 Miscellaneous Notes Called patient to remind them to bring their most current copy of their medication list with them to their appt. Patient verbalizes understanding. documented in this encounter [facility] 07-18-2023 Telephone encounter Note Called patient to remind them to bring their most current copy of their medication list with them to their appt. Patient verbalizes understanding. [facility] 07-16-2023 History of Presen t illness Narrative Images from the original note were not included. [address] [place] [id number] Patient: Varinder Wilson Date of : 1960 Encounter Date: 07/16/2023 SUBJECTIVE: Chief Complaint: Chief Complaint Patient presents with Pre-op Exam Eye surgery on July. Patient ID: Varinder Wilson is a 63 y.o. male. The following portions of the patient's history were reviewed and updated as appropriate: allergies, current medications, past family history, past medical history, past social history, past surgical history and problem list. PHYSICAL EXAMINATION: Vitals: 07/16/23 1309 BP: 138/88 Pulse: 97 Temp: 36.7 C (98.1 F) SpO2: 99% Weight: 94.4 kg (208 lb 3.2 oz) Height: 177.8 cm (5' 10 ) Physical Exam ASSESSMENT/PLAN: Varinder was seen today for pre-op exam. Diagnoses and all orders for this visit: Cardiac risk counseling Peripheral vascular disease (CMS-HCC) NEGAR FRANCOIS MD Family Medicine Physician [facility] / [facility] 07/16/23 This note was completed with voice recognition software. The document was reviewed for errors however some may still be present. Please do not hesitate to contact/Epic [facility] the author to verify any questions/concerns. Images from the original note were not included. [address] [place] [address] [facility] [id number] Patient: Varinder Wilson Date of : 1960 Encounter Date: 07/16/2023 SUBJECTIVE: Chief Complaint: Chief Complaint Patient presents with Pre-op Exam Eye surgery on July. Patient ID: Varinder Wilson is a 63 y.o. male. Here today with his sister for surgical clearance with Ophthalmology, Dr. Tom Matias for planned Blepheroplasty BUL + Brow plexy OU Past medical history is extensive and complicated for atherosclerosis, advanced COPD, history of CVA, history of peripheral vascular disease, coronary artery disease, hypertension, hyperlipidemia, insomnia, anxiety, depression. Patient is currently incarcerated and therefore finds challenging optimize his care. He is able to complete well over 4 Mets of activity without any dyspnea, chest pain, arrhythmias, near syncopal episodes. The following portions of the patient's history were reviewed and updated as appropriate: allergies, current medications, past family history, past medical history, past social history, past surgical history and problem list. PHYSICAL EXAMINATION: Vitals: 07/16/23 1309 BP: 138/88 Pulse: 97 Temp: 36.7 C (98.1 F) SpO2: 99% Weight: 94.4 kg (208 lb 3.2 oz) Height: 177.8 cm (5' 10 ) Physical Exam Vitals reviewed. Constitutional: General: He is not in acute distress. Appearance: Normal appearance. Eyes: Extraocular Movements: Extraocular movements intact. Pupils: Pupils are equal, round, and reactive to light. Comments: Drooping eye lid on right is greater than the left. Cardiovascular: Rate and Rhythm: Normal rate and regular rhythm. Pulses: Normal pulses. Heart sounds: Normal heart sounds. Pulmonary: Effort: Pulmonary effort is normal. No respiratory distress. Breath sounds: Normal breath sounds. No wheezing or rhonchi. Abdominal: General: Bowel sounds are normal. There is no distension. Palpations: Abdomen is soft. There is no mass. Tenderness: There is no abdominal tenderness. There is no right CVA tenderness, left CVA tenderness or guarding. Musculoskeletal: Cervical back: Normal range of motion and neck supple. Neurological: Mental Status: He is alert and oriented to person, place, and time. Mental status is at baseline. ASSESSMENT/PLAN: Varinder was seen today for pre-op exam. Diagnoses and all orders for this visit: Cardiac risk counseling Peripheral vascular disease (CMS-HCC) Eyelid drooping disease, bilateral Based on patient's medical history, activity level, recent labs, chest x-ray and echo it would be appropriate for patient to undergo planned Ophthalmology procedure with Dr. Tom Matias for planned Blepheroplasty BUL + Brow plexy OU Instructions to hold aspirin 2 weeks before and to hold Xarelto 3 days prior, last dose planned for July 28 were explicitly shared Patient expressed understanding Okay for patient to reinitiate Xarelto and aspirin 24-48 hours after surgery. PCP would appreciate follow-up subsequent to procedure. NEGAR FRANCOIS MD Family Medicine Physician [facility] Medicine / [facility] 07/16/23 This note was completed with voice recognition software. The document was reviewed for errors however some may still be present. Please do not hesitate to contact/Epic msg the author to verify any questions/concerns. documented in this encounter [facility] 07-16-2023 Miscellaneous Notes Late entry Patient called to get result of PFT. He is upset that he has to call every year to get the result and Dr Yan doesn't call him. Explained with the holiday some results are taking longer. He said we are just making up excuses and taking 1 day of [place] and turning it into [address] out to Dr Rico to see if he could interpret result however he was not able to. Informed his physician would be available after 07/16/23. Patient asking to get results anderson. Please advise Patient's PFT reviewed and not significantly changed from prior. Also note last year his PFT was done at another facility. Call to patient. Unknown person answered phone. States to call back tomorrow as he is waiting for him to be released from [facility]. documented in this encounter [employer] 07-16-2023 Telephone encounter Note Late entry Patient called to get result of PFT. He is upset that he has to call every year to get the result and Dr Yan doesn't call him. Explained with the holiday some results are taking longer. He said we are just making up excuses and taking 1 day of [place] and turning it into [address] out to Dr Rico to see if he could interpret result however he was not able to. Informed his physician would be available after 07/16/23. Patient asking to get results anderson. Please advise [employer] Work Phone: 07-16-2023 Telephone encounter Note Patient's PFT reviewed and not significantly changed from prior. Also note last year his PFT was done at another facility. [employer] 07-16-2023 Telephone encounter Note Call to patient. Unknown person answered phone. States to call back tomorrow as he is waiting for him to be released from [facility]. [employer] 07-10-2023 History of Presen t illness Narrative [facility] [address] [place] [phone] SUBJECTIVE: Patient ID (1960): Varinder Wilson is a 63 y.o. 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 The patient previously had rhizopus infection detected in sputum and he is here for ENT evaluation. He reports a history of post nasal drainage and cough. Denies associated facial pressure, pain, or fever. He had an x-ray of his sinuses which was unremarkable. Denies use of any nasal sprays or saline irrigations. The patient also reports he previously saw Dr. Grajeda of ENT for tinnitus. He did not have a hearing test today due to transportation issues and is rescheduled for the 07 of August. He is a former smoker and quit 20 years ago. HISTORY: Past Medical History: Diagnosis Date Abnormal findings on diagnostic imaging of heart and coronary circulation Anxiety Atherosclerosis of coronary artery bypass graft Atherosclerotic heart disease pechanga coronary artery w/angina pectoris ([facility]) Cerebellar infarction ([facility]) COPD (chronic obstructive pulmonary disease) ([facility]) Coronary atherosclerosis of pechanga coronary artery Depression Encounter for preprocedural cardiovascular examination HLD (hyperlipidemia) HTN (hypertension) Insomnia Myocardial infarction ([facility]) Peripheral vascular disease ([facility]) Stroke ([facility]) TIA (transient ischemic attack) Visual impairment wears glasses Past Surgical History: Procedure Laterality Date CARDIAC CATHETERIZATION Cardiac catheterization N/A 09/30/2017 Per[facility] [facility] CHOLECYSTECTOMY Coronary angiogram and left ventricular gram/pressure + graft/pechanga N/A 09/30/2017 Performed by Harry Buckner MD at [facility] CARDIAC CATH LABS CORONARY ARTERY BYPASS GRAFT 12/2015 x3 CORONARY STENT PLACEMENT CYST REMOVAL neck HERNIA REPAIR MULTIPLE TOOTH EXTRACTIONS Revascularization chronic total occlusion/drug eluting stent/ath left circumflex N/A 09/30/2017 Performed by Harry Buckner MD at [facility] CARDIAC CATH LABS VASCULAR SURGERY right leg Family History Problem Relation Age of Onset Brain Tumor Mother Heart disease Mother Hypertension Mother Diabetes Mother COPD Mother Kidney disease Mother Diabetes Father COPD Father Lung cancer Father Cancer Father No Known Problems Sister No Known Problems Sister Back Problems Brother Social History Socioeconomic History Marital status: Single Spouse name: Not on file Number of children: Not on file Years of education: Not on file Highest education level: Not on file Occupational History Not on file Tobacco Use Smoking status: Former Years: 20 Types: Cigarettes Smokeless tobacco: Never Tobacco comments: Quit 17yrs ago hx of 2ppd x 15yrs Vaping Use Vaping Use: Never used Substance and Sexual Activity Alcohol use: Not Currently Alcohol/week: 28.0 standard drinks of alcohol Types: 28 Cans of beer per week Comment: 3-4 beers daily Drug use: No Sexual activity: Not Currently Other Topics Concern Caffeine Use Yes Comment: 3 cups a day Social History Narrative Not on file Social Determinants of Health Financial Resource Strain: Not on file Food Insecurity: No Food Insecurity (03/27/2023) Hunger Screening Food Insecurity - Worry: Never True Food Insecurity - Inability: Never True Transportation Needs: Not on file Physical Activity: Not on file Stress: Not on file Social Connections: Not on file Interpersonal Safety: Not on file Housing Instability: Not on file No Known Allergies Current Outpatient Medications Medication Sig Dispense Refill albuterol (PROVENTIL HFA;VENTOLIN HFA) 90 mcg/actuation inhaler INHALE 2 PUFFS BY MOUTH EVERY 4 HOURS NEEDED FOR WHEEZING OR SHORTNESS OF BREATH. 18 g 10 aspirin 81 mg Take 1 tablet (81 mg total) by mouth daily. 90 tablet 3 celecoxib (CeleBREX) 100 mg capsule Take 1 capsule (100 mg total) by mouth in the morning and 1 capsule (100 mg total) before bedtime. 60 capsule 2 cyanocobalamin (VITAMIN B-12) 1,000 mcg/mL injection Inject 1 mL (1,000 mcg total) into the appropriate muscle every 30 (thirty) days. vzoposecxuq-xffaslmyx-epjihxhx (TRELEGY ELLIPTA) 100-62.5-25 mcg blister with device INHALE 1 PUFF BY MOUTH ONCE DAILY IN THE MORNING 60 each 11 lisinopriL (PRINIVIL,ZESTRIL) 20 mg tablet Take 1 tablet (20 mg total) by mouth in the morning. nitroglycerin (NITROSTAT) 0.[address] 1 tablet (0.4 mg total) under the tongue every 5 (five) minutes as needed for chest pain. Every 5 minutes x 3 for chest pain as instructed per MD. If no relief after 3 tablets call 911. 25 tablet 3 rivaroxaban (XARELTO) 20 mg tablet tablet Take 1 tablet (20 mg total) by mouth nightly. 90 tablet 0 rosuvastatin (CRESTOR) 40 mg tablet Take 1 tablet (40 mg total) by mouth in the morning. 90 tablet 3 carvediloL (COREG) 6.25 mg tablet Take 1 tablet (6.25 mg total) by mouth in the morning and 1 tablet (6.25 mg total) before bedtime. 180 tablet 3 verapamil SR (CALAN-SR) 180 mg CR tablet 1 tablet (180 mg total) in the morning. Current Facility-Administered Medications Medication Dose Route Frequency Provider Last Rate Last Admin albuterol (PROVENTIL,VENTOLIN) nebulizer solution 2.5 mg 2.5 mg nebulization JAIDENN Brisa Yan DO REVIEW OF SYSTEMS: Review of Systems Constitutional: Negative for chills and fever. HENT: Positive for congestion, postnasal drip, sinus pressure, sinus pain and tinnitus. Negative for ear discharge and ear pain. Eyes: Negative for pain and itching. Respiratory: Negative for cough and shortness of breath. Cardiovascular: Negative for chest pain and palpitations. Gastrointestinal: Negative for nausea and vomiting. Endocrine: Negative for cold intolerance and heat intolerance. Genitourinary: Negative for frequency and urgency. Musculoskeletal: Negative for neck pain. Skin: Negative for color change and rash. Allergic/Immunologic: Negative for environmental allergies and food allergies. Neurological: Negative for dizziness, light-headedness and headaches. Hematological: Does not bruise/bleed easily. Psychiatric/Behavioral: Positive for confusion and sleep disturbance (Constantly up). The patient is not nervous/anxious. Data Reviewed: PHYSICAL EXAMINATION: Temp 36.7 C (98 F) (Temporal) Ht 177.8 cm (5' 10 ) Wt 96.6 kg (213 lb) BMI 30.56 kg/m Constitutional: Healthy, alert, cooperative, and in no distress and normal ablility to communicate . Voice normal quality. Head/Face: Normocephalic, without obvious abnormality, salivary glands normal, atraumatic, sinuses nontender, and facial nerve intact Eyes: No gross abnormalities., EOMI, no nystagmus, and no lid ptosis Ear: RIGHT: hearing normal, external ear normal, canal normal, and TM normal without fluid or infection LEFT: hearing normal, external ear normal, canal normal, and TM normal without fluid or infection Nose: External nose appears normal, normal mucosa, normal turbinates, no nasal polyps or masses, and deviated nasal septum left Oral: normal lips, normal gums, normal hard palate, normal anterior tongue, oral mucosa moist, and upper and lower denture-removed for evaluation Oropharynx: normal-appearing mucosa, no pharyngitis, no exudate, tonsillar hypertrophy, 1+, and normal soft palate and uvula Nasopharynx: See procedure note., Hypopharynx: See procedure note., Larynx: See procedure note. TMJ: no pain, crepitus, or trismus Neck:normal, supple, no adenopathy, thyroid normal in size, no nodules or tenderness, no neck masses palpable, and carotids normal Respiration: No stridor, Normal respiratory effort. Heart: Regular rate Neurologic: Grossly normal Alert Oriented X 3 Affect normal Cranial nerves 2 -12 grossly intact Procedure Note: Flexible Laryngoscopy Pre-operative Diagnosis: Former smoker Post-operative Diagnosis: same Surgeon: Juan Palacio DO Anesthesia: Oxymetazoline and 4% Lidocaine Endoscopy Type: Flexible Laryngoscopy Procedure Details: Consent was obtained from the patient. The patient was placed in the sitting position. After topical anesthesia and decongestant applied, a flexible laryngoscope was passed. The nasal cavities, nasopharynx, oropharynx, hypopharynx, and larynx were all examined. Vocal cords were examined during respiration and phonation. The following findings were noted: Findings: Bilateral nares patent. Bilateral nasal cavity without lesions or masses. Bilateral eustachian tube orifices patent. Base of tongue, vallecula, epiglottis, ae folds, and bilateral piriform sinuses are within normal limits. Arytenoids, interarytenoid and postcricoid region are within normal limits. Bilateral vocal cords were mobile and symmetric. Clear post-nasal drainage. No acute signs of sinus infection. No masses, polyps, or lesions. 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 (Patient not taking: Reported on 07/19/2023) Chronic cough - Ambulatory referral to ENT (Non-[facility]) Former smoker Plan: - Patient with history of rhizopus infection. Flex laryngoscopy in office showed no signs of acute infection. Previous x-ray of sinuses was unremarkable. Given history of tinnitus, will await results of audiogram. May consider CT sinuses in the future in addition to imaging for workup of tinnitus, if indicated. - Recommend intranasal steroid spray to help with post nasal drainage. I like and recommend Flonase Sensimist which is over the counter. This is not regular Flonase, it is non-alcohol based, scent free and it is a different molecule. Use 2 sprays in each nostril once a day or 1 spray twice a day. Aim toward the ear when administering it. Consistency in daily use is stressed. It will take 7-10 days of consistent use to see effects of this medication. If this is not cost effective, Nasacort, Nasonex or Rhinocort may be used in its place. - Complete daily nasal saline irrigations daily in addition to flonase. - In regards to tinnitus, I advise the avoidance of caffeine, alcohol, tobacco, salt, high dose NSAIDS, and to increase hydration. If hearing loss is an issue AND you are a candidate for hearing aides, wearing them will mask ringing while they are in. Also, you can use maskers such as a white noise machine, a radio played at low volume (in between stations for white noise/static), or a fan in the background can help reduce ringing. Complete audiogram as scheduled 08/07/23. - Follow up in 1 month after audiogram Scribe Statement: Scribed for and in the presence of Juan Palacio DO by Reggie Wilcox. 08/06/23 3:58 PM Provider Statement: I Juan Palacio DO personally performed the services described in the documentation as described by the above named scribe in my presence. It is both accurate and complete at the time of final signature. Dr. Juan Palacio 07/10/2023 3:59 PM Counseling: The following elements of medical decision making were considered during this visit: Reviewed/ordered new medications and History and physical. The patient was counseled regarding prognosis, risks and benefits of treatment options, impressions, importance of compliance with treatment and risk factor reductions. The patient verbalized understanding and agreement to the plan. Please note that parts of this chart were generated using voice recognition [employer] dictation software. Although every effort was made to ensure the accuracy of this automated surgical processor, some errors in surgical processor may have occurred. documented in this encounter [employer] 07-10-2023 Instructions Reggie Wilcox - 07/10/2023 8:15 AM EST Images from the original note were not included. - Patient with history of rhizopus infection. Flex laryngoscopy in office showed no signs of acute infection. Previous x-ray of sinuses was unremarkable. Given history of tinnitus, will await results of audiogram. May consider CT sinuses in the future in addition to imaging for workup of tinnitus, if indicated. - Recommend intranasal steroid spray to help with post nasal drainage. I like and recommend Flonase Sensimist which is over the counter. This is not regular Flonase, it is non-alcohol based, scent free and it is a different molecule. Use 2 sprays in each nostril once a day or 1 spray twice a day. Aim toward the ear when administering it. Consistency in daily use is stressed. It will take 7-10 days of consistent use to see effects of this medication. If this is not cost effective, Nasacort, Nasonex or Rhinocort may be used in its place. - Complete daily nasal saline irrigations daily in addition to flonase. - In regards to tinnitus, I advise the avoidance of caffeine, alcohol, tobacco, salt, high dose NSAIDS, and to increase hydration. If hearing loss is an issue AND you are a candidate for hearing aides, wearing them will mask ringing while they are in. Also, you can use maskers such as a white noise machine, a radio played at low volume (in between stations for white noise/static), or a fan in the background can help reduce ringing. Complete audiogram as scheduled 08/07/23. - Follow up in 1 month after audiogram Instructions on how to perform saline irrigations Fill the [employer] sinus ruinse bottle with room temperature bottled or distilled water. DO NOT use tap water unless you boil it and let it cool down. Use the [employer] sinus rinse salt packet OR the following recipe to make your saline solution: Nasal Irrigation Solution Recipe 8 ounces of distilled or bottled water (or water that is boiled and allowed to cool down) 1/2 teaspoon of table salt 1/2 teaspoon of baking soda Gently insert the tip into one nostril and squeeze. Keep your head down and blow out through your mouth when you irrigate to prevent water from going back down into your throat. Use about 1/2 of the bottle per nostril. Do this for each nostril 2-3 times a day, the more the better. documented in this encounter [employer] 06-26-2023 Evaluation note Encounter Date Diagnosis Assessment Notes Jun, PAD (periphera l artery disease) (ICD-10 - I73.9) I suggested an orthopedics surgery referral for the patient's inability to fully extend the left knee. I also offered rehab and physical therapy. Patient agrees to see an orthopedic surgeon for an evaluation of the left knee joint. From his PAD standpoint I believe his disease is stable and asymptomatic currently. He does need to exercise and ambulate. He is aware of this. We will see him back in 6 months with repeat ABIs. [employer] Other 10-26-2023 Evaluation note* Encounter Date Diagnosis Assessment Notes Treatment Notes Treatment Clinical Notes Apr, PAD (peripheral artery disease) (ICD-10 - I73.9) Patient's noninvasive arterial studies were reviewed. His left lower extremity is normal in his right lower extremity 0.92. Very pleased with this result. Patient is also very happy with his result. He had no groin issues postop and he has been taking his aspirin Plavix and statin. We will see him back in 3 months for continued surveillance duplex studies. He understands agrees with plan. [employer] Other 10-[facility] Encounter Date Diagnosis Assessment Notes Treatment Notes Treatment Clinical Notes Mar, PAD (peripheral artery disease) (ICD-10 - I73.9) I suggest we move forward with a left leg angiogram to treat the patient's symptoms of severe debilitating claudication. I do suspect he has a popliteal distal SFA popliteal lesion and tibial disease. I did review previous studies. These lesions were there previously and this was over 2 years ago. I suspect he may have gotten worse. We will schedule this from the left pedal approach in the [employer]. The risks and benefits were explained as well as medical surgical alternatives. The patient is very familiar with this as we have completed the same exact procedure on the right leg previously. Nevertheless I did review the possible complications and their management he understands wished to proceed all his questions were addressed. Mar, Severe claudication (ICD-10 - I73.9) [facility] Other 08-24-2023 Evaluation note* Encounter Date Diagnosis Assessment Notes Treatment Notes Treatment Clinical Notes Feb, PAD (peripheral artery disease) (ICD-10 - I73.9) This patient does give a good history of left leg claudication relieved with rest. His current resting ABIs 0.94 bilaterally. Recent venous duplex reveals no evidence of DVT in the left lower extremity at this time although although the patient does have some severe reflux of greater than 5 seconds in the left lesser saphenous vein. I have suggested that we do an exercise pre and post ABIs to potentially unmask disease. However I did caution the patient that I am not likely to treat his PAD despite his claudication due to multiple risk factors and multiple comorbidities. This patient is actively undergoing back injections at the lumbar location due to neurogenic claudication. He also has a component of postphlebitic syndrome of the left lower extremity. He also has potential claudication from PAD. I am not convinced that intervention will make this person any better or relieve his symptoms. I think his symptoms may be multifactorial. And there is always a risk of complication. Nevertheless more information is needed at this time we will see him back after the pre and post JIMBO studies. In the meantime I encouraged this patient to ambulate as much as possible and continue with risk factor modification. He remains on blood thinners. [employer] Other 08-10-2023 Evaluation note* Encounter Date Diagnosis Assessment Notes Treatment Notes Treatment Clinical Notes Feb, Leg edema, left (ICD-10 - R60.0) This patient reports ongoing left leg and foot edema after noninvasive arterial studies at the end of December. By physical examination today there is no presence of edema whatsoever. Although he does show me pictures on his phone with extensive lower leg and pedal edema present. Although his physical examination today is quite benign, I will go ahead and obtain duplex studies of the left leg due to his ongoing complaints of edema, pain, aching, and heaviness that has been ongoing which he reports is a result of the blood pressure cuff test on his legs. Will obtain these studies and bring him back to discuss those results in the near future. He is encouraged on the use of graded compression stockings and leg elevation for symptom management. [employer] Other 06-28-2023 Evaluation note* Encounter Date Diagnosis Assessment Notes Treatment Notes Treatment Clinical Notes Dec, PAD (peripheral artery disease) (ICD-10 - I73.9) This patient has known peripheral arterial disease with multiple previous intervention. His noninvasive arterial studies today show right JIMBO 0.94, left JIMBO 0.85. He has no ischemic rest pain and no tissue loss. I think we should continue managing him medically with use of aspirin and statin medications and he should work on his walking program. We will plan to follow-up in 3 to 6 months with repeat studies. [facility] Other 06-07-2023 Evaluation note* Encounter Date Diagnosis Assessment Notes Treatment Notes Treatment Clinical Notes Dec, PAD (peripheral artery disease) (ICD-10 - I73.9) This patient describes signs of claudication. I would expect this based on his history. We will need to obtain ABIs for further interrogation and quantitative analysis of the blood supply of his left foot. He has no tissue loss or rest pain. I am not convinced this patient could tolerate an exercise regimen due to the short distance claudication he suffers. However the patient does appear to be more of a risk candidate for complications due to his comorbidities. We will need to obtain the ABIs and then determine what the next course of action is for this patient. Conservative management may be best for him. He is on the appropriate medications of an aspirin and statin currently. [facility] Other 01-24-2023 Evaluation note* Encounter Date Diagnosis Assessment Notes Treatment Notes Treatment Clinical Notes Jul, Cervical stenosis of spinal canal (ICD-10 - M48.02) I independently reviewed the MRI of the cervical spine 06/26/22, which shows multilevel discogenic degeneratation C3-4 left and C5-7 foraminal stenosis. Mr. Pelaez has a significant past medical cardiac history with NH, CVA and CABGx3. He has a residual weakness of the left upper extremity and continues to use cane with ambulation. He has completed pain management injection therapy for his lumbar spine which showed relief. However he has not had any pain management injections or physical therapy for his cervical spine to which he is having the most pain in his right arm. Due to the distance with driving patient would like to see someone closer for his pain management now, I will refer to pain management with Dr. Garcia for injection therapy. I will refer to aqua therapy for strenghting, and follow-up in 8 weeks. We will send for his [facility] medical records from his previous pain management doctor, Dr Francis. Jul, Degeneration of C5-C6 intervertebral disc (ICD-10 - M50.322) Jul, DDD (degenerative disc disease), cervical (ICD-10 - M50.90) Jul, Lumbosacral spondylosis without myelopathy (ICD-10 - M47.817) Jul, BMI 30.0-30.9,adult (ICD-10 - Z68.30) [facility] [employer] Other evaluation noteNo InformationNortP[facility] [employer] Other Evaluation noteNo assessment information available [facility] Work Phone: Evaluation note* Diagnosis Cardiac risk counseling- Primary Peripheral vascular disease ([facility]) Unspecified peripheral vascular disease Eyelid drooping disease, bilateral [facility] Diagnosis Presence of coronary angioplasty implant and graft- Primary Peripheral vascular disease ([facility]) Unspecified peripheral vascular disease Essential hypertension Unspecified essential hypertension Dyspnea on exertion Other dyspnea and respiratory abnormality Preop cardiovascular exam Pre-operative cardiovascular examination [facility]* Diagnosis 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 Tinnitus of both ears Unspecified tinnitus Post-nasal drainage Other diseases of nasal cavity and sinuses Chronic cough Cough Former smoker Personal history of tobacco use, presenting hazards to health documented [facility]* Diagnosis Cervicalgia- Primary Weakness of both hands Polymyalgia rheumatica ([facility]) Polymyalgia rheumatica Acute left ankle pain documented in this encounter [facility]* Diagnosis Acute pain of left knee- Primary Foot drop, left foot documented in this encounter [facility]* Diagnosis Cardiac risk counseling- Primary History of tobacco use Personal history of tobacco use, presenting hazards to health 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 Pedal edema Edema [facility]* Diagnosis Lumbar radiculopathy- Primary Thoracic or lumbosacral neuritis or radiculitis, unspecified Right foot drop Other acquired deformity of ankle and foot Weakness Other malaise and fatigue History of stroke Transient ischemic attack (TIA), and cerebral infarction without residual deficits Cervical paraspinal muscle spasm Spasm of muscle Brachial plexopathy C7 radiculopathy Brachial neuritis or radiculitis nos Carpal tunnel syndrome, bilateral Carpal tunnel syndrome documented in this encounter [facility]* Diagnosis Acute pain of left knee- Primary Foot drop, left foot documented in this encounter [facility]* Diagnosis Diuresis- Primary Polyuria Pedal edema Edema Acute on chronic systolic congestive heart failure ([facility]) documented in this encounter [facility]* Diagnosis Right-sided tinnitus- Primary Unspecified tinnitus Sensorineural hearing loss, bilateral documented in this encounter [facility]* Diagnosis Sensorineural hearing loss (SNHL) of right ear with restricted hearing of left ear- Primary Asymmetrical hearing loss Unspecified hearing loss Right-sided tinnitus Unspecified tinnitus 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[facility]) Sensation of fullness in ear, right documented in this encounter [facility]* Diagnosis Chest tightness- Primary Other chest pain Exertional shortness of breath 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 documented in this encounter [facility] note* Diagnosis Onset Date Resolution Status Peripheral vascular disease acute [facility] Work Phone: Evaluation note* Diagnosis Onset Date Resolution Status Peripheral vascular disease acute Former smoker acute PAD (peripheral artery disease) [facility] Work Phone: Evaluation note* Diagnosis Peroneal tendon tear, left, initial encounter- Primary Onychocryptosis Ingrowing nail Toe pain, right Pain in soft tissues of limb Type 2 diabetes mellitus without complication, unspecified whether intermediate insulin use (CMS/HCC) documented [facility] encounter [facility] Diagnosis Lumbar radiculopathy- Primary Thoracic or lumbosacral neuritis or radiculitis, unspecified Onychocryptosis- Primary Ingrowing nail Toe pain, right Pain in soft tissues of limb Peroneal tendon tear, left, initial encounter Type 2 diabetes mellitus without complication, 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 renewal inspector insulin use (CMS/HCC) documented [facility] this encounter [facility]* Diagnosis Onychocryptosis- Primary Ingrowing nail Toe pain, right Pain in soft tissues of limb Peroneal tendon tear, left, initial encounter Type 2 diabetes mellitus without complication, unspecified whether intermediate insulin use (CMS/HCC) documented in this encounter [facility]* Diagnosis Onychocryptosis- Primary Ingrowing nail Toe pain, right Pain in soft tissues of limb Peroneal tendon tear, left, initial encounter Type 2 diabetes mellitus without complication, 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 renewal inspector insulin use (CMS/HCC) Contracture of left ankle documented in this encounter [facility]* Diagnosis Medicare annual wellness visit, subsequent- Primary Encounter for lipid screening for cardiovascular disease Encounter for screening for malignant neoplasm of prostate Encounter for screening for malignant neoplasm of colon 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 Presence of coronary angioplasty implant and graft Essential hypertension Unspecified essential hypertension Mixed hyperlipidemia Bipolar depression (CMS-HCC) Bipolar I disorder, most recent episode (or current) depressed, unspecified Chronic fatigue Other malaise and fatigue Cervical spondylosis without myelopathy Chronic left-sided low back pain with left-sided sciatica Vitamin D deficiency Need for hepatitis C screening test Special screening examination for other specified viral diseases Other hyperlipidemia Need for prophylactic vaccination and inoculation against influenza Routine general medical examination at a health care facility Disease of cardiovascular system Unspecified cardiovascular disease Lumbar radiculopathy Thoracic or lumbosacral neuritis or radiculitis, unspecified [facility] Diagnosis Pain due to onychomycosis of toenails of both feet- Primary Type 2 diabetes mellitus without complication, 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 renewal inspector insulin use (CMS/HCC) documented in this encounter [facility] note* Diagnosis Peroneal tendon tear, left, initial encounter- Primary Onychocryptosis Ingrowing nail Toe pain, right Pain in soft tissues of limb Foot ulcer, left, with fat layer exposed (CMS/HCC) Cellulitis of left foot documented in this encounter [facility] HealthcareEvaluation note* Diagnosis COPD, mild (CMS-HCC) Dyspnea on exertion Other dyspnea and respiratory abnormality documented [facility] encounter [facility]* Diagnosis Foot ulcer, left, with fat layer exposed (CMS/HCC)- Primary Type 2 diabetes mellitus without complication, unspecified whether intermediate insulin use (CMS/HCC) documented in this encounter [facility]Evaluation note* Diagnosis Closed nondisplaced fracture of left clavicle, unspecified part of clavicle, initial encounter- Primary Fall, subsequent encounter Closed displaced fracture of shaft of left clavicle, sequela documented in this encounter [facility]* Diagnosis Type 2 diabetes mellitus without complication, 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 renewal inspector insulin use (CMS/HCC)- Primary Foot ulcer, left, with fat layer exposed (CMS/HCC) Traumatic closed fracture of distal clavicle with minimal displacement, left, initial encounter- Primary Pain of left clavicle documented in this encounter [facility] HealthcareEvaluation note* Diagnosis Type 2 diabetes mellitus without complication, unspecified whether intermediate insulin use (CMS/HCC)- Primary Foot ulcer, left, with fat layer exposed (CMS/HCC) documented in this encounter [facility] HealthcareEvaluation note* Diagnosis Encounter for screening for malignant neoplasm of colon- Primary documented in this encounter [facility]* Diagnosis Lumbar radiculopathy Thoracic or lumbosacral neuritis or radiculitis, unspecified documented in this encounter [facility]Evaluation note* Diagnosis Peroneal tendon tear, left, initial encounter- Primary Onychocryptosis Ingrowing nail Toe pain, right Pain in soft tissues of limb Contracture of left ankle Type 2 diabetes mellitus without complication, 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 renewal inspector insulin use (CMS/HCC) documented in this encounter [facility] HealthcareHistory general Narrative - Reported* Type Description Date Medical History PVOD w/claudication Medical History coronary artery disease Medical History NH Medical History CVOD Medical History Hypertension Medical History Hx TIA Medical History Depression with Anxiety Medical History hyperlipidemia Medical History BPH Medical History severe neuropathy Surgical History CABG 12/2015 Surgical History PTCA and stent Surgical History Abd aortogram and bilat LE filiberto riogram 05/16/2016 Surgical History Balloon angioplasty & stenting right EIA/open right common femoral endarterectomy and patch angioplasty 05/28/2016 Surgical History cholecystectomy Surgical History RIGHT LEG CLOGGED ARTERY DR PICHARDO HER 06/2016 Surgical History heart stent X 3 10/2017 Surgical History right leg angioplasty/stent 08/15 Surgical History left common iliac an gioplasty and stent; thrombectomy LLE ([place]) 12/23/20 Hospitalization History see above Hospitalization History [place] possible str mira activity 08/2016 modu Other History of Present illness Narrative* Fernandomarga Moreno, DPM - 06/16/2024 4:50 PM EST Patient: Varinder Wilson : 1960 PCP: Negar Francois MD SUBJECTIVE This is a 63 y.o. male that presents today 69 days s/p left peroneal tendon repair and TPN to [id number] digit nail Pt denies n/f/v/c and has minimal pain to post op site. Pt states that they have been in shoe gear with now complaints of gapping to the area incision sitewith positive drainage and dry scab like lesion but states it has painful against shoe gear Pt was instructed to apply betadine and minimal WB with walking boot and presents today without walking boot states he has not been wearing walking boot and is very resistant to putting Betadine on the as it stings Patient was given prescription for Santyl and is not using He has been weight-bearing against medical advice during the whole postoperative visits states he has negative pain with weight-bearing. Positive hx of CVA in past and takes xeralto. Pt was given percocet in the past for pain. Patient continues states pain to the area He was to follow up with [facility] wound care center after last appointment. Patient did follow up in his currently seen [facility] wound care center Allergies: No Known Allergies Past Medical History: Past Medical History: Diagnosis Date Abnormal EKG 10/25/2015 Abnormal gait 02/20/2023 Abnormal stress ECG 09/28/2017 Added automatically from request for surgery [id number] Acquired hallux valgus 02/20/2023 Alcohol abuse 02/20/2023 Allergic rhinitis due to pollen 02/20/2023 Anemia 02/20/2023 Angina pectoris ([facility]) Anxiety 02/20/2023 Arthritis of hip 02/20/2023 Arthritis of lumbosacral spine 02/20/2023 Benign essential hypertension ([facility]) 10/25/2015 Benign prostatic hyperplasia 02/20/2023 Bipolar depression ([facility]) 02/20/2023 CAD (coronary artery disease) of artery bypass graft ([facility]) 09/09/2016 Cannabis abuse 02/20/2023 Cerebellar infarction ([facility]) 02/20/2023 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 ([facility]) 02/20/2023 Cerebral infarction, unspecified ([facility]) 02/17/2016 Cerebrovascular accident (CVA) ([facility]) 09/09/2016 Cervical spondylosis without myelopathy 06/20/2022 Chest pain at rest 02/20/2023 Cholecystitis 2016 Chronic cluster headache 02/20/2023 Chronic obstructive pulmonary disease ([facility]) 09/09/2016 Claudication ([facility]) 02/20/2023 COPD (chronic obstructive pulmonary disease) ([facility]) Depressed bipolar I disorder ([facility]) 02/20/2023 Depression ([facility]) 02/20/2023 Depressive disorder ([facility]) 02/20/2023 Difficulty hearing, bilateral 02/20/2023 Difficulty walking Disability of walking 02/20/2023 Dyspnea on exertion 09/19/2017 Encounter for preprocedural cardiovascular examination 07/18/2016 Epidermoid cyst of skin 02/20/2023 Essential tremor 02/20/2023 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 H/O exercise stress test 02/10/2015 Normal History of coronary artery stent placement Hypertension ([facility]) Memory loss Numbness Stroke ([facility]) TIA (transient ischemic attack) 2017 Tubular adenoma Weakness of limb Medications: Current Outpatient Medications: OXcarbazepine (Trileptal) 150 MG tablet, TAKE 1 TABLET BY MOUTH EVERY 12 HOURS, Disp: 60 tablet, Rfl: 3 albuterol HFA 90 mcg/act inhaler, Inhale 1 puff in the morning and 1 puff in the evening and 1 puffbefore bedtime., Disp: , Rfl: amantadine (Symmetrel) 100 MG capsule, Take 100 mg by mouth in the morning and at noon, Disp: , Rfl: amantadine (Symmetrel) 100 MG tablet, Take 1 tablet (100 mg) by mouth Daily for 7 days, THEN 1 tablet (100 mg) in the morning and at noon., Disp: 187 tablet, Rfl: 0 aspirin 81 MG EC tablet, Take 81 mg by mouth in the morning., Disp: , Rfl: carvedilol (Coreg) 6.25 MG tablet, Take 6.25 mg by mouth in the morning and 6.25 mg in the evening.Take with meals., Disp: , Rfl: celecoxib (CeleBREX) 100 MG capsule, Take 100 mg by mouth in the morning and 100 mg in the evening., Disp: , Rfl: collagenase (Santyl) 250 UNIT/GM ointment, Apply topically Daily, Disp: 30 g, Rfl: 1 cyanocobalamin (Vitamin B-12) 1000 MCG/ML injection, Inject 1,000 mcg into the shoulder, thigh, or buttocks every 30 (thirty) days., Disp: , Rfl: Cyanocobalamin 1000 MCG capsule, as directed Orally, Disp: , Rfl: cyproheptadine (Periactin) 4 MG tablet, Take 1 tablet (4 mg) by mouth at bedtime, Disp: 90 tablet, Rfl: 3 dexAMETHasone (Decadron) 2 MG tablet, 2mg 3 pills po X3 days,2 pills po daily X3 days , then 1 pillpo daily X3 days then stop 9 days 18 pills, Disp: 18 tablet, Rfl: 0 ipratropium-albuterol (Duo-Neb) 0.5-2.5 mg/3 mL nebulizer solution, Take 3 mL by nebulization in the morning and 3 mL in the evening and 3 mL before bedtime., Disp: , Rfl: montelukast (Singulair) 10 MG tablet, Take 1 tablet (10 mg) by mouth at bedtime, Disp: 90 tablet, Rfl: 3 nitroglycerin (Nitrostat) 0.4 MG SL tablet, Place 0.4 mg under the tongue every 5 (five) minutes ifneeded., Disp: , Rfl: rosuvastatin (Crestor) 40 MG tablet, Take 40 mg by mouth in the morning., Disp: , Rfl: topiramate (Topamax) 25 MG tablet, Take 1 tablet (25 mg) by mouth at bedtime for 7 days, THEN 1 tablet (25 mg) 2 (two) times a day., Disp: 67 tablet, Rfl: 2 Trelegy Ellipta 100-62.5-25 MCG/ACT aerosol powder , , Disp: , Rfl: verapamil ER (Verelan) 180 MG 24 hr capsule, Take 180 mg by mouth at bedtime Do not crush or chew.,Disp: , Rfl: verapamil SR (Calan SR) 180 MG ER tablet, Take 180 mg by mouth at bedtime, Disp: , Rfl: Xarelto 20 MG tablet, Take 20 mg by mouth in the evening. Take with meals., Disp: , Rfl: ROS: General: denies fever, chills, fatigue, malaise GI: denies loose or watery stool on antibiotic OBJECTIVE LE EXAM: Derm: Incision site to left lateral ankle has gapping to the incision site with subcutaneous tissuepresent with ulceration measuring 1.5 cm x 0.5 cm x 0.2 cm subcutaneous thickness depth with slightfibrous slough and negative erythema surrounding wound area with minimal edema Right 2nd digit has dry scab like lesion with negative erythema and negative drainage. Elongated thick yellow crumbly nails digits 1 through 9 with diminished hair growth. Right 2nd digit has negative drainage and negative erythema to toe. Vascular: Palpable pedal pulses bilaterally Neuro: 5.07 [place] Audelia monofilament test intact to digits and forefoot bilaterally 125Hz tuning fork diminished to 1st MPJ bilaterally Musculoskeletal: Negative pain on palpation toleft calf. Positive pain on palpation nails 1 through9 Positive palpation to lateral left ankle ASSESSMENT 69 d days s/p left peroneal tendon repair and TPN to right 2nd digit nail with slight wound dehiscence to the incision site 1. Type 2 diabetes mellitus without complication, unspecified whether intermediate insulin use ([facility]) 2. Foot ulcer, left, with fat layer exposed ([facility]) PLAN Patient continue follow up of [facility]. Patient states may have home health ordered Sharp debridement with 15 blade of subcutaneous ulceration to left foot with active bleeding noted and removal and excision of fibrotic and necrotic tissue to wound and DSD applied with neosporin. Ptto continue with wound care center instructions daily Today's procedure is a staged procedure and patient may need further procedures in the future. Fernando Moreno DPM [facility] instructions Additional Instructions DISCHARGE INSTRUCTIONS FOR ANGIOGRAM, ANGIOPLASTY, STENT PLACEMENT FIRST TWO (2) DAYS AFTER DISCHARGE: -Take it easy at home, no strenuous activity. -Do not lift or pull objects over 10 pounds, including children and groceries (10 pounds = 1 gallon milk). -May shower. -[Able to go upstairs?] -No excessive scrubbing of affected groin or arm. -May drive car unless you had sedation for the procedure, then you cannot drive for 24 hours. CALL [name at #] OR [facility] AT [phone]: -If excessive bleeding should occur from the puncture site, immediately apply pressure to the site and call 911. -Report any fever, redness, drainage, increased swelling, or firmness at catheter site insertion. Some bruising or slight swelling may be present and this is normal. -Should the arm or leg become cold, numb, white, or blue - go to the nearest emergency room. MEDICATIONS -Follow instructions on the discharge medication sheet regarding your medications. -[Do NOT take any Metformin containing medications for the next two days: ActoPlusMet, ActoPlusMet XR, Avandamet, Fortamet, Glucophage, Glucophage XR, Glucovance, Glumetza, Janumet, Janumet XR, Jentadueto, Kombiglyze XR, Metaglip, Metformin, PrandiMet, Riomet.] [facility] Work Phone: InstructionsNot on filedocumented in this encounter [facility] on filedocumented in this [facility] on filedocumented in this encounter [facility]ructionsNot on filedocumented in this encounter [facility] on filedocumented in this encounter [facility] on filedocumented in this encounter [facility] on filedocumented in this encounter [facility]ructionsNot on filedocumented in this encounter [facility] on filedocumented in this encounter [facility] on filedocumented in this encounter [facility] on filedocumented in this encounter [facility]ructionsNot on filedocumented in this encounter [facility]ructionsNot on filedocumented in this encounter [facility]InstructionsNot on filedocumented in this encounter [facility] SystemInstructionsNot on filedocumented in this encounter [facility] SystemReason for referral (narrative)* Consultation (Routine) - Authorized Specialty Diagnoses / Procedures Referred By Kristi jhaveri Referred To Contact Neurosurgery Diagnoses Lumbar radiculopathy Jr. Cara Slater DO [address] [facility] [address] [place] [address] Greyson Galeas MD [facility] [place] [address] [place] [address] Referral ID Status Reason Start Date Expiration Date Visits Requested Visits Authorized [id number] Authorized Specialty Services Required 04/22/2024 10/19/2024 1 1 [facility] HealthcareReason for visit NarrativeReferral update - pain managementNoHövding Other reason for visit NarrativePain Medicine Referral UpdateNoHövding Other Summary Purpose Family History No Family History Records Found Relationship Condition Age at Onset Recorded Date/T lawrence Not Specified Type 2 diabetes mellitus Unknown Hypertension Unknown Relationship Condition Age at Onset Recorded Date/T lawrence Not Specified Type 2 diabetes mellitus Unknown father Malignant neoplasm Unknown Unknown Not Specified Unknown Diabetes mellitus Unknown Hypertension Unknown Heart disease Unknown Not Specified Hypertension Unknown Relationship Condition Age at Onset Recorded Date/T lawrence Not Specified Type 2 diabetes mellitus Unknown father Malignant neoplasm Unknown Unknown Not Specified Unknown Diabetes mellitus Unknown Hypertension Unknown Heart disease Unknown Relationship Condition Age at Onset Recorded Date/T lawrence Not Specified Type 2 diabetes mellitus Unknown father Malignant neoplasm Unknown Unknown mother Unknown Diabetes mellitus Unknown Hypertension Unknown Heart disease Unknown Advance Directives No Advanced Directives Records Found Advance Directive Response Recorded Date/ Time Advance Directives No May 01, 2017 2:02pm Advance Directive Response Recorded Date/ Time Advance Directives No May 01, 2017 1:02pm Documents on File Type Date Recorded 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 Durable 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 06/21/2022 10:22 AM HEALTH CARE POWER OF PIPELINE CONTROLLER 06/21/2022 Latest Code Status on File Code Status Date Activated Date Inactivated Comments Full Code 09/28/2017 5:55 AM 10/01/2017 6:25 PM Documents on File Type Date Recorded 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 Durable Power of Putty 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 06/21/2022 10:22 AM HEALTH CARE POWER OF PIPELINE CONTROLLER 06/21/2022 Latest Code Status on File Code Status Date Activated Date Inactivated Comments Full Code 09/28/2017 5:55 AM 10/01/2017 6:25 PM Date Activated Date Inactivated Comments 09/28/2017 5:55 AM 10/01/2017 6:25 PM Chief Complaint and Reason for Visit Chief Complaint R29.89 Z86.73 G31.9 I73.9 Chief Complaint R29.89 Z86.73 G31.9 I73.9 m51.36 m48.061 m54.31 Chief Complaint m51.36 m48.061 m54.3 1 m25.511 Chief Complaint m25.511 i73.9 Chief Complaint Right 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 Complaint Right HAV Krishnan bun ionectomy w/k wire I70.213 l leg swelling with discoloration Chief Complaint Right HAV Krishnan bun ionectomy w/k wire I70.213 l leg swelling with discoloration I701.213 lt LE swelling w/ discoloration Chief Complaint l leg swelling with discoloration I701.213 lt LE swelling w/ discoloration PVD Chief Complaint l leg swelling with discoloration I701.213 lt LE swelling w/ discoloration PVD PVD Chief Complaint l leg swelling with discoloration I701.213 lt LE swelling w/ discoloration PVD PVD i70.212 Chief Complaint M21.371 M54.16 R53.1 Z86.73 M62.838 I73.9 Chief Complaint I73.9 6 MONTH F/U; HAD PVR'S DONE 05/03 recurrent left keg cautication recurrent left keg cautication Reason for Visit Peripheral vascular disease Chief Complaint I73.9 6 MONTH F/U; HAD PVR'S DONE 05/03 recurrent left keg cautication recurrent left keg cautication M93.27 Reason for Visit Peripheral vascular disease Chief Complaint 6 MONTH F/U; HAD PVR 'S DONE 05/03 recurrent left keg cautication recurrent left keg cautication M93.27 4 WK F/U Angio; jimbo's 10:30 I73.9 Reason for Visit Peripheral vascular disease Former smoker PAD (peripheral artery disease) Reason for Referral Specialty Diagnoses / Procedures Referred By Kristi jhaveri Referred To Contact Radiology Diagnoses 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[facility]) Procedures CT sinuses without contrast Frederic PalacioAdri, DO [address] [address] Referral ID Status Reason Start Date Expiration Date V isits Requested Visits Authorized [id number] Pending Review 10/02/2023 10/01/2024 1 1 Specialty Diagnoses / Procedures Referred By Kristi jhaveri Referred To Contact Radiology Diagnoses Right-sided tinnitus Asymmetrical hearing loss Sensorineural hearing loss (SNHL) of right ear with restricted hearing of left ear Procedures MR brain IAC with and without contrast Frederic PalacioAdri, DO [address] [address] Referral ID Status Reason Start Date Expiration Date V isits Requested Visits Authorized [id number] Pending Review 10/02/2023 10/01/2024 1 1 Specialty Diagnoses / Procedures Referred By Kristi t Referred To Contact Radiology Diagnoses Right foot drop Lumbar radiculopathy Weakness History of stroke Cervical paraspinal muscle spasm Procedures MR cervical spine wo contrast Marii Delatorre MD [address] [facility] [address] [address] Referral ID Status Reason Start Date Expiration Date V isits Requested Visits Authorized [id number] Pending Review 08/21/2023 02/17/2024 1 1 Specialty Diagnoses / Procedures Referred By Contac t Referred To Contact Neurosurgery Diagnoses Right foot drop Lumbar radiculopathy Weakness History of stroke Cervical paraspinal muscle spasm Marii Delatorre MD [address] [address] Mainor Paez MD [address] [address] Referral ID Status Reason Start Date Expiration Date Visits Requested Visits Authorized [id number] Pending Review Specialty Services Required 08/21/2023 02/17/2024 1 1 Specialty Diagnoses / Procedures Referred By Contac t Referred To Contact Diagnoses History of tobacco use 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 Pedal edema Procedures Echo complete W/O contrast Negar Francois MD [address] [place] [address] [address] Referral ID Status Reason Start Date Expiration Date V isits Requested Visits Authorized [id number] Awaiting Secondary Insurance to be worked 08/20/2023 08/19/2024 1 1 Specialty Diagnoses / Procedures Referred By Contac t Referred To Contact Rehabilitation Diagnoses Cervicalgia Weakness of both hands Negar Francois MD [address] [place] [address] Referral ID Status Reason Start Date Expiration Date Visits Requested Visits Authorized [id number] Pending Review Specialty Services Required 08/09/2023 08/08/2024 1 1 Scheduling Instructions [facility] [address], [address] [place], [place] Specialty Diagnoses / Procedures Referred By Contac t Referred To Contact Diagnoses Presence of coronary angioplasty implant and graft Peripheral vascular disease ([facility]) Essential hypertension Dyspnea on exertion Preop cardiovascular exam Procedures ECG, Hospital Report Scan Shamar Xiao MD [address] [place] [address] Referral ID Status Reason Start Date Expiration Date V isits Requested Visits Authorized [id number] Pending Review 07/19/2023 07/18/2024 1 1 Reason Evaluate and Treat w ith Aquatic Therapy for Strengthening Diagnosis 1 Lumbosacral spondylo sis without myelopathy (M47.817) Referral Organization [facility] Referring Provider First Name Sharda Referring Provider Last Name Wayne Referring Provider Specialty Nurse Pract itioner Referred Organization [facility] Referred Address ,[place], [place],[address] Referred Provider Specialty Physical The rapist Referral Priority Routine General Notes Lexi Osorio marc 09/05/2022 03:58:34 PM > PT notes in chart Reason DECLINED Evaluate and Treat with Injections Diagnosis 1 Cervical stenosis of spinal canal (M48.02) Referral Organization [facility] Referring Provider First Name Sharda Referring Provider Last Name Wayne Referring Provider Specialty Nurse Pract itioner Referred Organization [facility] Pain Managemen t Referred Provider Porter Garcia Referred Address [address] [facility] [facility] [address] ,[place], [place],[address] Referred Provider Specialty Pain Medicin e Referral Priority Routine General Notes Mary Oneill 023 02:32:46 PM >Received today and sent P2P Mary Oneill 08/10/2022 12:33:19 PM >Patient declined and telephone encounter was sent Additional Source Comments (unrecognized sect ion and content) No Status Records FoundNo Status Records FoundNo Status Records FoundNo Status Records FoundNo Status Records FoundNo Status Records FoundNo Status Records FoundNo Status Records FoundNo Status Records FoundNo Status Records FoundNo Status Records Found INFORMATION SOURCE (unrecogn ized section and content) DATE CREATED AUTHOR 01/03/2018 [facility] DATE CREATED AUTHOR AUTHOR'S ORGANIZ ATION 01/07/2018 [facility] DATE CREATED AUTHOR AUTHOR'S ORGANIZ ATION 04/12/2019 [facility] DATE CREATED AUTHOR AUTHOR'S ORGANIZ ATION 12/07/2023 [facility] DATE CREATED AUTHOR AUTHOR'S ORGANIZ ATION 03/05/2024 [facility] DATE CREATED AUTHOR AUTHOR'S ORGANIZ ATION 03/30/2024 [facility] DATE CREATED AUTHOR AUTHOR'S ORGANIZ ATION 05/03/2024 [facility] DATE CREATED AUTHOR AUTHOR'S ORGANIZ ATION 05/25/2024 [facility] DATE CREATED AUTHOR AUTHOR'S ORGANIZ ATION 06/17/2024 [facility] DATE CREATED AUTHOR AUTHOR'S ORGANIZ ATION 06/19/2024 [facility] DATE CREATED AUTHOR AUTHOR'S ORGANIZ ATION 07/03/2024 [facility] REASON FOR VISIT (unrecogniz ed section and content) Reason Comments Consent Or Instructions PRE OP Reason Onset Date Comments Results 06/17/2024 Reason Comments Foot Pain Bl foot pain Reason Onset Date Comments EMG 05/27/2024 Reason Comments Foot Pain Left PB F/U Reason Comments Med Refill Reason Comments Foot Ulcer Left ankle ulcer Reason Comments DM Foot Care DM NAIL CARE Post-op LEFT FOOT- POST OP Reason Comments Annual Exam Reason Comments Foot Ulcer Left ft ulcer Reason Comments Post-op 1m s/p lt pb Reason Comments Pain Reason Comments Post-op 1st post op, tendon repair Reason Comments Results ECHO Reason Comments Results Audiogram Tinnitus Right sided Reason Comments Leg Pain swelling Reason Comments Leg Swelling Left foot Specialty Diagnoses / Procedures Referred By Contac t Referred To Contact Physical Therapy Diagnoses Acute pain of left knee Procedures MD OFFICE/OUTPATIENT NEW HIGH MDM 60 MINUTES Jr. Cara Slater, [address] 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 [facility] [address] [place] [address] [place] [address] Referral ID Status Reason Start Date Expiration Date Visits Requested Visits Authorized [id number] Pending Review Specialty Services Required 06/20/2023 06/19/2024 1 1 Reason Comments Follow-up 6 MO NO TESTS L/S BD -LABS 05/2023 Coronary Artery Disease Pre-op Exam 08/01/2022- eye surge ry -Dr Mueller Reason Comments Pre-op Exam Eye surgery on . LEFT LEG PAIN, SWOLLEN3 WK F/U ANGIOGRAMGO OVER TEST RESULTS ON 03/25 AT [facility] OVER DUPLEX STUDIES OF LEFT LEG DONE ON 03/04CAL AND ANKLE SWOLLEN AND BLACK ,PURPLE3 WK FOLLOW UP; JIMBO'S BOTH LEGS 10:30ALeft leg painsched. appt.aggressive phone callreferred by [facility] Chronic neck pain, unresponsive to pm, otc and PTWMN Self ReferralWMN Referral Care Teams (unrecognized sec tion and content) Team Status: Inactive Member Role Status [facility] Primary Care Provider Active Prem Encarnacion DO Attending Provider Active Geronimo Staley DO RES Referring Provider Active Team Status: Inactive Member Role Status [facility] Primary Care Provider Active Tad Andrade DO Attending Provider Active Félix Lyle DO RES Referring Provider Active Team Status: Active Member Role Status [facility] Primary Care Provider Active Team Status: Inactive Member Role Status [facility] Primary Care Provider Active Harry Russo PA-C Attending Provider Active Team Status: Inactive Member Role Status [facility] Primary Care Provider Active Tad Mast DO Attending Provider Active Geronimo Staley DO RES Referring Provider Active Team Status: Inactive Member Role Status [facility] Primary Care Provider Active Katarina Lugo MD Attending Provider Active Team Status: Inactive Member Role Status [facility] Primary Care Provider Active Fernando Moreno DPM Attending Provider Active Team Status: Inactive Member Role Status [facility] Primary Care Provider Active Angel Meléndez MD Attending Provider Active Team Status: Inactive Member Role Status [facility] Primary Care Provider Active Ashia Sotomayor NP-C Attending Provider Active Cloth Mender Relationship Specialty Start Date End Date Negar Francois MD [address], [place] [address] PCP - General Internal Medicine 05/21/23 Cloth Mender Relationship Specialty Start Date End Date Negar Francois MD [address], [place] [address] PCP - General Internal Medicine 05/21/23 Cloth Mender Relationship Specialty Start Date End Date Negar Francois MD [address], [place] [address] PCP - General Internal Medicine 05/21/23 Cloth Mender Relationship Specialty Start Date End Date Negar Francois MD [address], [place] [address] PCP - General Internal Medicine 05/21/23 Cloth Mender Relationship Specialty Start Date End Date Negar Francois MD [address], [place] [address] PCP - General Internal Medicine 05/21/23 Cloth Mender Relationship Specialty Start Date End Date Negar Francois MD [address], [place] [address] PCP - General Internal Medicine 05/21/23 Cloth Mender Relationship Specialty Start Date End Date Geronimo Staley MD [address] [place] [id number] PCP - General 12/12/22 Cloth Mender Relationship Specialty Start Date End Date Geronimo Staley MD [address] [facility] [place] [address] PCP - General 12/12/22 Cloth Mender Relationship Specialty Start Date End Date Negar Francois MD [address] [place] [address] PCP - General Internal Medicine 05/21/23 Cloth Mender Relationship Specialty Start Date End Date Geronimo Staley MD [address] [facility] [place] [address] PCP - General 12/12/22 Cloth Mender Relationship Specialty Start Date End Date Geronimo Staley MD [address] [place] [address] PCP - General 12/12/22 Cloth Mender Relationship Specialty Start Date End Date Geronimo Staley MD [address] [place] [address] PCP - General 12/12/22 Cloth Mender Relationship Specialty Start Date End Date Negar Francois MD [address] [place] [address] PCP - General Internal Medicine 05/21/23 Cloth Mender Relationship Specialty Start Date End Date Negar Francois MD [address] [place] [place], [place] [id number] PCP - General Internal Medicine 05/21/23 Cloth Mender Relationship Specialty Start Date End Date Negar Francois MD [address] [place] [address] PCP - General Internal Medicine 05/21/23 Cloth Mender Relationship Specialty Start Date End Date Negar Francois MD [address] [facility] [place] [address] PCP - General Internal Medicine 05/21/23 Team Status: Active Member Role Status Dates Negar Francois MD Primary Care Provider Active Team Status: Inactive Member Role Status Dates Marii Delatorre MD Attending Provider Active Start: September 19, 2023 End: September 19, 2023 Negar Francois MD Primary Care Provider Active S tart: September 19, 2023 End: September 19, 2023 Team Status: Inactive Member Role Status Dates Negar Francois MD Primary Care Provider Active S tart: November 15, 2023 End: November 15, 2023 Fernando Moreno DPM Attending Provider Active Start: November 15, 2023 End: November 15, 2023 Team Status: Inactive Member Role Status Dates Federico Adams MD Attending Provider Active S tart: December 25, 2023 End: December 25, 2023 Negar Francois MD Primary Care Provider Active S tart: December 25, 2023 End: December 25, 2023 Team Status: Inactive Member Role Status Dates Negar Francois MD Primary Care Provider Active S tart: December 30, 2023 End: December 30, 2023 Angel Meléndez MD Attending Provider Active Start: December 30, 2023 End: December 30, 2023 Team Status: Active Member Role Status Dates Negar Francois MD Primary Care Provider Active S tart: December 30, 2023 Angel Meléndez MD Attending Prov ider, Other Provider Active Start: December 30, 2023 Team Status: Inactive Member Role Status Dates Negar Francois MD Primary Care Provider Active S tart: February 04, 2024 End: February 04, 2024 Fernando Moreno DPM Attending Provider Active Start: February 04, 2024 End: February 04, 2024 Team Status: Inactive Member Role Status Dates Negar Francois MD Primary Care Provider Active S tart: February 20, 2024 End: February 20, 2024 Ashia Sotomayor FRAME RUNNER-C Attending Provider Active Start: February 20, 2024 End: February 20, 2024 Team Status: Active Member Role Status Dates Negar Francois MD Primary Care Provider Active S tart: February 20, 2024 Angel Meléndez MD Attending Provider Active Start: February 20, 2024 Team Status: Inactive Member Role Status Dates Negar Francois MD Primary Care Provider Active S tart: February 20, 2024 End: February 20, 2024 Angel Meléndez MD Attending Provider Active Start: February 20, 2024 End: February 20, 2024 Cloth Mender Relationship Specialty Start Date End Date Negar Francois MD [address], [place] [address] PCP - General 09/24/23 Cloth Mender Relationship Specialty Start Date End Date Negar Francois MD [address], [place] [address] PCP - General 09/24/23 Cloth Mender Relationship Specialty Start Date End Date Negar Francois MD [address], [place] [address] PCP - General 09/24/23 Cloth Mender Relationship Specialty Start Date End Date Negar Francois MD [address], [place] [address] PCP - General 09/24/23 Cloth Mender Relationship Specialty Start Date End Date Negar Francois MD [address], [place] [address] PCP - General 09/24/23 Cloth Mender Relationship Specialty Start Date End Date Negar Francois MD [address], [place] [address] PCP - General 09/24/23 Cloth Mender Relationship Specialty Start Date End Date Negar Francois MD [address], [place] [address] PCP - General 09/24/23 Cloth Mender Relationship Specialty Start Date End Date Linda Regalado APRN-[facility] [address] [place] [address], [place] [facility] [address] PCP - General Nurse Practitioner 04/30/24 Cloth Mender Relationship Specialty Start Date End Date Negar Francois MD [address], [place] [address] PCP - General 09/24/23 Cloth Mender Relationship Specialty Start Date End Date Negar Francois MD [address], [place] [address] PCP - General 09/24/23 Cloth Mender Relationship Specialty Start Date End Date Linda Regalado APRN[facility] [address] [place] [address], [facility] [place] [phone] PCP - General Nurse Practitioner 04/30/24 Cloth Mender Relationship Specialty Start Date End Date Linda Regalado APRN-[facility] [address] [place] [address], [place] [phone] PCP - General Nurse Practitioner 04/30/24 Cloth Mender Relationship Specialty Start Date End Date Linda Regalado APRN-[facility] [address] [place] [address], [place] [phone] PCP - General Nurse Practitioner 04/30/24 Cloth Mender Relationship Specialty Start Date End Date Linda Regalado APRN[facility] [address] [place] [address], [place] [address] PCP - General Nurse Practitioner 04/30/24 Cloth Mender Relationship Specialty Start Date End Date Linda Regalado APRN-[facility] [address] [place] [address], [place] [phone] PCP - General Nurse Practitioner 04/30/24 Cloth Mender Relationship Specialty Start Date End Date Fabricio Linda [facility]IDE [facility] [address] [place] [address], [place] [address] PCP - General Nurse Practitioner 04/30/24 Cloth Mender Relationship Specialty Start Date End Date Negar Francois MD [address], [facility] [place] [address] PCP - General 09/24/23 Cloth Mender Relationship Specialty Start Date End Date Negar Francois MD [address], [place] [address] PCP - General 09/24/23 Cloth Mender Relationship Specialty Start Date End Date Fabricio Linda [facility] [address] [place], [place] [address] PCP - General Nurse Practitioner 04/30/24 Cloth Mender Relationship Specialty Start Date End Date Negar Francois MD [address] [place] [id number] PCP - General 09/24/23 Cloth Mender Relationship Specialty Start Date End Date Negar Francois MD [address] [place] [address] PCP - General 09/24/23 Goals (unrecognized section and content) Goals may be documented in a n alternate section FOR RECORDS PERTAINING TO PATIENTS WHO ARE OR HAVE BEEN ENROLLED IN A CHEMICAL DEPENDENCY/SUBSTANCEABUSE PROGRAM, SOME INFORMATION MAY BE OMITTED. This clinical summary was aggregated from multiple sources. Caution should be exercised in using it in the provision of clinical care. This summary normalizes information from multiple sources, and as a consequence, information in this document may materially change the coding, format and clinical context of patient data. In addition, data may be omitted in some cases. CLINICAL DECISIONS SHOULD BE BASED ON THE PRIMARY CLINICAL RECORDS. [employer] [facility]. provides no warranty or guarantee of the accuracy or completeness of information in this document.
== END 2024-07-03 10:40 | disposition home or self-care (01) ==
LOC: EC 10:39
PROVIDERS: Visit Provider Orthopaedic Surgery Orthopaedic Surgery of the Spine
DX: M54.2 Cervicalgia (principal)
CPT/HCPCS: 72052